=== PATIENT | male | born 1960 | race Two or more races ===

== ENCOUNTER 2016-04-10 09:14 | Day surgery (SDC) | payer MEDICAID ==
[2016-04-01 10:12] LABS: ABSOLUTE BASOPHILS # (AUTO) 0.1 10^3/uL (0.0-0.2); ABSOLUTE EOSINOPHILS # (AUTO) 0.3 10^3/uL (0.0-0.6); ABSOLUTE LYMPHOCYTES (AUTO) 1.5 10^3/uL (0.5-4.7); ABSOLUTE MONOCYTES (AUTO) 0.6 10^3/uL (0.1-1.4); ABSOLUTE NEUT (AUTO) 3.9 10^3/uL (1.7-8.2); BASOPHILS % (AUTO) 2.3 % (0-2); EOSINOPHILS % (AUTO) 4.1 % (0-6); HEMATOCRIT 45.1 % (37.9-51.0); HEMOGLOBIN 15.4 g/dL (13.5-17.0); HGB HCT DIFFERENCE 1.1; LYMPHOCYTES % (AUTO) 23.2 % (13-45); MEAN CORPUSCULAR HEMOGLOBIN 34.7 pg (27.0-33.4); MEAN CORPUSCULAR HGB CONC 34.2 g/dL (32.0-36.0); MEAN CORPUSCULAR VOLUME 101 fl (80-97); MONOCYTES % (AUTO) 9.9 % (3-13); RED BLOOD COUNT 4.45 10^6/uL (4.35-5.55); RED CELL DISTRIBUTION WIDTH 13.2 % (11.5-14.0); SEGMENTED NEUTROPHILS % (AUTO) 60.5 % (42-78); WHITE BLOOD COUNT 6.5 10^3/uL (4.0-10.5)
[2016-04-01 10:48] LABS: ANION GAP 8 (5-19); BLOOD UREA NITROGEN 7 mg/dL (7-20); CALCIUM 9.6 mg/dL (8.4-10.2); CARBON DIOXIDE 29 mmol/L (22-30); CHLORIDE 102 mmol/L (98-107); CREATININE RESULT 0.94 mg/dL (0.52-1.25); GLUCOSE 84 mg/dL (75-110); POTASSIUM 4.9 mmol/L (3.6-5.0); SODIUM 139.3 mmol/L (137-145)
--- NOTE | 2016-04-01 11:47 | EKG REPORT ---
SEVERITY:- ABNORMAL ECG - SINUS RHYTHM FIRST DEGREE AV BLOCK PROBABLE LEFT ATRIAL ABNORMALITY LEFT BUNDLE BRANCH BLOCK : Confirmed by: Adriane Dumont MD 01-Apr-2016 11:46:18
[~2016-04-10 09:14] MED LIST: LACTATED RINGERS 1000 ML IV PRN; LIDOCAINE 0.5% INJ-PF (5 MG/ML) 50 ML SDV SUBCUT PRN
[2016-04-10] MEDS ORDERED: BUPIVACAINE HCL 0.5%/EPI 1:200000 INJ 1.8 ML CARTRIDGE ONE (11:08)
[2016-04-10] MEDS ORDERED: LIDOCAINE 2%/EPINEPHRINE INJ 1.7 ML CARTRIDGE ONE (11:08)
[2016-04-10] MEDS ORDERED: PROPOFOL INJ 200 MG/20 ML VIAL IV ONE (12:09)
[2016-04-10] MEDS ORDERED: FENTANYL CITRATE INJ/PF 100 MCG/2 ML AMPUL ONE (12:09)
[2016-04-10] MEDS ORDERED: MIDAZOLAM 2 MG/2 ML INJ ONE (12:09)
[2016-04-10] MEDS ORDERED: LIDOCAINE 2% INJ (20 MG/ML) 20 ML MDV ONE (12:10)
[2016-04-10] MEDS ORDERED: PROMETHAZINE HCL INJ 25 MG/1 ML VIAL IV PRN ×2 (13:07)
[2016-04-10] MEDS ORDERED: DIPHENHYDRAMINE HCL 50 MG/ML VIAL IV PRN (13:07)
[2016-04-10] MEDS ORDERED: MORPHINE SULFATE 10 MG/ML INJ IV PRN (13:07)
[2016-04-10] MEDS ORDERED: OXYCODONE-ACETAMINOPHEN 5-325 MG TABLET PO PRN ×3 (13:07→13:32)
[2016-04-10] MEDS ORDERED: FENTANYL CITRATE INJ/PF 100 MCG/2 ML AMPUL IV PRN ×3 (13:07)
[2016-04-10] MEDS ORDERED: MEPERIDINE HCL/PF INJ 25 MG/1 ML DISP.SYRIN IV PRN (13:07)
[2016-04-10 14:38] VITALS: BP 119/74
--- NOTE | 2016-04-10 14:39 | Operative Report ---
Operative Report DATE OF SURGERY: 04/10/16 PREOPERATIVE DIAGNOSIS: Periodontitis and dental caries POSTOPERATIVE DIAGNOSIS: Same OPERATION: Surgical removal of teeth numbers 2, 3, 6, 8, 10, 11, 12, 17, 18, 19 , 20, 21, 22, 23, 24, 25, 26, 27, 28, 29, 30, 31 and 32 with alveoloplasties of all 4 quadrants SURGEON: AJ HENRIQUEZ ANESTHESIA: GA TISSUE REMOVED OR ALTERED: Teeth which were discarded COMPLICATIONS: None ESTIMATED BLOOD LOSS: 30 mL INTRAOPERATIVE FINDINGS: Nonrestorable teeth PROCEDURE: The patient was brought into operating room #2 and placed on the operating room table in supine position. IV sedation was achieved by anesthesia department. A total of 2 carpules of 2% lidocaine with 1:100,000 epinephrine, 2 carpules of half percent Marcaine with 1:200,000 epinephrine and 3 mL of 2% lidocaine without epinephrine were delivered to the planned surgical sites via both infiltration and nerve block. A gauze throat screen was used throughout the procedure. A bite block was used throughout the procedure. Full-thickness mucoperiosteal flaps were developed via envelope incisions around the sulcus of the teeth. Ostectomy was completed as needed. The teeth were delivered using elevators and forceps. Alveoloplasties were completed using rongeurs and bone files. The sockets were curetted free of any debris. Gauze packs were placed bilaterally to aid in continued hemostasis. The patient was transferred to recovery room in stable spontaneous breathing fashion.
== END 2016-04-10 14:35 | disposition home or self-care (01) ==
LOC: OROUT 09:14
PROVIDERS: ATTEND Dentist Oral and Maxillofacial Surgery
PROC: 0CDWXZ1 Extraction of Upper Tooth, Multiple, External Approach (ICD-10-PCS; 2016-04-10)
PROC: 0NQVXZZ Repair Left Mandible, External Approach (ICD-10-PCS; 2016-04-10)
PROC: 0NQTXZZ Repair Right Mandible, External Approach (ICD-10-PCS; 2016-04-10)
PROC: 0NQRXZZ Repair Maxilla, External Approach (ICD-10-PCS; 2016-04-10)
PROC: 0NQSXZZ (ICD-10-PCS; 2016-04-10)
PROC: 0CDXXZ1 Extraction of Lower Tooth, Multiple, External Approach (ICD-10-PCS; principal; 2016-04-10 12:00)
DX: K02.9 Dental caries, unspecified (principal); K05.30 Chronic periodontitis, unspecified; F17.210 Nicotine dependence, cigarettes, uncomplicated; I10 Essential (primary) hypertension; Z86.73 Personal history of transient ischemic attack (TIA), and cerebral infarction without residual deficits; Z79.82 Long term (current) use of aspirin; Z79.899 Other long term (current) drug therapy; I42.8 Other cardiomyopathies; I50.22 Chronic systolic (congestive) heart failure; R00.0 Tachycardia, unspecified; R55 Syncope and collapse; I44.7 Left bundle-branch block, unspecified; F17.200 Nicotine dependence, unspecified, uncomplicated; I73.9 Peripheral vascular disease, unspecified; R73.09 Other abnormal glucose; J44.9 Chronic obstructive pulmonary disease, unspecified; E87.5 Hyperkalemia
CPT/HCPCS: 93005; 36415 ×2; 83735; 84132; 85025; 80048; 71020; 93010; 41899; 41874 ×4; J2250; J3490 ×3; J2704; 170; J3010

== ENCOUNTER 2016-12-01 19:04 | Emergency (ER) | payer MEDICAID ==
[2016-12-01] MEDS ORDERED: ASPIRIN 81 MG TABLET, CHEWABLE PO ONE (20:28)
[2016-12-01 20:46] LABS: ABSOLUTE BASOPHILS # (AUTO) 0.1 10^3/uL (0.0-0.2); ABSOLUTE LYMPHOCYTES (AUTO) 0.9 10^3/uL (0.5-4.7); ABSOLUTE MONOCYTES (AUTO) 0.4 10^3/uL (0.1-1.4); ABSOLUTE NEUT (AUTO) 6.6 10^3/uL (1.7-8.2); BASOPHILS % (AUTO) 1.4 % (0-2); EOSINOPHILS % (AUTO) 0.6 % (0-6); HEMATOCRIT 52.5 % (37.9-51.0); HEMOGLOBIN 18.3 g/dL (13.5-17.0); HGB HCT DIFFERENCE 2.4; LYMPHOCYTES % (AUTO) 11.6 % (13-45); MEAN CORPUSCULAR HEMOGLOBIN 36.3 pg (27.0-33.4); MEAN CORPUSCULAR HGB CONC 34.8 g/dL (32.0-36.0); MEAN CORPUSCULAR VOLUME 104 fl (80-97); MONOCYTES % (AUTO) 4.6 % (3-13); RED BLOOD COUNT 5.03 10^6/uL (4.35-5.55); SEGMENTED NEUTROPHILS % (AUTO) 81.8 % (42-78); WHITE BLOOD COUNT 8.1 10^3/uL (4.0-10.5)
--- NOTE | 2016-12-01 20:46 | ER Document Report ---
ED General - General Chief Complaint: Shortness Of Breath Stated Complaint: shortness of breath Time Seen by Provider: 12/01/16 20:28 Mode of Arrival: Ambulatory Information source: Patient Notes: This is a 56-year-old man with a history of a dilated cardiomyopathy that presents to the emergency room with shortness of breath, sweating, increased fatigue and increased weakness. Patient denies any chest pain. Patient denies any syncopal episodes. TRAVEL OUTSIDE OF THE [place] IN LAST 30 DAYS: No - HPI Onset: Last week Onset/Duration: Gradual Quality of pain: No pain Severity: None Pain Level: Denies Associated symptoms: Nausea. denies: Chest pain, Fever, Shortness of breath Exacerbated by: Denies Relieved by: Denies Similar symptoms previously: Yes Recently seen / treated by doctor: Yes - Related Data Allergies/Adverse Reactions: No Known Allergies Allergy (Verified 04/01/16 09:58) Past Medical History - General Information source: Patient - Social History Smoking Status: Current Every Day Smoker Cigarette use (# per day): Yes - Three quarters of a pack a day Chew tobacco use (# tins/day): No Frequency of alcohol use: None Drug Abuse: None Lives with: Family Family History: Reviewed & Not Pertinent Patient has suicidal ideation: No Patient has homicidal ideation: No - Past Medical History Cardiac Medical History: Reports: Hx Heart Attack - 8 MONTHS AGO, ON HEART MONITOR NOW, Hx Hypertension Denies: Hx Coronary Artery Disease Pulmonary Medical History: Denies: Hx Asthma, Hx Bronchitis, Hx COPD, Hx Pneumonia Neurological Medical History: Denies: Hx Cerebrovascular Accident, Hx Seizures Renal/ Medical History: Denies: Hx Peritoneal Dialysis Musculoskeltal Medical History: Denies Hx Arthritis Past Surgical History: Reports: Hx Pacemaker - Immunizations Hx Diphtheria, Pertussis, Tetanus Vaccination: Yes Review of Systems - Review of Systems Constitutional: denies: Chills, Fever EENT: No symptoms reported Cardiovascular: See HPI Respiratory: No symptoms reported Gastrointestinal: See HPI Genitourinary: No symptoms reported Male Genitourinary: No symptoms reported Musculoskeletal: No symptoms reported - Really Skin: No symptoms reported Hematologic/Lymphatic: No symptoms reported Neurological/Psychological: No symptoms reported Physical Exam - Vital signs Vitals: Pulse Resp BP Pulse Ox 79 20 140/92 H 100 12/01/16 19:49 12/01/16 19:49 12/01/16 19:49 12/01/16 19:49 Notes: Physical exam: GENERAL: 56-year-old man, alert and oriented 3, no acute distress HEAD: Atraumatic, normocephalic. EYES: Pupils equal round and reactive to light, extraocular movements intact, sclera anicteric, conjunctiva are normal. ENT: TMs normal, nares patent, oropharynx clear without exudates. Moist mucous membranes. NECK: Normal range of motion, supple without obvious mass or JVD. LUNGS: Breath sounds clear to auscultation bilaterally and equal. No wheezes rales or rhonchi. HEART: Regular rate and rhythm without murmurs, rubs or gallops. ABDOMEN: Soft, normoactive bowel sounds. No tenderness to palpation. No guarding, no rebound. No masses appreciated. EXTREMITIES: Normal range of motion, no pitting or edema. No clubbing or cyanosis. NEUROLOGICAL: Cranial nerves II through XII grossly intact. Normal speech, moving all extremities. PSYCH: Normal mood, normal affect. SKIN: Warm, Dry, normal turgor, no rashes or lesions noted. Course - Re-evaluation Re-evalutation: The patient's issues are as follows: He does have a history of a dilated cardiomyopathy with ejection fraction of approximately 15%. He is followed by Dr. Hicks of cardiology in [facility]. On physical exam, his lungs are clear, he does not have any JVD, and he has no edema. The patient has actually been losing weight. He has not had any chest pain. His BNP is elevated but I think this is probably chronic in nature. His chest x-ray is completely clear. The plan would be to continue his current medicine regimen. The next issue is his elevated liver enzymes. I have had a long discussion with the patient as well as the patient's . While you can sometimes see elevated liver enzymes with cardiomyopathy, the patient does admit to drinking a lot lately. I reiterated to him that the alcohol can also affect his cardiomyopathy. I have recommended he stop and he is ready to do so. I gave him a copy of today's labs to follow-up with Dr. Hicks. 12/01/16 22:40 - Vital Signs Vital signs: Temp Pulse Resp BP Pulse Ox 98.0 F 76 20 105/74 94 12/01/16 22:50 12/01/16 22:50 12/01/16 22:50 12/01/16 22:50 12/01/16 22:50 - Laboratory Result Diagrams: 12/01/16 20:24 12/01/16 20:24 Laboratory results interpreted by me: 12/01/16 12/01/16 12/01/16 20:24 20:24 20:24 Hgb 18.3 H Hct 52.5 H MCV 104 H MCH 36.3 H Seg Neutrophils % 81.8 H Lymphocytes % 11.6 L Sodium 131.3 L Chloride 94 L Carbon Dioxide 20 L Direct Bilirubin 0.8 H AST 260 H ALT 99 H Alkaline Phosphatase 160 H Creatine Kinase 46 L NT-Pro-B Natriuret Pep 6360 H - Diagnostic Test Radiology reviewed: Image reviewed, Reports reviewed - Chest x-ray shows no infiltrates - EKG Interpretation by Me Rate: Normal Rhythm: NSR - EKG shows normal sinus rhythm with a left bundle branch block with diffuse T and ST abnormalities which appear unchanged from an EKG performed April 01, 2016 Discharge - Discharge Clinical Impression: Cardiomyopathy, Elevated liver enzymes Condition: Stable Disposition: HOME, SELF-CARE Additional Instructions: Thank you for choosing [facility] for your care. The examination and treatment you have received in the Emergency Department today has been rendered on an emergency basis only and is not intended to be a substitute for complete medical care. You should contact your follow-up physician as it is important that he or she examine you for any new or remaining problems. If given a copy of any lab tests or radiology reports, please bring them with you when you see your physician. If your problem worsens or new symptoms appear and you are unable to arrange prompt follow-up care, return to the Emergency Department. Specific signs to look out for: Worsening weakness, concerns for passing out, any chest pain or shortness of breath. Any other instructions: Continue current medicines. Follow-up with your gum rolling machine tender (Dr. Hicks). Bring in copy of today's labs with you when you go. It is important that you stop drinking alcohol: It is affecting your liver at this point and can affect her heart. Referrals: JESSY GARRIDO MD [Primary Care Provider] - Follow up as needed
--- NOTE | 2016-12-01 21:03 | EKG REPORT ---
SEVERITY:- ABNORMAL ECG - SINUS RHYTHM FIRST DEGREE AV BLOCK LEFT ATRIAL ABNORMALITY NONSPECIFIC INTRAVENTRICULAR CONDUCTION DELAY CONSIDER LEFT VENTRICULAR HYPERTROPHY : Confirmed by: Adriane Dumont MD 01-Dec-2016 21:03:02
[2016-12-01 21:06] LABS: ALANINE AMINOTRANSFERASE 99 U/L (21-72); ALBUMIN 4.2 g/dL (3.5-5.0); ALKALINE PHOSPHATASE 160 U/L (38-126); ANION GAP 17 (5-19); ASPARTATE AMINO TRANSFERASE 260 U/L (17-59); BILIRUBIN,DIRECT 0.8 mg/dL (0.0-0.4); BILIRUBIN,TOTAL 1.3 mg/dL (0.2-1.3); BLOOD UREA NITROGEN 10 mg/dL (7-20); CALCIUM 9.3 mg/dL (8.4-10.2); CARBON DIOXIDE 20 mmol/L (22-30); CHLORIDE 94 mmol/L (98-107); CREATINE KINASE 46 U/L (55-170); CREATININE RESULT 0.75 mg/dL (0.52-1.25); GLUCOSE 90 mg/dL (75-110); POTASSIUM 4.8 mmol/L (3.6-5.0); SODIUM 131.3 mmol/L (137-145)
--- NOTE | 2016-12-01 21:08 | RADIOLOGY REPORT (SQ) ---
EXAM DESCRIPTION: CHEST SINGLE VIEW COMPLETED DATE/TIME: 12/01/2016 8:53 pm REASON FOR STUDY: sob COMPARISON: March 2016 EXAM PARAMETERS: NUMBER OF VIEWS: One view. TECHNIQUE: Single frontal radiographic view of the chest acquired. RADIATION DOSE: NA LIMITATIONS: None. FINDINGS: LUNGS AND PLEURA: No opacities, masses or pneumothorax. No pleural effusion. MEDIASTINUM AND HILAR STRUCTURES: No masses. Contour normal. HEART AND VASCULAR STRUCTURES: Heart normal in size. Normal vasculature. BONES: No acute findings. HARDWARE: None in the chest. OTHER: No other significant finding. IMPRESSION: NO ACUTE RADIOGRAPHIC FINDING IN THE CHEST. TECHNICAL DOCUMENTATION: JOB ID: [id number]
[2016-12-01 21:17] LABS: CREATINE KINASE MB 0.53 ng/mL (<4.55); TROPONIN I < 0.012 ng/mL
[2016-12-01 22:52] VITALS: BP 105/74
[2016-12-01] MEDS ORDERED: FUROSEMIDE INJ/PF 40 MG/4 ML SDV IV ONE (23:15)
== END 2016-12-01 23:30 | disposition home or self-care (01) ==
LOC: ER 19:04
DX: I42.9 Cardiomyopathy, unspecified (principal); R74.8 Abnormal levels of other serum enzymes; R06.02 Shortness of breath; R11.0 Nausea; F17.210 Nicotine dependence, cigarettes, uncomplicated; I10 Essential (primary) hypertension; I25.2 Old myocardial infarction
CPT/HCPCS: 93005; 99284; 96374; 36415; 82553; 82550; 85025; 80053; 84484; 83880; 71010; 93010; J1940

== ENCOUNTER 2017-02-26 15:06 | Inpatient (IN) | payer MEDICAID ==
--- NOTE | 2017-02-26 15:40 | ER Document Report ---
ED Medical Screen (RME) - General Chief Complaint: Breathing Difficulty Stated Complaint: DIFFICULTY BREATHING Time Seen by Provider: 02/26/17 15:37 Notes: Patient presented to Dr. Beckford's office with shortness of breath this morning. Chest x-ray was consistent with CHF. Laboratories were also done and consistent with CHF. Dr. Beckford referred patient to the emergency department for further evaluation. TRAVEL OUTSIDE OF THE [place] IN LAST 30 DAYS: No - Related Data Allergies/Adverse Reactions: No Known Allergies Allergy (Verified 02/26/17 15:07) Past Medical History - Social History Chew tobacco use (# tins/day): No Frequency of alcohol use: Heavy Drug Abuse: Marijuana - Past Medical History Cardiac Medical History: Reports: Hx Heart Attack - 8 MONTHS AGO, ON HEART MONITOR NOW, Hx Hypertension Denies: Hx Coronary Artery Disease Pulmonary Medical History: Denies: Hx Asthma, Hx Bronchitis, Hx COPD, Hx Pneumonia Neurological Medical History: Denies: Hx Cerebrovascular Accident, Hx Seizures Renal/ Medical History: Denies: Hx Peritoneal Dialysis Musculoskeltal Medical History: Denies Hx Arthritis Past Surgical History: Reports: Hx Pacemaker - Immunizations Hx Diphtheria, Pertussis, Tetanus Vaccination: Yes Physical Exam - Vital signs Vitals: Temp Pulse Resp BP Pulse Ox 97.6 F 79 20 97/63 L 97 02/26/17 15:12 02/26/17 15:12 02/26/17 15:12 02/26/17 15:12 02/26/17 15:12 Course - Vital Signs Vital signs: Temp Pulse Resp BP Pulse Ox 97.6 F 79 20 97/63 L 97 02/26/17 15:12 02/26/17 15:12 02/26/17 15:12 02/26/17 15:12 02/26/17 15:12
--- NOTE | 2017-02-26 16:07 | ER Document Report ---
ED Respiratory Problem - General Chief Complaint: Breathing Difficulty Stated Complaint: DIFFICULTY BREATHING Time Seen by Provider: 02/26/17 15:37 Notes: The patient is a 56-year-old male, past medical history CHF from CAD (used to have Lifevest 7 months ago, but no longer has one), presents from his primary care physician's office, Dr. Beckford, after he had x-rays and blood work done this morning that were consistent with a CHF exacerbation. He says that he is having worsening dyspnea on exertion and can only take 5 steps without stopping now. Patient takes spironolactone 25 mg daily. Patient denies chest pain, nausea, vomiting, cough, fevers, leg swelling, headache or back pain. TRAVEL OUTSIDE OF THE [place] IN LAST 30 DAYS: No - Related Data Allergies/Adverse Reactions: No Known Allergies Allergy (Verified 02/26/17 15:07) Past Medical History - General Information source: Patient - Social History Smoking Status: Current Every Day Smoker Chew tobacco use (# tins/day): No Frequency of alcohol use: Heavy Drug Abuse: Marijuana Family History: Reviewed & Not Pertinent Patient has suicidal ideation: No Patient has homicidal ideation: No - Past Medical History Cardiac Medical History: Reports: Hx Heart Attack - 8 MONTHS AGO, ON HEART MONITOR NOW, Hx Hypertension Denies: Hx Coronary Artery Disease Pulmonary Medical History: Denies: Hx Asthma, Hx Bronchitis, Hx COPD, Hx Pneumonia Neurological Medical History: Denies: Hx Cerebrovascular Accident, Hx Seizures Renal/ Medical History: Denies: Hx Peritoneal Dialysis Musculoskeltal Medical History: Denies Hx Arthritis Past Surgical History: Reports: Hx Pacemaker - Immunizations Hx Diphtheria, Pertussis, Tetanus Vaccination: Yes Review of Systems - Review of Systems Notes: REVIEW OF SYSTEMS: CONSTITUTIONAL: -fevers, -chills EENT: -eye pain, -difficulty swallowing, -nasal congestion CARDIOVASCULAR:-chest pain, -syncope. RESPIRATORY: -cough, +SOB GASTROINTESTINAL: -abdominal pain, - nausea, -vomiting, -diarrhea GENITOURINARY: -dysuria, -hematuria MUSCULOSKELETAL: -back pain, -neck pain SKIN: -rash or skin lesions. HEMATOLOGIC: -easy bruising or bleeding. LYMPHATIC: -swollen, enlarged glands. NEUROLOGICAL: -altered mental status or loss of consciousness, -headache, - neurologic symptoms PSYCHIATRIC: -anxiety, -depression. ALL OTHER SYSTEMS REVIEWED AND NEGATIVE. Physical Exam - Vital signs Vitals: Temp Pulse Resp BP Pulse Ox 97.6 F 79 20 97/63 L 97 02/26/17 15:12 02/26/17 15:12 02/26/17 15:12 02/26/17 15:12 02/26/17 15:12 - Notes Notes: PHYSICAL EXAMINATION: GENERAL: Well-appearing, well-nourished and in no acute distress. HEAD: Atraumatic, normocephalic. EYES: Pupils equal round and reactive to light, extraocular movements intact, sclera anicteric, conjunctiva are normal. ENT: nares patent, oropharynx clear without exudates. Moist mucous membranes. NECK: Normal range of motion, supple without lymphadenopathy LUNGS: Rales in all lung silva. Mild respiratory distress. HEART: Regular rate and rhythm without murmurs ABDOMEN: Soft, nontender, normoactive bowel sounds. No guarding, no rebound. No masses appreciated. EXTREMITIES: Normal range of motion, no pitting or edema. No cyanosis. NEUROLOGICAL: Cranial nerves grossly intact. Normal speech, normal gait. Normal sensory and motor exams. PSYCH: Normal mood, normal affect. SKIN: Warm, Dry, normal turgor, no rashes or lesions noted. Course - Re-evaluation Re-evalutation: Patient with worsening pulmonary edema causing dyspnea on exertion. The blood work and chest x-ray from his visit with Dr. Beckford this morning were reviewed. He is only having mild tachypnea without hypoxia while at rest. Patient given a low dose of Lasix to help with his pulmonary vascular congestion and will admit patient as inpatient for further evaluation and monitoring. 02/26/17 16:[address] Rosales and will admit as Inpatient to [facility] for further evaluation and monitoring of his respiratory status and CHF exacerbation. - Vital Signs Vital signs: Temp Pulse Resp BP Pulse Ox 97.6 F 79 20 97/63 L 97 02/26/17 15:12 02/26/17 15:12 02/26/17 15:12 02/26/17 15:12 02/26/17 15:12 - Diagnostic Test Radiology reviewed: Image reviewed, Reports reviewed Radiology results interpreted by me: CXR (from this morning): pulmonary vascular congestion - EKG Interpretation by Me Rate: Normal [place]/QRS: Left axis deviation Voltage: Consistant with LVH When compared to previous EKG there are: No significant change Discharge - Discharge Clinical Impression: CHF exacerbation Qualifiers: Congestive heart failure type: unspecified congestive heart failure type Qualified Code(s): I50.9 - Heart failure, unspecified Condition: Stable Disposition: ADMITTED INPATIENT Admitting Provider: Hospitalist - [facility] Admitted: Telemetry
[2017-02-26] MEDS ORDERED: FUROSEMIDE INJ/PF 20 MG/2 ML SDV IV ONE (16:16)
[2017-02-26] MEDS ORDERED: ACETAMINOPHEN 325 MG TABLET PO PRN (16:51)
[2017-02-26] MEDS ORDERED: ONDANSETRON HCL INJ/PF 4 MG/2 ML SDV IV PRN (16:51)
--- NOTE | 2017-02-26 17:23 | PDOC H&P ---
History of Present Illness Admission Date/PCP: 02/26/17 16:56 JESSY GARRIDO MD Patient complains of: Shortness of breath for several months History of Present Illness: RAKESH MCCABE is a 56 year old male presents to the emergency room via primary care provider's office with complaint of shortness of breath. Patient was seen at his primary care provider's office where he had a chest x-ray and labs done. Chest x-ray demonstrated evidence consistent with congestive heart failure therefore patient was directed to the emergency room. Patient reports that he has been short of breath for approximately 7 months. Patient states that he also has productive cough which is not normal for him. Patient states the productive cough has been present for about 7 months as well. Patient states he is having leg cramping and needlelike sensations in legs. Patient states that he has not had lower extremity swelling but he has noticed that he has had facial swelling. Patient also reports that he has had hard time only and flat due to feeling short of breath. Patient states that this symptom has been present for several months as well. Patient also reports that he has had a 20 pound weight loss in the last 6 months. Patient reports that he does smoke 1 pack per day of cigarettes for approximately 35 years. Patient reports that he was diagnosed with congestive heart failure and was required to wear a LifeVest ; reports that LifeVest was removed during the last few months. Past Medical History Cardiac Medical History: Reports: Myocardial Infarction - 8 MONTHS AGO, ON HEART MONITOR NOW, Hypertension Denies: Coronary Artery Disease Pulmonary Medical History: Denies: Asthma, Bronchitis, Chronic Obstructive Pulmonary Disease (COPD), Pneumonia Neurological Medical History: Denies: Seizures Musculoskeltal Medical History: Denies: Arthritis Hematology: Denies: Anemia Past Surgical History Past Surgical History: Reports: Pacemaker Social History Smoking Status: Current Every Day Smoker Frequency of Alcohol Use: Heavy - 8 beers a day Hx Recreational Drug Use: No Drugs: None - Advance Directive Resuscitation Status: Full Code Family History Family History: Reviewed & Not Pertinent Parental Family History Reviewed: Yes Children Family History Reviewed: Yes Sibling(s) Family History Reviewed.: Yes Medication/Allergy Home Medications: Albuterol Sulfate [Proair HFA] 2 puff IN Q4 02/26/17 Budesonide/Formoterol Fumarate [Symbicort 160-4.5 Mcg Inhaler] 2 puff IN Q12 Carvedilol [Coreg 25 mg Tablet] 25 mg PO Q12 02/26/17 Lisinopril [Prinivil 10 mg Tablet] 10 mg PO DAILY 02/26/17 Spironolactone [Aldactone 25 mg Tablet] 25 mg PO DAILY 02/26/17 Allergies/Adverse Reactions: No Known Allergies Allergy (Verified 02/26/17 15:07) Review of Systems Constitutional: PRESENT: weight loss. ABSENT: as per HPI, anorexia, chills, fatigue, fever(s), headache(s), night sweats, weakness, weight gain, other Eyes: ABSENT: visual disturbances Ears: ABSENT: hearing changes Cardiovascular: PRESENT: orthropnea. ABSENT: chest pain, dyspnea on exertion, edema, palpitations Respiratory: PRESENT: cough, dyspnea, sputum Gastrointestinal: ABSENT: abdominal pain, constipation, diarrhea, hematemesis, hematochezia, nausea, vomiting Genitourinary: ABSENT: dysuria, hematuria Musculoskeletal: ABSENT: joint swelling Integumentary: ABSENT: rash, wounds Neurological: ABSENT: abnormal gait, abnormal speech, confusion, dizziness, focal weakness, syncope Psychiatric: ABSENT: anxiety, depression, homidical ideation, suicidal ideation Endocrine: ABSENT: cold intolerance, heat intolerance, polydipsia, polyuria Hematologic/Lymphatic: ABSENT: easy bleeding, easy bruising Physical Exam Vital Signs: Temp Pulse Resp BP Pulse Ox 97.6 F 79 20 97/63 L 97 02/26/17 15:12 02/26/17 15:12 02/26/17 15:12 02/26/17 15:12 02/26/17 15:12 General appearance: PRESENT: no acute distress, thin Head exam: PRESENT: atraumatic, normocephalic Eye exam: PRESENT: conjunctiva pink, EOMI. ABSENT: scleral icterus Ear exam: PRESENT: normal external ear exam Mouth exam: PRESENT: moist, tongue midline Neck exam: ABSENT: carotid bruit, JVD, lymphadenopathy, thyromegaly Respiratory exam: PRESENT: decreased breath sounds, prolonged expiratory phas, rhonchi, wheezes, other - Pt watching TV and talking to me during encounter and does not appear to be in any distress. Cardiovascular exam: PRESENT: RRR. ABSENT: diastolic murmur, rubs, systolic murmur Pulses: PRESENT: normal dorsalis pedis pul Vascular exam: PRESENT: normal capillary refill GI/Abdominal exam: PRESENT: normal bowel sounds, soft. ABSENT: distended, guarding, mass, organolmegaly, rebound, tenderness Rectal exam: PRESENT: deferred Extremities exam: PRESENT: full ROM, other - Loss of lower extremity hair pattern. ABSENT: calf tenderness, clubbing, pedal edema Musculoskeletal exam: PRESENT: ambulatory, full ROM Neurological exam: PRESENT: alert, awake, oriented to person, oriented to place , oriented to time, oriented to situation, CN II-XII grossly intact. ABSENT: motor sensory deficit Psychiatric exam: PRESENT: appropriate affect, normal mood. ABSENT: homicidal ideation, suicidal ideation Skin exam: PRESENT: dry, intact, warm. ABSENT: cyanosis, rash Assessment & Plan - Diagnosis (1) Acute bronchitis Is this a current diagnosis for this admission?: Yes Plan: We will place patient on steroids, breathing treatments, and Levaquin. Will monitor patient's respiratory function in the a.m. (2) CHF exacerbation Qualifiers: Congestive heart failure type: systolic Qualified Code(s): I50.23 - Acute on chronic systolic (congestive) heart failure Is this a current diagnosis for this admission?: Yes Plan: Presumed acute on chronic systolic congestive heart failure mild: We will give 1 dose of Lasix and reevaluate in a.m. (3) Moderate protein-calorie malnutrition Is this a current diagnosis for this admission?: Yes Plan: Due to patient's 20 pound weight loss will do CT of chest abdomen and pelvis to evaluate for neoplasm. Patient has never had a colonoscopy. Pt reports that he recently established care with PCP. (4) Hyponatremia Is this a current diagnosis for this admission?: Yes Plan: We will reevaluate once patient's been diuresed. (5) Nonischemic cardiomyopathy Is this a current diagnosis for this admission?: Yes Plan: Patient with history of low EF required a LifeVest. Patient states that LifeVest was removed due to heart function improving. Patient's most recent EF unknown therefore will check a 2D echo. (6) PAD (peripheral artery disease) Is this a current diagnosis for this admission?: Yes Plan: Recommend that patient discontinue smoking. Patient complains of leg cramping most likely due to PAD. Will check lipid profile. (7) EtOH dependence Qualifiers: Substance use status: uncomplicated Qualified Code(s): F10.20 - Alcohol dependence, uncomplicated Is this a current diagnosis for this admission?: Yes Plan: We will give multivitamin, thiamine and folate. Will write for as needed Ativan for EtOH withdrawal (8) Tobacco dependence Is this a current diagnosis for this admission?: Yes Plan: We will write for nicotine patch. Encourage patient to discontinue tobacco use. (9) DVT prophylaxis Is this a current diagnosis for this admission?: Yes Plan: SCDs - Time Time Spent: 30 to 50 Minutes
[2017-02-26] MEDS ORDERED: LORAZEPAM INJ 2 MG/1 ML VIAL IV PRN (17:25)
--- NOTE | 2017-02-26 17:59 | EKG REPORT ---
SEVERITY:- ABNORMAL ECG - SINUS RHYTHM LEFT ATRIAL ABNORMALITY IVCD, CONSIDER ATYPICAL LBBB : Confirmed by: Paddy Ding MD 26-Feb-2017 17:59:07
[2017-02-26] MEDS ORDERED: LEVOFLOXACIN 500 MG/D5W RTU 500 MG/100 ML RTUPB IV ONE (19:00)
[2017-02-26] MEDS: DIAZEPAM 2 MG TABLET PO SCH (19:21)
[2017-02-26] MEDS: ALBUTEROL SULFATE 0.083% NEB 2.5 MG/3 ML AMPUL NEB SCH (19:41)
[2017-02-26] MEDS: METHYLPREDNISOLONE INJ 40 MG/1 ML SDV IV SCH (21:14)
[2017-02-27] MEDS: ALBUTEROL SULFATE 0.083% NEB 2.5 MG/3 ML AMPUL NEB SCH ×4 (01:50→19:58)
[2017-02-27 05:07] LABS: HEMATOCRIT 42.6 % (37.9-51.0); HEMOGLOBIN 14.8 g/dL (13.5-17.0); MEAN CORPUSCULAR HEMOGLOBIN 36.9 pg (27.0-33.4); MEAN CORPUSCULAR HGB CONC 34.8 g/dL (32.0-36.0); MEAN CORPUSCULAR VOLUME 106 fl (80-97); PLATELET COUNT 200 10^3/uL (150-450); RED BLOOD COUNT 4.02 10^6/uL (4.35-5.55); RED CELL DISTRIBUTION WIDTH 14.2 % (11.5-14.0); WHITE BLOOD COUNT 8.9 10^3/uL (4.0-10.5)
[2017-02-27] MEDS: LANSOPRAZOLE 30 MG TAB.RAP.DR PO SCH (05:13)
[2017-02-27 05:26] LABS: ALANINE AMINOTRANSFERASE 32 U/L (21-72); ALBUMIN 2.9 g/dL (3.5-5.0); ALKALINE PHOSPHATASE 162 U/L (38-126); ANION GAP 9 (5-19); ASPARTATE AMINO TRANSFERASE 33 U/L (17-59); BILIRUBIN,DIRECT 0.4 mg/dL (0.0-0.4); BILIRUBIN,TOTAL 0.7 mg/dL (0.2-1.3); BLOOD UREA NITROGEN 9 mg/dL (7-20); CALCIUM 8.8 mg/dL (8.4-10.2); CARBON DIOXIDE 29 mmol/L (22-30); CHLORIDE 93 mmol/L (98-107); GLUCOSE 218 mg/dL (75-110); MAGNESIUM 1.9 mg/dL (1.6-2.3); PHOSPHORUS 4.1 mg/dL (2.5-4.5); POTASSIUM 3.7 mmol/L (3.6-5.0); SODIUM 130.9 mmol/L (137-145); TOTAL PROTEIN 5.5 g/dL (6.3-8.2)
[2017-02-27 05:35] LABS: ABSOLUTE LYMPHOCYTES# (MANUAL) 0.4 10^3/uL (0.5-4.7); ABSOLUTE MONOCYTES # (MANUAL) 0.1 10^3/uL (0.1-1.4); ABSOLUTE NEUTROPHILS# (MANUAL) 8.4 10^3/uL (1.7-8.2); BASOPHILS % (MANUAL) 0 % (0-2); EOSINOPHILS % (MANUAL) 0 % (0-6); LYMPHOCYTES % (MANUAL) 5 % (13-45); MONOCYTES % (MANUAL) 1 % (3-13); SEGMENTED NEUTROPHILS % (MAN) 94 % (42-78); TOTAL CELLS COUNTED 100
[2017-02-27 05:36] LABS: PLATELET COMMENT ADEQUATE
[2017-02-27 05:37] LABS: FREE T4 (FREE THYROXINE) 1.68 ng/dL (0.78-2.19)
[2017-02-27 05:51] LABS: THYROID STIMULATING HORMONE 1.86 uIU/mL (0.47-4.68)
--- NOTE | 2017-02-27 09:28 | RADIOLOGY REPORT (SQ) ---
EXAM DESCRIPTION: CT CHEST WITH; CT ABD/PELVIS WITH IV ORAL COMPLETED DATE/TIME: 02/26/2017 8:47 pm REASON FOR STUDY: SOB, 20 lb weight loss, Tobacco Dependence; 20 lb loss COMPARISON: AP chest 02/26/2017 CONTRAST TYPE AND DOSE: contrast/concentration: Isovue 370.00 mg/ml; Total Contrast Delivered: 80.0 ml; Total Saline Delivered: 51.0 ml RENAL FUNCTION: Creatinine 0.65 TECHNIQUE: CT scan of the chest performed using helical scanning technique with dynamic intravenous contrast injection. Images reviewed with lung, soft tissue and bone windows. Reconstructed coronal a nd sagittal MPR images reviewed. All images stored on PACS. CT scan of the abdomen and pelvis performed with intravenous and with oral contrastusing helical scan sanjay technique with dynamic intravenous contrast injection. Images reviewed with lung, soft tissue a nd bone windows. Reconstructed coronal and sagittal MPR images reviewed. Delayed images for evaluat ion of the urinary system also acquired and evaluated. All images stored on PACS. All CT scanners at this facility use dose modulation, iterative reconstruction, and/or weight based d osing when appropriate to reduce radiation dose to as low as reasonably achievable (ALARA). [facility]: Dose Right [facility]: CareDose [facility]: Dose Right [facility]: Teradose 4D [facility]: Smart Nuvyyo RADIATION DOSE: CT Rad equipment meets quality standard of care and radiation dose reduction techniq ues were employed. CTDIvol: 4.8 - 5.2 mGy. DLP: 587 mGy-cm. . LIMITATIONS: None. FINDINGS: CHEST: LUNGS AND PLEURA: Diffuse changes of obstructive lung disease are present. These are most prominent in the right upper lobe. There is minimal dependent airspace disease in the left lung base atelectasis versus pneumonia, and a trace left pleural effusion. No pneumothorax. No worrisome pulmonary nodules. Airways patent. HILAR AND MEDIASTINAL STRUCTURES: No identified masses or abnormal nodes. HEART AND VASCULAR STRUCTURES: No aneurysm or dissection. No central pulmonary emboli. No pericardi al effusion. Left ventricle is dilated and thin walled, question cardiomyopathy. Overall mild to mo derate cardiomegaly is present. HARDWARE: None. THYROID AND OTHER SOFT TISSUES: No masses. No adenopathy. BONES: No significant finding. OTHER: No other significant finding. ABDOMEN AND PELVIS: LIVER: Diffusely fatty. Normal size. No masses. No dilated ducts. SPLEEN: Normal size. No focal lesions. PANCREAS: No masses. No significant calcifications. No adjacent inflammation or peripancreatic fluid collections. Pancreatic duct not dilated. GALLBLADDER: No identified stones by CT criteria. No inflammatory changes to suggest cholecystitis. ADRENAL GLANDS: No significant masses or asymmetry. RIGHT KIDNEY AND URETER: No solid masses. No significant calcification. No hydronephrosis or hydroure ter. LEFT KIDNEY AND URETER: No solid masses. No significant calcification. No hydronephrosis or hydrouret er. AORTA AND VESSELS: No aneurysm. No dissection. Renal arteries, SMA, celiac without stenosis. RETROPERITONEUM: No retroperitoneal adenopathy, hemorrhage or masses. BOWEL AND PERITONEAL CAVITY: No masses or inflammatory changes. No free fluid or peritoneal masses. APPENDIX: Normal. ABDOMINAL WALL: No masses. No hernias. BONES: No significant or acute findings. OTHER: No other significant finding. IMPRESSION: Trace left pleural effusion with minimal left basilar airspace disease atelectasis versu s pneumonia Obstructive lung disease Cardiomegaly with dilated thin wall left ventricle, worrisome for cardiomyopathy Fatty liver. Otherwise unremarkable CT abdomen pelvis TECHNICAL DOCUMENTATION: JOB ID: [id number] Quality ID # [id number]: Final reports with documentation of one or more dose reduction techniques (e.g., Au tomated exposure control, adjustment of the mA and/or kV according to patient size, use of iterative reconstruction technique) 2010 [employer]- All Rights Reserved
[2017-02-27] MEDS: THIAMINE HCL 100 MG TABLET PO SCH (09:50)
[2017-02-27] MEDS: DIAZEPAM 2 MG TABLET PO SCH ×2 (09:50→18:14)
[2017-02-27] MEDS: FOLIC ACID 1 MG TABLET PO SCH (09:50)
[2017-02-27] MEDS: MULTIVITAMIN TABLET PO SCH (09:50)
[2017-02-27] MEDS: METHYLPREDNISOLONE INJ 40 MG/1 ML SDV IV SCH (09:50)
--- NOTE | 2017-02-27 10:19 | PDOC PROGRESS REPORT ---
Subjective Progress Note for:: 02/27/17 Subjective:: Pt states that his breathing is pretty good. Pt states that his shortness of breath has improved. Reason For Visit: MILD ACUTE ON CHRONIC SYSTOLIC CHF,ACUTE BRONCHITI Physical Exam Vital Signs: Temp Pulse Resp BP Pulse Ox 97.3 F 71 14 119/70 96 02/27/17 08:17 02/27/17 08:24 02/27/17 08:24 02/27/17 08:17 02/27/17 08:24 Intake & Output 02/26/17 02/27/17 02/28/17 06:59 06:59 06:59 Intake Total 942 Output Total 1392 Balance -450 Weight 55.5 kg General appearance: PRESENT: no acute distress, thin Head exam: PRESENT: atraumatic, normocephalic Eye exam: PRESENT: conjunctiva pink, EOMI. ABSENT: scleral icterus Ear exam: PRESENT: normal external ear exam Mouth exam: PRESENT: moist, tongue midline Neck exam: ABSENT: carotid bruit, JVD, lymphadenopathy, thyromegaly Respiratory exam: PRESENT: decreased breath sounds, prolonged expiratory phas, rhonchi, wheezes Cardiovascular exam: PRESENT: RRR. ABSENT: diastolic murmur, rubs, systolic murmur Pulses: PRESENT: normal dorsalis pedis pul Vascular exam: PRESENT: normal capillary refill GI/Abdominal exam: PRESENT: normal bowel sounds, soft. ABSENT: distended, guarding, mass, organolmegaly, rebound, tenderness Rectal exam: PRESENT: deferred Extremities exam: PRESENT: full ROM. ABSENT: calf tenderness, clubbing, pedal edema Neurological exam: PRESENT: alert, awake, oriented to person, oriented to place , oriented to time, oriented to situation, CN II-XII grossly intact. ABSENT: motor sensory deficit Psychiatric exam: PRESENT: appropriate affect, normal mood. ABSENT: homicidal ideation, suicidal ideation Skin exam: PRESENT: dry, intact, warm. ABSENT: cyanosis, rash Results Laboratory Results: 02/27/17 03:56 02/27/17 03:56 02/27/17 02/27/17 02/27/17 03:56 03:56 03:56 WBC 8.9 RBC 4.02 L Hgb 14.8 Hct 42.6 MCV 106 H MCH 36.9 H MCHC 34.8 RDW 14.2 H Plt Count 200 Seg Neutrophils % Not Reportable Lymphocytes % Not Reportable Monocytes % Not Reportable Eosinophils % Not Reportable Basophils % Not Reportable Absolute Neutrophils Not Reportable Absolute Lymphocytes Not Reportable Absolute Monocytes Not Reportable Absolute Eosinophils Not Reportable Absolute Basophils Not Reportable Sodium 130.9 L Potassium 3.7 Chloride 93 L Carbon Dioxide 29 Anion Gap 9 BUN 9 Creatinine 0.75 Est GFR ( Amer) > 60 Est GFR (Non-Af Amer) > 60 Glucose 218 H Calcium 8.8 Phosphorus 4.1 Magnesium 1.9 Total Bilirubin 0.7 AST 33 ALT 32 Alkaline Phosphatase 162 H Total Protein 5.5 L Albumin 2.9 L TSH 1.86 Free T4 1.68 Impressions: Abdomen/Pelvis CT 02/26/17 00:00 IMPRESSION: Trace left pleural effusion with minimal left basilar airspace disease atelectasis versus pneumonia Obstructive lung disease Cardiomegaly with dilated thin wall left ventricle, worrisome for cardiomyopathy Fatty liver. Otherwise unremarkable CT abdomen pelvis Chest CT 02/26/17 00:00 IMPRESSION: Trace left pleural effusion with minimal left basilar airspace disease atelectasis versus pneumonia Obstructive lung disease Cardiomegaly with dilated thin wall left ventricle, worrisome for cardiomyopathy Fatty liver. Otherwise unremarkable CT abdomen pelvis Assessment & Plan - Diagnosis (1) Acute bronchitis Is this a current diagnosis for this admission?: Yes Plan: Continue scheduled breathing treatments. Continue Levaquin. Will change steroids to daily. (2) CHF exacerbation Qualifiers: Congestive heart failure type: systolic Qualified Code(s): I50.23 - Acute on chronic systolic (congestive) heart failure Is this a current diagnosis for this admission?: Yes Plan: Presumed acute on chronic systolic congestive heart failure mild: We will give additional dose of Lasix 20 mg IV 1. (3) Moderate protein-calorie malnutrition Is this a current diagnosis for this admission?: Yes Plan: CT of chest abdomen and pelvis does not demonstrate any evidence of metastatic disease. Will recommend that patient have a colonoscopy as outpatient. Will place patient on Megace and encourage good p.o. intake with supplemental drinks. (4) Hyponatremia Is this a current diagnosis for this admission?: Yes Plan: Resolved (5) Nonischemic cardiomyopathy Is this a current diagnosis for this admission?: Yes Plan: 2D echo is pending. Will give Lasix 20 mg IV 1 (6) PAD (peripheral artery disease) Is this a current diagnosis for this admission?: Yes Plan: Recommend that patient discontinue smoking. Patient complains of leg cramping most likely due to PAD. Will check lipid profile. (7) EtOH dependence Qualifiers: Substance use status: uncomplicated Qualified Code(s): F10.20 - Alcohol dependence, uncomplicated Is this a current diagnosis for this admission?: Yes Plan: We continue multivitamin, thiamine and folate. Will continue Ativan for EtOH withdrawal PRN (8) Tobacco dependence Is this a current diagnosis for this admission?: Yes Plan: We continue nicotine patch. Encourage patient to discontinue tobacco use. (9) Pleural effusion, left Is this a current diagnosis for this admission?: Yes Plan: Small Left Pleural Effusion: Will give additional Lasix X 1. 2 D Echo pending. (10) Fatty liver Is this a current diagnosis for this admission?: Yes Plan: Supportive Care. (11) DVT prophylaxis Is this a current diagnosis for this admission?: Yes Plan: SCDs - Time Time Spent with patient: 15-24 minutes Anticipated discharge: Home
[2017-02-27] MEDS ORDERED: FUROSEMIDE INJ/PF 20 MG/2 ML SDV IV ONE (11:00)
--- NOTE | 2017-02-27 13:42 | XCELERA REPORT ---
[address] [address] Transthoracic Echocardiogram Report Name: RAKESH MCCABE Age: 56 yrs Gender: Male : 1960 Patient Status: Inpatient Patient Location: [address] [place], [place] [id number] Study Date: 02/27/2017 10:32 AM Height: 68 in Weight: 113 lb BSA: 1.6 m2 Procedure: A two-dimensional transthoracic echocardiogram with color flow Doppler was performed. Study Quality: Good. Reason For Study: CHF History: CHF. Ordering Physician: NII RODAS Performed By: Gayatri High Interpretation Summary The left ventricle is severely dilated. There is normal left ventricular wall thickness. LV EF is 10% Left ventricular systolic function is severely reduced. There is severe global hypokinesis of the left ventricle. There is no thrombus. The right atrium is normal. The left atrium is severely dilated. There is no evidence of mitral valve prolapse. There is no vegetation seen on the mitral valve. There is a severe amount of mitral regurgitation There is no mitral valve stenosis. There is no aortic valvular vegetation. There is no aortic valve stenosis There is no LVOT obstruction. No aortic regurgitation is present. There is no tricuspid stenosis. There is a mild amount of tricuspid regurgitation There is mild pulmonary hypertension by echo RVSP is 47 mm of Hg , with RA mean of 10. There is no pulmonic valvular stenosis. There is no pulmonic valvular regurgitation. The aortic root is normal size. There is no pericardial effusion. MMode/2D Measurements & Calculations RVDd: 2.0 cm LVIDd: 7.6 cm FS: 4.6 % Ao root diam: IVSd: 0.80 cm LVIDs: 7.2 cm EDV(Teich): 3.0 cm LVPWd: 0.77 cm 306.4 ml Ao root area: ESV(Teich): 275.6 ml 7.2 cm2 EF(Teich): 10.1 % LA dimension: 5.0 cm LVLd ap4: 10.2 cm SV(MOD-sp4): EDV(MOD-sp4): 39.0 ml 261.0 ml LVLs ap4: 9.7 cm ESV(MOD-sp4): 222.0 ml EF(MOD-sp4): 14.9 % Doppler Measurements & Calculations MV E max jorge: MV P1/2t max jorge: Ao V2 max: LV V1 max P.4 cm/sec 139.3 cm/sec 132.5 cm/sec 2.4 mmHg MV A max jorge: MV P1/2t: 45.6 msec Ao max PG: LV V1 max: 70.2 cm/sec MVA(P1/2t): 4.8 cm2 7.0 mmHg 77.9 cm/sec MV E/A: 2.0 MV dec slope: 895.5 cm/sec2 PA V2 max: TR max jorge: 85.9 cm/sec 302.4 cm/sec PA max P.0 mmHgTR max P.6 mmHg Left Ventricle The left ventricle is severely dilated. There is normal left ventricular wall thickness. LV EF is 10%. Left ventricular systolic function is severely reduced. There is severe global hypokinesis of the left ventricle. There is no thrombus. There is no ventricular septal defect visualized. Right Ventricle The right ventricle is normal in size and function. Atria The right atrium is normal. The left atrium is severely dilated. The interatrial septum is intact with no evidence for an atrial septal defect. Mitral Valve There is no evidence of mitral valve prolapse. There is no vegetation seen on the mitral valve. There is no mitral valve stenosis. There is a severe amount of mitral regurgitation. Aortic Valve There is no aortic valvular vegetation. There is no aortic valve stenosis. There is no LVOT obstruction. No aortic regurgitation is present. Tricuspid Valve There is no tricuspid stenosis. There is a mild amount of tricuspid regurgitation. There is mild pulmonary hypertension by echo. RVSP is 47 mm of Hg , with RA mean of 10. Pulmonic Valve There is no pulmonic valvular stenosis. There is no pulmonic valvular regurgitation. Great Vessels The aortic root is normal size. Effusions There is no pericardial effusion. : NII RODAS > Adriane Dumont
[2017-02-27] MEDS: MEGESTROL ACETATE 20 MG TABLET PO SCH ×2 (14:54→18:14)
[2017-02-27] MEDS: LEVOFLOXACIN 500 MG/D5W RTU 500 MG/100 ML RTUPB IV SCH (18:14)
[2017-02-28] MEDS: ALBUTEROL SULFATE 0.083% NEB 2.5 MG/3 ML AMPUL NEB SCH ×4 (02:30→19:53)
[2017-02-28] MEDS: LANSOPRAZOLE 30 MG TAB.RAP.DR PO SCH (05:07)
[2017-02-28 06:05] LABS: ABSOLUTE LYMPHOCYTES (AUTO) 1.1 10^3/uL (0.5-4.7); ABSOLUTE MONOCYTES (AUTO) 0.9 10^3/uL (0.1-1.4); BASOPHILS % (AUTO) 0.2 % (0-2); EOSINOPHILS % (AUTO) 0.4 % (0-6); HEMATOCRIT 39.6 % (37.9-51.0); HEMOGLOBIN 13.4 g/dL (13.5-17.0); LYMPHOCYTES % (AUTO) 10.2 % (13-45); MEAN CORPUSCULAR HEMOGLOBIN 35.4 pg (27.0-33.4); MEAN CORPUSCULAR VOLUME 104 fl (80-97); PLATELET COUNT 228 10^3/uL (150-450); SEGMENTED NEUTROPHILS % (AUTO) 81.2 % (42-78); TOTAL CELLS COUNTED % (AUTO) 100 %; WHITE BLOOD COUNT 11.1 10^3/uL (4.0-10.5)
[2017-02-28 06:24] LABS: ALANINE AMINOTRANSFERASE 24 U/L (21-72); ALBUMIN 2.7 g/dL (3.5-5.0); ALKALINE PHOSPHATASE 110 U/L (38-126); ANION GAP 9 (5-19); ASPARTATE AMINO TRANSFERASE 23 U/L (17-59); BILIRUBIN,DIRECT 0.3 mg/dL (0.0-0.4); BILIRUBIN,TOTAL 0.5 mg/dL (0.2-1.3); BLOOD UREA NITROGEN 10 mg/dL (7-20); CALCIUM 8.9 mg/dL (8.4-10.2); CARBON DIOXIDE 28 mmol/L (22-30); CHLORIDE 95 mmol/L (98-107); CHOLESTEROL 116.51 mg/dL (0-200); GLUCOSE 98 mg/dL (75-110); POTASSIUM 3.1 mmol/L (3.6-5.0); SODIUM 131.8 mmol/L (137-145); TOTAL PROTEIN 5.3 g/dL (6.3-8.2); TRIGLYCERIDES 54 mg/dL (<150)
[2017-02-28 06:35] LABS: DIRECT LDL 42 mg/dL (<100)
[2017-02-28] MEDS: METHYLPREDNISOLONE INJ 40 MG/1 ML SDV IV SCH (09:09)
[2017-02-28] MEDS: FOLIC ACID 1 MG TABLET PO SCH (09:09)
[2017-02-28] MEDS: MEGESTROL ACETATE 20 MG TABLET PO SCH ×3 (09:10→18:08)
[2017-02-28] MEDS: MULTIVITAMIN TABLET PO SCH (09:10)
[2017-02-28] MEDS: THIAMINE HCL 100 MG TABLET PO SCH (09:10)
[2017-02-28] MEDS: DIAZEPAM 2 MG TABLET PO SCH ×3 (09:10→21:32)
[2017-02-28] MEDS ORDERED: DIAZEPAM 2 MG TABLET PO SCH (12:00)
--- NOTE | 2017-02-28 13:38 | PDOC PROGRESS REPORT ---
Subjective Progress Note for:: 02/28/17 Subjective:: Patient became agitated last night after being given Ativan. Patient states he is not sure what happened. Patient does report having difficulty sleeping and would like some difference. Reason For Visit: MILD ACUTE ON CHRONIC SYSTOLIC CHF,ACUTE BRONCHITI Physical Exam Vital Signs: Temp Pulse Resp BP Pulse Ox 97.5 F 64 20 102/61 97 02/28/17 11:44 02/28/17 11:44 02/28/17 11:44 02/28/17 11:44 02/28/17 11:44 Intake & Output 02/27/17 02/28/17 03/01/17 06:59 06:59 06:59 Intake Total 942 1411 Output Total 1392 1375 Balance -450 36 Weight 55.5 kg 56.3 kg General appearance: PRESENT: no acute distress, thin Head exam: PRESENT: normocephalic Eye exam: PRESENT: EOMI. ABSENT: scleral icterus Ear exam: PRESENT: normal external ear exam Mouth exam: PRESENT: moist Neck exam: ABSENT: carotid bruit, JVD, lymphadenopathy, thyromegaly Respiratory exam: PRESENT: clear to auscultation trey, other - Coarse breath sounds at the bases. ABSENT: rales, rhonchi, wheezes Cardiovascular exam: PRESENT: RRR. ABSENT: diastolic murmur, rubs, systolic murmur GI/Abdominal exam: PRESENT: normal bowel sounds, soft. ABSENT: distended, guarding, mass, organolmegaly, rebound, tenderness Rectal exam: PRESENT: deferred Extremities exam: PRESENT: full ROM. ABSENT: calf tenderness, clubbing, pedal edema Neurological exam: PRESENT: alert, awake, oriented to person, oriented to place , oriented to time, oriented to situation, CN II-XII grossly intact. ABSENT: motor sensory deficit Psychiatric exam: PRESENT: appropriate affect, normal mood. ABSENT: homicidal ideation, suicidal ideation Skin exam: PRESENT: dry, intact, warm. ABSENT: cyanosis, rash Results Laboratory Results: 02/28/17 05:10 02/28/17 05:10 02/28/17 02/28/17 05:10 05:10 WBC 11.1 H RBC 3.80 L Hgb 13.4 L Hct 39.6 MCV 104 H MCH 35.4 H MCHC 34.0 RDW 14.0 Plt Count 228 Seg Neutrophils % 81.2 H Lymphocytes % 10.2 L Monocytes % 8.0 Eosinophils % 0.4 Basophils % 0.2 Absolute Neutrophils 9.0 H Absolute Lymphocytes 1.1 Absolute Monocytes 0.9 Absolute Eosinophils 0.0 Absolute Basophils 0.0 Sodium 131.8 L Potassium 3.1 L Chloride 95 L Carbon Dioxide 28 Anion Gap 9 BUN 10 Creatinine 0.63 Est GFR ( Amer) > 60 Est GFR (Non-Af Amer) > 60 Glucose 98 Calcium 8.9 Total Bilirubin 0.5 AST 23 ALT 24 Alkaline Phosphatase 110 Total Protein 5.3 L Albumin 2.7 L Triglycerides 54 Cholesterol 116.51 LDL Cholesterol Direct 42 VLDL Cholesterol 11.0 HDL Cholesterol 66 Impressions: Abdomen/Pelvis CT 02/26/17 00:00 IMPRESSION: Trace left pleural effusion with minimal left basilar airspace disease atelectasis versus pneumonia Obstructive lung disease Cardiomegaly with dilated thin wall left ventricle, worrisome for cardiomyopathy Fatty liver. Otherwise unremarkable CT abdomen pelvis Chest CT 02/26/17 00:00 IMPRESSION: Trace left pleural effusion with minimal left basilar airspace disease atelectasis versus pneumonia Obstructive lung disease Cardiomegaly with dilated thin wall left ventricle, worrisome for cardiomyopathy Fatty liver. Otherwise unremarkable CT abdomen pelvis Assessment & Plan - Diagnosis (1) Acute bronchitis Is this a current diagnosis for this admission?: Yes Plan: Continue antibiotics and nebulizers and steroids. Will transition to p.o. meds in the morning. (2) CHF exacerbation Qualifiers: Congestive heart failure type: systolic Qualified Code(s): I50.23 - Acute on chronic systolic (congestive) heart failure Is this a current diagnosis for this admission?: Yes Plan: Appears compensated. He does have an echo done which shows a EF of 10%. Will resume patient's Coreg at 3.125 mg p.o. twice daily. Start lisinopril 2.5 mg daily and spironolactone 12.5 mg daily. Patient blood pressures are low normal therefore there may be some difficulty administering on these medications however will monitor closely and treat accordingly.. (3) EtOH dependence Qualifiers: Substance use status: uncomplicated Qualified Code(s): F10.20 - Alcohol dependence, uncomplicated Is this a current diagnosis for this admission?: Yes Plan: She is not showing any signs of withdrawal. Continue Valium 5 mg p.o. twice daily. Hold Ativan as patient became agitated after being given that medication. (4) Fatty liver Is this a current diagnosis for this admission?: Yes Plan: Continue supportive care. (5) Hyponatremia Is this a current diagnosis for this admission?: Yes Plan: Gradually trending up. Will continue to monitor. (6) Moderate protein-calorie malnutrition Is this a current diagnosis for this admission?: Yes Plan: Patient evaluated for malignancy CT abdomen and pelvis. This was negative however is recommended by previous provider that patient have outpatient colonoscopy completed for reports of weight loss. Patient started on Megace and supplements. (7) Nonischemic cardiomyopathy Is this a current diagnosis for this admission?: Yes Plan: Patient with a EF of less than 10%. Patient was given some Lasix however patient appears euvolemic and also has hyponatremia. We will continue patient on his cardiac medications. (8) PAD (peripheral artery disease) Is this a current diagnosis for this admission?: Yes Plan: Patient should refrain from smoking as this will make his peripheral arterial disease worse. Patient already on aspirin 81 mg. Will start atorvastatin 40 mg nightly. Patient may benefit from being on Plavix also. (9) Pleural effusion, left Is this a current diagnosis for this admission?: Yes Plan: Small left pleural effusion most likely due to his CHF as patient has a EF of less than 10%. Patient does not show any signs of respiratory distress. Will continue to monitor. (10) Tobacco dependence Is this a current diagnosis for this admission?: Yes (11) DVT prophylaxis Is this a current diagnosis for this admission?: Yes Plan: SCDs - Time Time Spent with patient: 15-24 minutes Anticipated discharge: Home Within: within 48 hours - Inpatient Certification Medical Necessity: Significant Comorbidiites Make Outpatient Treatment Too Risky , Need Close Monitoring Due to Risk of Patient Decompensation, Need for IV Antibiotics
[2017-02-28] MEDS: LEVOFLOXACIN 500 MG/D5W RTU 500 MG/100 ML RTUPB IV SCH (18:08)
[2017-02-28] MEDS: CARVEDILOL 3.125 MG TABLET PO SCH (21:32)
[2017-02-28] MEDS ORDERED: BUDESONIDE/FORMOTEROL 160-4.5 MCG 60 PUFF/6 GM MDI IH ONE (21:58)
[2017-02-28] MEDS ORDERED: TRAZODONE HCL 50 MG TABLET PO SCH (22:00)
[2017-02-28] MEDS: BUDESONIDE/FORMOTEROL 160-4.5 MCG 60 PUFF/6 GM MDI IH SCH (22:00)
[2017-02-28] MEDS ORDERED: ATORVASTATIN CALCIUM 40 MG TABLET PO SCH (22:00)
[2017-03-01] MEDS: ALBUTEROL SULFATE 0.083% NEB 2.5 MG/3 ML AMPUL NEB SCH ×2 (01:49→07:47)
[2017-03-01] MEDS: LANSOPRAZOLE 30 MG TAB.RAP.DR PO SCH (05:22)
[2017-03-01 06:27] LABS: ANION GAP 8 (5-19); BLOOD UREA NITROGEN 15 mg/dL (7-20); CALCIUM 8.6 mg/dL (8.4-10.2); CARBON DIOXIDE 26 mmol/L (22-30); CHLORIDE 100 mmol/L (98-107); GLUCOSE 86 mg/dL (75-110); POTASSIUM 3.1 mmol/L (3.6-5.0); SODIUM 133.6 mmol/L (137-145)
[2017-03-01 07:38] LABS: HEPATITIS A AB IGM Negative (Negative); HEPATITIS B CORE AB IGM Negative (Negative); HEPATITS B SURFACE ANTIGEN Negative (Negative)
[2017-03-01 08:53] LABS: HEPATITIS C VIRUS ANTIBODY <0.1 s/co ratio (0.0-0.9)
[2017-03-01] MEDS: METHYLPREDNISOLONE INJ 40 MG/1 ML SDV IV SCH (09:29)
[2017-03-01] MEDS: FOLIC ACID 1 MG TABLET PO SCH (09:30)
[2017-03-01] MEDS: MULTIVITAMIN TABLET PO SCH (09:31)
[2017-03-01] MEDS: DIAZEPAM 2 MG TABLET PO SCH (09:31)
[2017-03-01] MEDS: THIAMINE HCL 100 MG TABLET PO SCH (09:31)
[2017-03-01] MEDS: BUDESONIDE/FORMOTEROL 160-4.5 MCG 60 PUFF/6 GM MDI IH SCH (09:31)
[2017-03-01] MEDS: MEGESTROL ACETATE 20 MG TABLET PO SCH (09:32)
[2017-03-01] MEDS: CARVEDILOL 3.125 MG TABLET PO SCH (09:32)
[2017-03-01] MEDS ORDERED: SPIRONOLACTONE 25 MG TABLET PO SCH ×2 (10:00)
[2017-03-01] MEDS ORDERED: LISINOPRIL 5 MG TABLET PO SCH (10:00)
[2017-03-01] MEDS ORDERED: ASPIRIN 81 MG TABLET, ENT COATED PO SCH (10:00)
[2017-03-01] MEDS ORDERED: POTASSIUM CHLORIDE 10 MEQ TABLET.SA PO ONE (12:30)
[2017-03-01 12:40] VITALS: BP 109/61
== END 2017-03-01 13:02 | disposition home or self-care (01) | DRG 292 ==
LOC: ER 15:06 → EH 16:56 → 4N 18:04
PROVIDERS: ADMIT Internal Medicine; ATTEND Internal Medicine
DX: I50.23 Acute on chronic systolic (congestive) heart failure (principal); E44.0 Moderate protein-calorie malnutrition; E87.1 Hypo-osmolality and hyponatremia; I42.8 Other cardiomyopathies; Z68.1 Body mass index [BMI] 19.9 or less, adult; J20.9 Acute bronchitis, unspecified; K76.0 Fatty (change of) liver, not elsewhere classified; I73.9 Peripheral vascular disease, unspecified; F10.20 Alcohol dependence, uncomplicated; Z79.899 Other long term (current) drug therapy; I25.2 Old myocardial infarction; Z95.0 Presence of cardiac pacemaker; F17.210 Nicotine dependence, cigarettes, uncomplicated
CPT/HCPCS: 36415; 71260; 74177; 80048; 80053; 80061; 80074; 83735; 84100; 84439; 84443; 85025; 93005; 93010; 93306; 94640; 99285; J1940; J1956; J2060; J2920; J3490

== ENCOUNTER → 2017-02-26 | Outpatient (CLI) | payer MEDICAID ==
[2017-02-26 09:09] LABS: ABSOLUTE BASOPHILS # (AUTO) 0.1 10^3/uL (0.0-0.2); ABSOLUTE EOSINOPHILS # (AUTO) 0.2 10^3/uL (0.0-0.6); ABSOLUTE MONOCYTES (AUTO) 0.8 10^3/uL (0.1-1.4); ABSOLUTE NEUT (AUTO) 8.7 10^3/uL (1.7-8.2); BASOPHILS % (AUTO) 1.3 % (0-2); EOSINOPHILS % (AUTO) 1.8 % (0-6); HEMATOCRIT 40.4 % (37.9-51.0); HEMOGLOBIN 13.9 g/dL (13.5-17.0); HGB HCT DIFFERENCE 1.3; LYMPHOCYTES % (AUTO) 8.9 % (13-45); MEAN CORPUSCULAR HEMOGLOBIN 36.5 pg (27.0-33.4); MEAN CORPUSCULAR HGB CONC 34.5 g/dL (32.0-36.0); MEAN CORPUSCULAR VOLUME 106 fl (80-97); MONOCYTES % (AUTO) 7.6 % (3-13); RED BLOOD COUNT 3.82 10^6/uL (4.35-5.55); RED CELL DISTRIBUTION WIDTH 13.8 % (11.5-14.0); SEGMENTED NEUTROPHILS % (AUTO) 80.4 % (42-78); WHITE BLOOD COUNT 10.8 10^3/uL (4.0-10.5)
[2017-02-26 09:45] LABS: ALANINE AMINOTRANSFERASE 33 U/L (21-72); ALBUMIN 3.1 g/dL (3.5-5.0); ALKALINE PHOSPHATASE 144 U/L (38-126); ANION GAP 7 (5-19); ASPARTATE AMINO TRANSFERASE 59 U/L (17-59); BILIRUBIN,DIRECT 0.3 mg/dL (0.0-0.4); BILIRUBIN,TOTAL 0.6 mg/dL (0.2-1.3); BLOOD UREA NITROGEN 3 mg/dL (7-20); CALCIUM 8.9 mg/dL (8.4-10.2); CARBON DIOXIDE 29 mmol/L (22-30); CHLORIDE 98 mmol/L (98-107); CHOLESTEROL 126.08 mg/dL (0-200); CREATININE RESULT 0.65 mg/dL (0.52-1.25); Direct HDL 79 mg/dL (>40); GLUCOSE 91 mg/dL (75-110); PHOSPHORUS 4.3 mg/dL (2.5-4.5); POTASSIUM 4.2 mmol/L (3.6-5.0); SODIUM 134.1 mmol/L (137-145); TOTAL PROTEIN 5.8 g/dL (6.3-8.2); TRIGLYCERIDES 81 mg/dL (<150)
--- NOTE | 2017-02-26 09:52 | RADIOLOGY REPORT (SQ) ---
EXAM DESCRIPTION: CHEST PA/LATERAL COMPLETED DATE/TIME: 02/26/2017 8:12 am REASON FOR STUDY: SHORTNESS OF BREATH COMPARISON: 12/01/2016, 04/01/2016 EXAM PARAMETERS: NUMBER OF VIEWS: two views TECHNIQUE: Digital Frontal and Lateral radiographic views of the chest acquired. RADIATION DOSE: NA LIMITATIONS: none FINDINGS: LUNGS AND PLEURA: There is pulmonary vascular prominence. Definite Danyel lines at both b ases from interstitial edema. There is trace fluid in the major and minor fissures. No dense consolidation worrisome for pneumonia. No pneumothorax. MEDIASTINUM AND HILAR STRUCTURES: No masses or contour abnormalities. HEART AND VASCULAR STRUCTURES: Mild cardiomegaly BONES: No acute findings. HARDWARE: None in the chest. OTHER: No other significant finding. IMPRESSION: Pulmonary vascular congestion and interstitial edema with trace fluid in the fissures. Mild cardiomegaly. TECHNICAL DOCUMENTATION: JOB ID: [id number] [employer]- All Rights Reserved
[2017-02-26 09:56] LABS: DIRECT LDL 40 mg/dL (<100)
== END ==
LOC: OD 07:53
PROVIDERS: ATTEND Family Medicine
DX: I25.10 Atherosclerotic heart disease of native coronary artery without angina pectoris (principal); J44.9 Chronic obstructive pulmonary disease, unspecified; R06.02 Shortness of breath
CPT/HCPCS: 36415; 71020; 80053; 80061; 84100; 84443; 85025

== ENCOUNTER 2017-03-15 16:15 | Inpatient (IN) | payer MEDICAID ==
--- NOTE | 2017-03-15 22:15 | EKG REPORT ---
SEVERITY:- ABNORMAL ECG - SINUS RHYTHM PROBABLE LEFT ATRIAL ABNORMALITY NONSPECIFIC INTRAVENTRICULAR CONDUCTION DELAY LEFT VENTRICULAR HYPERTROPHY VPC : Confirmed by: Mandie Zavaleta 15-Mar-2017 22:14:31
[2017-03-15 22:57] LABS: URINE AMPHETAMINES SCREEN NEGATIVE; URINE BARBITURATES SCREEN NEGATIVE; URINE BENZODIAZEPINES SCREEN NEGATIVE; URINE COCAINE SCREEN NEGATIVE; URINE METHADONE SCREEN NEGATIVE; URINE PHENCYCLIDINE SCREEN NEGATIVE
[2017-03-15 22:59] LABS: URINE MARIJUANA (THC) SCREEN UNCONFIRMED POSITIVE
[2017-03-16 00:55] LABS: APPEARANCE,URINE CLEAR; BILIRUBIN,URINE NEGATIVE (NEGATIVE); COLOR,URINE COLORLESS; GLUCOSE, URINE NEGATIVE (NEGATIVE); KETONES,URINE NEGATIVE (NEGATIVE); LEUKOCYTE ESTERASE,URINE NEGATIVE (NEGATIVE); NITRITE,URINE NEGATIVE (NEGATIVE); PROTEIN,URINE NEGATIVE (NEGATIVE); URINE SPECIFIC GRAVITY 1.004; UROBILINOGEN,URINE NEGATIVE mg/dL (<2.0)
[2017-03-16 01:21] LABS: TROPONIN I 0.031 ng/mL
[2017-03-16 01:22] LABS: CREATINE KINASE MB < 0.22 ng/mL (<4.55)
[2017-03-16] MEDS ORDERED: IPRATROPIUM/ALBUTEROL 0.5-2.5 MG/3 ML AMPUL NEB PRN (01:41)
[2017-03-16] MEDS ORDERED: MAG HYDROX/AL HYDROX/SIMETH SUSP 30 ML UDCUP PO PRN (01:41)
[2017-03-16] MEDS ORDERED: MAGNESIUM HYDROXIDE SUSP 30 ML UDCUP PO PRN (01:42)
[2017-03-16] MEDS ORDERED: ACETAMINOPHEN 325 MG TABLET PO PRN (01:42)
[2017-03-16] MEDS ORDERED: NITROGLYCERIN 0.4 MG/TAB 25 TAB/BOTTLE SL PRN (01:43)
[2017-03-16] MEDS ORDERED: HYDRALAZINE HCL INJ/PF 20 MG/1 ML SDV IV PRN (01:48)
[2017-03-16 03:57] LABS: ABSOLUTE BASOPHILS # (AUTO) 0.2 10^3/uL (0.0-0.2); ABSOLUTE EOSINOPHILS # (AUTO) 0.2 10^3/uL (0.0-0.6); ABSOLUTE NEUT (AUTO) 11.1 10^3/uL (1.7-8.2); BASOPHILS % (AUTO) 1.2 % (0-2); EOSINOPHILS % (AUTO) 1.3 % (0-6); HEMOGLOBIN 13.8 g/dL (13.5-17.0); LYMPHOCYTES % (AUTO) 7.7 % (13-45); MEAN CORPUSCULAR HEMOGLOBIN 36.2 pg (27.0-33.4); MEAN CORPUSCULAR HGB CONC 34.4 g/dL (32.0-36.0); MEAN CORPUSCULAR VOLUME 105 fl (80-97); MONOCYTES % (AUTO) 7.3 % (3-13); PLATELET COUNT 247 10^3/uL (150-450); RED CELL DISTRIBUTION WIDTH 13.9 % (11.5-14.0); SEGMENTED NEUTROPHILS % (AUTO) 82.5 % (42-78); TOTAL CELLS COUNTED % (AUTO) 100 %; WHITE BLOOD COUNT 13.4 10^3/uL (4.0-10.5)
[2017-03-16] MEDS ORDERED: PIPERACILLIN/TAZOBACTAM 3.375 GM VIAL IV PRN (04:17)
[2017-03-16] MEDS ORDERED: VANCOMYCIN HCL INJ 1000 MG VIAL IV PRN (04:18)
[2017-03-16] MEDS ORDERED: VANCOMYCIN HCL 1,250 MG in DEXTROSE 5%-WATER 250 ML IV ONE (04:30)
[2017-03-16] MEDS ORDERED: PIPERACILLIN SODIUM/TAZOBACTAM 3.375 GM in NORMAL SALINE 100 ML IV ONE (04:30)
[2017-03-16] MEDS ORDERED: PIPERACILLIN/TAZOBACTAM 3.375 GM VIAL IV ONE (04:39)
--- NOTE | 2017-03-16 04:56 | PDOC H&P ---
History of Present Illness Admission Date/PCP: 03/15/17 18:35 JESSY GARRIDO MD Patient complains of: Shortness of breath History of Present Illness: RAKESH MCCABE is a 56 year old male with a past medical history of congestive heart failure, coronary artery disease, COPD, noncompliance, chronic bronchitis, tobacco, marijuana and alcohol dependence. Patient presents with 3 days of shortness of breath and a nonproductive cough denying fever rhinorrhea, sore throat or GERD. He denies chest pain palpitations nausea vomiting but admits to lifestyle and medication noncompliance with persistent alcohol use between 6 and 12 beers per day, alcohol and marijuana. In the emergency room is found to have oxygen saturations in the mid 80s and rails. He is referred to the hospitalist for admission. Past Medical History Cardiac Medical History: Reports: Myocardial Infarction - 8 MONTHS AGO, ON HEART MONITOR NOW, Hypertension Denies: Coronary Artery Disease Pulmonary Medical History: Reports: Bronchitis, Chronic Obstructive Pulmonary Disease (COPD) Denies: Asthma, Pneumonia Neurological Medical History: Denies: Seizures Musculoskeltal Medical History: Denies: Arthritis Psychiatric Medical History: Reports: Alcohol Dependency, Substance Abuse, Tobacco Dependency Hematology: Denies: Anemia Past Surgical History Past Surgical History: Reports: Pacemaker Social History Information Source: Patient Smoking Status: Current Every Day Smoker Number of Years Smokin Frequency of Alcohol Use: Heavy Amount of Alcoholic Beverages Per Day: 6-12 Hx Recreational Drug Use: Yes Drugs: Marijuana Hx Prescription Drug Abuse: No - patient denies - Advance Directive Resuscitation Status: Full Code Family History Family History: COPD Parental Family History Reviewed: Yes Children Family History Reviewed: Yes Sibling(s) Family History Reviewed.: Yes Medication/Allergy Home Medications: Albuterol Sulfate [Proair HFA] 2 puff IN Q4 02/26/17 Aspirin [Aspirin EC] 81 mg PO DAILY 02/26/17 Budesonide/Formoterol Fumarate [Symbicort 160-4.5 Mcg Inhaler] 2 puff IN Q12 Folic Acid 0.4 mg PO DAILY 02/26/17 Thiamine HCl [Vitamin B-1] 250 mg PO DAILY 02/26/17 Carvedilol [Coreg 3.125 mg Tablet] 3.125 mg PO Q12 30 Days #60 tablet 03/01/17 Levofloxacin [Levaquin 500 mg Tablet] 500 mg PO DAILY 5 Days #5 tablet 03/01/17 Lisinopril [Prinivil 5 mg Tablet] 2.5 mg PO DAILY 30 Days #30 tablet 03/01/17 Methylprednisolone [Medrol Dosepack (4 mg/Tab) 21 Tab/Dosepak] 4 mg PO ASDIR # 21 tab.ds.pk 03/01/17 Potassium Chloride 10 meq PO DAILY 5 Days #5 tab.er.prt 03/01/17 Spironolactone [Aldactone 25 mg Tablet] 12.5 mg PO DAILY #0 03/01/17 Allergies/Adverse Reactions: No Known Allergies Allergy (Verified 02/26/17 15:07) Review of Systems Constitutional: PRESENT: as per HPI, anorexia, fatigue. ABSENT: chills, fever(s ), headache(s), weight gain, weight loss Eyes: ABSENT: visual disturbances Ears: ABSENT: hearing changes Cardiovascular: ABSENT: chest pain, dyspnea on exertion, edema, orthropnea, palpitations Respiratory: PRESENT: cough, dyspnea, sputum. ABSENT: hemoptysis Gastrointestinal: ABSENT: abdominal pain, constipation, diarrhea, hematemesis, hematochezia, nausea, vomiting Genitourinary: ABSENT: dysuria, hematuria Musculoskeletal: ABSENT: joint swelling Integumentary: ABSENT: rash, wounds Neurological: ABSENT: abnormal gait, abnormal speech, confusion, dizziness, focal weakness, syncope Psychiatric: ABSENT: anxiety, depression, homidical ideation, suicidal ideation Endocrine: ABSENT: cold intolerance, heat intolerance, polydipsia, polyuria Hematologic/Lymphatic: ABSENT: easy bleeding, easy bruising Physical Exam Vital Signs: Temp Pulse Resp BP Pulse Ox 99.2 F 73 20 109/62 94 03/16/17 04:00 03/16/17 04:00 03/16/17 04:00 03/16/17 04:00 03/16/17 04:00 Intake & Output 03/14/17 03/15/17 03/16/17 11:59 11:59 11:59 Weight 54.1 kg General appearance: PRESENT: cooperative, thin, other - Chronically ill appearing with cachexia and temporal wasting Head exam: PRESENT: atraumatic, normocephalic Eye exam: PRESENT: conjunctiva pink, EOMI, PERRLA. ABSENT: scleral icterus Ear exam: PRESENT: normal external ear exam Mouth exam: PRESENT: moist, tongue midline Neck exam: ABSENT: carotid bruit, JVD, lymphadenopathy, thyromegaly Respiratory exam: PRESENT: accessory muscle use, crackles, prolonged expiratory phas, rales, symmetrical, tachypnea Cardiovascular exam: PRESENT: RRR. ABSENT: diastolic murmur, rubs, systolic murmur Pulses: PRESENT: normal dorsalis pedis pul Vascular exam: PRESENT: normal capillary refill GI/Abdominal exam: PRESENT: normal bowel sounds, soft. ABSENT: distended, guarding, mass, organolmegaly, rebound, tenderness Rectal exam: PRESENT: deferred Extremities exam: PRESENT: full ROM. ABSENT: calf tenderness, clubbing, pedal edema Neurological exam: PRESENT: alert, awake, oriented to person, oriented to place , oriented to time, oriented to situation, CN II-XII grossly intact. ABSENT: motor sensory deficit Psychiatric exam: PRESENT: appropriate affect, normal mood. ABSENT: homicidal ideation, suicidal ideation Skin exam: PRESENT: dry, intact, warm. ABSENT: cyanosis, rash Results Laboratory Results: 03/15/17 22:00 Urine Color COLORLESS Urine Appearance CLEAR Urine pH 6.0 Ur Specific [place] 1.004 Urine Protein NEGATIVE Urine Glucose (UA) NEGATIVE Urine Ketones NEGATIVE Urine Blood SMALL H Urine Nitrite NEGATIVE Ur Leukocyte Esterase NEGATIVE Urine WBC (Auto) 0 Urine RBC (Auto) 0 03/16/17 03/16/17 00:20 00:20 Creatine Kinase 21 L CK-MB (CK-2) < 0.22 Troponin I 0.031 Assessment & Plan - Diagnosis (1) Acute bronchitis Is this a current diagnosis for this admission?: Yes Plan: Telemetry bed, supplemental oxygen, empiric antibiotics, flutter valve, albuterol and Atrovent with education. (2) CHF exacerbation Qualifiers: Congestive heart failure type: systolic Qualified Code(s): I50.23 - Acute on chronic systolic (congestive) heart failure Is this a current diagnosis for this admission?: Yes Plan: Secondary to #1, gentle diuresis (3) ETOH abuse Is this a current diagnosis for this admission?: Yes Plan: Patient gives history of DTs. Thiamine, folate and as needed Ativan ordered (4) Tobacco dependence Is this a current diagnosis for this admission?: Yes Plan: Tobacco Dependence patient received tobacco cessation counseling and offered nicotine replacement options - Time Time Spent: 50 to 70 Minutes - Inpatient Certification Medical Necessity: Need Close Monitoring Due to Risk of Patient Decompensation
[2017-03-16 06:49] LABS: HEMATOCRIT 39.9 % (37.9-51.0); HEMOGLOBIN 13.5 g/dL (13.5-17.0); MEAN CORPUSCULAR HEMOGLOBIN 35.3 pg (27.0-33.4); MEAN CORPUSCULAR HGB CONC 33.8 g/dL (32.0-36.0); MEAN CORPUSCULAR VOLUME 105 fl (80-97); PLATELET COUNT 261 10^3/uL (150-450); RED BLOOD COUNT 3.81 10^6/uL (4.35-5.55); RED CELL DISTRIBUTION WIDTH 13.7 % (11.5-14.0); WHITE BLOOD COUNT 11.5 10^3/uL (4.0-10.5)
[2017-03-16 07:07] LABS: ANION GAP 9 (5-19); BLOOD UREA NITROGEN 12 mg/dL (7-20); CALCIUM 8.5 mg/dL (8.4-10.2); CARBON DIOXIDE 26 mmol/L (22-30); CHLORIDE 96 mmol/L (98-107); GLUCOSE 166 mg/dL (75-110); MAGNESIUM 1.8 mg/dL (1.6-2.3); POTASSIUM 3.6 mmol/L (3.6-5.0); SODIUM 131.4 mmol/L (137-145)
[2017-03-16 07:11] LABS: CREATINE KINASE < 20 U/L (55-170); TROPONIN I 0.034 ng/mL
[2017-03-16 07:16] LABS: CREATINE KINASE MB < 0.22 ng/mL (<4.55)
[2017-03-16 07:39] LABS: ABSOLUTE LYMPHOCYTES# (MANUAL) 0.1 10^3/uL (0.5-4.7); ABSOLUTE MONOCYTES # (MANUAL) 0.1 10^3/uL (0.1-1.4); ABSOLUTE NEUTROPHILS# (MANUAL) 11.3 10^3/uL (1.7-8.2); BAND NEUTROPHILS % (MANUAL) 1 % (3-5); BASOPHILS % (MANUAL) 0 % (0-2); EOSINOPHILS % (MANUAL) 0 % (0-6); HYPOCHROMASIA SLIGHT; LYMPHOCYTES % (MANUAL) 1 % (13-45); MONOCYTES % (MANUAL) 1 % (3-13); SEGMENTED NEUTROPHILS % (MAN) 97 % (42-78); TOTAL CELLS COUNTED 100; TOXIC GRANULATION SLIGHT
[2017-03-16 07:40] LABS: PLATELET COMMENT ADEQUATE
[2017-03-16] MEDS: IPRATROPIUM/ALBUTEROL 0.5-2.5 MG/3 ML AMPUL NEB SCH ×3 (08:23→23:28)
[2017-03-16 08:45] LABS: TROPONIN I 0.03 ng/mL
[2017-03-16 08:46] LABS: BLOOD UREA NITROGEN 8 mg/dL (7-20); GLUCOSE 97 mg/dL (75-110); POTASSIUM 4.1 mmol/L (3.6-5.0)
[2017-03-16 08:47] LABS: ALANINE AMINOTRANSFERASE 47 U/L (21-72); ALBUMIN 3.3 g/dL (3.5-5.0); ALKALINE PHOSPHATASE 153 U/L (38-126); ANION GAP 11 (5-19); ASPARTATE AMINO TRANSFERASE 34 U/L (17-59); BILIRUBIN,TOTAL 0.6 mg/dL (0.2-1.3); CARBON DIOXIDE 24 mmol/L (22-30); CHLORIDE 94 mmol/L (98-107); SODIUM 129.3 mmol/L (137-145)
[2017-03-16 08:48] LABS: BILIRUBIN,DIRECT 0.4 mg/dL (0.0-0.4); TOTAL PROTEIN 5.8 g/dL (6.3-8.2)
--- NOTE | 2017-03-16 09:23 | RADIOLOGY REPORT (SQ) ---
EXAM DESCRIPTION: CHEST PA/LAT COMPLETED DATE/TIME: 03/16/2017 3:56 am REASON FOR STUDY: SOB COMPARISON: 02/26/2017 NUMBER OF VIEWS: Two view. TECHNIQUE: Frontal and lateral radiographic views of the chest acquired. LIMITATIONS: None. FINDINGS: LUNGS AND PLEURA: Slight increase in the left basilar opacity. Small bilateral pleural ef fusions. Danyel B-lines. MEDIASTINUM AND HILAR STRUCTURES: No masses. No contour abnormalities. HEART AND VASCULAR STRUCTURES: Heart enlarged. Perihilar haziness. BONES: No acute findings. HARDWARE: None in the chest. OTHER: No other significant finding. IMPRESSION: Congestive heart failure with interstitial pulmonary edema. Increasing left basilar opa city suggests pneumonia. TECHNICAL DOCUMENTATION: JOB ID: [id number] [employer]- All Rights Reserved
[2017-03-16] MEDS: FUROSEMIDE INJ/PF 40 MG/4 ML SDV IV SCH (09:49)
[2017-03-16] MEDS: PIPERACILLIN SODIUM/TAZOBACTAM 3.375 GM in NORMAL SALINE 100 ML IV SCH ×3 (09:49→21:15)
[2017-03-16] MEDS: DOCUSATE SODIUM 100 MG CAPSULE PO SCH ×2 (09:49→17:01)
[2017-03-16] MEDS: ASPIRIN 81 MG TABLET, ENT COATED PO SCH (09:49)
[2017-03-16] MEDS: NICOTINE 14 MG/24 HR PATCH.TD24 TD SCH (09:50)
[2017-03-16] MEDS ORDERED: LOSARTAN POTASSIUM 25 MG TABLET PO SCH (10:00)
[2017-03-16] MEDS: THIAMINE HCL 100 MG, FOLIC ACID 1 MG in NORMAL SALINE 250 ML IV SCH (10:30)
[2017-03-16 12:05] LABS: TROPONIN I 0.027 ng/mL
[2017-03-16 12:08] LABS: CREATINE KINASE MB < 0.22 ng/mL (<4.55)
--- NOTE | 2017-03-16 14:07 | PDOC PROGRESS REPORT ---
Subjective Progress Note for:: 03/16/17 Subjective:: The patient is seen on morning rounds for follow-up of bronchitis and CHF exacerbation. He is found resting in bed comfortably lying nearly flat and on room air. He is fully conversational. He states that his breathing has improved overnight, and his bilateral lower leg edema has also decreased. He does continue to have a slightly productive cough of thin, clear, sputum. He denies chest pain, palpitations, dyspnea while at rest and orthopnea. The patient tells me that he was admitted for similar symptoms a few weeks ago. We discussed that the echocardiogram obtained at that time showed ejection fraction of 10%. Considering his EF and the frequency of exacerbations, he would be a candidate for palliative care and/or hospice services. The patient became quite agitated at this, stating that he was not interested in discussing these things at this time. He confirms that he wishes to remain a full code and has no interest in their services. He does admit to continued smoking and states that he wishes to "cut back." He has no other questions or concerns at this time. Reason For Visit: PNEUMONIA, PULMONARY EDEMA Physical Exam Vital Signs: Temp Pulse Resp BP Pulse Ox 99.2 F 69 20 109/62 98 03/16/17 04:00 03/16/17 08:25 03/16/17 08:25 03/16/17 04:00 03/16/17 08:25 Intake & Output 03/15/17 03/16/17 03/17/17 06:59 06:59 06:59 Intake Total 590 Balance 590 Weight 54.1 kg General appearance: PRESENT: no acute distress, thin, well-developed. ABSENT: well-nourished Head exam: PRESENT: atraumatic, normocephalic Eye exam: PRESENT: conjunctiva pink, EOMI, PERRLA. ABSENT: scleral icterus Ear exam: PRESENT: normal external ear exam Mouth exam: PRESENT: moist, tongue midline Neck exam: ABSENT: carotid bruit, JVD, lymphadenopathy, thyromegaly Respiratory exam: PRESENT: crackles, decreased breath sounds - bibasilar, prolonged expiratory phas, symmetrical, unlabored. ABSENT: rales, rhonchi, tachypnea, wheezes Cardiovascular exam: PRESENT: RRR, +S1, +S2. ABSENT: diastolic murmur, rubs, systolic murmur Pulses: PRESENT: normal dorsalis pedis pul Vascular exam: PRESENT: normal capillary refill GI/Abdominal exam: PRESENT: normal bowel sounds, soft. ABSENT: distended, guarding, mass, organolmegaly, rebound, tenderness Rectal exam: PRESENT: deferred Extremities exam: PRESENT: full ROM, pedal edema - trace. ABSENT: calf tenderness, clubbing Neurological exam: PRESENT: alert, awake, oriented to person, oriented to place , oriented to time, oriented to situation, CN II-XII grossly intact. ABSENT: motor sensory deficit Psychiatric exam: PRESENT: appropriate affect, normal mood. ABSENT: homicidal ideation, suicidal ideation Skin exam: PRESENT: dry, intact, warm. ABSENT: cyanosis, rash Results Laboratory Results: 03/16/17 05:46 03/16/17 05:46 03/15/17 03/16/17 03/16/17 22:00 05:46 05:46 WBC 11.5 H RBC 3.81 L Hgb 13.5 Hct 39.9 MCV 105 H MCH 35.3 H MCHC 33.8 RDW 13.7 Plt Count 261 Seg Neutrophils % Not Reportable Lymphocytes % Not Reportable Monocytes % Not Reportable Eosinophils % Not Reportable Basophils % Not Reportable Absolute Neutrophils Not Reportable Absolute Lymphocytes Not Reportable Absolute Monocytes Not Reportable Absolute Eosinophils Not Reportable Absolute Basophils Not Reportable Sodium 131.4 L Potassium 3.6 Chloride 96 L Carbon Dioxide 26 Anion Gap 9 BUN 12 Creatinine 0.77 Est GFR ( Amer) > 60 Est GFR (Non-Af Amer) > 60 Glucose 166 H Calcium 8.5 Magnesium 1.8 Urine Color COLORLESS Urine Appearance CLEAR Urine pH 6.0 Ur Specific [place] 1.004 Urine Protein NEGATIVE Urine Glucose (UA) NEGATIVE Urine Ketones NEGATIVE Urine Blood SMALL H Urine Nitrite NEGATIVE Ur Leukocyte Esterase NEGATIVE Urine WBC (Auto) 0 Urine RBC (Auto) 0 03/16/17 03/16/17 03/16/17 00:20 00:20 05:46 Creatine Kinase 21 L < 20 L CK-MB (CK-2) < 0.22 Troponin I 0.031 03/16/17 03/16/17 03/16/17 05:46 11:28 11:28 Creatine Kinase < 20 L CK-MB (CK-2) < 0.22 < 0.22 Troponin I 0.034 0.027 Impressions: Chest X-Ray 03/15/17 00:00 IMPRESSION: Congestive heart failure with interstitial pulmonary edema. Increasing left basilar opacity suggests pneumonia. Assessment & Plan - Diagnosis (1) Acute respiratory failure with hypoxemia Is this a current diagnosis for this admission?: Yes Plan: Acute respiratory failure secondary to a left basilar pneumonia and complicated by COPD with continuous tobacco use with advanced CHF. He is admitted with hypoxemia on room air noted to be in the 80s, low-grade temperature (99.2), and tachycardia (105), with leukocytosis and a left basilar infiltrate suggestive of pneumonia. He is empirically placed on antibiotics. He is supported with scheduled and as needed nebulizer treatments. Supplemental oxygen as needed to keep O2 saturations greater than 80%. He is encouraged to use incentive spirometry and flutter valve. (2) Pneumonia Qualifiers: Lung location: lower lobe of lung Is this a current diagnosis for this admission?: Yes Plan: The patient is admitted with acute respiratory failure, leukocytosis, low-grade fever, tachycardia, hypoxia with a infiltrate to the left lower lobe noted by x- ray. Blood and urine cultures are obtained. He is empirically placed on PIP/tazo. He is supported with supplemental oxygen , nebulizer treatments, and mucinex. (3) CHF exacerbation Qualifiers: Congestive heart failure type: systolic Qualified Code(s): I50.23 - Acute on chronic systolic (congestive) heart failure Is this a current diagnosis for this admission?: Yes Plan: The patient was admitted with acute respiratory failure secondary to pneumonia and a CHF exacerbation. He is noted to have interstitial pulmonary edema [place] [id number]. He is noted to have crackles with edema to his lower extremities. Echocardiogram as of 02/27/17 demonstrated a EF of 10% with severely reduced systolic function and global hypokinesis of the left ventricle. Review of the discharge summary from that time states that the patient had previously had a LifeVest which was discontinued secondary to noncompliance. His home dose of carvedilol and lisinopril are continued. He is provided gentle diuresis with IV furosemide. He continues on ASA 81 mg daily. I offered to consult palliative care/hospice which the patient declines. (4) EtOH dependence Qualifiers: Substance use status: uncomplicated Qualified Code(s): F10.20 - Alcohol dependence, uncomplicated Is this a current diagnosis for this admission?: Yes Plan: The patient admits to continued alcohol pendant; drinking 6-12 beers per day. During his last admission he was not noted to have any withdrawal. Will monitor closely for signs and symptoms of withdrawal. (5) Moderate protein-calorie malnutrition Is this a current diagnosis for this admission?: Yes Plan: The patient has been placed on a cardiac diet. Will ask the registered dietitian to make recommendations. (6) Tobacco dependence Is this a current diagnosis for this admission?: Yes Plan: Smoking cessation is encouraged. The patient is provided nicotine replacement therapies. (7) Hyponatremia Plan: Chronic mild hyponatremia; slightly improved today. Will monitor with daily chemistries. - Time Time Spent with patient: 25-34 minutes Medications reviewed and adjusted accordingly: Yes - Plan Summary Plan Summary: The patient was admitted with a left lower lobe pneumonia and CHF exacerbation. Echocardiogram completed on 02/27/17 showed an ejection fraction of 10%. The patient is not interested in palliative or hospice care services at this time and remains a full code. He is slightly improved today after antibiotics and gentle IV diuresis.
[2017-03-16] MEDS: VANCOMYCIN HCL 1,000 MG in DEXTROSE 5%-WATER 250 ML IV SCH (17:03)
[2017-03-16] MEDS: GUAIFENESIN 600 MG TABLET.SA PO SCH (21:15)
[2017-03-16] MEDS: CARVEDILOL 3.125 MG TABLET PO SCH (21:15)
[2017-03-17] MEDS: PIPERACILLIN SODIUM/TAZOBACTAM 3.375 GM in NORMAL SALINE 100 ML IV SCH ×4 (02:43→20:27)
[2017-03-17] MEDS: VANCOMYCIN HCL 1,000 MG in DEXTROSE 5%-WATER 250 ML IV SCH (03:19)
[2017-03-17 07:07] LABS: HEMATOCRIT 39.5 % (37.9-51.0); HEMOGLOBIN 13.4 g/dL (13.5-17.0); MEAN CORPUSCULAR HEMOGLOBIN 35.4 pg (27.0-33.4); MEAN CORPUSCULAR HGB CONC 33.8 g/dL (32.0-36.0); MEAN CORPUSCULAR VOLUME 105 fl (80-97); PLATELET COUNT 253 10^3/uL (150-450); RED BLOOD COUNT 3.78 10^6/uL (4.35-5.55); WHITE BLOOD COUNT 13.5 10^3/uL (4.0-10.5)
[2017-03-17 07:36] LABS: ANION GAP 10 (5-19); BLOOD UREA NITROGEN 12 mg/dL (7-20); CALCIUM 8.3 mg/dL (8.4-10.2); CARBON DIOXIDE 25 mmol/L (22-30); CHLORIDE 96 mmol/L (98-107); GLUCOSE 78 mg/dL (75-110); POTASSIUM 3.5 mmol/L (3.6-5.0)
[2017-03-17] MEDS: IPRATROPIUM/ALBUTEROL 0.5-2.5 MG/3 ML AMPUL NEB SCH ×2 (08:45→16:04)
[2017-03-17] MEDS: NICOTINE 14 MG/24 HR PATCH.TD24 TD SCH (09:21)
[2017-03-17] MEDS: FUROSEMIDE INJ/PF 40 MG/4 ML SDV IV SCH (09:21)
[2017-03-17] MEDS: ASPIRIN 81 MG TABLET, ENT COATED PO SCH (09:21)
[2017-03-17] MEDS: GUAIFENESIN 600 MG TABLET.SA PO SCH ×2 (09:21→21:17)
[2017-03-17] MEDS: DOCUSATE SODIUM 100 MG CAPSULE PO SCH ×2 (09:21→17:06)
[2017-03-17] MEDS: CARVEDILOL 3.125 MG TABLET PO SCH ×2 (09:21→21:17)
[2017-03-17] MEDS ORDERED: LISINOPRIL 5 MG TABLET PO SCH (10:00)
[2017-03-17] MEDS ORDERED: POTASSIUM CHLORIDE 10 MEQ TABLET.SA PO ONE (10:30)
--- NOTE | 2017-03-17 10:41 | PDOC PROGRESS REPORT ---
Subjective Progress Note for:: 03/17/17 Subjective:: Pt states that his breathing is better today. Reason For Visit: PNEUMONIA, PULMONARY EDEMA Physical Exam Vital Signs: Temp Pulse Resp BP Pulse Ox 97.9 F 82 20 111/74 97 03/17/17 07:28 03/17/17 08:45 03/17/17 08:45 03/17/17 07:28 03/17/17 08:45 Intake & Output 03/16/17 03/17/17 03/18/17 06:59 06:59 06:59 Intake Total 590 1900 Output Total 1350 Balance 590 550 Weight 54.1 kg 54.1 kg General appearance: PRESENT: no acute distress, thin, other - NC in place Head exam: PRESENT: atraumatic, normocephalic Eye exam: PRESENT: conjunctiva pink, EOMI. ABSENT: scleral icterus Ear exam: PRESENT: normal external ear exam Mouth exam: PRESENT: moist, tongue midline Neck exam: ABSENT: carotid bruit, JVD, lymphadenopathy, thyromegaly Respiratory exam: PRESENT: clear to auscultation tery. ABSENT: rales, rhonchi, wheezes Cardiovascular exam: PRESENT: RRR. ABSENT: diastolic murmur, rubs, systolic murmur Pulses: PRESENT: normal dorsalis pedis pul Vascular exam: PRESENT: normal capillary refill GI/Abdominal exam: PRESENT: normal bowel sounds, soft. ABSENT: distended, guarding, mass, organolmegaly, rebound, tenderness Rectal exam: PRESENT: deferred Extremities exam: PRESENT: full ROM. ABSENT: calf tenderness, clubbing, pedal edema Neurological exam: PRESENT: alert, awake, oriented to person, oriented to place , oriented to time, oriented to situation, CN II-XII grossly intact. ABSENT: motor sensory deficit Psychiatric exam: PRESENT: appropriate affect, normal mood. ABSENT: homicidal ideation, suicidal ideation Skin exam: PRESENT: dry, intact, warm. ABSENT: cyanosis, rash Results Laboratory Results: 03/17/17 06:06 03/17/17 06:06 03/17/17 03/17/17 06:06 06:06 WBC 13.5 H RBC 3.78 L Hgb 13.4 L Hct 39.5 MCV 105 H MCH 35.4 H MCHC 33.8 RDW 14.0 Plt Count 253 Sodium 131.0 L Potassium 3.5 L Chloride 96 L Carbon Dioxide 25 Anion Gap 10 BUN 12 Creatinine 0.68 Est GFR ( Amer) > 60 Est GFR (Non-Af Amer) > 60 Glucose 78 Calcium 8.3 L 03/16/17 03/16/17 03/16/17 00:20 00:20 05:46 Creatine Kinase 21 L < 20 L CK-MB (CK-2) < 0.22 Troponin I 0.031 03/16/17 03/16/17 03/16/17 05:46 11:28 11:28 Creatine Kinase < 20 L CK-MB (CK-2) < 0.22 < 0.22 Troponin I 0.034 0.027 Impressions: Chest X-Ray 03/15/17 00:00 IMPRESSION: Congestive heart failure with interstitial pulmonary edema. Increasing left basilar opacity suggests pneumonia. Assessment & Plan - Diagnosis (1) Acute respiratory failure with hypoxemia Is this a current diagnosis for this admission?: Yes Plan: Secondary to Pneumonia and Acute on Chronic Systolic CHF: Will continue antibiotics and Lasix. (2) Pneumonia Qualifiers: Lung location: lower lobe of lung Is this a current diagnosis for this admission?: Yes Plan: Will continue Zosyn (3) ETOH abuse Is this a current diagnosis for this admission?: Yes Plan: Will continue to monitor. Will place on Multivitamin. (4) Hyponatremia Is this a current diagnosis for this admission?: Yes Plan: Will continue to monitor. Will continue Lasix. (5) Moderate protein-calorie malnutrition Is this a current diagnosis for this admission?: Yes Plan: Will encourage supplemental drinks. (6) Acute on chronic systolic (congestive) heart failure Is this a current diagnosis for this admission?: Yes Plan: EF of 10%: Will continue current medical treatment. (7) Tobacco dependence Is this a current diagnosis for this admission?: Yes Plan: Encourage stop smoking. - Time Time Spent with patient: 15-24 minutes
[2017-03-17] MEDS: THIAMINE HCL 100 MG, FOLIC ACID 1 MG in NORMAL SALINE 250 ML IV SCH (11:29)
[2017-03-18] MEDS: IPRATROPIUM/ALBUTEROL 0.5-2.5 MG/3 ML AMPUL NEB SCH ×2 (00:43→08:00)
[2017-03-18] MEDS: PIPERACILLIN SODIUM/TAZOBACTAM 3.375 GM in NORMAL SALINE 100 ML IV SCH (02:05)
--- NOTE | 2017-03-18 08:59 | DISCHARGE SUMMARY E ---
Discharge Summary NAME: RAKESH MCCABE : 1960 AGE: 56Y ADMITTED: 03/15/2017 DISCHARGED: 03/18/2017 CODE STATUS: FULL CODE. PRIMARY CARE PROVIDER: Dr. Beckford DISCHARGE DIAGNOSES: 1. Alcoholic cardiomyopathy. 2. Mwxtv-fe-hbcvrwe systolic congestive heart failure with an EF of 10%. 3. Noncompliance with LifeVest. 4. Community-acquired lower lobe pneumonia. 5. Acute hypoxemic respiratory failure. 6. Chronic obstructive pulmonary disease. 7. Alcohol dependency continuous. 8. Hyponatremia. 9. Moderate protein calorie malnourishment. 10. Tobacco dependency continuous. DISCHARGE MEDICATIONS: 1. Aspirin 81 mg p.o. daily, 30 tablets with 0 refills. 2. Coreg 3.125 mg p.o. q.12 hours. 3. Lisinopril 2.5 mg p.o. daily. 4. Symbicort 2 puffs inhalation q.12 hours. 5. ProAir HFA 2 puffs inhalation q.6 hours p.r.n. 6. Augmentin 875/125 one tablet p.o. b.i.d., 14 tablets with 0 refills. 7. Folic acid 1 mg p.o. daily. 8. Thiamine 100 mg p.o. daily. DIET: Heart healthy as tolerated. ACTIVITY: As tolerated. DIAGNOSTICS: Lab values are as follow: Hematology obtained on 03/17/2017: WBCs are 13.5, hemoglobin is 13.4, hematocrit is 30.5, platelet count is 253,000. Chemistry obtained on 03/17/2017: Sodium is 131, potassium 3.5, chloride is 96, carbon dioxide 25, BUN 12, creatinine is 0.68, glucose 78, calcium is 9.3. PHYSICAL EXAMINATION: GENERAL: On examination, the patient is a well-developed, reasonably nourished, 56-year-old male who is awake, alert. He is oriented to person, place, time, and situation. He is verbal, conversational, and does not appear to be in any acute distress. VITAL SIGNS: Temperature 97.5, pulse 85, respirations 16, blood pressure is 113/72, oxygen saturation is 100% on room air. SKIN: Warm and dry. No rash. He is not diaphoretic. HEENT: Pupils equal, round, reactive to light and accommodation. Conjunctivae are pink. There is no evidence of JVP. CARDIOVASCULAR: Heart is regular. There is no murmur or rub. CHEST: Clear, symmetrical, unlabored. ABDOMEN: Soft, nontender, nondistended. BACK: No CVA tenderness or sacral edema. EXTREMITIES: No clubbing, cyanosis, or edema. PSYCHIATRIC: Appropriate affect. Pleasant mood. HISTORY OF PRESENT ILLNESS: The patient is a 56-year-old male with a past medical history of known alcoholic myocarditis that presented to the emergency department with a chief complaint of shortness of breath. The patient stated that for 3 days he has had persistent shortness of breath and nonproductive cough. He denied fever, rhinorrhea, sore throat, or GERD. The patient denied any chest pain or palpitations. No nausea or vomiting but admitted to persistent alcohol use over the past several days anywhere between 6 and 12 beers a day. While in the emergency department, the patient's oxygen saturation was found to be in the 80s as well as rales, and the patient was referred to the hospitalist for admission and management. HOSPITAL COURSE: The patient was admitted to continuous telemetry unit. The patient was diuresed with IV Lasix with significant improvement of symptoms. The patient's distal edema completely resolved. The patient was placed on antibiotic coverage and the patient had developed sputum production which could be quite copious, however, this did improve with bronchodilatation as well as antibiotics. The patient was covered with Zosyn and was transitioned to Augmentin for which the patient tolerated. The patient is aware that his EF was quite low. The patient has been arranged a LifeVest for which he is noncompliant with. During the patient's last day, arrangement was made for LifeVest and for the patient to have followup echo in 3 months to see if the patient's EF improves with medications and lifestyle modification; however, the patient continues to drink and states that he will not stop drinking. The patient has declined hospice services or any form of alcohol intervention. During the hospital stay, the patient did have 3 minutes of smoking cessation education for which he has declined any pharmacological intervention. The patient also states that he will continue smoking marijuana and drinking as he wishes. The patient was educated on the ramifications of this, however, it was a mute point. The patient is quite eager for discharge. DISCHARGE PLANNIN. The patient is to followup with primary care provider within 1-2 weeks for hospital followup. 2. The patient is to followup with cardiology within 2 months for followup. Time spent on this discharge including assessment, plan, physical examination, patient education, and review of records is 25 minutes. DICTATING PHYSICIAN: JACY HERRERA NP [id number] PHY#: [id number] ID: [id number] JOB#: [id number] ACCT: [id number] cc:PHILIP DIXON M.D., MICHAEL NP >
[2017-03-18 09:38] VITALS: BP 109/62
== END 2017-03-18 09:49 | disposition home or self-care (01) | DRG 291 ==
LOC: ER 16:15 → EH 18:35 → 5 23:03
PROVIDERS: ADMIT Internal Medicine; ATTEND Internal Medicine
PROC: 3E0F73Z Introduction of Anti-inflammatory into Respiratory Tract, Via Natural or Artificial Opening (ICD-10-PCS; principal; 2017-03-16)
DX: I11.0 Hypertensive heart disease with heart failure (principal); J18.9 Pneumonia, unspecified organism; J96.01 Acute respiratory failure with hypoxia; E87.1 Hypo-osmolality and hyponatremia; E44.0 Moderate protein-calorie malnutrition; Z68.1 Body mass index [BMI] 19.9 or less, adult; J44.0 Chronic obstructive pulmonary disease with (acute) lower respiratory infection; J20.9 Acute bronchitis, unspecified; I50.23 Acute on chronic systolic (congestive) heart failure; I42.6 Alcoholic cardiomyopathy; F10.20 Alcohol dependence, uncomplicated; F17.210 Nicotine dependence, cigarettes, uncomplicated; I25.10 Atherosclerotic heart disease of native coronary artery without angina pectoris; I48.91 Unspecified atrial fibrillation; Z79.82 Long term (current) use of aspirin; Z91.19 Patient's noncompliance with other medical treatment and regimen; Z79.899 Other long term (current) drug therapy; I25.2 Old myocardial infarction; Z95.0 Presence of cardiac pacemaker; Z83.6 Family history of other diseases of the respiratory system
CPT/HCPCS: 36415; 71046; 80048; 80053; 80307; 81001; 82550; 82553; 83735; 83880; 84484; 85025; 85027; 87040; 87070; 87205; 93005; 93010; 94640; 94667; 94799; 96374; 96375; 99285; J1940; J2543; J3370; J3411; J3490; J7050; J7060; J7620

== ENCOUNTER 2017-03-18 20:29 | Inpatient (IN) | payer MEDICAID ==
[2017-03-18] MEDS ORDERED: ASPIRIN 81 MG TABLET, CHEWABLE PO ONE (20:44)
[2017-03-18] MEDS ORDERED: FUROSEMIDE INJ/PF 40 MG/4 ML SDV IV ONE ×2 (20:52→23:00)
[2017-03-18] MEDS ORDERED: NITROGLYCERIN/D5W 50 MG/250 ML RTUINJ IV PRN ×2 (20:53→22:38)
[2017-03-18] MEDS ORDERED: NITROGLYCERIN/D5W 50 MG/250 ML RTUINJ IV ONE (20:54)
--- NOTE | 2017-03-18 21:09 | ER Document Report ---
ED Cardiac - General Mode of Arrival: Medic Information source: Patient, Emergency Med Personnel TRAVEL OUTSIDE OF THE [place] IN LAST 30 DAYS: No - HPI Patient complains to provider of: Chest pain, Shortness of breath Cardiac risk factors: Hypertension, Smoker, Hx SC Associated symptoms: Other - see notes above <VICK ORLANDO - Last Filed: 03/19/17 02:25> <NANDA KOCH - Last Filed: 03/19/17 03:58> - General Chief Complaint: Chest Pain Stated Complaint: CHEST PAIN Time Seen by Provider: 03/18/17 20:43 Notes: 56 year old male with history of hypertension, COPD, and an SC (ejection fraction 10%) presents to the ED complaining of left sided chest pain and shortness of breath that started at 2000 this evening. Patient was seen in the ED for pneumonia 3 days ago and was discharged earlier this morning. (VICK ORLANDO) - Related Data Allergies/Adverse Reactions: No Known Allergies Allergy (Verified 02/26/17 15:07) Past Medical History - General Information source: Patient - Social History Smoking Status: Unknown if Ever Smoked Family History: COPD - Past Medical History Cardiac Medical History: Reports: Hx Heart Attack - 8 MONTHS AGO, ON HEART MONITOR NOW, Hx Hypertension Denies: Hx Coronary Artery Disease Pulmonary Medical History: Reports: Hx Bronchitis, Hx COPD Denies: Hx Asthma, Hx Pneumonia Neurological Medical History: Denies: Hx Cerebrovascular Accident, Hx Seizures Renal/ Medical History: Denies: Hx Peritoneal Dialysis Musculoskeltal Medical History: Denies Hx Arthritis Past Surgical History: Reports: Hx Pacemaker - Immunizations Hx Diphtheria, Pertussis, Tetanus Vaccination: Yes <VICK ORLANDO - Last Filed: 03/19/17 02:25> Review of Systems - Review of Systems Constitutional: No symptoms reported EENT: No symptoms reported Cardiovascular: See HPI, Chest pain Respiratory: See HPI, Short of breath Gastrointestinal: No symptoms reported. denies: Abdominal pain, Nausea Genitourinary: No symptoms reported Male Genitourinary: No symptoms reported Musculoskeletal: No symptoms reported Skin: No symptoms reported Hematologic/Lymphatic: No symptoms reported Neurological/Psychological: No symptoms reported -: Yes All other systems reviewed and negative <VICK ORLANDO - Last Filed: 03/19/17 02:25> Physical Exam - Vital signs Interpretation: Tachycardic, Hypoxic, Tachypneic - General General appearance: Alert In distress: Moderate - HEENT Head: Normocephalic, Atraumatic Eyes: Normal Extraocular movements intact: Yes Pupils: PERRL - Respiratory Respiratory status: Retractions, Tachypnea Breath sounds: Decreased air movement - throughout, Other - crackles throughout - Cardiovascular Rhythm: Regular, Tachycardia Heart sounds: Normal auscultation - Abdominal Inspection: Normal - Back Back: Normal - Extremities General upper extremity: Normal inspection, Normal ROM General lower extremity: Normal inspection, Normal ROM - Neurological Neuro grossly intact: Yes Cognition: Normal Orientation: AAOx4 [place] Coma Scale Eye Opening: Spontaneous [place] Coma Scale Verbal: Oriented [place] Coma Scale Motor: Obeys Commands [place] Coma Scale Total: 15 Speech: Normal - Psychological Associated symptoms: Normal affect, Normal mood - Skin Skin Temperature: Warm Skin Moisture: Dry Skin Color: Normal <VICK ORLANDO - Last Filed: 03/19/17 02:25> - Vital signs Vitals: Pulse Resp BP Pulse Ox 122 H 30 H 128/89 H 100 03/18/17 20:44 03/18/17 20:44 03/18/17 20:44 03/18/17 20:44 Course - Laboratory Result Diagrams: 03/18/17 21:32 03/18/17 20:55 - Consults [place] Transfer Line Time consulted: 22:10 [facility] Time consulted: 22:12 [facility] Transfer Line Time consulted: 22:14 Dr. Hall Time consulted: 22:14 <VICK ORLANDO - Last Filed: 03/19/17 02:25> - Laboratory Result Diagrams: 03/18/17 21:32 03/18/17 20:55 - Diagnostic Test Radiology reviewed: Reports reviewed - EKG Interpretation by Me When compared to previous EKG there are: No significant change <NANDA KOCH - Last Filed: 03/19/17 03:58> - Re-evaluation Re-evalutation: 03/18/17 20:50 Patient was re-evaluated with portable x-ray at bedside. Respiratory was called for BiPAP. (VICK ORLANDO) 03/18 Patient is a 56-year-old male who comes in severe respiratory distress. Patient was just discharged. Patient's echocardiogram showing a EF of 10% and severely diminished diastolic function. Patient presented with florid vascular congestion. He was placed on BiPAP, given Lasix, and started on a nitroglycerin drip. Patient is urinating multiple times and has had improvement of his symptoms. Patient was discussed with the hospitalist service who initially recommended patient be sent for evaluation for LVAD. Unfortunately, [facility] does not have beds and went to the due to elevated. [place], and [facility] do not have any beds currently. Patient is improving with diuresis, nitro, and BiPAP. He is currently resting comfortably with improvement of his vital signs. Cardiology will be consulted and the patient will be admitted to the hospitalist service. Stable at time of admission. (NANDA KOCH) - Vital Signs Vital signs: Temp Pulse Resp BP Pulse Ox 97.9 F 122 H 21 H 109/72 90 L 03/18/17 22:07 03/18/17 20:44 03/19/17 02:30 03/19/17 02:30 03/19/17 02:30 - Laboratory Laboratory results interpreted by me: 03/18/17 03/18/17 03/18/17 20:55 20:55 21:32 WBC 14.1 H RBC 3.84 L MCV 104 H MCH 35.3 H Seg Neutrophils % 84.6 H Lymphocytes % 7.1 L Absolute Neutrophils 11.9 H Sodium 134.4 L Chloride 93 L Direct Bilirubin 0.5 H Alkaline Phosphatase 152 H Creatine Kinase 26 L NT-Pro-B Natriuret Pep 71040 H - Consults [place] [facility] Reason for consultation: 03/19/17 22:10 Called [place] Transfer line for possible transfer, told there are no beds available and there is a long waiting list. (VICK ORLANDO) [facility] Reason for consultation: 03/19/17 22:12 Called [facility] for possible transfer, told there are no beds available and there is a long waiting list. (VICK ORLANDO) [facility] Transfer Line Reason for consultation: 03/19/17 22:14 Called [facility] Transfer Line and told there are no beds available and that they do not install LVADs. (VICK ORLANDO) Dr. Hall Reason for consultation: 03/19/17 22:[address] Hall who agrees to admit the patient under her care. (VICK ORLANDO) Critical Care Note - Critical Care Note Total time excluding time spent on procedures (mins): 45 - 9 evaluation and management of respiratory distress, pulmonary edema, acute on chronic heart failure, coordination with specialist, coordination of admission, counseling of patient and family <NANDA KOCH - Last Filed: 03/19/17 03:58> Discharge <VICK ORLNADO - Last Filed: 03/19/17 02:25> - Discharge Admitting Provider: Hospitalist [facility] Unit Admitted: ICU <NANDA KOCH - Last Filed: 03/19/17 03:58> - Discharge Clinical Impression: Pleural effusion, left, Acute respiratory failure with hypoxemia, Acute on chronic systolic (congestive) heart failure, Nonischemic cardiomyopathy Condition: Stable Disposition: ADMITTED INPATIENT Scribe Attestation: 03/19/17 03:58 I personally performed the services described in the documentation, reviewed and edited the documentation which was dictated to the scribe in my presence, and it accurately records my words and actions. (NANDA KOCH) Scribe Documentation - Scribe Written by Ancae:: Edmund Dickens, 03/18/2017 [id number] acting as scribe for :: Keven <VICK ORLANDO - Last Filed: 03/19/17 02:25>
--- NOTE | 2017-03-18 21:14 | RADIOLOGY REPORT (SQ) ---
EXAM DESCRIPTION: CHEST SINGLE VIEW COMPLETED DATE/TIME: 03/18/2017 8:59 pm REASON FOR STUDY: CP COMPARISON: 03/15/2017. NUMBER OF VIEWS: One view. TECHNIQUE: Single frontal radiographic view of the chest acquired. LIMITATIONS: None. FINDINGS: LUNGS AND PLEURA: Left basilar density unchanged. MEDIASTINUM AND HILAR STRUCTURES: No masses or contour abnormality. HEART AND VASCULATURE: Cardiac enlargement. Vascular congestion. BONES: No acute findings. HARDWARE: None in the chest. OTHER: No other significant finding. IMPRESSION: CARDIAC ENLARGEMENT. VASCULAR CONGESTION. LEFT BASILAR DENSITY UNCHANGED. TECHNICAL DOCUMENTATION: JOB ID: [id number] [employer]- All Rights Reserved
[2017-03-18 21:31] LABS: ALANINE AMINOTRANSFERASE 39 U/L (21-72); ALBUMIN 4.3 g/dL (3.5-5.0); ALKALINE PHOSPHATASE 152 U/L (38-126); ANION GAP 14 (5-19); ASPARTATE AMINO TRANSFERASE 50 U/L (17-59); BILIRUBIN,DIRECT 0.5 mg/dL (0.0-0.4); BILIRUBIN,TOTAL 0.7 mg/dL (0.2-1.3); BLOOD UREA NITROGEN 17 mg/dL (7-20); CARBON DIOXIDE 27 mmol/L (22-30); CHLORIDE 93 mmol/L (98-107); CREATINE KINASE 26 U/L (55-170); GLUCOSE 93 mg/dL (75-110); POTASSIUM 4.4 mmol/L (3.6-5.0); SODIUM 134.4 mmol/L (137-145); TOTAL PROTEIN 7.3 g/dL (6.3-8.2)
[2017-03-18 21:42] LABS: ABSOLUTE BASOPHILS # (AUTO) 0.2 10^3/uL (0.0-0.2); ABSOLUTE EOSINOPHILS # (AUTO) 0.3 10^3/uL (0.0-0.6); ABSOLUTE MONOCYTES (AUTO) 0.7 10^3/uL (0.1-1.4); ABSOLUTE NEUT (AUTO) 11.9 10^3/uL (1.7-8.2); BASOPHILS % (AUTO) 1.2 % (0-2); EOSINOPHILS % (AUTO) 2.3 % (0-6); HEMATOCRIT 40.1 % (37.9-51.0); HEMOGLOBIN 13.6 g/dL (13.5-17.0); LYMPHOCYTES % (AUTO) 7.1 % (13-45); MEAN CORPUSCULAR HEMOGLOBIN 35.3 pg (27.0-33.4); MEAN CORPUSCULAR HGB CONC 33.8 g/dL (32.0-36.0); MEAN CORPUSCULAR VOLUME 104 fl (80-97); MONOCYTES % (AUTO) 4.8 % (3-13); PLATELET COUNT 335 10^3/uL (150-450); RED BLOOD COUNT 3.84 10^6/uL (4.35-5.55); RED CELL DISTRIBUTION WIDTH 13.9 % (11.5-14.0); SEGMENTED NEUTROPHILS % (AUTO) 84.6 % (42-78); TOTAL CELLS COUNTED % (AUTO) 100 %; WHITE BLOOD COUNT 14.1 10^3/uL (4.0-10.5)
[2017-03-18 21:44] LABS: CREATINE KINASE MB 0.36 ng/mL (<4.55)
[2017-03-18 21:51] LABS: TROPONIN I 0.04 ng/mL
[2017-03-18] MEDS ORDERED: ACETAMINOPHEN 325 MG TABLET PO PRN (22:38)
[2017-03-18 23:17] LABS: MAGNESIUM 2.1 mg/dL (1.6-2.3)
[2017-03-18 23:25] LABS: ALCOHOL < 10 mg/dL (NONE DETECTED)
[2017-03-18] MEDS: AMOXICILLIN TR/POT CLAVULANATE 500-125 MG TAB PO SCH (23:36)
--- NOTE | 2017-03-18 23:43 | PDOC CONSULTATION ---
Consultation Consult Date: 03/18/17 Attending physician:: DAFNE MARKS Consult reason:: Abnormal EKG and cardiomyopathy History of Present Illness Admission Date/PCP: 03/18/17 23:10 CALVIN CALLAHAN DO Patient complains of: Shortness of breath History of Present Illness: RAKESH MCCABE is a 56 year old male with history of severe dilated cardiomyopathy with EF reported to be 10% presents with shortness of breath. Patient was treated in the ER with IV Lasix, nitroglycerin drip and bilevel positive pressure noninvasive ventilation. I was asked to evaluate patient. Patient is noncompliant with medications and also with dietary restriction. I am told that there is history of alcohol abuse. Patient does note that he has a very poor functioning heart but has not been taking care of himself. Patient claims that he has lost a lot of weight. Patient claims that he was just discharged either earlier today or yesterday. This history was reviewed and confirmed and supplemented. Patient on repeated questioning denied any chest pain he just complained of shortness of breath. Past Medical History Cardiac Medical History: Reports: Myocardial Infarction - 8 MONTHS AGO, ON HEART MONITOR NOW, Hypertension Denies: Coronary Artery Disease Pulmonary Medical History: Reports: Bronchitis, Chronic Obstructive Pulmonary Disease (COPD) Denies: Asthma, Pneumonia Neurological Medical History: Denies: Seizures Musculoskeltal Medical History: Denies: Arthritis Hematology: Denies: Anemia Past Surgical History Past Surgical History: Reports: Pacemaker Social History Information Source: Patient Smoking Status: Unknown if Ever Smoked Frequency of Alcohol Use: Heavy Hx Recreational Drug Use: Yes Drugs: Marijuana Hx Prescription Drug Abuse: No - patient denies - Advance Directive Resuscitation Status: Full Code Surrogate healthcare decision maker:: Patient's aunt is the surrogate decision-maker Family History Family History: COPD Parental Family History Reviewed: Yes Children Family History Reviewed: Yes Sibling(s) Family History Reviewed.: Yes - Negative for premature coronary artery disease or sudden cardiac in the family amongst first degree relatives. Medication/Allergy Home Medications: Albuterol Sulfate [Proair HFA] 2 puff IH Q4HP PRN 03/19/17 Amox Tr/Potassium Clavulanate [Augmentin 875-125 mg Tablet] 1 tab PO BID Aspirin [Adult Low Dose Aspirin EC] 81 mg PO DAILY 03/19/17 Budesonide/Formoterol Fumarate [Symbicort HFA 160-4.5 mcg Inhaler 6 gm] 2 puff IH BID 03/19/17 Carvedilol [Coreg 3.125 mg Tablet] 3.125 mg PO Q12 03/19/17 Lisinopril [Zestril] 2.5 mg PO DAILY 03/19/17 Potassium Chloride [Klor-Con 10] 10 meq PO DAILY 03/19/17 Spironolactone [Aldactone 25 mg Tablet] 25 mg PO QAM 03/19/17 Thiamine HCl [Thiamine 100 mg Tablet] 1 tab PO DAILY 03/19/17 Allergies/Adverse Reactions: No Known Allergies Allergy (Verified 02/26/17 15:07) Review of Systems Review of Systems: Please see history of present illness and past medical history as wall. Constitutional: No fever or chills reported. Head : No recent chronic headaches, recent head injury. Eyes: No recent eye pain, diplopia, redness, discharge, acute visual changes. Ears: No recent chronic ear pain, acute hearing loss, ear discharge. Oral cavity: No recent ulcerations, bleeding, oral cavity discomfort. Neck: No recent acute neck pain reported. Hematologic: No recent easy bruising or bleeding or hematologic malignancy reported. Lymphatic: No recent lymphatic malignancy, chronic lymphadenopathy reported yet Cardiovascular system review: See history of present illness. Respiratory system review: No recent chronic cough, hemoptysis, blood clots in the lungs reported. Significant shortness of breath on exertion Gastrointestinal system review: Negative for any recent acute or chronic abdominal pain, hematemesis, melena, recent change in bowel habits. Genitourinary system review: No recent acute or chronic hematuria, flank pain, UTI etc. reported. Skin system review: Negative for any recent abnormal bruising, no rash, no pruritus reported. Neurologic: No prior history of strokes, mini strokes, seizure disorder. Psychologic: No history of major psychosis or major depression reported. Musculoskeletal: Minor aches and pains reported. No acute joint swelling reported. Endocrine: No recent polyuria, polydipsia, recent heat or cold intolerance. Physical Exam Vital Signs: Temp Pulse Resp BP Pulse Ox 97.9 F 122 H 29 H 130/88 H 100 03/18/17 22:07 03/18/17 20:44 03/18/17 21:05 03/18/17 21:00 03/18/17 21:18 Results Impressions: Chest X-Ray 03/18/17 20:44 IMPRESSION: CARDIAC ENLARGEMENT. VASCULAR CONGESTION. LEFT BASILAR DENSITY UNCHANGED. Assessment & Plan - Diagnosis (1) Acute on chronic systolic (congestive) heart failure Is this a current diagnosis for this admission?: Yes (2) Acute respiratory failure with hypoxemia Is this a current diagnosis for this admission?: Yes (3) COPD exacerbation Is this a current diagnosis for this admission?: Yes (4) EtOH dependence Qualifiers: Substance use status: uncomplicated Qualified Code(s): F10.20 - Alcohol dependence, uncomplicated Is this a current diagnosis for this admission?: Yes - Notes Notes: Patient has chronic congestive heart failure with acute exacerbation. Severely depressed LVEF and in addition also has severe mitral regurgitation. At this point recommend vasodilator therapy with beta blockers, ACEI/ARB, digoxin, diuretics. Patient will benefit from placement of a biventricular defibrillator. This unfortunately can only be done at tertiary care center and there are no beds available. Patient understand that he is at increased risk of dying suddenly. Patient has been advised to quit drinking. Patient's medical regimen will be gradually optimized while he is here. Of note patient does not want to make any decision by himself but once all decisions about treatment and management to be decided by his aunt. - Time Time Spent: 30 to 50 Minutes - CODE STATUS was discussed, patient remains full code. Surrogate decision-maker patient's aunt. Multiple medical problems were addressed. More than 50% of the time spent coordinating care, discussing management plans with involved caregivers. Management plans discussed with involved personnels. Medical decision making was of moderate to high complexity , patient's has multiple comorbidities. Medications reviewed and adjusted accordingly: Yes
[2017-03-19 03:39] LABS: HEMATOCRIT 39.5 % (37.9-51.0); HEMOGLOBIN 13.8 g/dL (13.5-17.0); MEAN CORPUSCULAR HEMOGLOBIN 35.8 pg (27.0-33.4); MEAN CORPUSCULAR VOLUME 102 fl (80-97); PLATELET COUNT 281 10^3/uL (150-450); RED BLOOD COUNT 3.86 10^6/uL (4.35-5.55); RED CELL DISTRIBUTION WIDTH 13.7 % (11.5-14.0); WHITE BLOOD COUNT 10.9 10^3/uL (4.0-10.5)
[2017-03-19 03:49] LABS: ANION GAP 11 (5-19); BLOOD UREA NITROGEN 17 mg/dL (7-20); CALCIUM 9.1 mg/dL (8.4-10.2); CARBON DIOXIDE 29 mmol/L (22-30); CHLORIDE 96 mmol/L (98-107); CHOLESTEROL 142.01 mg/dL (0-200); CREATINE KINASE 20 U/L (55-170); GLUCOSE 92 mg/dL (75-110); MAGNESIUM 1.9 mg/dL (1.6-2.3); SODIUM 136.2 mmol/L (137-145); TRIGLYCERIDES 76 mg/dL (<150)
[2017-03-19 04:00] LABS: DIRECT LDL 72 mg/dL (<100)
[2017-03-19 04:01] LABS: CREATINE KINASE MB 0.45 ng/mL (<4.55); TROPONIN I 0.118 ng/mL
[2017-03-19 04:04] LABS: ABSOLUTE LYMPHOCYTES# (MANUAL) 0.5 10^3/uL (0.5-4.7); ABSOLUTE MONOCYTES # (MANUAL) 0.5 10^3/uL (0.1-1.4); ABSOLUTE NEUTROPHILS# (MANUAL) 9.3 10^3/uL (1.7-8.2); BASOPHILS % (MANUAL) 2 % (0-2); EOSINOPHILS % (MANUAL) 3 % (0-6); LYMPHOCYTES % (MANUAL) 5 % (13-45); MONOCYTES % (MANUAL) 5 % (3-13); SEGMENTED NEUTROPHILS % (MAN) 85 % (42-78); TOTAL CELLS COUNTED 100
[2017-03-19 04:13] LABS: PLATELET COMMENT ADEQUATE; POLYCHROMASIA SLIGHT; TOXIC GRANULATION SLIGHT; TOXIC VACUOLATION PRESENT
[2017-03-19 04:18] LABS: POTASSIUM 3.4 mmol/L (3.6-5.0)
[2017-03-19] MEDS: LANSOPRAZOLE 15 MG TAB.RAP.DR PO SCH (06:05)
[2017-03-19] MEDS: FUROSEMIDE INJ/PF 40 MG/4 ML SDV IV SCH ×2 (06:06→19:22)
[2017-03-19] MEDS: HEPARIN SOD (PORCINE) 5,000 UNIT/ML 1 ML SYRINGE SUBCUT SCH ×2 (06:15→19:19)
[2017-03-19] MEDS: AMOXICILLIN TR/POT CLAVULANATE 500-125 MG TAB PO SCH (06:19)
[2017-03-19] MEDS ORDERED: POTASSIUM CHLORIDE 10 MEQ TABLET.SA PO ONE (06:22)
--- NOTE | 2017-03-19 06:42 | PDOC H&P ---
History of Present Illness Admission Date/PCP: 03/18/17 23:10 CALVIN CALLAHAN DO History of Present Illness: Patient is a 56-year-old male with a past medical history of alcoholic cardiomyopathy with a known systolic congestive heart failure with an EF of 10% , mean required left lower lobe pneumonia, and recent admission at this facility for community-acquired pneumonia and hypoxic respiratory failure who was admitted from to 03/18/17 returns under 12 hours after discharge for acute respiratory failure. Patient is found to be in florid pulmonary edema and hypertensive. He is initially started on a nitroglycerin drip which is quickly titrated up to 50 mgcs and given BiPAP and Lasix. He has some improvement of his symptomatology. Patient reports that when he went home he drank a lot of pop and had a cigarette. His aunt and mother are present at bedside. Much of the history is obtained from them. I did review patient's prior admission H&P and discharge summary. Past Medical History Cardiac Medical History: Reports: Myocardial Infarction - 8 MONTHS AGO, ON HEART MONITOR NOW, Hypertension Denies: Coronary Artery Disease Pulmonary Medical History: Reports: Bronchitis, Chronic Obstructive Pulmonary Disease (COPD) Denies: Asthma, Pneumonia Neurological Medical History: Denies: Seizures Musculoskeltal Medical History: Denies: Arthritis Psychiatric Medical History: Reports: Alcohol Dependency, Tobacco Dependency Hematology: Denies: Anemia Past Surgical History Past Surgical History: Reports: None Social History Smoking Status: Current Every Day Smoker Frequency of Alcohol Use: Heavy Hx Recreational Drug Use: Yes Drugs: Marijuana Hx Prescription Drug Abuse: No - patient denies - Advance Directive Resuscitation Status: Full Code Surrogate healthcare decision maker:: Mother Regla Andres Family History Family History: COPD Parental Family History Reviewed: Yes Children Family History Reviewed: Yes Sibling(s) Family History Reviewed.: Yes Medication/Allergy Home Medications: Albuterol Sulfate [Proair HFA] 2 puff IH Q6HP PRN 03/16/17 Budesonide/Formoterol Fumarate [Symbicort 160-4.5 Mcg Inhaler] 2 puff IH Q12 10/24 Carvedilol [Coreg 3.125 mg Tablet] 3.125 mg PO Q12 03/16/17 Lisinopril [Prinivil 5 mg Tablet] 2.5 mg PO DAILY 03/16/17 Amox Tr/Potassium Clavulanate [Augmentin 875-125 mg Tablet] 1 tab PO BID #14 tablet 03/18/17 Aspirin [Ecotrin 81 mg EC Tablet] 81 mg PO DAILY #30 tabec 03/18/17 Allergies/Adverse Reactions: No Known Allergies Allergy (Verified 02/26/17 15:07) Review of Systems Constitutional: ABSENT: chills, fever(s), headache(s), weight gain, weight loss Eyes: ABSENT: visual disturbances Ears: ABSENT: hearing changes Cardiovascular: PRESENT: dyspnea on exertion, edema, orthropnea. ABSENT: chest pain, palpitations Respiratory: PRESENT: dyspnea, sputum. ABSENT: cough, hemoptysis Gastrointestinal: PRESENT: nausea. ABSENT: abdominal pain, constipation, diarrhea, hematemesis, hematochezia, melena, vomiting Genitourinary: ABSENT: dysuria, hematuria Musculoskeletal: ABSENT: joint swelling Integumentary: ABSENT: rash, wounds Neurological: ABSENT: abnormal gait, abnormal speech, confusion, dizziness, focal weakness, syncope Psychiatric: ABSENT: anxiety, depression, homidical ideation, suicidal ideation Endocrine: ABSENT: cold intolerance, heat intolerance, polydipsia, polyuria Hematologic/Lymphatic: ABSENT: easy bleeding, easy bruising Physical Exam Vital Signs: Temp Pulse Resp BP Pulse Ox 97.8 F 122 H 19 113/67 97 03/19/17 06:18 03/18/17 20:44 03/19/17 06:01 03/19/17 06:00 03/19/17 06:01 Intake & Output 03/17/17 03/18/17 03/19/17 06:59 06:59 06:59 Intake Total 300 Output Total 2000 Balance -1700 General appearance: PRESENT: severe distress, thin, well-developed, other - On BiPAP Head exam: PRESENT: atraumatic, normocephalic Eye exam: PRESENT: conjunctiva pink, EOMI, PERRLA. ABSENT: scleral icterus Ear exam: PRESENT: normal external ear exam Mouth exam: PRESENT: moist, tongue midline Neck exam: PRESENT: JVD. ABSENT: carotid bruit, lymphadenopathy, thyromegaly, tracheal deviation Respiratory exam: PRESENT: rales, rhonchi - Left lower lobe, symmetrical, tachypnea, unlabored. ABSENT: accessory muscle use, wheezes Cardiovascular exam: PRESENT: gallop, RRR, +S1, +S2. ABSENT: diastolic murmur, rubs, systolic murmur Pulses: PRESENT: normal dorsalis pedis pul Vascular exam: PRESENT: normal capillary refill GI/Abdominal exam: PRESENT: normal bowel sounds, soft. ABSENT: distended, guarding, mass, Elliott's sign, organolmegaly, rebound, rigid, tenderness Rectal exam: PRESENT: deferred Extremities exam: PRESENT: full ROM, pedal edema. ABSENT: calf tenderness, clubbing Neurological exam: PRESENT: alert, awake, oriented to person, oriented to place , oriented to time, oriented to situation, CN II-XII grossly intact. ABSENT: motor sensory deficit Psychiatric exam: PRESENT: appropriate affect, normal mood. ABSENT: homicidal ideation, suicidal ideation Skin exam: PRESENT: dry, intact, warm. ABSENT: cyanosis, rash Results Laboratory Results: 03/19/17 03:29 03/19/17 03:29 03/19/17 03/19/17 03:29 03:29 WBC 10.9 H RBC 3.86 L Hgb 13.8 Hct 39.5 MCV 102 H MCH 35.8 H MCHC 35.0 RDW 13.7 Plt Count 281 Seg Neutrophils % Not Reportable Lymphocytes % Not Reportable Monocytes % Not Reportable Eosinophils % Not Reportable Basophils % Not Reportable Absolute Neutrophils Not Reportable Absolute Lymphocytes Not Reportable Absolute Monocytes Not Reportable Absolute Eosinophils Not Reportable Absolute Basophils Not Reportable Sodium 136.2 L Potassium 3.4 L D Chloride 96 L Carbon Dioxide 29 Anion Gap 11 BUN 17 Creatinine 0.67 Est GFR ( Amer) > 60 Est GFR (Non-Af Amer) > 60 Glucose 92 Calcium 9.1 Magnesium 1.9 Triglycerides 76 Cholesterol 142.01 LDL Cholesterol Direct 72 VLDL Cholesterol 15.0 HDL Cholesterol 62 03/19/17 03/19/17 03:29 03:29 Creatine Kinase 20 L CK-MB (CK-2) 0.45 Troponin I 0.118 NT-Pro-B Natriuret Pep [id number] H Impressions: Chest X-Ray 03/18/17 20:44 IMPRESSION: CARDIAC ENLARGEMENT. VASCULAR CONGESTION. LEFT BASILAR DENSITY UNCHANGED. Assessment & Plan - Diagnosis (1) Acute respiratory failure with hypoxemia Is this a current diagnosis for this admission?: Yes Plan: Oxygen as needed and BiPAP (2) Nonischemic cardiomyopathy Is this a current diagnosis for this admission?: Yes Plan: Have consulted cardiology for possible LifeVest/LVAD evaluation Patient on Coreg, lisinopril, Lasix, aspirin and nitroglycerin drip Secondary to alcoholic cardiomyopathy (3) Pleural effusion, left Is this a current diagnosis for this admission?: Yes (4) Acute bronchitis Qualifiers: Bronchitis organism: unspecified organism Qualified Code(s): J20.9 - Acute bronchitis, unspecified Is this a current diagnosis for this admission?: Yes Plan: Place patient on prednisone twice daily (5) COPD exacerbation Is this a current diagnosis for this admission?: Yes Plan: Prednisone twice daily and Xopenex as needed (6) ETOH abuse Is this a current diagnosis for this admission?: Yes Plan: Monitor patient on telemetry for arrhythmia. Check magnesium. Place on thiamine, folic acid. Monitor for worsening symptomatology (7) Fatty liver Is this a current diagnosis for this admission?: Yes (8) Moderate protein-calorie malnutrition Is this a current diagnosis for this admission?: Yes (9) PAD (peripheral artery disease) Is this a current diagnosis for this admission?: Yes (10) Pneumonia Qualifiers: Laterality: left Lung location: lower lobe of lung Is this a current diagnosis for this admission?: Yes Plan: Continue Augmentin (11) Tobacco dependence Is this a current diagnosis for this admission?: Yes Plan: Nicotine patch - Time Time Spent: 50 to 70 Minutes Medications reviewed and adjusted accordingly: Yes Anticipated discharge: Home Within: Other - Inpatient Certification Based on my medical assessment, after consideration of the patient's comorbidities, presenting symptoms, or acuity I expect that the services needed warrant INPATIENT care.: Yes I certify that my determination is in accordance with my understanding of Medicare's requirements for reasonable and necessary INPATIENT services [42 CFR 412.3e].: Yes Medical Necessity: Need For Continuous Telemetry Monitoring, Risk of Complication if Not Cared For in Hospital Post Hospital Care: D/C Jig Operator Documentation
--- NOTE | 2017-03-19 08:06 | EKG REPORT ---
SEVERITY:- ABNORMAL ECG - SINUS RHYTHM VENTRICULAR PREMATURE COMPLEX IVCD, CONSIDER ATYPICAL LBBB : Confirmed by: Paddy Ding MD 19-Mar-2017 08:05:01
--- NOTE | 2017-03-19 08:06 | EKG REPORT ---
SEVERITY:- ABNORMAL ECG - SINUS TACHYCARDIA NONSPECIFIC INTRAVENTRICULAR CONDUCTION DELAY PROBABLE LEFT VENTRICULAR HYPERTROPHY : Confirmed by: Paddy Ding MD 19-Mar-2017 08:05:18
--- NOTE | 2017-03-19 08:07 | EKG REPORT ---
SEVERITY:- ABNORMAL ECG - SINUS TACHYCARDIA NONSPECIFIC INTRAVENTRICULAR CONDUCTION DELAY PROBABLE LEFT VENTRICULAR HYPERTROPHY ST DEPRESSION, CONSIDER ISCHEMIA, INF LEADS : Confirmed by: Paddy Ding MD 19-Mar-2017 08:06:13
[2017-03-19 09:52] LABS: CREATINE KINASE MB 0.41 ng/mL (<4.55); TROPONIN I 0.101 ng/mL
[2017-03-19] MEDS ORDERED: CARVEDILOL 3.125 MG TABLET PO SCH (10:00)
[2017-03-19] MEDS ORDERED: ASPIRIN 325 MG TABLET, ENT COATED PO SCH (10:00)
[2017-03-19] MEDS ORDERED: BUDESONIDE/FORMOTEROL 160-4.5 MCG 60 PUFF/6 GM MDI IH SCH (10:00)
[2017-03-19] MEDS ORDERED: THIAMINE HCL 100 MG TABLET PO SCH (10:00)
[2017-03-19] MEDS ORDERED: LISINOPRIL 5 MG TABLET PO SCH (10:00)
[2017-03-19] MEDS: PREDNISONE 20 MG TABLET PO SCH ×2 (10:02→19:20)
[2017-03-19] MEDS: FOLIC ACID 1 MG TABLET PO SCH (10:02)
[2017-03-19] MEDS: NICOTINE 7 MG/24 HR PATCH.TD24 TD SCH (10:58)
[2017-03-19] MEDS ORDERED: NITROGLYCERIN/D5W 50 MG/250 ML RTUINJ IV ONE (15:01)
[2017-03-19] MEDS ORDERED: INFLUENZA ADLT QUAD (36MOS+) 2017-18 VAC 0.5 ML SYR IM PRN (15:46)
[2017-03-19 16:38] LABS: TROPONIN I 0.063 ng/mL
[2017-03-19 16:40] LABS: CREATINE KINASE MB < 0.22 ng/mL (<4.55)
[2017-03-19] MEDS ORDERED: ALBUTEROL SULFATE HFA (90 MCG/PUFF) 200 PUFF/8.5 GM MDI IH PRN (16:45)
--- NOTE | 2017-03-19 17:09 | PROGRESS NOTE E ---
Progress Note NAME: RAKESH MCCABE : 1960 AGE: 56Y DATE: 03/19/2017 ROOM: 313 SUBJECTIVE: The patient was seen earlier today on rounds. The patient states that he feels much better in comparison to when he came in. He denies any nausea, vomiting or diarrhea. No shortness of breath, dizziness, chest pain, no fever or chills. The patient has been afebrile. His blood pressures have been in acceptable range and the patient does not voice any other medical concerns at this time. I attempted to engage the patient in more information. The patient states that he does not know who his plant operations engineer is and the patient was also quite confrontational, stating that, "You're the reason that I keep coming to the hospital." The patient denies ever being instructed on daily weights or fluid restriction, although it has been well documented in the past, and the patient is agreeable to receiving more education. REVIEW OF SYSTEMS: Rest of review of systems is negative. MEDICATIONS: Medications have been reviewed. OBJECTIVE: GENERAL: The patient is a 56-year-old male who is awake and alert. He is oriented to person, place, time and situation. He is verbal and conversational, easily agitated and does not appear to be distressed. VITAL SIGNS: Temperature is 97.7, pulse 83, respirations 18, blood pressure 109/65, oxygen saturation is 94% on room air. SKIN: Warm and dry. No rashes, not diaphoretic. HEENT: Pupils are equal, round, reactive to light and accommodation. Conjunctivae pink. NECK: The patient does have JVP to the right clavicle. CARDIOVASCULAR: Heart is regular. There is no rub. CHEST: Diminished, symmetrical and unlabored. ABDOMEN: Soft, nontender and nondistended. BACK: No CVA tenderness or sacral edema. EXTREMITIES: No clubbing, cyanosis or edema. PSYCHIATRIC: The patient is easily agitated. DIAGNOSTIC DATA: Lab values are as follows: Hematology obtained on 03/19/2017: WBC is 10.9, hemoglobin 13.8, hematocrit 39.5, and platelet count is 281,000. Chemistries obtained on 03/19/2017: Sodium is 131, potassium 3.4, chloride 100, carbon dioxide 29, BUN 17, creatinine 0.67, glucose 92, calcium 9.1, magnesium is 1.9. IMPRESSION AND PLAN: 1. [id number] SYSTOLIC CONGESTIVE HEART FAILURE SECONDARY TO ALCOHOLIC CARDIOMYOPATHY. The patient overall appears much improved in comparison to admission. The patient appears to be back to his baseline, however, am going to make further investigation at outpatient standpoint. Will consult heart failure teaching to attempt to determine who is the patient's outpatient plant operations engineer actually is and to discuss the patient in detail. The patient has a long documented history of noncompliance and would not be ideal for inotropes as well as transplantation, therefore, will consult Palliative Care as well and follow. 2. MEDICAL NONCOMPLIANCE. Will once again have the patient meet with heart failure education and follow. 3. COMMUNITY-ACQUIRED LOWER LOBE PNEUMONIA. Is improving and will continue oral medication. 4. ACUTE HYPOXEMIC RESPIRATORY FAILURE SECONDARY TO ACUTE DECOMPENSATION. The patient is now on room air. 5. CHRONIC OBSTRUCTIVE PULMONARY DISEASE. Continue the patient's current medications. 6. ALCOHOL DEPENDENCY, CONTINUOUS. Will continue to supplement the vitamins. 7. HYPONATREMIA SECONDARY TO ALCOHOL DEPENDENCY WELL CHRONIC CHF. 8. MODERATE PROTEIN CALORIE MALNOURISHMENT. 9. TOBACCO DEPENDENCY, CONTINUOUS. Will continue p.r.n. nicotine patch. DISPOSITION: The patient is a FULL CODE. Pending the patient's symptomatology and diagnostic findings, will re-evaluate in the a.m. TIME SPENT: On this followup including assessment, plan, physical examination, patient education, and specialist collaboration is 25 minutes. DICTATING PHYSICIAN: JACY HERRERA [id number] PHY#: [id number] [id number] JOB#: [id number] ACCT: [id number] cc: > [facility]
[2017-03-19] MEDS ORDERED: (PENDING PHARMACY ID) (Amox Tr/Potassium Clavulanate [Augmentin 875-125 Mg Tablet] 1 TAB) PO SCH (18:00)
[2017-03-19] MEDS: BUDESONIDE/FORMOTEROL 160-4.5 MCG 60 PUFF/6 GM MDI IH SCH (19:21)
[2017-03-20] MEDS: FUROSEMIDE INJ/PF 40 MG/4 ML SDV IV SCH ×3 (00:57→14:11)
[2017-03-20] MEDS: HEPARIN SOD (PORCINE) 5,000 UNIT/ML 1 ML SYRINGE SUBCUT SCH ×3 (00:57→14:11)
[2017-03-20] MEDS: AMOXICILLIN TR/POT CLAVULANATE 500-125 MG TAB PO SCH ×3 (00:57→14:11)
[2017-03-20] MEDS: CARVEDILOL 3.125 MG TABLET PO SCH ×2 (00:57→10:33)
[2017-03-20] MEDS: LANSOPRAZOLE 15 MG TAB.RAP.DR PO SCH (07:16)
[2017-03-20 07:20] LABS: ALANINE AMINOTRANSFERASE 36 U/L (21-72); ALBUMIN 3.6 g/dL (3.5-5.0); ALKALINE PHOSPHATASE 125 U/L (38-126); ANION GAP 14 (5-19); ASPARTATE AMINO TRANSFERASE 26 U/L (17-59); BILIRUBIN,DIRECT 0.4 mg/dL (0.0-0.4); BILIRUBIN,TOTAL 0.6 mg/dL (0.2-1.3); BLOOD UREA NITROGEN 21 mg/dL (7-20); CALCIUM 9.9 mg/dL (8.4-10.2); CARBON DIOXIDE 30 mmol/L (22-30); CHLORIDE 91 mmol/L (98-107); GLUCOSE 125 mg/dL (75-110); POTASSIUM 3.9 mmol/L (3.6-5.0); SODIUM 134.7 mmol/L (137-145); TOTAL PROTEIN 6.4 g/dL (6.3-8.2)
[2017-03-20] MEDS ORDERED: LISINOPRIL 5 MG TABLET PO SCH (10:00)
[2017-03-20] MEDS: SPIRONOLACTONE 25 MG TABLET PO SCH (10:32)
[2017-03-20] MEDS: BUDESONIDE/FORMOTEROL 160-4.5 MCG 60 PUFF/6 GM MDI IH SCH ×2 (10:32→18:49)
[2017-03-20] MEDS: PREDNISONE 20 MG TABLET PO SCH ×2 (10:33→18:48)
[2017-03-20] MEDS: POTASSIUM CHLORIDE 10 MEQ TABLET.SA PO SCH (10:34)
[2017-03-20] MEDS: ASPIRIN 81 MG TABLET, ENT COATED PO SCH (10:34)
[2017-03-20] MEDS: THIAMINE HCL 100 MG TABLET PO SCH (10:34)
[2017-03-20] MEDS: FOLIC ACID 1 MG TABLET PO SCH (10:34)
[2017-03-20] MEDS: NICOTINE 7 MG/24 HR PATCH.TD24 TD SCH (10:35)
--- NOTE | 2017-03-20 11:15 | PDOC PROGRESS REPORT ---
Subjective Progress Note for:: 03/19/17 Subjective:: Patient seems to be doing better with gradual improvement. Pt is denying any chest arm or neck discomfort. Patient denying any PND, orthopnea. Patient denied any sustained palpitations, dizziness, syncope, near syncope. Patient denying any fever chills. Patient denying any other significant discomfort. Patient is maintaining sinus rhythm. Review of systems: Rest review of systems negative. Medications: Medications have been reviewed. Reason For Visit: SEVERE SYSTOLIC CONGESTIVE HEART FAILURE Physical Exam Vital Signs: Temp Pulse Resp BP Pulse Ox 97.7 F 83 18 103/78 95 03/19/17 15:40 03/19/17 15:40 03/19/17 15:40 03/19/17 18:00 03/19/17 16:48 Intake & Output 03/18/17 03/19/17 03/20/17 06:59 06:59 06:59 Intake Total 300 240 Output Total 2800 Balance -2500 240 Weight 55 kg 55 kg Exam: GENERAL: well-nourished and in no acute distress. Alert and oriented x3 HEAD: Atraumatic, normocephalic. EYES: Pupils equal round and reactive to light, extraocular movements intact, sclera anicteric, conjunctiva are normal. ENT: TMs normal, nares patent, oropharynx clear without exudates. Moist mucous membranes. No oral ulcerations or bleeding gums noted NECK: supple without lymphadenopathy. Trachea is central. No cervical or axillary lymphadenopathy noted. Carotids are 2+, JVD WNL LUNGS: Respiration seems nonlabored, no significant accessory muscle action noted. Breath sounds clear to auscultation bilaterally and equal noted. No wheezes rales or rhonchi noted. No significant dullness noted on percussion. CHEST: Palpation of the chest wall shows no significant chest wall tenderness. No other significant abnormalities noted. 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 ABDOMEN: Soft, no significant tenderness appreciated, normoactive bowel sounds. No guarding, no rebound. No rigidity noted . No masses appreciated. EXTREMITIES: Pedal pulses are 1-2+, no calf tenderness noted. No clubbing or cyanosis.trace to 1+ pedal edema noted NEUROLOGICAL: Focused neurological exam showed no significant neurologic deficit. Normal speech, no focal weakness appreciated. PSYCH: Normal mood, normal affect. Judgment and insight within normal limits. SKIN: No significant ecchymosis, rash, ulcerations or signs of pruritus noted. MUSCULOSKELETAL EXAM: No significant joint swelling noted. Results Laboratory Results: 03/19/17 03:29 03/19/17 03:29 03/19/17 03/19/17 03:29 03:29 WBC 10.9 H RBC 3.86 L Hgb 13.8 Hct 39.5 MCV 102 H MCH 35.8 H MCHC 35.0 RDW 13.7 Plt Count 281 Seg Neutrophils % Not Reportable Lymphocytes % Not Reportable Monocytes % Not Reportable Eosinophils % Not Reportable Basophils % Not Reportable Absolute Neutrophils Not Reportable Absolute Lymphocytes Not Reportable Absolute Monocytes Not Reportable Absolute Eosinophils Not Reportable Absolute Basophils Not Reportable Sodium 136.2 L Potassium 3.4 L D Chloride 96 L Carbon Dioxide 29 Anion Gap 11 BUN 17 Creatinine 0.67 Est GFR ( Amer) > 60 Est GFR (Non-Af Amer) > 60 Glucose 92 Calcium 9.1 Magnesium 1.9 Triglycerides 76 Cholesterol 142.01 LDL Cholesterol Direct 72 VLDL Cholesterol 15.0 HDL Cholesterol 62 03/19/17 03/19/17 03/19/17 03:29 03:29 09:05 Creatine Kinase 20 L < 20 L CK-MB (CK-2) 0.45 Troponin I 0.118 NT-Pro-B Natriuret Pep [id number] H 03/19/17 03/19/17 03/19/17 09:05 15:40 15:40 Creatine Kinase < 20 L CK-MB (CK-2) 0.41 < 0.22 Troponin I 0.101 0.063 NT-Pro-B Natriuret Pep EKG Comments: Showed sinus rhythm with left bundle branch block pattern. No acute ST-T wave changes noted. Impressions: Chest X-Ray 03/18/17 20:44 IMPRESSION: CARDIAC ENLARGEMENT. VASCULAR CONGESTION. LEFT BASILAR DENSITY UNCHANGED. Assessment & Plan - Diagnosis (1) Acute on chronic systolic (congestive) heart failure Is this a current diagnosis for this admission?: Yes (2) Acute respiratory failure with hypoxemia Is this a current diagnosis for this admission?: Yes (3) COPD exacerbation Is this a current diagnosis for this admission?: Yes (4) EtOH dependence Qualifiers: Substance use status: uncomplicated Qualified Code(s): F10.20 - Alcohol dependence, uncomplicated Is this a current diagnosis for this admission?: Yes - Notes Notes: Patient has made significant improvement with current regimen. Will gradually optimize regimen. Currently telemetry showing no sustained tachycardia or bradycardia arrhythmias. Currently declining to make any decisions regarding tranfer to tertiary care and other management plans.Consider Psych evaluation into insight. Consider entresto. - Time Time with patient: 15-25 minutes - CODE STATUS was discussed, patient remains full code. Surrogate decision-maker unchanged. Multiple medical problems were addressed. More than 50% of the time spent coordinating care, discussing management plans with involved caregivers. Management plans discussed with involved personnels. Medical decision making was of moderate to high complexity , patient's has multiple comorbidities. Medications reviewed and adjusted accordingly: Yes
--- NOTE | 2017-03-20 11:16 | PDOC PROGRESS REPORT ---
Subjective Progress Note for:: 03/20/17 Subjective:: Patient seems to be doing better with gradual improvement. Pt is denying any chest arm or neck discomfort. Patient denying any PND, orthopnea. Patient denied any sustained palpitations, dizziness, syncope, near syncope. Patient denying any fever chills. Patient denying any other significant discomfort. Patient is maintaining sinus rhythm. Review of systems: Rest review of systems negative. Medications: Medications have been reviewed. Reason For Visit: SEVERE SYSTOLIC CONGESTIVE HEART FAILURE Physical Exam Vital Signs: Temp Pulse Resp BP Pulse Ox 97.7 F 78 18 113/77 99 03/20/17 08:20 03/20/17 08:20 03/20/17 08:20 03/20/17 08:20 03/20/17 08:20 Intake & Output 03/19/17 03/20/17 03/21/17 06:59 06:59 06:59 Intake Total 300 477 Output Total 2800 Balance -2500 477 Weight 55 kg 49.2 kg Exam: GENERAL: well-nourished and in no acute distress. Alert and oriented x3 HEAD: Atraumatic, normocephalic. EYES: Pupils equal round and reactive to light, extraocular movements intact, sclera anicteric, conjunctiva are normal. ENT: TMs normal, nares patent, oropharynx clear without exudates. Moist mucous membranes. No oral ulcerations or bleeding gums noted NECK: supple without lymphadenopathy. Trachea is central. No cervical or axillary lymphadenopathy noted. Carotids are 2+, JVD WNL LUNGS: Respiration seems nonlabored, no significant accessory muscle action noted. Breath sounds clear to auscultation bilaterally and equal noted. No wheezes rales or rhonchi noted. No significant dullness noted on percussion. CHEST: Palpation of the chest wall shows no significant chest wall tenderness. No other significant abnormalities noted. 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 ABDOMEN: Soft, no significant tenderness appreciated, normoactive bowel sounds. No guarding, no rebound. No rigidity noted . No masses appreciated. EXTREMITIES: Pedal pulses are 1-2+, no calf tenderness noted. No clubbing or cyanosis. Negative pedal edema noted NEUROLOGICAL: Focused neurological exam showed no significant neurologic deficit. Normal speech, no focal weakness appreciated. PSYCH: Normal mood, normal affect. Judgment and insight within normal limits. SKIN: No significant ecchymosis, rash, ulcerations or signs of pruritus noted. MUSCULOSKELETAL EXAM: No significant joint swelling noted. Results Laboratory Results: 03/19/17 03:29 03/20/17 06:20 03/20/17 06:20 Sodium 134.7 L Potassium 3.9 Chloride 91 L Carbon Dioxide 30 Anion Gap 14 BUN 21 H Creatinine 0.70 Est GFR ( Amer) > 60 Est GFR (Non-Af Amer) > 60 Glucose 125 H Calcium 9.9 Magnesium 2.0 Total Bilirubin 0.6 AST 26 ALT 36 Alkaline Phosphatase 125 Total Protein 6.4 Albumin 3.6 03/19/17 03/19/17 03/19/17 03:29 03:29 09:05 Creatine Kinase 20 L < 20 L CK-MB (CK-2) 0.45 Troponin I 0.118 NT-Pro-B Natriuret Pep [id number] H 03/19/17 03/19/17 03/19/17 09:05 15:40 15:40 Creatine Kinase < 20 L CK-MB (CK-2) 0.41 < 0.22 Troponin I 0.101 0.063 NT-Pro-B Natriuret Pep EKG Comments: Telemetry strips shows sinus rhythm with left bundle branch block pattern. Impressions: Chest X-Ray 03/18/17 20:44 IMPRESSION: CARDIAC ENLARGEMENT. VASCULAR CONGESTION. LEFT BASILAR DENSITY UNCHANGED. Assessment & Plan - Diagnosis (1) Acute on chronic systolic (congestive) heart failure Is this a current diagnosis for this admission?: Yes (2) Acute respiratory failure with hypoxemia Is this a current diagnosis for this admission?: Yes (3) COPD exacerbation Is this a current diagnosis for this admission?: Yes (4) EtOH dependence Qualifiers: Substance use status: uncomplicated Qualified Code(s): F10.20 - Alcohol dependence, uncomplicated Is this a current diagnosis for this admission?: Yes - Notes Notes: Started entreso. Patient seems to be tolerating this well. Will gradually optimize beta-thong dose. Patient still unwilling to make any treatment decision. The hospitalist tells me that she will be meeting with the patient's aunt tomorrow. I did recommend a mental health consult for this patient. - Time Time with patient: 15-25 minutes - CODE STATUS was discussed, patient remains full code. Surrogate decision-maker unchanged. Multiple medical problems were addressed. More than 50% of the time spent coordinating care, discussing management plans with involved caregivers. Management plans discussed with involved personnels. Medical decision making was of moderate to high complexity , patient's has multiple comorbidities. Medications reviewed and adjusted accordingly: Yes
[2017-03-20] MEDS: SACUBITRIL/VALSARTAN 49 MG/51 MG TABLET PO SCH (18:48)
--- NOTE | 2017-03-20 19:28 | PROGRESS NOTE E ---
Progress Note NAME: RAKESH MCCABE : 1960 AGE: 56Y DATE: 03/20/2017 ROOM: 313 SUBJECTIVE: The patient is currently sitting in bed. I have had a lengthy discussion with the patient. The patient waxes and wanes between cessation of alcohol and not being able to stop drinking. The patient states that "I know I am not strong enough for a heart transplant." the patient states that he feels he is not even strong enough for an AICD placement if needed. I did educate the patient on this and agreed to speak with his aunt regarding his care. The patient's thoughts are quite scattered at this time, and the patient appears to have some displaced anger regarding previous diagnoses. The patient does not voice any specific concerns at this time. REVIEW OF SYSTEMS: Rest of review of systems is negative. MEDICATIONS: Medications reviewed. OBJECTIVE: GENERAL: The patient is a 56-year-old male who is awake, alert. He is verbal, does not appear to be in distress. VITAL SIGNS: His temperature is 97.6, pulse 86, respirations 16, blood pressure is 112/72, oxygen saturation 98% on room air. SKIN: Warm and dry. No rashes. Not diaphoretic. HEENT: Pupils equal, round, reactive to light and accommodation. Conjunctivae was pink. There is no evidence of JVD. CARDIOVASCULAR SYSTEM: Heart is regular. No rub. CHEST: Clear, symmetrical, unlabored. ABDOMEN: Soft, nontender, nondistended. BACK: No CVA tenderness or sacral edema. EXTREMITIES: No clubbing, cyanosis, or edema. PSYCHIATRIC: Appropriate affect. The patient is easily excitable. DIAGNOSTICS: Lab values are as follows: Hematology obtained on 03/19/2017, WBC is 10.9, hemoglobin 6.8, hematocrit is 35.5, platelet count 291,000. Chemistries obtained on 03/20/2017, sodium is 134, potassium 2.9, chloride is 91, carbon dioxide of 30, BUN 21, creatinine is 0.70, glucose 125, calcium is 5.9, magnesium is 0.6, AST 26, ALT is 36, alk phos 125. CK is 0.22, troponin is 0.063. Total protein is 0.4, albumin 3.6. IMPRESSION AND PLAN: 1. ACUTE ON CHRONIC SYSTOLIC CONGESTIVE HEART FAILURE SECONDARY TO ALCOHOLIC CARDIOMYOPATHY. The patient overall appears much improved. We will transition the patient over to oral agents and continue SHIRLEY and beta thong as tolerated. The patient is indecisive about his ability to stop drinking at this time. With the patient actively drinking, he would not be an ideal candidate for utilization, home inotropes, or eventual transplantation. Will appreciate palliative care's help with this. 2. MEDICAL NONCOMPLIANCE. Once again, have discussed this with the patient. 3. COMMUNITY-ACQUIRED LOWER-LOBE PNEUMONIA. This is improving with oral Augmentin. 4. ACUTE HYPOXIC RESPIRATORY FAILURE SECONDARY TO ACUTE DECOMPENSATION. The patient has been on room air. 5. CHRONIC OBSTRUCTIVE PULMONARY DISEASE. Continue the patient's home medication. 6. ALCOHOL DEPENDENCY, CONTINUOUS. Will continue to supplement the patient's vitamins. 7. HYPONATREMIA, SECONDARY TO ALCOHOL DEPENDENCY WELL CHRONIC CONGESTIVE HEART FAILURE. 8. MODERATE PROTEIN-CALORIE MALNOURISHMENT. 9. TOBACCO DEPENDENCY, CONTINUOUS. Continue p.r.n. nicotine patch. DISPOSITION: THE PATIENT IS A FULL CODE. At this time, pending patient's symptomatology and diagnostic findings, will reevaluate in the a.m. Time spent on this followup, including assessment, plan, physical examination, patient education, review of records, and lengthy discussion with the patient, is 30 minutes. DICTATING PHYSICIAN: JACY HERRERA NP [id number] PHY#: [id number] ID: [id number] JOB#: [id number] ACCT: [id number] cc: > ZIAD
--- NOTE | 2017-03-20 23:20 | Palliative Consultation Report ---
Consultation From:: [facility] - [facility] HPI: Palliative Care Consult Visit 03/20/17 12:15PM Appreciate palliaitve consult with this 56 year old man who is admitted with severe cardiomyopathy, symptoms of CHF with reported EF of 10% from previous echocardiogram. He had been discharged and went home for a few hours , but came back to ER with c/o shortness of breath and chest pain. He says he feels he was having a panic attack, but felt better after diuretics and oxygen per bipap. Mr. Andres has a long history of alcohol abuse. He says he has done a lot of things to his body when he was young, and he realizes that he caused most of his problem. However, he said during the time he was at home before coming back to ER, he had a vision of himself , lying on the floor. He tells me that this frightened him so much that he has decided to stop drinking alcohol and take better care of himself. He knows television script writer wants him to have implanted dfibrillator, but he said he has to wait until his heart is meating more than 10 times a minute. I explained about his EF being 10 and what that means, but he said he already knew about it. We discussed his wishes for end of life care. He said he wants his aunt to make all decisons for him, although he lives with his mother. He does not have that in writing, but said his mother would not argue with any decision his aunt would make. We discussed the MOST form and I gave him a copy, instructing him to discuss the options with his aunt. He said he would want CPR and mechanical ventilation. He said he probably would want feeding tube. He will discuss with her and I told him I would sign form if I am here, or other providers would be available to sign for him. Patient denies pain or shortness of breath now. He is able to carry on conversation without dyspnea on only room air. No edema noted. Onset: Just prior to arrival Onset/Duration: Sudden Quality of Pain: No pain Associated Symptoms: Weakness Past Medical History(Consults) - General Information Source: Patient, [facility] Records Home Medications: Albuterol Sulfate [Proair HFA] 2 puff IH Q4HP PRN 03/19/17 Amox Tr/Potassium Clavulanate [Augmentin 875-125 mg Tablet] 1 tab PO BID Aspirin [Adult Low Dose Aspirin EC] 81 mg PO DAILY 03/19/17 Budesonide/Formoterol Fumarate [Symbicort HFA 160-4.5 mcg Inhaler 6 gm] 2 puff IH BID 03/19/17 Carvedilol [Coreg 3.125 mg Tablet] 3.125 mg PO Q12 03/19/17 Lisinopril [Zestril] 2.5 mg PO DAILY 03/19/17 Potassium Chloride [Klor-Con 10] 10 meq PO DAILY 03/19/17 Spironolactone [Aldactone 25 mg Tablet] 25 mg PO QAM 03/19/17 Thiamine HCl [Thiamine 100 mg Tablet] 1 tab PO DAILY 03/19/17 Allergies/Adverse Reactions: No Known Allergies Allergy (Verified 02/26/17 15:07) - Social History Lives with: Family Family History: CAD, COPD Parental Family History Reviewed: No Children Family History Reviewed: No Sibling(s) Family History Reviewed.: No Smoking Status: Current Every Day Smoker Frequency of Alcohol Use: Heavy Amount of Alcoholic Beverages Per Day: 6 beers per day Last Alcohol Use: 03/18/17 Hx Recreational Drug Use: Yes Drugs: Marijuana Hx Prescription Drug Abuse: No - patient denies - Past Medical History Cardiac Medical History: Reports: Hx Congestive Heart Failure, Hx Heart Attack - 8 MONTHS AGO, ON HEART MONITOR NOW, Hx Hypertension Denies: Hx Coronary Artery Disease Pulmonary Medical History: Reports: Hx Bronchitis, Hx COPD Denies: Hx Asthma, Hx Pneumonia Neurological Medical History: Denies: Hx Cerebrovascular Accident, Hx Seizures Renal/ Medical History: Denies: Hx Peritoneal Dialysis Musculoskeltal Medical History: Denies Hx Arthritis Psychiatric Medical History: Reports: Hx Anxiety Hematology: Denies: Anemia - Surgical History Past Surgical History: Reports: None, Hx Pacemaker Ojective:Exam Vital Signs: Temp Pulse Resp BP Pulse Ox 98.8 F 86 20 123/78 100 03/20/17 20:06 03/20/17 20:06 03/20/17 20:06 03/20/17 20:06 03/20/17 20:06 Intake & Output 03/19/17 03/20/17 03/21/17 06:59 06:59 06:59 Intake Total 300 477 796 Output Total 2800 Balance -2500 477 796 Weight 55 kg 49.2 kg - General General Appearance: Appears well, Alert, Anxious In distress: None - Neck Neck: Normal, Supple - Back Back: Normal - Respiratory Respiratory Status: No respiratory distress Breath sounds: Clear - Cardiovascular Rhythm: Regular - Abdominal Inspection: Normal Distension: No distension - Neurological Cognition: Normal Orientation: AAOx4 Speech: Normal Cranial nerves: Normal Motor exam: 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 - Psychological Associated symptoms: Normal affect, Anxious Objective-Diagnostic Laboratory: 03/19/17 03:29 03/20/17 06:20 03/20/17 06:20 Sodium 134.7 L Potassium 3.9 Chloride 91 L Carbon Dioxide 30 Anion Gap 14 BUN 21 H Creatinine 0.70 Est GFR ( Amer) > 60 Est GFR (Non-Af Amer) > 60 Glucose 125 H Calcium 9.9 Magnesium 2.0 Total Bilirubin 0.6 AST 26 ALT 36 Alkaline Phosphatase 125 Total Protein 6.4 Albumin 3.6 03/19/17 03/19/17 03/19/17 03:29 03:29 09:05 Creatine Kinase 20 L < 20 L CK-MB (CK-2) 0.45 Troponin I 0.118 NT-Pro-B Natriuret Pep [id number] H 03/19/17 03/19/17 03/19/17 09:05 15:40 15:40 Creatine Kinase < 20 L CK-MB (CK-2) 0.41 < 0.22 Troponin I 0.101 0.063 NT-Pro-B Natriuret Pep Plan and Recommendation Plan and Recommendation: MOST form and end of life choices discussed with patient. He did not want to complete form until he spoke with his aunt and mother. He does want to be full code at this time. He states he is going to start taking better care of himself to prevent further damage to his heart and lungs. He has talked with CHF program staff and said he looks forward to their help at home so he can continue doing what he is supposed to do. I gave him my card in case his family has questions or if he has concerns in the future. - Time Spent with Patient Time spent with patient: 15 to 30 Minutes Greater then 50% spent on Counseling & Coordination of Care: Total time chart review, visit, 50 min
[2017-03-21] MEDS: HEPARIN SOD (PORCINE) 5,000 UNIT/ML 1 ML SYRINGE SUBCUT SCH ×4 (00:36→22:36)
[2017-03-21] MEDS: AMOXICILLIN TR/POT CLAVULANATE 500-125 MG TAB PO SCH ×4 (00:37→22:36)
[2017-03-21] MEDS: CARVEDILOL 3.125 MG TABLET PO SCH ×3 (00:37→22:36)
[2017-03-21] MEDS ORDERED: FUROSEMIDE 40 MG TABLET PO SCH (06:00)
[2017-03-21] MEDS: LANSOPRAZOLE 15 MG TAB.RAP.DR PO SCH (06:50)
[2017-03-21] MEDS: SACUBITRIL/VALSARTAN 49 MG/51 MG TABLET PO SCH ×2 (06:51→18:34)
[2017-03-21] MEDS: POTASSIUM CHLORIDE 10 MEQ TABLET.SA PO SCH (10:02)
[2017-03-21] MEDS: FOLIC ACID 1 MG TABLET PO SCH (10:03)
[2017-03-21] MEDS: ASPIRIN 81 MG TABLET, ENT COATED PO SCH (10:03)
[2017-03-21] MEDS: THIAMINE HCL 100 MG TABLET PO SCH (10:03)
[2017-03-21] MEDS: NICOTINE 7 MG/24 HR PATCH.TD24 TD SCH (10:04)
[2017-03-21] MEDS: PREDNISONE 20 MG TABLET PO SCH ×2 (10:04→18:32)
[2017-03-21] MEDS: SPIRONOLACTONE 25 MG TABLET PO SCH (10:05)
[2017-03-21] MEDS: BUDESONIDE/FORMOTEROL 160-4.5 MCG 60 PUFF/6 GM MDI IH SCH ×2 (10:05→18:35)
--- NOTE | 2017-03-21 13:25 | PDOC PROGRESS REPORT ---
Subjective Progress Note for:: 03/21/17 Subjective:: Patient seems to be doing better with gradual improvement. Pt is denying any chest arm or neck discomfort. Patient denying any PND, orthopnea. Patient denied any sustained palpitations, dizziness, syncope, near syncope. Patient denying any fever chills. Patient denying any other significant discomfort. Patient is maintaining sinus rhythm. No significant tachycardia or bradycardia arrhythmias were noted. Review of systems: Rest review of systems negative. Medications: Medications have been reviewed. Reason For Visit: SEVERE SYSTOLIC CONGESTIVE HEART FAILURE Physical Exam Vital Signs: Temp Pulse Resp BP Pulse Ox 97.7 F 85 18 95/65 L 100 03/21/17 12:08 03/21/17 12:08 03/21/17 12:08 03/21/17 12:08 03/21/17 12:08 Intake & Output 03/20/17 03/21/17 03/22/17 06:59 06:59 06:59 Intake Total 477 1036 1311 Balance 477 1036 1311 Weight 49.2 kg 50.7 kg Exam: GENERAL: well-nourished and in no acute distress. Alert and oriented x3 HEAD: Atraumatic, normocephalic. EYES: Pupils equal round and reactive to light, extraocular movements intact, sclera anicteric, conjunctiva are normal. ENT: TMs normal, nares patent, oropharynx clear without exudates. Moist mucous membranes. No oral ulcerations or bleeding gums noted NECK: supple without lymphadenopathy. Trachea is central. No cervical or axillary lymphadenopathy noted. Carotids are 2+, JVD WNL LUNGS: Respiration seems nonlabored, no significant accessory muscle action noted. Breath sounds clear to auscultation bilaterally and equal noted. No wheezes rales or rhonchi noted. No significant dullness noted on percussion. CHEST: Palpation of the chest wall shows no significant chest wall tenderness. No other significant abnormalities noted. 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 ABDOMEN: Soft, no significant tenderness appreciated, normoactive bowel sounds. No guarding, no rebound. No rigidity noted . No masses appreciated. EXTREMITIES: Pedal pulses are 1-2+, no calf tenderness noted. No clubbing or cyanosis.trace to 1+ pedal edema noted NEUROLOGICAL: Focused neurological exam showed no significant neurologic deficit. Normal speech, no focal weakness appreciated. PSYCH: Normal mood, normal affect. Judgment and insight within normal limits. SKIN: No significant ecchymosis, rash, ulcerations or signs of pruritus noted. MUSCULOSKELETAL EXAM: No significant joint swelling noted. Results Laboratory Results: 03/19/17 03:29 03/20/17 06:20 03/19/17 03/19/17 03/19/17 03:29 03:29 09:05 Creatine Kinase 20 L < 20 L CK-MB (CK-2) 0.45 Troponin I 0.118 NT-Pro-B Natriuret Pep [id number] H 03/19/17 03/19/17 03/19/17 09:05 15:40 15:40 Creatine Kinase < 20 L CK-MB (CK-2) 0.41 < 0.22 Troponin I 0.101 0.063 NT-Pro-B Natriuret Pep EKG Comments: Left bundle branch block, sinus Impressions: Chest X-Ray 03/18/17 20:44 IMPRESSION: CARDIAC ENLARGEMENT. VASCULAR CONGESTION. LEFT BASILAR DENSITY UNCHANGED. Assessment & Plan - Diagnosis (1) Acute on chronic systolic (congestive) heart failure Is this a current diagnosis for this admission?: Yes (2) Acute respiratory failure with hypoxemia Is this a current diagnosis for this admission?: Yes (3) COPD exacerbation Is this a current diagnosis for this admission?: Yes (4) EtOH dependence Qualifiers: Substance use status: uncomplicated Qualified Code(s): F10.20 - Alcohol dependence, uncomplicated Is this a current diagnosis for this admission?: Yes - Notes Notes: Patient blood pressure noted to be on the low side. Therefore have held his Lasix and reduced the dose to 20 mg a day. Hopefully this will help us escalate beta-thong dose and also entresto dose. Patient has shown significant improvement in his general condition. Patient did talk with the palliative consult and now wants to be a full code. He is agreeable to a defibrillator placement. However he does admit to being noncompliant before. Will talk with tissue rewinder as to whether we really need to wait with medical management or can we go ahead with placement of biventricular ICD straightaway. Of note patient has been noted to have chronically depressed LVEF. Patient general condition is improved. His respiratory failure has improved. His CHF has also improved. He remains with class III CHF symptoms. Patient currently however would not be considered a candidate for heart transplant but would be a candidate for prophylactic defibrillator placement - Time Time with patient: 15-25 minutes - CODE STATUS was discussed, patient remains full code. Surrogate decision-maker patient's aunt. Multiple medical problems were addressed. More than 50% of the time spent coordinating care, discussing management plans with involved caregivers. Management plans discussed with involved personnels. Medical decision making was of moderate to high complexity , patient's has multiple comorbidities. Medications reviewed and adjusted accordingly: Yes
--- NOTE | 2017-03-21 19:48 | PROGRESS NOTE E ---
Progress Note NAME: RAKESH MCCABE : 1960 AGE: 56Y DATE: 03/21/2017 ROOM: 313 SUBJECTIVE: The patient is currently out of bed to the bedside chair. He states that he does feel better today. The patient is eating without issue. The patient denies any nausea, vomiting. No diarrhea, shortness of breath, dizziness, chest pain, fevers, or chills. The patient has been afebrile. His blood pressure has been in a good range, and the patient does not voice any other concerns at this time. REVIEW OF SYSTEMS: The rest of the review of systems is negative. MEDICATIONS: Medications have been reviewed. OBJECTIVE: GENERAL: The patient is a 56-year-old male who is awake, alert. He is oriented to person, place, time, situation. He does not appear to be in distress. VITAL SIGNS: Temperature is 97.7, pulse 85, respirations 18, blood pressure is 95/65, oxygen saturation 100% on room air. SKIN: Warm and dry. No rash. Not diaphoretic. HEENT: Pupils equal, round, reactive to light and accommodation. Conjunctivae was pink. No evidence of JVD. CARDIOVASCULAR SYSTEM: Heart is regular. No rub. CHEST: Clear, symmetrical, unlabored. ABDOMEN: Soft, nontender, nondistended. BACK: No CVA tenderness or sacral edema. EXTREMITIES: No clubbing, cyanosis, edema. PSYCHIATRIC: Appropriate affect, pleasant mood. DIAGNOSTICS: Lab values as follows: Hematology obtained on 03/19/2017: WBCs are 10.9, hemoglobin 13.8, hematocrit 39.5, platelet count is 381,000. Chemistries obtained on 03/20/2017: Sodium 131, potassium 2.9, chloride is 91, carbon dioxide 30, BUN 21, creatinine 0.71, glucose 125, calcium is 9.9, magnesium is 2.0, total bilirubin is 0.4, AST 26, ALT is 36. IMPRESSION AND PLAN: 1. ACUTE ON CHRONIC SYSTOLIC CONGESTIVE HEART FAILURE SECONDARY TO ALCOHOLIC CARDIOMYOPATHY. OVERALL THE PATIENT APPEARS EUVOLEMIC. The family has elected to proceed with a meeting tomorrow to discuss overall goals of care. In the meantime, will continue SHIRLEY, beta thong as tolerated. 2. MEDICAL NONCOMPLIANCE. Once again, I have discussed this with the patient. 3. COMMUNITY-ACQUIRED LOWER LOBE PNEUMONIA. THIS IS IMPROVING WITH AUGMENTIN. 4. ACUTE HYPOXEMIC RESPIRATORY FAILURE SECONDARY TO ACUTE DECOMPENSATION. THE PATIENT IS NOW ON ROOM AIR. 5. CHRONIC OBSTRUCTIVE PULMONARY DISEASE. Will continue home medications. 6. ALCOHOL DEPENDENCY, CONTINUOUS. Will continue to supplement B vitamins. The patient appears to be in early withdrawal. 7. HYPONATREMIA, MOST LIKELY DUE TO HIS ALCOHOL USE WELL CONGESTIVE HEART FAILURE. 8. MODERATE PROTEIN-CALORIE MALNOURISHMENT. 9. TOBACCO DEPENDENCY, CONTINUOUS. Continue p.r.n. nicotine patch. DISPOSITION: THE PATIENT IS A FULL CODE. Pending patient's symptomatology and diagnostic findings, will reevaluate in the a.m. Time spent on this followup, including assessment, plan, physical examination, patient education, review of records, is 25 minutes. DICTATING PHYSICIAN: JACY HERRERA NP [id number] PHY#: [id number] ID: [id number] JOB#: [id number] ACCT: [id number] cc: > MTDD
[2017-03-22] MEDS: AMOXICILLIN TR/POT CLAVULANATE 500-125 MG TAB PO SCH ×2 (06:55→14:40)
[2017-03-22] MEDS: LANSOPRAZOLE 15 MG TAB.RAP.DR PO SCH (06:55)
[2017-03-22] MEDS: HEPARIN SOD (PORCINE) 5,000 UNIT/ML 1 ML SYRINGE SUBCUT SCH ×3 (06:55→21:47)
[2017-03-22] MEDS: SACUBITRIL/VALSARTAN 49 MG/51 MG TABLET PO SCH ×2 (06:56→17:47)
[2017-03-22] MEDS: SPIRONOLACTONE 25 MG TABLET PO SCH (08:50)
[2017-03-22] MEDS: PREDNISONE 20 MG TABLET PO SCH ×2 (09:37→17:48)
[2017-03-22] MEDS: POTASSIUM CHLORIDE 10 MEQ TABLET.SA PO SCH (09:37)
[2017-03-22] MEDS: THIAMINE HCL 100 MG TABLET PO SCH (09:37)
[2017-03-22] MEDS: FOLIC ACID 1 MG TABLET PO SCH (09:37)
[2017-03-22] MEDS: CARVEDILOL 3.125 MG TABLET PO SCH (09:38)
[2017-03-22] MEDS: ASPIRIN 81 MG TABLET, ENT COATED PO SCH (09:38)
[2017-03-22] MEDS: FUROSEMIDE 20 MG TABLET PO SCH (09:38)
[2017-03-22] MEDS: NICOTINE 7 MG/24 HR PATCH.TD24 TD SCH (09:39)
[2017-03-22] MEDS: BUDESONIDE/FORMOTEROL 160-4.5 MCG 60 PUFF/6 GM MDI IH SCH ×2 (09:45→17:47)
[2017-03-22] MEDS ORDERED: FUROSEMIDE 40 MG TABLET PO SCH (10:00)
--- NOTE | 2017-03-22 15:38 | PDOC PROGRESS REPORT ---
Subjective Progress Note for:: 03/22/17 Subjective:: Patient seems to be doing better with gradual improvement. Pt is denying any chest arm or neck discomfort. Patient denying any PND, orthopnea. Patient denied any sustained palpitations, dizziness, syncope, near syncope. Patient denying any fever chills. Patient denying any other significant discomfort. Patient is maintaining sinus rhythm. Medical regimen been gradually optimized. Review of systems: Rest review of systems negative. Medications: Medications have been reviewed. Reason For Visit: SEVERE SYSTOLIC CONGESTIVE HEART FAILURE Physical Exam Vital Signs: Temp Pulse Resp BP Pulse Ox 97.8 F 80 16 115/54 L 100 03/22/17 11:23 03/22/17 11:23 03/22/17 11:23 03/22/17 11:23 03/22/17 11:23 Intake & Output 03/21/17 03/22/17 03/23/17 06:59 06:59 06:59 Intake Total 1036 1800 320 Balance 1036 1800 320 Weight 50.7 kg 53.1 kg Exam: GENERAL: well-nourished and in no acute distress. Alert and oriented x3 HEAD: Atraumatic, normocephalic. EYES: Pupils equal round and reactive to light, extraocular movements intact, sclera anicteric, conjunctiva are normal. ENT: TMs normal, nares patent, oropharynx clear without exudates. Moist mucous membranes. No oral ulcerations or bleeding gums noted NECK: supple without lymphadenopathy. Trachea is central. No cervical or axillary lymphadenopathy noted. Carotids are 2+, JVD WNL LUNGS: Respiration seems nonlabored, no significant accessory muscle action noted. Breath sounds clear to auscultation bilaterally and equal noted. No wheezes rales or rhonchi noted. No significant dullness noted on percussion. CHEST: Palpation of the chest wall shows no significant chest wall tenderness. No other significant abnormalities noted. 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 ABDOMEN: Soft, no significant tenderness appreciated, normoactive bowel sounds. No guarding, no rebound. No rigidity noted . No masses appreciated. EXTREMITIES: Pedal pulses are 1-2+, no calf tenderness noted. No clubbing or cyanosis. Negative pedal edema noted NEUROLOGICAL: Focused neurological exam showed no significant neurologic deficit. Normal speech, no focal weakness appreciated. PSYCH: Normal mood, normal affect. Judgment and insight within normal limits. SKIN: No significant ecchymosis, rash, ulcerations or signs of pruritus noted. MUSCULOSKELETAL EXAM: No significant joint swelling noted. Results Laboratory Results: 03/19/17 03:29 03/20/17 06:20 03/19/17 03/19/17 03/19/17 03:29 03:29 09:05 Creatine Kinase 20 L < 20 L CK-MB (CK-2) 0.45 Troponin I 0.118 NT-Pro-B Natriuret Pep [id number] H 03/19/17 03/19/17 03/19/17 09:05 15:40 15:40 Creatine Kinase < 20 L CK-MB (CK-2) 0.41 < 0.22 Troponin I 0.101 0.063 NT-Pro-B Natriuret Pep EKG Comments: Telemetry strips shows sinus rhythm with left bundle branch block pattern. Impressions: Chest X-Ray 03/18/17 20:44 IMPRESSION: CARDIAC ENLARGEMENT. VASCULAR CONGESTION. LEFT BASILAR DENSITY UNCHANGED. Assessment & Plan - Diagnosis (1) Acute on chronic systolic (congestive) heart failure Is this a current diagnosis for this admission?: Yes (2) Acute respiratory failure with hypoxemia Is this a current diagnosis for this admission?: Yes (3) COPD exacerbation Is this a current diagnosis for this admission?: Yes (4) EtOH dependence Qualifiers: Substance use status: uncomplicated Qualified Code(s): F10.20 - Alcohol dependence, uncomplicated Is this a current diagnosis for this admission?: Yes (5) Nonischemic cardiomyopathy Is this a current diagnosis for this admission?: Yes - Notes Notes: Records were obtained from [facility] which did include a previous heart catheterization from 2016 which did confirm patient having nonischemic cardiomyopathy. Echocardiogram from that time showed LVEF of 10%. Patient did have a repeat echocardiogram in February 2017 which showed similar LVEF. Have talked with Dr. Nils Wade about transferring patient for defibrillator placement but there is a long waiting list for inpatient transfer. This is similar for other places as well. It seems best option would be to discharge patient home on a LifeVest which he should wear on a constant basis for at least a month which should give us enough time for patient to be seen by slasher tender helper. Patient has been advised to avoid alcohol. Patient has also been advised to avoid any other addictive substances. As regards COPD, patient has been advised to stop smoking and also avoid secondhand smoking. As regards congestive heart failure, patient would benefit from CHF pathway teaching and his medical regimen has already been optimized. Further optimization can be done very gradually as an outpatient. Patient would also need to be compliant with doctor's visit. Discussed with hospitalist. - Time Time with patient: Greater than 35 minutes - Form for LifeVest application and placement completed. Discussed case with Dr. Nils Wade in [place]. He reported that there is significant delay in accepting inpatient transfer. Patient did receive previous care at [facility]. CODE STATUS was discussed, patient remains full code. Surrogate decision-maker unchanged. Multiple medical problems were addressed. More than 50% of the time spent coordinating care, discussing management plans with involved caregivers. Management plans discussed with involved personnels. Medical decision making was of moderate to high complexity, patient's has multiple comorbidities. Medications reviewed and adjusted accordingly: Yes
--- NOTE | 2017-03-22 19:09 | PROGRESS NOTE E ---
Progress Note NAME: RAKESH MCCABE : 1960 AGE: 56Y DATE: 03/22/2017 ROOM: 313 SUBJECTIVE: The patient is lying in bed and the patient's mother and aunt are present at the bedside and active in the patient's care. The patient denies any nausea, vomiting, diarrhea, shortness of breath, dizziness, chest pain, no fever or chills. The patient denies any fever. All blood pressures have been in a good range. The patient does not voice any other concerns at this time. BRIEF HISTORY: The patient is a 56-year-old male that is well-known to the hospitalist service. The patient presented to the emergency department with the chief complaint of shortness of breath after having only been discharged for 6 hours. The patient, who has an EF of approximately 10% due to alcoholic cardiomyopathy, has had a number of inpatient stays. The patient, who has had a LifeVest in the past, has not recovered an EF. The case has been discussed with Dr. Nils Madgaleno, electrophysiology at [facility] who has agreed for AICD placement; however, at this time, with the hospital bed shortage, this will be 4-5 day. Therefore, a referral has been sent for LifeVest placement, and the patient will followup at an outpatient setting. The patient has had extensive discussion with both him and the family regarding alcohol and tobacco cessation. It has been made clear that, if the patient does not stop drinking alcohol, AICD or LifeVest placement is a moot point. The patient is agreeable. The patient has refused any sort of structured rehab. REVIEW OF SYSTEMS: The rest of review of systems is negative. MEDICATIONS: Medications have been reviewed. OBJECTIVE: GENERAL: The patient is a 56-year-old male who is awake, alert and he is oriented to person, place, time, situation. He is very thin. Does not appear to be in any acute distress. VITAL SIGNS: Temperature is 97.8, pulse 80, respirations 16, blood pressure is 115/54. Oxygen saturation 100% on room air. SKIN: Warm and dry, no rash. Not diaphoretic. HEENT: Pupils equal, round, reactive to light and accommodation. Conjunctivae pink. There is no evidence of JVD. CARDIOVASCULAR: Heart is regular. There is no murmur or rub. CHEST: Clear, symmetrical, unlabored. ABDOMEN: Soft, nontender, nondistended. BACK: No CVA tenderness or sacral edema. EXTREMITIES: No clubbing, cyanosis, edema. PSYCHIATRIC: The patient seems somewhat agitated. DIAGNOSTIC LABORATORY VALUES: Hematology obtained on 03/19/2017: WBCs are 10.9, hemoglobin is 13.8, hematocrit is 39.5, platelet count is 281,000. Chemistry obtained on 03/20/2017: Sodium is 134, potassium 3.9, chloride is 91, carbon dioxide 30, BUN 21, creatinine is 0.7, glucose 126, calcium is 9.9, magnesium is 2.0. IMPRESSION AND PLAN: 1. Cpmpg-fb-tqaygaz systolic congestive heart failure secondary to alcoholic cardiomyopathy with EF of 10%. The patient, overall, appears optivolemic at this point. The patient has elected to proceed with a LifeVest and subsequent AICD placement. The patient has been resumed on his SHIRLEY, beta-thong, and tolerated this well. 2. Medical noncompliance. I have discussed this, yet again, in detail with the patient and the family. The absolute crucial nature of compliance with alcohol cessation and the value of being in a structured outpatient or inpatient program. The patient refuses this at this time. 3. Community acquired lower lobe pneumonia. This is improved with Augmentin. The patient is on day 10 and has completed his course of treatment. We will discontinue Augmentin. 4. Yjzbd-mr-ytmhlpy hypoxemic respiratory failure secondary to acute decompensation. The patient is now on room air. We will decrease the patient's steroids. 5. Chronic obstructive pulmonary disease. Continue home medications. 6. Alcohol dependency continuous, we will continue supplement, B-vitamins, and monitor for evidence of possible withdrawal. 7. Moderate protein-calorie malnourishment. We will continue the supplement. 8. Tobacco dependency, continuous. The patient has received smoking cessation education and has been offered a p.r.n. nicotine patch. 9. Hyponatremia, most likely due to congestive heart failure as well as alcohol use. DISPOSITION: The patient is a FULL CODE. The patient can be discharged as soon as the LifeVest has been made available. Time spent with followup including assessment, plan, physical examination, patient education, review of records and specialty collaboration is 35 minutes. DICTATING PHYSICIAN: JACY HERRERA NP [id number] PHY#: [id number] ID: [id number] JOB#: [id number] ACCT: [id number] cc: >
[2017-03-22] MEDS: CARVEDILOL 6.25 MG TABLET PO SCH (21:46)
[2017-03-23] MEDS: LANSOPRAZOLE 15 MG TAB.RAP.DR PO SCH (05:35)
[2017-03-23] MEDS: HEPARIN SOD (PORCINE) 5,000 UNIT/ML 1 ML SYRINGE SUBCUT SCH ×2 (05:35→14:36)
[2017-03-23] MEDS: SACUBITRIL/VALSARTAN 49 MG/51 MG TABLET PO SCH (05:35)
[2017-03-23] MEDS: SPIRONOLACTONE 25 MG TABLET PO SCH (07:58)
[2017-03-23] MEDS: CARVEDILOL 6.25 MG TABLET PO SCH (10:29)
[2017-03-23] MEDS: THIAMINE HCL 100 MG TABLET PO SCH (10:30)
[2017-03-23] MEDS: ASPIRIN 81 MG TABLET, ENT COATED PO SCH (10:30)
[2017-03-23] MEDS: FOLIC ACID 1 MG TABLET PO SCH (10:30)
[2017-03-23] MEDS: PREDNISONE 20 MG TABLET PO SCH (10:30)
[2017-03-23] MEDS: POTASSIUM CHLORIDE 10 MEQ TABLET.SA PO SCH (10:30)
[2017-03-23] MEDS: FUROSEMIDE 20 MG TABLET PO SCH (10:30)
[2017-03-23] MEDS: NICOTINE 7 MG/24 HR PATCH.TD24 TD SCH (10:31)
[2017-03-23] MEDS: BUDESONIDE/FORMOTEROL 160-4.5 MCG 60 PUFF/6 GM MDI IH SCH (10:31)
--- NOTE | 2017-03-23 13:43 | PDOC PROGRESS REPORT ---
Subjective Progress Note for:: 03/23/17 Subjective:: He states he is doing well. He has no issues today. He is resting comfortably. He is awaiting his Lifevest and then can be discharged home. He will need an outpatient follow-up with Dr Jordi Magdaleno in [place] upon discharge. He denies any chest pain, shortness of breath, nausea, vomiting, dizziness or headaches. Reason For Visit: SEVERE SYSTOLIC CONGESTIVE HEART FAILURE Physical Exam Vital Signs: Temp Pulse Resp BP Pulse Ox 98.6 F 77 16 104/59 L 96 03/23/17 12:28 03/23/17 12:28 03/23/17 12:28 03/23/17 12:28 03/23/17 12:28 Intake & Output 03/22/17 03/23/17 03/24/17 06:59 06:59 06:59 Intake Total 1800 789 Balance 1800 789 Weight 53.1 kg 52.3 kg General appearance: PRESENT: no acute distress, cooperative Head exam: PRESENT: normocephalic Mouth exam: PRESENT: moist, neck supple Neck exam: PRESENT: full ROM. ABSENT: carotid bruit, JVD, lymphadenopathy, tenderness, thyromegaly Respiratory exam: PRESENT: clear to auscultation trey. ABSENT: accessory muscle use, chest wall tenderness Cardiovascular exam: PRESENT: RRR. ABSENT: diastolic murmur, gallop, rubs Pulses: ABSENT: normal carotid pulses GI/Abdominal exam: PRESENT: normal bowel sounds, soft. ABSENT: ascites, distended, guarding, hernia, organolmegaly, tenderness Musculoskeletal exam: PRESENT: ambulatory Neurological exam: PRESENT: alert, oriented to person, oriented to place, oriented to time, oriented to situation Psychiatric exam: ABSENT: agitated, anxious Skin exam: PRESENT: normal color. ABSENT: rash Results Laboratory Results: 03/19/17 03:29 03/20/17 06:20 03/19/17 03/19/17 03/19/17 03:29 03:29 09:05 Creatine Kinase 20 L < 20 L CK-MB (CK-2) 0.45 Troponin I 0.118 NT-Pro-B Natriuret Pep 38134 H 03/19/17 03/19/17 03/19/17 09:05 15:40 15:40 Creatine Kinase < 20 L CK-MB (CK-2) 0.41 < 0.22 Troponin I 0.101 0.063 NT-Pro-B Natriuret Pep Impressions: Chest X-Ray 03/18/17 20:44 IMPRESSION: CARDIAC ENLARGEMENT. VASCULAR CONGESTION. LEFT BASILAR DENSITY UNCHANGED. Assessment & Plan - Diagnosis (1) Acute on chronic systolic (congestive) heart failure Is this a current diagnosis for this admission?: Yes Plan: continue current medications, will need continued cardiology follow-up outpatient (2) Nonischemic cardiomyopathy Is this a current diagnosis for this admission?: Yes Plan: awaiting AICD due to EF 10% (4) ETOH abuse Is this a current diagnosis for this admission?: Yes Plan: discussed with him and family at length the need for him to quit all alcohol use (5) EtOH dependence Qualifiers: Substance use status: uncomplicated Qualified Code(s): F10.20 - Alcohol dependence, uncomplicated Is this a current diagnosis for this admission?: Yes (6) Moderate protein-calorie malnutrition Is this a current diagnosis for this admission?: Yes Plan: continue supplements - Time Time Spent with patient: 15-24 minutes Anticipated discharge: Home Within: within 24 hours
--- NOTE | 2017-03-23 16:24 | PDOC DISCHARGE SUMMARY ---
General - Admit/Disc Date/PCP Admission Date/Primary Care Provider: 03/18/17 23:10 CALVIN CALLAHAN, Discharge Date: 03/23/17 - Discharge Diagnosis (1) Acute on chronic systolic (congestive) heart failure Is this a current diagnosis for this admission?: Yes (2) Nonischemic cardiomyopathy Is this a current diagnosis for this admission?: Yes Summary: lifevest applied, needs follow-up with Dr Magdaleno in [place] outpatient for AICD (4) ETOH abuse Is this a current diagnosis for this admission?: Yes (5) EtOH dependence Is this a current diagnosis for this admission?: Yes (6) Moderate protein-calorie malnutrition Is this a current diagnosis for this admission?: Yes - Additional Information Resuscitation Status: Full Code Discharge Diet: Cardiac Discharge Activity: Activity As Tolerated, Balance Activity w/Rest, Weigh Daily Prescriptions: Budesonide/Formoterol Fumarate [Symbicort HFA 160-4.5 mcg Inhaler 6 gm] 2 puff IH BID #1 inhaler Carvedilol [Coreg 6.25 mg Tablet] 6.25 mg PO Q12 #60 tablet Folic Acid [Folvite 1 mg Tablet] 1 mg PO DAILY #30 tablet Furosemide [Lasix 20 mg Tablet] 20 mg PO DAILY #30 tablet Lisinopril [Zestril] 2.5 mg PO DAILY #30 tablet Nicotine [Nicoderm 7 mg/24 Hr Transdermal Patch] 1 each TD DAILY #30 patch.td24 Potassium Chloride [Klor-Con 10] 10 meq PO DAILY #30 tablet.er Spironolactone [Aldactone 25 mg Tablet] 25 mg PO QAM #30 tablet Thiamine HCl [Thiamine 100 mg Tablet] 1 tab PO DAILY #30 tablet Home Medications: Albuterol Sulfate [Proair HFA] 2 puff IH Q4HP PRN 03/19/17 Aspirin [Adult Low Dose Aspirin EC] 81 mg PO DAILY 03/19/17 Budesonide/Formoterol Fumarate [Symbicort HFA 160-4.5 mcg Inhaler 6 gm] 2 puff IH BID #1 inhaler 03/23/17 Carvedilol [Coreg 6.25 mg Tablet] 6.25 mg PO Q12 #60 tablet 03/23/17 Folic Acid [Folvite 1 mg Tablet] 1 mg PO DAILY #30 tablet 03/23/17 Furosemide [Lasix 20 mg Tablet] 20 mg PO DAILY #30 tablet 03/23/17 Lisinopril [Zestril] 2.5 mg PO DAILY #30 tablet 03/23/17 Nicotine [Nicoderm 7 mg/24 Hr Transdermal Patch] 1 each TD DAILY #30 patch.td24 03/23/17 Potassium Chloride [Klor-Con 10] 10 meq PO DAILY #30 tablet.er 03/23/17 Spironolactone [Aldactone 25 mg Tablet] 25 mg PO QAM #30 tablet 03/23/17 Thiamine HCl [Thiamine 100 mg Tablet] 1 tab PO DAILY #30 tablet 03/23/17 History of Present Illness Patient complains of: shortness of breath History of Present Illness: RAKESH MCCABE is a 56 year old male admitted for shortness of breath secondary to acute on chronic systolic congestive heart failure secondary to nonischemic cardiomyopathy Hospital Course Hospital Course: During his admission he has progressed well. His shortness of breath has resolved. We had attempted to transfer him to [facility] to the care of Dr. Jordi Magdaleno but no beds were available. In discussion with the patient and the receiving facility, it was decided he would be discharged with a lifevest and follow-up outpatient. He has worn a lifevest in the past and is agreeable to the treatment option. His cardiomyopathy and poor ejection fraction (10%) is secondary to alcohol consumption. He understands this and has agreed he will not drink alcohol any more. He has had an echocardiogram about a year ago which showed EF of 10%, cardiac cath following with normal cardiac vessels and a repeat echocardiogram this past February with a maintained EF of 10%. Physical Exam Vital Signs: Temp Pulse Resp BP Pulse Ox 98.6 F 77 16 104/59 L 96 03/23/17 12:28 03/23/17 12:28 03/23/17 12:28 03/23/17 12:28 03/23/17 12:28 Intake & Output 03/22/17 03/23/17 03/24/17 06:59 06:59 06:59 Intake Total 1800 789 Balance 1800 789 Weight 53.1 kg 52.3 kg General appearance: PRESENT: no acute distress, cooperative, thin Mouth exam: PRESENT: moist, neck supple Neck exam: PRESENT: full ROM. ABSENT: carotid bruit, JVD, lymphadenopathy, tenderness, thyromegaly, tracheal deviation Respiratory exam: PRESENT: clear to auscultation trey. ABSENT: accessory muscle use Cardiovascular exam: PRESENT: RRR. ABSENT: gallop, rubs Pulses: PRESENT: normal carotid pulses Vascular exam: PRESENT: normal capillary refill. ABSENT: pallor GI/Abdominal exam: PRESENT: normal bowel sounds, soft. ABSENT: ascites, guarding, hernia, organolmegaly, tenderness Extremities exam: ABSENT: calf tenderness, +1 edema Musculoskeletal exam: PRESENT: ambulatory Neurological exam: PRESENT: alert, oriented to person, oriented to place, oriented to time, oriented to situation Psychiatric exam: ABSENT: agitated, anxious Skin exam: PRESENT: normal color. ABSENT: rash Results Laboratory Results: 03/19/17 03:29 03/20/17 06:20 03/19/17 03/19/17 03/19/17 03:29 03:29 09:05 Creatine Kinase 20 L < 20 L CK-MB (CK-2) 0.45 Troponin I 0.118 NT-Pro-B Natriuret Pep 79954 H 03/19/17 03/19/17 03/19/17 09:05 15:40 15:40 Creatine Kinase < 20 L CK-MB (CK-2) 0.41 < 0.22 Troponin I 0.101 0.063 NT-Pro-B Natriuret Pep Impressions: Chest X-Ray 03/18/17 20:44 IMPRESSION: CARDIAC ENLARGEMENT. VASCULAR CONGESTION. LEFT BASILAR DENSITY UNCHANGED. Plan Discharge Plan: discharge home with follow-up with PCP and Cardiology in the next few days Time Spent: Greater than 30 Minutes
[2017-03-23 16:28] VITALS: BP 109/65
--- NOTE | 2017-03-23 17:25 | EKG REPORT ---
SEVERITY:- ABNORMAL ECG - SINUS RHYTHM PROBABLE LEFT ATRIAL ABNORMALITY NONSPECIFIC IVCD WITH LAD LEFT VENTRICULAR HYPERTROPHY : Confirmed by: Mandie Zavaleta 23-Mar-2017 17:24:47
== END 2017-03-23 16:55 | disposition home or self-care (01) | DRG 292 ==
LOC: ER 20:29 → EH 23:10 → 3W 03-19 14:57
PROVIDERS: ADMIT Family Medicine; ATTEND Family Medicine
PROC: 5A09357 Assistance with Respiratory Ventilation, Less than 24 Consecutive Hours, Continuous Positive Airway Pressure (ICD-10-PCS; principal; 2017-03-18)
DX: I50.23 Acute on chronic systolic (congestive) heart failure (principal); I42.8 Other cardiomyopathies; E44.0 Moderate protein-calorie malnutrition; Z68.1 Body mass index [BMI] 19.9 or less, adult; E87.1 Hypo-osmolality and hyponatremia; F10.20 Alcohol dependence, uncomplicated; Z79.82 Long term (current) use of aspirin; Z79.899 Other long term (current) drug therapy; I25.2 Old myocardial infarction; Z95.0 Presence of cardiac pacemaker
CPT/HCPCS: 36415; 51702; 71045; 80048; 80053; 80061; 80307; 82550; 82553; 83735; 83880; 84443; 84484; 85025; 90686; 93005; 93010; 94660; 96365; 96366; 96375; 99291; J1644; J1940; J3490; J7512

== ENCOUNTER → 2017-07-31 | Outpatient (CLI) | payer MEDICAID ==
--- NOTE | 2017-07-31 10:48 | RADIOLOGY REPORT (SQ) ---
EXAM DESCRIPTION: CHEST PA/LATERAL COMPLETED DATE/TIME: 07/31/2017 9:59 am REASON FOR STUDY: CHF COMPARISON: 03/18/2017 EXAM PARAMETERS: NUMBER OF VIEWS: two views TECHNIQUE: Digital Frontal and Lateral radiographic views of the chest acquired. RADIATION DOSE: NA LIMITATIONS: none FINDINGS: LUNGS AND PLEURA: The lungs are hyperexpanded. There is no infiltrate or effusion. There is no mass. MEDIASTINUM AND HILAR STRUCTURES: No masses or contour abnormalities. HEART AND VASCULAR STRUCTURES: Heart normal size. No evidence for failure. BONES: No acute findings. HARDWARE: Pacemaker/defibrillator. OTHER: No other significant finding. IMPRESSION: Mild chronic lung changes with no acute cardiopulmonary disease. TECHNICAL DOCUMENTATION: JOB ID: [id number] [employer]- All Rights Reserved Reading location - IP/workstation name: [email or web address]
== END ==
LOC: OD 09:45
PROVIDERS: ATTEND Internal Medicine Cardiovascular Disease
DX: I50.9 Heart failure, unspecified (principal)
CPT/HCPCS: 71046

== ENCOUNTER → 2017-12-04 | Outpatient (CLI) | payer MEDICAID ==
--- NOTE | 2017-12-04 08:38 | RADIOLOGY REPORT (SQ) ---
EXAM DESCRIPTION: U/S ABDOMEN LIMITED W/O DOP COMPLETED DATE/TIME: 12/04/2017 8:30 am REASON FOR STUDY: ALCOHOLIC FATTY LIVER (K70.0), ABN LFT (R94.5) K70.0 ALCOHOLIC FATTY LIVER R94.5 ABNORMAL RESULTS OF LIVER FUNCTION STUDIES COMPARISON: None. TECHNIQUE: Dynamic and static grayscale images acquired of the abdomen and recorded on PACS. Additio nal selected color Doppler and spectral images recorded. LIMITATIONS: None. FINDINGS: PANCREAS: No masses. No peripancreatic edema or fluid collections. LIVER: Echotexture is coarse with increased echogenicity consistent with fatty infiltration. LIVER VASCULATURE: Normal directional flow of the main portal vein and hepatic veins. GALLBLADDER: No stones. Normal wall thickness. No pericholecystic fluid. ULTRASOUND-DETECTED MCKEON'S SIGN: Negative. INTRAHEPATIC DUCTS AND COMMON DUCT: CBD and intrahepatic ducts normal caliber. No filling defects. INFERIOR VENA CAVA: Normal flow. AORTA: No aneurysm. RIGHT KIDNEY: Normal size. Normal echogenicity. No solid or suspicious masses. No hydronephros is. No calcifications. PERITONEAL AND RIGHT PLEURAL SPACE: No ascites or effusions. OTHER: No other significant finding. IMPRESSION: FATTY INFILTRATION OF THE LIVER. OTHERWISE NORMAL RIGHT UPPER QUADRANT ULTRASOUND. TECHNICAL DOCUMENTATION: JOB ID: [id number] [employer]- All Rights Reserved Reading location - IP/workstation name: [email or web address]
== END ==
LOC: RAD 07:54
PROVIDERS: ATTEND Internal Medicine Gastroenterology
DX: K70.0 Alcoholic fatty liver (principal); R94.5 Abnormal results of liver function studies
CPT/HCPCS: 76705

== ENCOUNTER 2018-04-27 09:27 | Inpatient (IN) | payer MEDICARE, MEDICAID ==
[2018-04-27] MEDS ORDERED: IPRATROPIUM/ALBUTEROL 0.5-2.5 MG/3 ML AMPUL NEB ONE (10:06)
--- NOTE | 2018-04-27 10:08 | ER Document Report ---
ED Medical Screen (RME) - General Chief Complaint: Shortness Of Breath Stated Complaint: SHORT OF BREATH Time Seen by Provider: 04/27/18 10:05 Primary Care Provider: ENID TEJADA MD [Primary Care Provider] - Follow up as needed Mode of Arrival: Wheelchair Information source: Patient, Relative Notes: 57-year-old male with COPD, CHF presents with complaint of shortness of breath that started 4 days prior to arrival. Patient called his personnel adviser Dr. Zavaleta who told him to come to the emergency room. I have greeted and performed a rapid initial assessment of this patient. A comprehensive ED assessment and evaluation of the patient, analysis of test results and completion of medical decision making process we will be contacted by additional ED providers. PHYSICAL EXAMINATION: Vital signs reviewed GENERAL: Visibly dyspneic LUNGS: Visibly dyspneic Musculoskeletal: Normal range of motion NEUROLOGICAL: Normal speech, PSYCH: Normal mood, normal affect. SKIN: Warm, Dry, normal turgor, no rashes or lesions noted. TRAVEL OUTSIDE OF THE [place] IN LAST 30 DAYS: No - HPI Onset: Other Onset/Duration: Persistent Severity: Moderate Associated Symptoms: Nausea, Shortness of breath. denies: Chest pain Exacerbated by: Supine Relieved by: Denies Similar symptoms previously: Yes Recently seen / treated by doctor: No - Related Data Smoking: Cigarettes Frequency of alcohol use: None Drug Abuse: None Allergies/Adverse Reactions: No Known Allergies Allergy (Verified 02/26/17 15:07) Past Medical History - Past Medical History Cardiac Medical History: Reports: Hx Congestive Heart Failure, Hx Heart Attack - 8 MONTHS AGO, ON HEART MONITOR NOW, Hx Hypertension Denies: Hx Coronary Artery Disease Pulmonary Medical History: Reports: Hx Bronchitis, Hx COPD Denies: Hx Asthma, Hx Pneumonia Neurological Medical History: Denies: Hx Cerebrovascular Accident, Hx Seizures Renal/ Medical History: Denies: Hx Peritoneal Dialysis Musculoskeltal Medical History: Denies Hx Arthritis Psychiatric Medical History: Reports: Hx Anxiety Past Surgical History: Reports: Hx Pacemaker - Immunizations Hx Diphtheria, Pertussis, Tetanus Vaccination: Yes History of Influenza Vaccine for 12/2016 - 05/2017 Season: No Influenza Administration Date for 12/2016 - 05/2017 Season: 12/07/16 Physical Exam - Vital signs Vitals: Temp Pulse Resp BP Pulse Ox 97.5 F 102 H 20 104/73 99 04/27/18 09:41 04/27/18 09:41 04/27/18 09:41 04/27/18 09:41 04/27/18 09:41 Course - Vital Signs Vital signs: Temp Pulse Resp BP Pulse Ox 97.5 F 102 H 20 104/73 99 04/27/18 09:41 04/27/18 09:41 04/27/18 09:41 04/27/18 09:41 04/27/18 09:41 Doctor's Discharge - Discharge Referrals: ENID TEJADA MD [Primary Care Provider] - Follow up as needed
[2018-04-27] MEDS ORDERED: ASPIRIN 81 MG TABLET, CHEWABLE PO ONE (10:48)
[2018-04-27 11:09] LABS: HEMATOCRIT 34.7 % (37.9-51.0); MEAN CORPUSCULAR HEMOGLOBIN 34.1 pg (27.0-33.4); MEAN CORPUSCULAR HGB CONC 34.7 g/dL (32.0-36.0); MEAN CORPUSCULAR VOLUME 98 fl (80-97); PLATELET COUNT 308 10^3/uL (150-450); RED BLOOD COUNT 3.54 10^6/uL (4.35-5.55); RED CELL DISTRIBUTION WIDTH 14.8 % (11.5-14.0); WHITE BLOOD COUNT 13.8 10^3/uL (4.0-10.5)
[2018-04-27 11:10] LABS: ALANINE AMINOTRANSFERASE 23 U/L (21-72); ALKALINE PHOSPHATASE 114 U/L (38-126); ANION GAP 9 (5-19); ASPARTATE AMINO TRANSFERASE 28 U/L (17-59); BILIRUBIN,DIRECT 0.6 mg/dL (0.0-0.4); BILIRUBIN,TOTAL 1.7 mg/dL (0.2-1.3); BLOOD UREA NITROGEN 10 mg/dL (7-20); CALCIUM 8.5 mg/dL (8.4-10.2); CARBON DIOXIDE 26 mmol/L (22-30); CHLORIDE 95 mmol/L (98-107); GLUCOSE 104 mg/dL (75-110); SODIUM 129.7 mmol/L (137-145); TOTAL PROTEIN 5.9 g/dL (6.3-8.2)
--- NOTE | 2018-04-27 11:13 | ER Document Report ---
ED Respiratory Problem - General Chief Complaint: Shortness Of Breath Stated Complaint: SHORT OF BREATH Time Seen by Provider: 04/27/18 10:05 Primary Care Provider: ENID TEJAAD MD [ACTIVE STAFF] - Follow up as needed Mode of Arrival: Wheelchair Notes: 57-year-old male with COPD, CHF presents with complaint of shortness of breath that started 4 days prior to arrival. Patient called his nurses medical assistants phlebotomists Dr. Zavaleta who told him to come to the emergency room. The patient stated he feels as if he is swelling of his legs his abdomen or been swelling. Is not having a lot of trouble breathing. Patient denies any fever chills has been having a cough complains of some chest tightness little bit of chest discomfort which he describes just mild and pressure. Does not radiate anywhere. Nothing makes it better or worse rates it as mild. States that shortness of breath is by far the most concerning thing. Denies fever chills or sore throat. Denies falls or trauma. Denies illicit drug use. Still smokes. TRAVEL OUTSIDE OF THE [place] IN LAST 30 DAYS: No - Related Data Allergies/Adverse Reactions: No Known Allergies Allergy (Verified 02/26/17 15:07) Past Medical History - General Information source: Patient, Relative - Social History Smoking Status: Current Every Day Smoker Chew tobacco use (# tins/day): No Frequency of alcohol use: None Drug Abuse: None Family History: COPD Patient has suicidal ideation: No Patient has homicidal ideation: No - Past Medical History Cardiac Medical History: Reports: Hx Congestive Heart Failure, Hx Heart Attack - 8 MONTHS AGO, ON HEART MONITOR NOW, Hx Hypertension Denies: Hx Coronary Artery Disease Pulmonary Medical History: Reports: Hx Bronchitis, Hx COPD Denies: Hx Asthma, Hx Pneumonia Neurological Medical History: Denies: Hx Cerebrovascular Accident, Hx Seizures Renal/ Medical History: Denies: Hx Peritoneal Dialysis Musculoskeletal Medical History: Denies Hx Arthritis Psychiatric Medical History: Reports: Hx Anxiety Past Surgical History: Reports: Hx Cardiac Surgery - Pacemaker placement x 2 years ago, Hx Pacemaker - Immunizations Hx Diphtheria, Pertussis, Tetanus Vaccination: Yes Review of Systems - Review of Systems Constitutional: denies: Chills, Fever Cardiovascular: Chest pain, Dyspnea, Edema Respiratory: Cough, Short of breath Gastrointestinal: denies: Nausea, Vomiting Neurological/Psychological: denies: Headaches -: Yes All other systems reviewed and negative Physical Exam - Vital signs Vitals: Temp Pulse Resp BP Pulse Ox 97.5 F 102 H 20 104/73 99 04/27/18 09:41 04/27/18 09:41 04/27/18 09:41 04/27/18 09:41 04/27/18 09:41 - Notes Notes: GENERAL_APPEARANCE: well_nourished, alert, cooperative, obvious trouble breathing VITALS: reviewed, see vital signs table. HEAD: no_swelling\tenderness on the head. EYES: PERRL, EOMI, conjunctiva_clear. NOSE: no_nasal_discharge. MOUTH: (-)decreased moisture. THROAT: no_tonsilar_inflammation, no_airway_obstruction. no_lymphadenopathy NECK: supple, no_neck_tenderness, (-)thyromegaly. BACK: no_back_tenderness. CHEST_WALL: no_chest_tenderness. LUNGS: Scattered_wheezing, bibasilar_rales, no_rhonchi, moderate accessory muscle use, fair air exchange bilateral. HEART: normal_rate, normal_rhythm, normal_S1, normal_S2, (-)S3, (-)S4, no_murmur, no_rub. ABDOMEN: normal_BS, soft, no_abd_tenderness, (-)guarding, (-)rebound, no_organomegaly, no_abd_masses. EXTREMITIES: good pulses in all_extremities, no_swelling\tenderness in the extremities, 1+ symmetric pedal_edema. SKIN: warm, dry, good_color, no_rash. MENTAL_STATUS: speech_clear, oriented_X_3, normal_affect, responds_appropriate ly to questions. Course - Re-evaluation Re-evalutation: 04/27/18 11:13 57-year-old male presents to the emergency department with chest discomfort and shortness of breath. Patient has a mixed disorder CHF COPD we will give him an aerosol treatment. We will get a chest x-ray. I hear both crackles and wheezing. He does have peripheral edema. He called his nurses medical assistants phlebotomists Dr. Reed who advised him to come to the emergency department. 04/27/18 14:47 Patient is feeling better after aerosol treatments. Patient after the aerosol treatments has edema. We gave him 80 of Lasix. I spoke with Dr. Zavaleta about EKG he is not impressed with the changes this is mainly due to the AV pacing. I will speak with the hospitalist service for admission - Vital Signs Vital signs: Temp Pulse Resp BP Pulse Ox 97.5 F 102 H 20 104/73 99 04/27/18 09:41 04/27/18 09:41 04/27/18 09:41 04/27/18 09:41 04/27/18 09:41 - Laboratory Result Diagrams: 04/27/18 10:20 04/27/18 10:20 Laboratory results interpreted by me: 04/27/18 04/27/18 04/27/18 10:20 10:20 10:20 WBC 13.8 H RBC 3.54 L Hgb 12.0 L Hct 34.7 L MCV 98 H MCH 34.1 H RDW 14.8 H Seg Neuts % (Manual) 89 H Lymphocytes % (Manual) 8 L Abs Neuts (Manual) 12.3 H Sodium 129.7 L Chloride 95 L Total Bilirubin 1.7 H Direct Bilirubin 0.6 H NT-Pro-B Natriuret Pep 13186 H Total Protein 5.9 L Albumin 3.0 L - Diagnostic Test Radiology reviewed: Reports reviewed Radiology results interpreted by me: 04/27/18 14:44 Chest X-Ray 04/27/18 10:08 IMPRESSION: MILD CARDIOMEGALY WITH VASCULAR CONGESTION. ASYMMETRIC LEFT HILAR DENSITY MAY BE DUE TO ASYMMETRIC PULMONARY EDEMA VERSUS INFILTRATE. CANNOT EXCLUDE UNDERLYING MASS. LEFT BASILAR ATELECTASIS VERSUS INFILTRATE WITH SMALL LEFT PLEURAL EFFUSION. - EKG Interpretation by Me Rate: Normal Additional EKG results interpreted by me: 04/27/18 14:43 AV paced unchanged compared to old Discharge - Discharge Clinical Impression: Acute on chronic systolic (congestive) heart failure Condition: Good Disposition: ADMITTED INPATIENT Admitting Provider: Hospitalist Unit Admitted: Telemetry Referrals: ENID TEJADA MD [ACTIVE STAFF] - Follow up as needed
[2018-04-27 11:22] LABS: TROPONIN I 0.027 ng/mL
--- NOTE | 2018-04-27 11:25 | RADIOLOGY REPORT (SQ) ---
EXAM DESCRIPTION: CHEST 2 VIEWS COMPLETED DATE/TIME: 04/27/2018 11:10 am REASON FOR STUDY: sob COMPARISON: 07/31/2017. NUMBER OF VIEWS: Two views. TECHNIQUE: Frontal and lateral radiographic views of the chest acquired. LIMITATIONS: None. FINDINGS: LUNGS AND PLEURA: Patchy left basilar density. Asymmetric left hilar density, partially o bscured by the overlying defibrillator unit. Left basilar density with small left pleural effusion. MEDIASTINUM AND HILAR STRUCTURES: Asymmetric left hilar density. HEART AND VASCULAR STRUCTURES: Cardiac enlargement. Vascular congestion. BONES: No acute findings. HARDWARE: Defibrillator. OTHER: No other significant finding. IMPRESSION: MILD CARDIOMEGALY WITH VASCULAR CONGESTION. ASYMMETRIC LEFT HILAR DENSITY MAY BE DUE TO ASYMMETRIC PULMONARY EDEMA VERSUS INFILTRATE. CANNOT EXCLUDE UNDERLYING MASS. LEFT BASILAR ATELECT ASIS VERSUS INFILTRATE WITH SMALL LEFT PLEURAL EFFUSION. TECHNICAL DOCUMENTATION: JOB ID: [id number] [employer]- All Rights Reserved Reading location - IP/workstation name: [email or web address]
[2018-04-27 11:38] LABS: ABSOLUTE LYMPHOCYTES# (MANUAL) 1.1 10^3/uL (0.5-4.7); ABSOLUTE MONOCYTES # (MANUAL) 0.4 10^3/uL (0.1-1.4); ABSOLUTE NEUTROPHILS# (MANUAL) 12.3 10^3/uL (1.7-8.2); BASOPHILS % (MANUAL) 0 % (0-2); EOSINOPHILS % (MANUAL) 0 % (0-6); LYMPHOCYTES % (MANUAL) 8 % (13-45); MONOCYTES % (MANUAL) 3 % (3-13); SEGMENTED NEUTROPHILS % (MAN) 89 % (42-78); TOTAL CELLS COUNTED 100
[2018-04-27 11:40] LABS: ANISOCYTOSIS SLIGHT; PLATELET COMMENT ADEQUATE
--- NOTE | 2018-04-27 13:12 | EKG REPORT ---
SEVERITY:- ABNORMAL ECG - ATRIAL-SENSED VENTRICULAR-PACED COMPLEXES NONDIAGNOSTIC QRS : Confirmed by: Paddy Ding MD 27-Apr-2018 13:11:20
--- NOTE | 2018-04-27 13:12 | EKG REPORT ---
SEVERITY:- ABNORMAL ECG - ATRIAL-SENSED VENTRICULAR-PACED COMPLEXES : Confirmed by: Paddy Ding MD 27-Apr-2018 13:10:49
[2018-04-27] MEDS ORDERED: FUROSEMIDE INJ/PF 100 MG/10 ML SDV IV ONE (14:41)
[2018-04-27] MEDS ORDERED: IPRATROPIUM BROMIDE 0.02% NEB 0.5 MG/2.5 ML AMPUL NEB PRN (15:32)
[2018-04-27] MEDS ORDERED: LEVALBUTEROL HCL NEB 0.63 MG/3 ML AMPUL NEB PRN (15:32)
[2018-04-27] MEDS ORDERED: ACETAMINOPHEN 325 MG TABLET PO PRN (15:32)
--- NOTE | 2018-04-27 16:00 | PDOC H&P ---
History of Present Illness Admission Date/PCP: 04/27/18 15:10 CALVIN CALLAHAN DO Patient complains of: Increasing shortness of breath for the last 4 days History of Present Illness: RAKESH MCCABE is a 57 year old male with history of congestive heart failure, COPD, chronic smoker, chronic alcohol abuser, history of anxiety disorder, depression, history of pacemaker came to the emergency room with complaints of shortness of breath for the last 4 days. Shortness of breath is more noticeable since yesterday. He said he is compliant with medications at home and decided to came to the emergency room today for further evaluation. He sleeps in sitting position at home. Complaining of swelling of the body including the arms legs and belly. He Is also complaining of facial swelling. Denies any chest pains. Denies any nausea vomiting diarrhea or constipation. Complaining of increased sweating. Denies any fever. Has any headaches dizzy spells. Workup was done in the emergency room BNP found to be 32,000 with normal kidney function and chest x-ray shows increased congestion for possible underlying pneumonia. Discussed the plan of care with the patient and family they agreed to stay in the hospital. Past Medical History Cardiac Medical History: Reports: Congestive Heart Failure, Myocardial Infarction - 8 MONTHS AGO, ON HEART MONITOR NOW, Hypertension Denies: Coronary Artery Disease Pulmonary Medical History: Reports: Bronchitis, Chronic Obstructive Pulmonary Disease (COPD) Denies: Asthma, Pneumonia Neurological Medical History: Denies: Seizures Musculoskeltal Medical History: Denies: Arthritis Psychiatric Medical History: Reports: Depression, General Anxiety Disorder Hematology: Denies: Anemia Past Surgical History Past Surgical History: Reports: Pacemaker Social History Smoking Status: Current Every Day Smoker Frequency of Alcohol Use: Heavy Hx Recreational Drug Use: Yes Drugs: Marijuana Hx Prescription Drug Abuse: No - patient denies - Advance Directive Resuscitation Status: Full Code Family History Family History: COPD Parental Family History Reviewed: Yes - Family history of hypertension. Children Family History Reviewed: Yes Sibling(s) Family History Reviewed.: Yes Medication/Allergy Home Medications: Albuterol Sulfate [Proair HFA] 2 puff IH Q4HP PRN 03/19/17 Aspirin [Adult Low Dose Aspirin EC] 81 mg PO DAILY 03/19/17 Budesonide/Formoterol Fumarate [Symbicort HFA 160-4.5 mcg Inhaler 6 gm] 2 puff IH BID #1 inhaler 03/23/17 Carvedilol [Coreg 6.25 mg Tablet] 6.25 mg PO Q12 #60 tablet 03/23/17 Folic Acid [Folvite 1 mg Tablet] 1 mg PO DAILY #30 tablet 03/23/17 Furosemide [Lasix 20 mg Tablet] 20 mg PO DAILY #30 tablet 03/23/17 Lisinopril [Zestril] 2.5 mg PO DAILY #30 tablet 03/23/17 Nicotine [Nicoderm 7 mg/24 Hr Transdermal Patch] 1 each TD DAILY #30 patch.td24 03/23/17 Potassium Chloride [Klor-Con 10] 10 meq PO DAILY #30 tablet.er 03/23/17 Spironolactone [Aldactone 25 mg Tablet] 25 mg PO QAM #30 tablet 03/23/17 Thiamine HCl [Thiamine 100 mg Tablet] 1 tab PO DAILY #30 tablet 03/23/17 Allergies/Adverse Reactions: No Known Allergies Allergy (Verified 02/26/17 15:07) Review of Systems Constitutional: ABSENT: fever(s), headache(s), night sweats, weight gain, weight loss Eyes: ABSENT: visual disturbances Ears: ABSENT: hearing changes Nose, Mouth, and Throat: ABSENT: mouth pain, sore throat Cardiovascular: PRESENT: dyspnea on exertion, edema, orthropnea, palpitations Respiratory: PRESENT: dyspnea Gastrointestinal: ABSENT: constipation, diarrhea, heartburn, hematemesis, nausea, vomiting Genitourinary: ABSENT: dysuria, hematuria Integumentary: ABSENT: lesions, pruritus Neurological: ABSENT: abnormal gait, abnormal speech, confusion, dizziness, foc al weakness, syncope Psychiatric: PRESENT: anxiety Physical Exam Vital Signs: Temp Pulse Resp BP Pulse Ox 97.5 F 102 H 20 104/73 99 04/27/18 09:41 04/27/18 09:41 04/27/18 09:41 04/27/18 09:41 04/27/18 09:41 Intake & Output 04/26/18 04/27/18 04/28/18 06:59 06:59 06:59 Weight 56 kg General appearance: PRESENT: other - Moderate distress Head exam: PRESENT: atraumatic Eye exam: PRESENT: PERRLA Mouth exam: PRESENT: moist, tongue midline Neck exam: ABSENT: carotid bruit, JVD, lymphadenopathy, thyromegaly Respiratory exam: PRESENT: crackles, decreased breath sounds, other Cardiovascular exam: PRESENT: systolic murmur, tachycardia, other - Pacemaker left side of the chest GI/Abdominal exam: PRESENT: normal bowel sounds, soft. ABSENT: distended, guarding, mass, organolmegaly, rebound, tenderness Extremities exam: PRESENT: +1 edema Neurological exam: PRESENT: alert, awake, oriented to person, oriented to place, oriented to time, oriented to situation, CN II-XII grossly intact. ABSENT: motor sensory deficit Results Laboratory Results: 04/27/18 10:20 04/27/18 10:20 04/27/18 04/27/18 10:20 10:20 WBC 13.8 H RBC 3.54 L Hgb 12.0 L Hct 34.7 L MCV 98 H MCH 34.1 H MCHC 34.7 RDW 14.8 H Plt Count 308 Seg Neutrophils % Not Reportable Lymphocytes % Not Reportable Monocytes % Not Reportable Eosinophils % Not Reportable Basophils % Not Reportable Absolute Neutrophils Not Reportable Absolute Lymphocytes Not Reportable Absolute Monocytes Not Reportable Absolute Eosinophils Not Reportable Absolute Basophils Not Reportable Sodium 129.7 L Potassium 4.0 Chloride 95 L Carbon Dioxide 26 Anion Gap 9 BUN 10 Creatinine 0.61 Est GFR ( Amer) > 60 Est GFR (Non-Af Amer) > 60 Glucose 104 Calcium 8.5 Total Bilirubin 1.7 H AST 28 ALT 23 Alkaline Phosphatase 114 Total Protein 5.9 L Albumin 3.0 L 04/27/18 10:20 Troponin I 0.027 NT-Pro-B Natriuret Pep 30265 H Impressions: Chest X-Ray 04/27/18 10:08 IMPRESSION: MILD CARDIOMEGALY WITH VASCULAR CONGESTION. ASYMMETRIC LEFT HILAR DENSITY MAY BE DUE TO ASYMMETRIC PULMONARY EDEMA VERSUS INFILTRATE. CANNOT EXCLUDE UNDERLYING MASS. LEFT BASILAR ATELECTASIS VERSUS INFILTRATE WITH SMALL LEFT PLEURAL EFFUSION. Assessment & Plan - Diagnosis (1) CHF exacerbation Qualifiers: Qualified Code(s): I50.23 - Acute on chronic systolic (congestive) heart failure Is this a current diagnosis for this admission?: Yes Plan: 04/27/2018-came to the ER with increasing shortness of breath admitting diagnosis CHF exacerbation. Echocardiogram that was done in 2017 shows EF of 10%. And there is also there is severe global hypokinesis of the left ventricle. Plan is to put him in IMCU. Fluid restriction 1200 cc/day. Cardiology consult was requested echocardiogram requested. Started on Lasix 40 mg IV daily, Taylor's catheter was ordered. Started on Entresto 24/26 mg is started as per recommendations of Dr. Zavaleta. Cardiac enzymes x3 were requested. Daily weight is going to be requested. Low-salt diet was advised to the patient. Because of the low ejection fraction of 10 he may need anticoagulation. Admission BNP is 32,000 with normal kidney function plan is to repeat the BNP tomorrow. Will be placed on oxygen 2 L nasal cannula. (2) COPD exacerbation Plan: 04/27/2018-patient has history of COPD not on home oxygen is a chronic smoker smoking for more than 35 years. He said he used to smoke 2 packs/day now cut it down to 1 pack/day. On examination chest bilateral end of severely decreased with crackles at the bases. No wheezing is noticed. He was started on ipratropium nebulizations and Xopenex nebulizations. (3) ETOH abuse Is this a current diagnosis for this admission?: Yes Plan: 04/27/2018-patient is given the history of drinking 12 cans of beer every day. He is also admitted that he will go to withdrawal if he stops drinking. Started him on a banana bag daily, to watch for the DTs. Started on Ativan 1 mg IV every 2 hours as needed for agitation/anxiety. (4) Pneumonia Qualifiers: Laterality: left Lung location: lower lobe of lung Is this a current diagnosis for this admission?: Yes Plan: 04/27/2018-chest x-ray suggests possible infiltrate/mass in the left upper lobe. Planning to do the CT chest without contrast for further evaluation. Started on IV Rocephin 1 g daily and IV Zithromax 5 mg IV daily. Blood cultures sputum cultures urine cultures are requested. If it is pneumonia most likely is a co mmunity-acquired pneumonia. (5) Tobacco dependence Is this a current diagnosis for this admission?: Yes Plan: 04/27/2018-patient is a chronic smoker smokes 1 pack/day. Smoking counseling was provided for more than 10 minutes. He is going to be placed on nicotine patch 21 mg daily. - Time Time Spent: 50 to 70 Minutes Smoking Cessation Education: over 10 minutes Medications reviewed and adjusted accordingly: Yes Anticipated discharge: Home
[2018-04-27 19:56] LABS: CREATINE KINASE MB 0.52 ng/mL (<4.55); TROPONIN I 0.028 ng/mL
[2018-04-27] MEDS: BUDESONIDE/FORMOTEROL 160-4.5 MCG 60 PUFF/6 GM MDI IH SCH (20:38)
[2018-04-27] MEDS: NORMAL SALINE 1000 ML 1,000 ML with POTASSIUM CHLORIDE 20 MEQ, MAGNESIUM SULFATE 8 MEQ,... IV SCH ×5 (20:40)
[2018-04-27 22:03] LABS: ARTERIAL BLOOD BASE EXCESS 2.2 mmol/L; ARTERIAL BLOOD H2CO3 0.93 mmol/L (1.05-1.35); ARTERIAL BLOOD HCO3 24.5 mmol/L (20-24); ARTERIAL BLOOD O2 SATURATION 95.5 % (94-98); ARTERIAL BLOOD PH 7.52 (7.35-7.45); ARTERIAL BLOOD PO2 68.9 mmHg (80-100); ARTERIAL BLOOD TOTAL CO2 25.4 mmol/L (23-27)
[2018-04-27] MEDS: CARVEDILOL 6.25 MG TABLET PO SCH (22:04)
[2018-04-27] MEDS: FAMOTIDINE 20 MG TABLET PO SCH (22:04)
[2018-04-27] MEDS: GUAIFENESIN 600 MG TABLET.SA PO SCH (22:04)
[2018-04-27] MEDS: LORAZEPAM INJ 2 MG/1 ML VIAL IV PRN (22:04)
[2018-04-27 22:05] LABS: ARTERIAL BLOOD FIO2 ROOMAIR
[2018-04-27 22:35] LABS: APPEARANCE,URINE CLEAR; BILIRUBIN,URINE NEGATIVE (NEGATIVE); COLOR,URINE YELLOW; GLUCOSE, URINE NEGATIVE (NEGATIVE); KETONES,URINE NEGATIVE (NEGATIVE); LEUKOCYTE ESTERASE,URINE NEGATIVE (NEGATIVE); NITRITE,URINE NEGATIVE (NEGATIVE); PROTEIN,URINE NEGATIVE (NEGATIVE)
--- NOTE | 2018-04-27 22:41 | XCELERA REPORT ---
[address] [address] Transthoracic Echocardiogram Report Name: RAKESH MCCABE Age: 57 yrs Gender: Male : 1960 Patient Status: Inpatient Patient Location: [address] [place], [place] [address] Study Date: 04/27/2018 07:54 PM Height: 68 in Weight: 123 lb BSA: 1.7 m2 Procedure: A complete two-dimensional transthoracic echocardiogram was performed (2D, M-mode, spectral and color flow Doppler). The study was technically difficult with many images being suboptimal in quality. Reason For Study: chf Ordering Physician: DOMENICO TSAI Performed By: Courtney Rodriguez Interpretation Summary Left ventricular systolic function is severely reduced. The Ejection Fraction estimate is 20-25% Doppler measurements suggest reversible restrictive left ventricular relaxation, which is associated with grade III/IV or moderate diastolic dysfunction Regional wall motion abnormalities cannot be excluded due to limited visualization. Borderline right ventricular enlargement. The right ventricle appears to be hypertrophied The right ventricular systolic function is mildly reduced. Borderline right atrial enlargement. The left atrium is mildly dilated. There is no mitral valve stenosis. There is a moderate amount of mitral regurgitation There is no aortic valve stenosis No aortic regurgitation is present. There is a mild to moderate amount of tricuspid regurgitation There is mild to moderate pulmonary hypertension by echo Right ventricular systolic pressure is estimated to be elevated at 40-50mmHg. The aortic root is not well visualized. The inferior vena cava appeared normal and decreased > 50% with respiration (RAP 5-10 mmHg) Minimal pericardial effusion. Small left pleural effusion. MMode/2D Measurements & Calculations RVDd: 2.6 cm LVIDd: 7.0 cm FS: 13.8 % Ao root diam: 2.9 cm IVSd: 1.0 cm LVIDs: 6.0 cm EDV(Teich): 253.9 ml Ao root area: 6.7 cm2 LVPWd: 1.1 cm ESV(Teich): 181.4 ml LA dimension: 4.0 cm EF(Teich): 28.6 % Doppler Measurements & Calculations MV E max jorge: MV P1/2t max jorge: Ao V2 max: LV V1 max P.7 cm/sec 104.2 cm/sec 118.4 cm/sec 4.3 mmHg MV P1/2t: 59.0 msec Ao max P.6 mmHgLV V1 max: MVA(P1/2t): 3.7 cm2 103.2 cm/sec MV dec slope: 517.7 cm/sec2 MV dec time: 0.12 sec PA V2 max: TR max jorge: MV P1/2t-pr_phl: 84.3 cm/sec 294.3 cm/sec 59.0 msec PA max P.8 mmHgTR max P.6 mmHg Left Ventricle The left ventricle is mildly to moderately dilated. There is borderline concentric left ventricular hypertrophy. Left ventricular systolic function is severely reduced. The Ejection Fraction estimate is 20-25%. Doppler measurements suggest reversible restrictive left ventricular relaxation, which is associated with grade III/IV or moderate diastolic dysfunction. Regional wall motion abnormalities cannot be excluded due to limited visualization. Right Ventricle Borderline right ventricular enlargement. The right ventricle appears to be hypertrophied. The right ventricular systolic function is mildly reduced. Atria Borderline right atrial enlargement. The left atrium is mildly dilated. Interarterial septum not well visualized and not well dopplered. Cannot comment on ASD/PFO presence. Mitral Valve The mitral valve is grossly normal. There is no mitral valve stenosis. There is a moderate amount of mitral regurgitation. Aortic Valve The aortic valve is not well visualized secondary to technical limitations. There is no aortic valve stenosis. No aortic regurgitation is present. Tricuspid Valve The tricuspid valve is not well visualized, but is grossly normal. There is no tricuspid stenosis. There is a mild to moderate amount of tricuspid regurgitation. There is mild to moderate pulmonary hypertension by echo. Right ventricular systolic pressure is estimated to be elevated at 40-50mmHg. Pulmonic Valve The pulmonic valve is not well visualized. Great Vessels The aortic root is not well visualized. The inferior vena cava appeared normal and decreased > 50% with respiration (RAP 5-10 mmHg). Effusions Minimal pericardial effusion. Small left pleural effusion. : DOMENICO TSAI > Mandie Zavaleta
[2018-04-28] MEDS: LORAZEPAM INJ 2 MG/1 ML VIAL IV PRN ×2 (04:41→10:20)
[2018-04-28 04:54] LABS: ABSOLUTE BASOPHILS # (AUTO) 0.1 10^3/uL (0.0-0.2); ABSOLUTE EOSINOPHILS # (AUTO) 0.1 10^3/uL (0.0-0.6); ABSOLUTE LYMPHOCYTES (AUTO) 0.9 10^3/uL (0.5-4.7); ABSOLUTE MONOCYTES (AUTO) 0.7 10^3/uL (0.1-1.4); ABSOLUTE NEUT (AUTO) 12.5 10^3/uL (1.7-8.2); BASOPHILS % (AUTO) 0.7 % (0-2); EOSINOPHILS % (AUTO) 0.7 % (0-6); HEMATOCRIT 35.2 % (37.9-51.0); HEMOGLOBIN 12.4 g/dL (13.5-17.0); LYMPHOCYTES % (AUTO) 6.5 % (13-45); MEAN CORPUSCULAR HEMOGLOBIN 34.5 pg (27.0-33.4); MEAN CORPUSCULAR HGB CONC 35.4 g/dL (32.0-36.0); MEAN CORPUSCULAR VOLUME 98 fl (80-97); MONOCYTES % (AUTO) 5.1 % (3-13); PLATELET COUNT 320 10^3/uL (150-450); RED CELL DISTRIBUTION WIDTH 14.6 % (11.5-14.0); TOTAL CELLS COUNTED % (AUTO) 100 %; WHITE BLOOD COUNT 14.3 10^3/uL (4.0-10.5)
[2018-04-28 05:14] LABS: ALANINE AMINOTRANSFERASE 29 U/L (21-72); ALKALINE PHOSPHATASE 119 U/L (38-126); ANION GAP 10 (5-19); ASPARTATE AMINO TRANSFERASE 26 U/L (17-59); BILIRUBIN,DIRECT 0.5 mg/dL (0.0-0.4); BILIRUBIN,TOTAL 1.3 mg/dL (0.2-1.3); BLOOD UREA NITROGEN 15 mg/dL (7-20); CALCIUM 8.3 mg/dL (8.4-10.2); CARBON DIOXIDE 24 mmol/L (22-30); CHLORIDE 97 mmol/L (98-107); GLUCOSE 111 mg/dL (75-110); POTASSIUM 4.3 mmol/L (3.6-5.0); SODIUM 130.9 mmol/L (137-145); TOTAL PROTEIN 5.7 g/dL (6.3-8.2)
--- NOTE | 2018-04-28 07:53 | EKG REPORT ---
SEVERITY:- ABNORMAL ECG - ATRIAL-SENSED VENTRICULAR-PACED RHYTHM : Confirmed by: Paddy Ding MD 28-Apr-2018 07:52:53
[2018-04-28] MEDS: SPIRONOLACTONE 25 MG TABLET PO SCH (08:05)
[2018-04-28] MEDS ORDERED: ALBUTEROL SULFATE HFA (90 MCG/PUFF) 200 PUFF/8.5 GM MDI IH PRN (09:14)
--- NOTE | 2018-04-28 09:50 | PDOC PROGRESS REPORT ---
Subjective Progress Note for:: 04/28/18 Subjective:: 04/28/20183086-30-dcyu-old male with history of congestive heart failure with EF of less than 10% came to the emergency room with complaints of increasing shortness of breath. No acute events in the last 24 hours. Patient is afebrile. On examination today patient was not more short of breath compared to yesterday. On examination chest has bilateral extensive wheezing is present. Patient denies any problems. Taylor's catheter was placed this morning for strict input and output measurements. pulse ox is 96% on 2 L. Reason For Visit: CHF EXACEBATION Physical Exam Vital Signs: Temp Pulse Resp BP Pulse Ox 98.2 F 107 H 30 H 113/75 96 04/28/18 08:20 04/28/18 07:30 04/28/18 08:20 04/28/18 07:30 04/28/18 07:30 Intake & Output 04/27/18 04/28/18 04/29/18 06:59 06:59 06:59 Intake Total 320 Output Total 400 Balance -80 Weight 55.3 kg General appearance: PRESENT: mild distress Head exam: PRESENT: atraumatic Eye exam: PRESENT: PERRLA Mouth exam: PRESENT: moist, tongue midline Neck exam: PRESENT: JVD Respiratory exam: PRESENT: decreased breath sounds, wheezes Cardiovascular exam: PRESENT: tachycardia GI/Abdominal exam: PRESENT: normal bowel sounds, soft. ABSENT: distended, guarding, mass, organolmegaly, rebound, tenderness Extremities exam: PRESENT: full ROM, other - Edema around ankles present.. ABSENT: calf tenderness, clubbing, pedal edema Neurological exam: PRESENT: alert, awake, oriented to person, oriented to place, oriented to time, oriented to situation, CN II-XII grossly intact. ABSENT: motor sensory deficit Psychiatric exam: PRESENT: anxious Results Laboratory Results: 04/28/18 04:23 04/28/18 04:23 04/27/18 04/27/18 04/27/18 10:20 10:20 21:45 WBC 13.8 H RBC 3.54 L Hgb 12.0 L Hct 34.7 L MCV 98 H MCH 34.1 H MCHC 34.7 RDW 14.8 H Plt Count 308 Seg Neutrophils % Not Reportable Lymphocytes % Not Reportable Monocytes % Not Reportable Eosinophils % Not Reportable Basophils % Not Reportable Absolute Neutrophils Not Reportable Absolute Lymphocytes Not Reportable Absolute Monocytes Not Reportable Absolute Eosinophils Not Reportable Absolute Basophils Not Reportable Carbonic Acid 0.93 L HCO3/H2CO3 Ratio 26:1 ABG pH 7.52 H ABG pCO2 31.0 L ABG pO2 68.9 L ABG HCO3 24.5 H ABG O2 Saturation 95.5 ABG Base Excess 2.2 FiO2 ROOMAIR Sodium 129.7 L Potassium 4.0 Chloride 95 L Carbon Dioxide 26 Anion Gap 9 BUN 10 Creatinine 0.61 Est GFR ( Amer) > 60 Est GFR (Non-Af Amer) > 60 Glucose 104 Calcium 8.5 Total Bilirubin 1.7 H AST 28 ALT 23 Alkaline Phosphatase 114 Total Protein 5.9 L Albumin 3.0 L Urine Color Urine Appearance Urine pH Ur Specific [place] Urine Protein Urine Glucose (UA) Urine Ketones Urine Blood Urine Nitrite Ur Leukocyte Esterase Urine WBC (Auto) Urine RBC (Auto) 04/27/18 04/28/18 04/28/18 22:15 04:23 04:23 WBC 14.3 H RBC 3.60 L Hgb 12.4 L Hct 35.2 L MCV 98 H MCH 34.5 H MCHC 35.4 RDW 14.6 H Plt Count 320 Seg Neutrophils % 87.0 H Lymphocytes % 6.5 L Monocytes % 5.1 Eosinophils % 0.7 Basophils % 0.7 Absolute Neutrophils 12.5 H Absolute Lymphocytes 0.9 Absolute Monocytes 0.7 Absolute Eosinophils 0.1 Absolute Basophils 0.1 Carbonic Acid HCO3/H2CO3 Ratio ABG pH ABG pCO2 ABG pO2 ABG HCO3 ABG O2 Saturation ABG Base Excess FiO2 Sodium 130.9 L Potassium 4.3 Chloride 97 L Carbon Dioxide 24 Anion Gap 10 BUN 15 Creatinine 0.74 Est GFR ( Amer) > 60 Est GFR (Non-Af Amer) > 60 Glucose 111 H Calcium 8.3 L Total Bilirubin 1.3 AST 26 ALT 29 Alkaline Phosphatase 119 Total Protein 5.7 L Albumin 3.0 L Urine Color YELLOW Urine Appearance CLEAR Urine pH 7.0 Ur Specific [place] 1.010 Urine Protein NEGATIVE Urine Glucose (UA) NEGATIVE Urine Ketones NEGATIVE Urine Blood LARGE H Urine Nitrite NEGATIVE Ur Leukocyte Esterase NEGATIVE Urine WBC (Auto) 7 Urine RBC (Auto) 113 02/19/19 02/19/19 02/20/19 10:20 18:30 04:23 CK-MB (CK-2) 0.52 Troponin I 0.027 0.028 NT-Pro-B Natriuret Pep 25591 H 53771 H Impressions: Chest X-Ray 04/27/18 10:08 IMPRESSION: MILD CARDIOMEGALY WITH VASCULAR CONGESTION. ASYMMETRIC LEFT HILAR DENSITY MAY BE DUE TO ASYMMETRIC PULMONARY EDEMA VERSUS INFILTRATE. CANNOT EXCLUDE UNDERLYING MASS. LEFT BASILAR ATELECTASIS VERSUS INFILTRATE WITH SMALL LEFT PLEURAL EFFUSION. Assessment & Plan - Diagnosis (1) CHF exacerbation Qualifiers: Qualified Code(s): I50.23 - Acute on chronic systolic (congestive) heart failure Is this a current diagnosis for this admission?: Yes Plan: 04/27/2018-came to the ER with increasing shortness of breath admitting diagnosis CHF exacerbation. Echocardiogram that was done in 2017 shows EF of 10%. And there is also there is severe global hypokinesis of the left ventricle. Plan is to put him in IMCU. Fluid restriction 1200 cc/day. Cardiology consult was requested echocardiogram requested. Started on Lasix 40 mg IV daily, Taylor's catheter was ordered. Started on Entresto 24/26 mg is started as per recommendations of Dr. Zavaleta. Cardiac enzymes x3 were requested. Daily weight is going to be requested. Low-salt diet was advised to the patient. Because of the low ejection fraction of 10 he may need anticoagulation. Admission BNP is 32,000 with normal kidney function plan is to repeat the BNP tomorrow. Will be placed on oxygen 2 L nasal cannula. 04/28/2018-patient has chronic systolic heart failure with EF of less than 10%. Admitted for CHF exacerbation. BNP at the time of admission 32,000 it is improved to 29,500 today. But the patient is more in distress today. Present on Lasix 40 mg IV daily and it was increased to 40 mg twice a day and a fluid restriction was started at 1200 mL/day. Low-salt diet was discussed with the patient. Daily weight strict input output chart was requested. cardiology consult was requested. Repeat echocardiogram was requested. Echo done yesterday suggest she has both systolic and diastolic heart failure. (2) COPD exacerbation Is this a current diagnosis for this admission?: Yes Plan: 04/27/2018-patient has history of COPD not on home oxygen is a chronic smoker smoking for more than 35 years. He said he used to smoke 2 packs/day now cut it down to 1 pack/day. On examination chest bilateral end of severely decreased with crackles at the bases. No wheezing is noticed. He was started on ipratropium nebulizations and Xopenex nebulizations. 04/28/2018-patient is admitted with COPD exacerbation, COPD is most likely secondary to chronic smoking. He is on ipratropium nebulizations, Xopenex nebulizations. I am going to start him on IV Solu-Medrol 40 mg every 12 hours. Pulse ox is 96% on 2 L. (3) ETOH abuse Is this a current diagnosis for this admission?: Yes Plan: 04/27/2018-patient is given the history of drinking 12 cans of beer every day. He is also admitted that he will go to withdrawal if he stops drinking. Started him on a banana bag daily, to watch for the DTs. Started on Ativan 1 mg IV every 2 hours as needed for agitation/anxiety. 04/28/2018 patient is giving history of heavy alcohol use he was started on IV Ativan 1 mg every 2 hours as needed for agitation. We going to watch for the DTs. (4) Pneumonia Qualifiers: Laterality: left Lung location: lower lobe of lung Is this a current diagnosis for this admission?: Yes Plan: 04/27/2018-chest x-ray suggests possible infiltrate/mass in the left upper lobe. Planning to do the CT chest without contrast for further evaluation. Started on IV Rocephin 1 g daily and IV Zithromax 5 mg IV daily. Blood cultures sputum cultures urine cultures are requested. If it is pneumonia most likely is a community-acquired pneumonia. 04/28/2018-chest x-ray suggestive of possible infiltrate/mass in the left upper lobe we going to do the CT with contrast today to rule out malignancy. Presently is on IV Rocephin 1 g daily and IV Zithromax 500 mg daily blood cultures and sputum cultures negative so far. (5) Tobacco dependence Is this a current diagnosis for this admission?: Yes - Time Time Spent with patient: 15-24 minutes Smoking Cessation Education: over 10 minutes Anticipated discharge: Home
[2018-04-28] MEDS ORDERED: FUROSEMIDE INJ/PF 40 MG/4 ML SDV IV SCH (10:00)
[2018-04-28] MEDS ORDERED: LISINOPRIL 5 MG TABLET PO SCH (10:00)
[2018-04-28] MEDS ORDERED: MEGESTROL ACETATE 200 MG PO SCH (10:00)
[2018-04-28] MEDS ORDERED: BUDESONIDE/FORMOTEROL 160-4.5 MCG 60 PUFF/6 GM MDI IH SCH (10:00)
[2018-04-28] MEDS ORDERED: (PENDING PHARMACY ID) (Potassium Chloride [Klor-Con M10] 10 MEQ) PO SCH (10:00)
[2018-04-28] MEDS ORDERED: FOLIC ACID 1 MG TABLET PO SCH (10:00)
[2018-04-28] MEDS: ASPIRIN 81 MG TABLET, ENT COATED PO SCH (10:17)
[2018-04-28] MEDS: THIAMINE HCL 100 MG TABLET PO SCH (10:17)
[2018-04-28] MEDS: CARVEDILOL 6.25 MG TABLET PO SCH ×2 (10:18→21:06)
[2018-04-28] MEDS: FAMOTIDINE 20 MG TABLET PO SCH ×2 (10:18→21:06)
[2018-04-28] MEDS: POTASSIUM CHLORIDE 10 MEQ CAPSULE.ER PO SCH (10:18)
[2018-04-28] MEDS: LISINOPRIL 5 MG TABLET PO SCH (10:18)
[2018-04-28] MEDS: FOLIC ACID 1 MG TABLET PO SCH (10:18)
[2018-04-28] MEDS: GUAIFENESIN 600 MG TABLET.SA PO SCH ×2 (10:19→21:06)
[2018-04-28] MEDS: DULOXETINE HCL 20 MG CAPSULE.DR PO SCH (10:19)
[2018-04-28] MEDS: ENOXAPARIN SODIUM INJ 40 MG/0.4 ML DISP.SYRIN SUBCUT SCH (10:20)
[2018-04-28] MEDS: FUROSEMIDE INJ/PF 40 MG/4 ML SDV IV SCH ×2 (10:20→18:29)
[2018-04-28] MEDS: METHYLPREDNISOLONE INJ 40 MG/1 ML SDV IV SCH ×2 (10:20→21:09)
[2018-04-28] MEDS: MEGESTROL ACETATE SUSP 400 MG/10 ML UDCUP PO SCH ×2 (10:21→18:30)
[2018-04-28] MEDS: NICOTINE 7 MG/24 HR PATCH.TD24 TD SCH (10:21)
[2018-04-28] MEDS: CEFTRIAXONE 1 GM/D5W RTU 1 GM/50 ML RTUPB IV SCH (10:21)
[2018-04-28 11:31] LABS: ARTERIAL BLOOD BASE EXCESS 0.3 mmol/L; ARTERIAL BLOOD FIO2 2 L; ARTERIAL BLOOD H2CO3 1.14 mmol/L (1.05-1.35); ARTERIAL BLOOD HCO3 24.4 mmol/L (20-24); ARTERIAL BLOOD O2 SATURATION 96.7 % (94-98); ARTERIAL BLOOD PH 7.43 (7.35-7.45); ARTERIAL BLOOD PO2 85.9 mmHg (80-100); ARTERIAL BLOOD TOTAL CO2 25.6 mmol/L (23-27)
[2018-04-28] MEDS: AZITHROMYCIN 500 MG in DEXTROSE 5%-WATER 250 ML IV SCH (12:03)
--- NOTE | 2018-04-28 13:05 | EKG REPORT ---
SEVERITY:- ABNORMAL ECG - ATRIAL-SENSED VENTRICULAR-PACED RHYTHM : Confirmed by: Paddy Ding MD 28-Apr-2018 13:05:23
--- NOTE | 2018-04-28 13:16 | RADIOLOGY REPORT (SQ) ---
EXAM DESCRIPTION: CHEST SINGLE VIEW COMPLETED DATE/TIME: 04/28/2018 12:44 pm REASON FOR STUDY: resp distress COMPARISON: 04/27/2018 EXAM PARAMETERS: NUMBER OF VIEWS: One view. TECHNIQUE: Single frontal radiographic view of the chest acquired. RADIATION DOSE: NA LIMITATIONS: None. FINDINGS: LUNGS AND PLEURA: There is redemonstrated masslike opacity of the suprahilar left lung wit h left-sided pleural effusion and associated atelectasis or consolidation. MEDIASTINUM AND HILAR STRUCTURES: No masses. Contour normal. HEART AND VASCULAR STRUCTURES: Cardiomegaly with left chest multi lead pacer defibrillator. BONES: No acute findings. HARDWARE: None in the chest. OTHER: No other significant finding. IMPRESSION: Redemonstrated masslike opacity of the suprahilar left lung with left-sided pleural effu rhonda and associated atelectasis or consolidation. Consider CT to exclude malignancy. At minimum, ra diographic follow-up in 6 to 8 weeks following resolution of clinical symptoms is recommended if infe ction is suspected and treated. TECHNICAL DOCUMENTATION: JOB ID: [id number] [employer]- All Rights Reserved Reading location - IP/workstation name: [email or web address]
[2018-04-28 13:20] LABS: CREATINE KINASE MB 0.57 ng/mL (<4.55); TROPONIN I 0.021 ng/mL
[2018-04-28] MEDS: BUDESONIDE/FORMOTEROL 160-4.5 MCG 60 PUFF/6 GM MDI IH SCH ×2 (14:59→18:30)
[2018-04-28] MEDS: SACUBITRIL/VALSARTAN 24 MG/26 MG TABLET PO SCH (14:59)
[2018-04-28 15:03] LABS: ARTERIAL BLOOD BASE EXCESS 0.8 mmol/L; ARTERIAL BLOOD H2CO3 1.06 mmol/L (1.05-1.35); ARTERIAL BLOOD HCO3 24.3 mmol/L (20-24); ARTERIAL BLOOD O2 SATURATION 98.2 % (94-98); ARTERIAL BLOOD PCO2 35.2 mmHg (35-45); ARTERIAL BLOOD PH 7.46 (7.35-7.45); ARTERIAL BLOOD PO2 107.6 mmHg (80-100); ARTERIAL BLOOD TOTAL CO2 25.4 mmol/L (23-27)
[2018-04-28 15:04] LABS: ARTERIAL BLOOD FIO2 28%
[2018-04-28 18:07] LABS: CREATINE KINASE MB 0.39 ng/mL (<4.55); TROPONIN I 0.016 ng/mL
--- NOTE | 2018-04-28 18:10 | PDOC PROGRESS REPORT ---
Subjective Progress Note for:: 04/28/18 Subjective:: Patient was seen this morning on rounds. He was noted to be wheezing at that time. He also seemed to be flushed and probably withdrawing to some extent. 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 At this point he does have grave prognosis due to multiple ongoing medical problems and severe depression of LVEF. Reason For Visit: CHF EXACEBATION Physical Exam Vital Signs: Temp Pulse Resp BP Pulse Ox 97.7 F 74 23 H 100/64 97 04/28/18 16:00 04/28/18 16:00 04/28/18 17:00 04/28/18 16:54 04/28/18 17:00 Intake & Output 04/27/18 04/28/18 04/29/18 06:59 06:59 06:59 Intake Total 320 1323 Output Total 400 150 Balance -80 1173 Weight 55.3 kg Exam: GENERAL: well-nourished and in no acute distress. Alert and oriented x3. Patient seems tremulous and anxious, possible early withdrawal. HEAD: Atraumatic, normocephalic. EYES: ANNIKA, sclera anicteric, conjunctiva are normal. ENT: Moist mucous membranes. No oral ulcerations or bleeding gums noted. No obvious ear, nose or throat abnormalities noted. NECK: supple without lymphadenopathy. Trachea is central. No cervical or axillary lymphadenopathy noted. Carotids are 2+, JVD WNL LUNGS: Bilateral wheezes rales or rhonchi noted. No significant dullness noted on percussion. CHEST: Palpation of the chest wall shows no significant chest wall tenderness. HEART: [place] [employer], No PSH, 1/6 MICHAEL aortic area, 1/6 chacko systolic murmur mitral area, no rubs, no gallops. ABDOMEN: Soft, no significant tenderness appreciated, normoactive bowel sounds. No guarding, no rebound. No rigidity noted . No masses appreciated. EXTREMITIES: Pedal pulses are 1-2+, no calf tenderness noted. No clubbing or cyanosis. negative pedal edema noted NEUROLOGICAL: Focused neurological exam showed no significant neurologic deficit. Normal speech, no focal weakness appreciated. PSYCH: Normal mood, normal affect. Judgment and insight within normal limits. SKIN: No significant ecchymosis, skin is noted to be warm. MUSCULOSKELETAL EXAM: No significant acute joint swelling noted. Results Laboratory Results: 04/28/18 04:23 04/28/18 04:23 04/27/18 04/27/18 04/28/18 21:45 22:15 04:23 WBC 14.3 H RBC 3.60 L Hgb 12.4 L Hct 35.2 L MCV 98 H MCH 34.5 H MCHC 35.4 RDW 14.6 H Plt Count 320 Seg Neutrophils % 87.0 H Lymphocytes % 6.5 L Monocytes % 5.1 Eosinophils % 0.7 Basophils % 0.7 Absolute Neutrophils 12.5 H Absolute Lymphocytes 0.9 Absolute Monocytes 0.7 Absolute Eosinophils 0.1 Absolute Basophils 0.1 Carbonic Acid 0.93 L HCO3/H2CO3 Ratio 26:1 ABG pH 7.52 H ABG pCO2 31.0 L ABG pO2 68.9 L ABG HCO3 24.5 H ABG O2 Saturation 95.5 ABG Base Excess 2.2 FiO2 ROOMAIR Sodium Potassium Chloride Carbon Dioxide Anion Gap BUN Creatinine Est GFR ( Amer) Est GFR (Non-Af Amer) Glucose Calcium Total Bilirubin AST ALT Alkaline Phosphatase Total Protein Albumin Urine Color YELLOW Urine Appearance CLEAR Urine pH 7.0 Ur Specific [place] 1.010 Urine Protein NEGATIVE Urine Glucose (UA) NEGATIVE Urine Ketones NEGATIVE Urine Blood LARGE H Urine Nitrite NEGATIVE Ur Leukocyte Esterase NEGATIVE Urine WBC (Auto) 7 Urine RBC (Auto) 113 04/28/18 04/28/18 04/28/18 04:23 11:05 14:40 WBC RBC Hgb Hct MCV MCH MCHC RDW Plt Count Seg Neutrophils % Lymphocytes % Monocytes % Eosinophils % Basophils % Absolute Neutrophils Absolute Lymphocytes Absolute Monocytes Absolute Eosinophils Absolute Basophils Carbonic Acid 1.14 1.06 HCO3/H2CO3 Ratio 21:1 22:1 ABG pH 7.43 7.46 H ABG pCO2 38.0 35.2 ABG pO2 85.9 107.6 H ABG HCO3 24.4 H 24.3 H ABG O2 Saturation 96.7 98.2 H ABG Base Excess 0.3 0.8 FiO2 2 L 28% Sodium 130.9 L Potassium 4.3 Chloride 97 L Carbon Dioxide 24 Anion Gap 10 BUN 15 Creatinine 0.74 Est GFR ( Amer) > 60 Est GFR (Non-Af Amer) > 60 Glucose 111 H Calcium 8.3 L Total Bilirubin 1.3 AST 26 ALT 29 Alkaline Phosphatase 119 Total Protein 5.7 L Albumin 3.0 L Urine Color Urine Appearance Urine pH Ur Specific [place] Urine Protein Urine Glucose (UA) Urine Ketones Urine Blood Urine Nitrite Ur Leukocyte Esterase Urine WBC (Auto) Urine RBC (Auto) 04/27/18 04/27/18 04/28/18 10:20 18:30 04:23 Creatine Kinase CK-MB (CK-2) 0.52 Troponin I 0.027 0.028 NT-Pro-B Natriuret Pep 90652 H 64008 H 04/28/18 04/28/18 04/28/18 11:16 11:16 17:23 Creatine Kinase 28 L 20 L CK-MB (CK-2) 0.57 Troponin I 0.021 NT-Pro-B Natriuret Pep Impressions: Chest X-Ray 04/28/18 11:39 IMPRESSION: Redemonstrated masslike opacity of the suprahilar left lung with left-sided pleural effusion and associated atelectasis or consolidation. Consider CT to exclude malignancy. At minimum, radiographic follow-up in 6 to 8 weeks following resolution of clinical symptoms is recommended if infection is suspected and treated. Assessment & Plan - Diagnosis (1) Nonischemic cardiomyopathy Is this a current diagnosis for this admission?: Yes (2) CHF exacerbation Qualifiers: Qualified Code(s): I50.23 - Acute on chronic systolic (congestive) heart failure Is this a current diagnosis for this admission?: Yes (3) COPD exacerbation Is this a current diagnosis for this admission?: Yes (4) ETOH abuse Is this a current diagnosis for this admission?: Yes (5) PAD (peripheral artery disease) Is this a current diagnosis for this admission?: Yes (6) Tobacco dependence Is this a current diagnosis for this admission?: Yes - Notes Notes: CHF exacerbation: Patient seems relatively well compensated. However at risk of sudden decompensation due to low underlying reserve. Agree with current management plans. Severe dilated cardiomyopathy: Patient has not been on a good regimen as an outpatient possibly due to noncompliance. We will try improve his regimen for cardiomyopathy. This should include Entresto, digoxin, diuretics and beta- thong. COPD exacerbation: Patient felt to have severe COPD. EtOH abuse: Patient seems to be in early withdrawal. Agree with monitoring him very closely. Peripheral arterial disease: Currently stable without any acute tissue ischemia ongoing. Tobacco abuse: Continue with cessation advice and counseling. - Time Time with patient: Greater than 35 minutes - More than 50% of the time spent coordinating care, discussing management plans with involved caregivers. Management plans discussed with involved personnels. Medical decision making was of moderate to high complexity, patient's has multiple comorbidities. Medications reviewed and adjusted accordingly: Yes
[2018-04-28] MEDS: NORMAL SALINE 1000 ML 1,000 ML with POTASSIUM CHLORIDE 20 MEQ, MAGNESIUM SULFATE 8 MEQ,... IV SCH ×5 (18:47)
--- NOTE | 2018-04-28 19:59 | RADIOLOGY REPORT (SQ) ---
EXAM DESCRIPTION: CT CHEST WITH COMPLETED DATE/TIME: 04/28/2018 7:47 pm REASON FOR STUDY: r/o mass COMPARISON: Chest radiograph 04/28/2018 TECHNIQUE: CT scan of the chest performed using helical scanning technique with dynamic intravenous contrast injection. Images reviewed with lung, soft tissue and bone windows. Reconstructed coronal and sagittal MPR and MIP images reviewed. All images stored on PACS. All CT scanners at this facility use dose modulation, iterative reconstruction, and/or weight based d osing when appropriate to reduce radiation dose to as low as reasonably achievable (ALARA). [facility]: Dose Right [facility]: CareDose [facility]: Dose Right [facility]: Teradose 4D [facility]: dscout CONTRAST TYPE AND DOSE: contrast/concentration: Isovue 350.00 mg/ml; Total Contrast Delivered: 80.0 ml; Total Saline Delivered: 55.0 ml RENAL FUNCTION: GFR > 60. RADIATION DOSE: CT Rad equipment meets quality standard of care and radiation dose reduction techniq ues were employed. CTDIvol: 6.9 mGy. DLP: 289 mGy-cm. . LIMITATIONS: None. FINDINGS: LUNGS AND PLEURA: Extensive left pleural effusion and left opacities. Dense opacity exten ds from the left hilum. . Emphysematous changes. All effusion. HILAR AND MEDIASTINAL STRUCTURES: No definitive hilar mediastinal masses. Dense opacity extending fr om the left hilum. No definitive mass lesion. HEART AND VASCULAR STRUCTURES: Heart is large. No central pulmonary emboli. HARDWARE: Cardiac hardware. UPPER ABDOMEN: No significant findings. Limited exam. THYROID AND OTHER SOFT TISSUES: No masses. No adenopathy. BONES: No significant finding. OTHER: No other significant finding. IMPRESSION: Very dense opacity extends from the left hilum. Cannot determine if this is simply infi ltrate, or there is an underlying mass. No hilar or mediastinal nodes. No obvious endobronchial les ions. Left pleural effusion. Small right pleural effusion with right basilar opacities. TECHNICAL DOCUMENTATION: JOB ID: [id number] Quality ID # [id number]: Final reports with documentation of one or more dose reduction techniques (e.g., Au tomated exposure control, adjustment of the mA and/or kV according to patient size, use of iterative reconstruction technique) 2010 [employer]- All Rights Reserved Reading location - IP/workstation name: [email or web address]
[2018-04-28 23:34] LABS: CREATINE KINASE MB 0.36 ng/mL (<4.55); TROPONIN I 0.016 ng/mL
[2018-04-29] MEDS: LORAZEPAM INJ 2 MG/1 ML VIAL IV PRN ×4 (02:06→23:48)
[2018-04-29 04:13] LABS: HEMATOCRIT 39.1 % (37.9-51.0); HEMOGLOBIN 13.4 g/dL (13.5-17.0); MEAN CORPUSCULAR HEMOGLOBIN 33.7 pg (27.0-33.4); MEAN CORPUSCULAR HGB CONC 34.3 g/dL (32.0-36.0); MEAN CORPUSCULAR VOLUME 98 fl (80-97); PLATELET COUNT 328 10^3/uL (150-450); RED BLOOD COUNT 3.99 10^6/uL (4.35-5.55); RED CELL DISTRIBUTION WIDTH 14.7 % (11.5-14.0)
[2018-04-29 04:29] LABS: ALANINE AMINOTRANSFERASE 13 U/L (21-72); ALBUMIN 2.7 g/dL (3.5-5.0); ALKALINE PHOSPHATASE 97 U/L (38-126); ANION GAP 11 (5-19); ASPARTATE AMINO TRANSFERASE 20 U/L (17-59); BILIRUBIN,DIRECT 0.5 mg/dL (0.0-0.4); BILIRUBIN,TOTAL 0.7 mg/dL (0.2-1.3); BLOOD UREA NITROGEN 17 mg/dL (7-20); CALCIUM 8.4 mg/dL (8.4-10.2); CARBON DIOXIDE 24 mmol/L (22-30); CHLORIDE 98 mmol/L (98-107); GLUCOSE 192 mg/dL (75-110); POTASSIUM 4.3 mmol/L (3.6-5.0); SODIUM 132.8 mmol/L (137-145); TOTAL PROTEIN 5.4 g/dL (6.3-8.2)
[2018-04-29 04:52] LABS: ABSOLUTE LYMPHOCYTES# (MANUAL) 0.7 10^3/uL (0.5-4.7); ABSOLUTE MONOCYTES # (MANUAL) 0.6 10^3/uL (0.1-1.4); ABSOLUTE NEUTROPHILS# (MANUAL) 9.8 10^3/uL (1.7-8.2); BAND NEUTROPHILS % (MANUAL) 5 % (3-5); BASOPHILS % (MANUAL) 0 % (0-2); EOSINOPHILS % (MANUAL) 0 % (0-6); LYMPHOCYTES % (MANUAL) 6 % (13-45); MONOCYTES % (MANUAL) 5 % (3-13); SEGMENTED NEUTROPHILS % (MAN) 84 % (42-78); TOTAL CELLS COUNTED 100
[2018-04-29 04:53] LABS: HYPOCHROMASIA SLIGHT; PLATELET COMMENT ADEQUATE; ROULEAUX SLIGHT
[2018-04-29 04:54] LABS: POLYCHROMASIA SLIGHT
[2018-04-29] MEDS: CEFTRIAXONE 1 GM/D5W RTU 1 GM/50 ML RTUPB IV SCH (09:01)
[2018-04-29] MEDS: SPIRONOLACTONE 25 MG TABLET PO SCH (09:01)
[2018-04-29] MEDS: AZITHROMYCIN 500 MG in DEXTROSE 5%-WATER 250 ML IV SCH (09:01)
[2018-04-29] MEDS: MEGESTROL ACETATE SUSP 400 MG/10 ML UDCUP PO SCH ×2 (09:02→17:37)
[2018-04-29] MEDS: METHYLPREDNISOLONE INJ 40 MG/1 ML SDV IV SCH ×2 (09:02→22:00)
[2018-04-29] MEDS: FUROSEMIDE INJ/PF 40 MG/4 ML SDV IV SCH ×2 (09:03→17:37)
[2018-04-29] MEDS: ENOXAPARIN SODIUM INJ 40 MG/0.4 ML DISP.SYRIN SUBCUT SCH (09:03)
[2018-04-29] MEDS: GUAIFENESIN 600 MG TABLET.SA PO SCH ×2 (09:04→22:00)
[2018-04-29] MEDS: FAMOTIDINE 20 MG TABLET PO SCH ×2 (09:04→22:00)
[2018-04-29] MEDS: SACUBITRIL/VALSARTAN 24 MG/26 MG TABLET PO SCH (09:04)
[2018-04-29] MEDS: POTASSIUM CHLORIDE 10 MEQ CAPSULE.ER PO SCH (09:04)
[2018-04-29] MEDS: ASPIRIN 81 MG TABLET, ENT COATED PO SCH (09:04)
[2018-04-29] MEDS: LISINOPRIL 5 MG TABLET PO SCH (09:04)
[2018-04-29] MEDS: THIAMINE HCL 100 MG TABLET PO SCH (09:04)
[2018-04-29] MEDS: DULOXETINE HCL 20 MG CAPSULE.DR PO SCH (09:05)
[2018-04-29] MEDS: CARVEDILOL 6.25 MG TABLET PO SCH ×2 (09:05→21:55)
[2018-04-29] MEDS: NICOTINE 7 MG/24 HR PATCH.TD24 TD SCH (09:05)
[2018-04-29] MEDS: FOLIC ACID 1 MG TABLET PO SCH (09:07)
[2018-04-29] MEDS: BUDESONIDE/FORMOTEROL 160-4.5 MCG 60 PUFF/6 GM MDI IH SCH ×2 (09:40→17:37)
--- NOTE | 2018-04-29 15:47 | PDOC CONSULTATION ---
Consultation Consult Date: 04/28/18 Attending physician:: DOMENICO TSAI Consult reason:: Tachypnea tachycardia History of Present Illness Admission Date/PCP: 04/27/18 15:10 CALVIN CALLAHAN DO History of Present Illness: RAKESH MCCABE is a 57 year old male, here to ICU after reported Joe acutely de veloping tachycardia and tachypnea as well as some hypoxemia he arrived to the ICU his respiratory rate was 38 his heart rate was 148 was started on BiPAP after period of time his respiratory rate decreased to the high 20s heart rate decreased to around 104 he had diffuse crackles and rhonchi over all lung silva and was confused at this time. Past Medical History Cardiac Medical History: Reports: Congestive Heart Failure, Myocardial Infarction - 8 MONTHS AGO, ON HEART MONITOR NOW, Hypertension Denies: Coronary Artery Disease Pulmonary Medical History: Reports: Bronchitis, Chronic Obstructive Pulmonary Disease (COPD) Denies: Asthma, Pneumonia Neurological Medical History: Denies: Seizures Musculoskeltal Medical History: Denies: Arthritis Psychiatric Medical History: Reports: Depression, General Anxiety Disorder Hematology: Denies: Anemia Past Surgical History Past Surgical History: Reports: Pacemaker Social History Information Source: [facility] Records Smoking Status: Current Every Day Smoker Cigarettes Packs Per Day: 1 Number of Years Smokin Passive smoke exposure as: Both Frequency of Alcohol Use: Heavy Hx Recreational Drug Use: No Drugs: Marijuana Hx Prescription Drug Abuse: No - patient denies Do you have pets?: No Have you had any respiratory illnesses as a child?: No Have you been exposed to any sick contacts recently?: No Have you had any recent respiratory illnesses?: No Have you travelled outside of [place] in the past 12 months?: No - Advance Directive Resuscitation Status: Full Code Family History Family History: COPD, DM, Hypertension Parental Family History Reviewed: Yes Children Family History Reviewed: Yes Sibling(s) Family History Reviewed.: Yes Medication/Allergy Home Medications: Albuterol Sulfate [Proair HFA Inhalation Aerosol 8.5 gm MDI] 2 puff IH Q4HP PRN 04/27/18 Budesonide/Formoterol Fumarate [Symbicort HFA 160-4.5 mcg Inhaler 6 gm] 2 puff IH Q12 04/27/18 Duloxetine HCl [Cymbalta 20 mg Capsule.dr] 20 mg PO DAILY 04/27/18 Folic Acid [Folvite 1 mg Tablet] 1 mg PO DAILY 04/27/18 Furosemide [Lasix 20 mg Tablet] 20 mg PO DAILY 04/27/18 Lisinopril [Zestril] 5 mg PO DAILY 04/27/18 Megestrol Acetate 200 mg PO BID 04/27/18 Omeprazole 20 mg PO DAILY 04/27/18 Potassium Chloride [Klor-Con M10] 10 meq PO DAILY 04/27/18 Allergies/Adverse Reactions: No Known Allergies Allergy (Verified 02/26/17 15:07) Review of Systems ROS unobtainable: Due to mental status Physical Exam Vital Signs: Temp Pulse Resp BP Pulse Ox 98.4 F 80 23 H 90/62 L 86 L 04/29/18 12:00 04/29/18 15:00 04/29/18 12:00 04/29/18 12:00 04/29/18 12:00 Intake & Output 04/28/18 04/29/18 04/30/18 06:59 06:59 06:59 Intake Total 320 1323 2382 Output Total 400 1135 815 Balance -80 188 1567 Weight 55.3 kg 53.8 kg General appearance: PRESENT: no acute distress, disheveled, thin, well- developed, well-nourished Head exam: PRESENT: atraumatic, normocephalic Eye exam: PRESENT: conjunctiva pale, EOMI. ABSENT: nystagmus, scleral icterus Mouth exam: PRESENT: dry mucosa, neck supple, tongue midline Teeth exam: PRESENT: poor dentation Neck exam: ABSENT: carotid bruit, JVD, lymphadenopathy, thyromegaly, tracheal deviation, tracheostomy Respiratory exam: PRESENT: decreased breath sounds, prolonged expiratory phas, rales, rhonchi, symmetrical, tachypnea, unlabored, wheezes. ABSENT: retraction, stridor Cardiovascular exam: PRESENT: RRR, +S1, +S2, tachycardia Pulses: PRESENT: normal radial pulses GI/Abdominal exam: PRESENT: soft. ABSENT: tenderness Extremities exam: ABSENT: calf tenderness, clubbing, joint swelling, pedal edema Musculoskeletal exam: ABSENT: deformity, dislocation Neurological exam: PRESENT: altered, awake Skin exam: PRESENT: dry, warm Results Laboratory Results: 04/29/18 03:52 04/29/18 03:52 04/29/18 04/29/18 03:52 03:52 WBC 11.0 H RBC 3.99 L Hgb 13.4 L Hct 39.1 MCV 98 H MCH 33.7 H MCHC 34.3 RDW 14.7 H Plt Count 328 Seg Neutrophils % Not Reportable Lymphocytes % Not Reportable Monocytes % Not Reportable Eosinophils % Not Reportable Basophils % Not Reportable Absolute Neutrophils Not Reportable Absolute Lymphocytes Not Reportable Absolute Monocytes Not Reportable Absolute Eosinophils Not Reportable Absolute Basophils Not Reportable Sodium 132.8 L Potassium 4.3 Chloride 98 Carbon Dioxide 24 Anion Gap 11 BUN 17 Creatinine 0.82 Est GFR ( Amer) > 60 Est GFR (Non-Af Amer) > 60 Glucose 192 H Calcium 8.4 Magnesium 2.4 H Total Bilirubin 0.7 AST 20 ALT 13 L Alkaline Phosphatase 97 Total Protein 5.4 L Albumin 2.7 L 04/27/18 04/27/18 04/28/18 10:20 18:30 04:23 Creatine Kinase CK-MB (CK-2) 0.52 Troponin I 0.027 0.028 NT-Pro-B Natriuret Pep 41269 H 05525 H 04/28/18 04/28/18 04/28/18 11:16 11:16 17:23 Creatine Kinase 28 L 20 L CK-MB (CK-2) 0.57 Troponin I 0.021 NT-Pro-B Natriuret Pep 04/28/18 04/28/18 04/28/18 17:23 22:49 22:49 Creatine Kinase 21 L CK-MB (CK-2) 0.39 0.36 Troponin I 0.016 0.016 NT-Pro-B Natriuret Pep 04/29/18 03:52 Creatine Kinase CK-MB (CK-2) Troponin I NT-Pro-B Natriuret Pep 80100 H Impressions: Chest X-Ray 04/28/18 11:39 IMPRESSION: Redemonstrated masslike opacity of the suprahilar left lung with left-sided pleural effusion and associated atelectasis or consolidation. Consider CT to exclude malignancy. At minimum, radiographic follow-up in 6 to 8 weeks following resolution of clinical symptoms is recommended if infection is suspected and treated. Chest CT 04/28/18 18:56 IMPRESSION: Very dense opacity extends from the left hilum. Cannot determine if this is simply infiltrate, or there is an underlying mass. No hilar or mediastinal nodes. No obvious endobronchial lesions. Left pleural effusion. Small right pleural effusion with right basilar opacities. Assessment & Plan - Diagnosis (1) Acute on chronic systolic (congestive) heart failure Is this a current diagnosis for this admission?: Yes Plan: Ejection fraction approximately 20% gentle but persistent diuresis is suggested (2) Acute respiratory failure with hypoxemia Is this a current diagnosis for this admission?: Yes Plan: Supplemental oxygen and positive pressure ventilation but by BiPAP (3) COPD exacerbation Is this a current diagnosis for this admission?: Yes Plan: Laba plus lama with hold inhaled corticosteroids at this time (4) EtOH dependence Qualifiers: Substance use status: uncomplicated Qualified Code(s): F10.20 - Alcohol dependence, uncomplicated Is this a current diagnosis for this admission?: Yes Plan: DT prophylaxis alcoholic seizure prophylaxis - Time Total Critical Time (Minutes): 55
[2018-04-29] MEDS: NORMAL SALINE 1000 ML 1,000 ML with POTASSIUM CHLORIDE 20 MEQ, MAGNESIUM SULFATE 8 MEQ,... IV SCH ×5 (17:36)
--- NOTE | 2018-04-29 17:41 | PDOC PROGRESS REPORT ---
Subjective Progress Note for:: 04/29/18 Subjective:: Patient was seen this morning on rounds. Patient was still in the unit at that time. He was noted to be wheezing at that time. He also seemed to be flushed and probably withdrawing to some extent. Patient generally much improved. CT scan results were reviewed. Patient is denying any chest pain. Reason For Visit: CHF EXACEBATION Physical Exam Vital Signs: Temp Pulse Resp BP Pulse Ox 98.6 F 80 22 H 97/67 L 99 04/29/18 15:18 04/29/18 15:00 04/29/18 15:18 04/29/18 15:18 04/29/18 15:18 Intake & Output 04/28/18 04/29/18 04/30/18 06:59 06:59 06:59 Intake Total 320 1323 2974 Output Total 400 1135 1640 Balance -80 188 1334 Weight 55.3 kg 53.8 kg Exam: GENERAL: well-nourished and in no acute distress. Alert and oriented x3 HEAD: Atraumatic, normocephalic. EYES: ANNIKA, sclera anicteric, conjunctiva are normal. ENT: Moist mucous membranes. No oral ulcerations or bleeding gums noted. No obvious ear, nose or throat abnormalities noted. NECK: supple without lymphadenopathy. Trachea is central. No cervical or axillary lymphadenopathy noted. Carotids are 2+, JVD WNL LUNGS: Bilateral wheezes rales or rhonchi noted. Mild left basal dullness noted.. CHEST: Palpation of the chest wall shows no significant chest wall tenderness. HEART: [place] [employer]ATOR, No PSH, 1/6 MICHAEL aortic area, 1/6 chacko systolic murmur mitral area, no rubs, no gallops. ABDOMEN: Soft, no significant tenderness appreciated, normoactive bowel sounds. No guarding, no rebound. No rigidity noted . No masses appreciated. EXTREMITIES: Pedal pulses are 1-2+, no calf tenderness noted. No clubbing or cyanosis. Trace to 1+ pedal edema noted NEUROLOGICAL: Focused neurological exam showed no significant neurologic deficit. Normal speech, no focal weakness appreciated. PSYCH: Normal mood, normal affect. Judgment and insight within normal limits. SKIN: No significant ecchymosis, skin is noted to be warm. MUSCULOSKELETAL EXAM: No significant acute joint swelling noted. Results Laboratory Results: 04/29/18 03:52 04/29/18 03:52 04/29/18 04/29/18 03:52 03:52 WBC 11.0 H RBC 3.99 L Hgb 13.4 L Hct 39.1 MCV 98 H MCH 33.7 H MCHC 34.3 RDW 14.7 H Plt Count 328 Seg Neutrophils % Not Reportable Lymphocytes % Not Reportable Monocytes % Not Reportable Eosinophils % Not Reportable Basophils % Not Reportable Absolute Neutrophils Not Reportable Absolute Lymphocytes Not Reportable Absolute Monocytes Not Reportable Absolute Eosinophils Not Reportable Absolute Basophils Not Reportable Sodium 132.8 L Potassium 4.3 Chloride 98 Carbon Dioxide 24 Anion Gap 11 BUN 17 Creatinine 0.82 Est GFR ( Amer) > 60 Est GFR (Non-Af Amer) > 60 Glucose 192 H Calcium 8.4 Magnesium 2.4 H Total Bilirubin 0.7 AST 20 ALT 13 L Alkaline Phosphatase 97 Total Protein 5.4 L Albumin 2.7 L 04/27/18 04/27/18 04/28/18 10:20 18:30 04:23 Creatine Kinase CK-MB (CK-2) 0.52 Troponin I 0.027 0.028 NT-Pro-B Natriuret Pep 21279 H 86462 H 04/28/18 04/28/18 04/28/18 11:16 11:16 17:23 Creatine Kinase 28 L 20 L CK-MB (CK-2) 0.57 Troponin I 0.021 NT-Pro-B Natriuret Pep 04/28/18 04/28/18 04/28/18 17:23 22:49 22:49 Creatine Kinase 21 L CK-MB (CK-2) 0.39 0.36 Troponin I 0.016 0.016 NT-Pro-B Natriuret Pep 04/29/18 03:52 Creatine Kinase CK-MB (CK-2) Troponin I NT-Pro-B Natriuret Pep 41736 H EKG Comments: Telemetry shows a sensed V paced rhythm. Impressions: Chest X-Ray 04/28/18 11:39 IMPRESSION: Redemonstrated masslike opacity of the suprahilar left lung with left-sided pleural effusion and associated atelectasis or consolidation. Consider CT to exclude malignancy. At minimum, radiographic follow-up in 6 to 8 weeks following resolution of clinical symptoms is recommended if infection is suspected and treated. Chest CT 04/28/18 18:56 IMPRESSION: Very dense opacity extends from the left hilum. Cannot determine if this is simply infiltrate, or there is an underlying mass. No hilar or mediastinal nodes. No obvious endobronchial lesions. Left pleural effusion. Small right pleural effusion with right basilar opacities. Assessment & Plan - Diagnosis (1) Nonischemic cardiomyopathy Is this a current diagnosis for this admission?: Yes (2) CHF exacerbation Qualifiers: Qualified Code(s): I50.23 - Acute on chronic systolic (congestive) heart failure Is this a current diagnosis for this admission?: Yes (3) COPD exacerbation Is this a current diagnosis for this admission?: Yes (4) ETOH abuse Is this a current diagnosis for this admission?: Yes (5) PAD (peripheral artery disease) Is this a current diagnosis for this admission?: Yes (6) Tobacco dependence Is this a current diagnosis for this admission?: Yes - Notes Notes: Patient generally improving but very slowly. Patient has severe dilated cardiomyopathy and also seems to have severe COPD. In addition he seems to have some chronic liver disease from chronic alcohol abuse. CT scan results are somewhat concerning about underlying malignancy. Pulmonary consultation been obtained and pending. At this point will continue with supportive care as you were doing. May gradually optimize Entresto dose as tolerated by the blood pressure. Continue with carvedilol therapy. Please call me if any further help is needed. Will see patient on as needed basis. - Time Time with patient: Greater than 35 minutes - More than 50% of the time spent coordinating care, discussing management plans with involved caregivers. Management plans discussed with involved personnels. Medical decision making was of moderate to high complexity, patient's has multiple comorbidities. Medications reviewed and adjusted accordingly: Yes
--- NOTE | 2018-04-29 17:58 | PDOC PROGRESS REPORT ---
Subjective Progress Note for:: 04/27/18 Subjective:: Patient seen late at night. Noted to be wheezing. In mild respiratory distress but has normal vitals. Reason For Visit: CHF EXACEBATION Physical Exam Vital Signs: Temp Pulse Resp BP Pulse Ox 97.8 F 103 H 20 109/72 98 04/27/18 19:32 04/27/18 19:32 04/27/18 19:32 04/27/18 19:32 04/27/18 19:32 Intake & Output 04/26/18 04/27/18 04/28/18 06:59 06:59 06:59 Weight 56 kg Exam: GENERAL: well-nourished and in no acute distress. Alert and oriented x3, noted to be anxious and slightly tremulous. Probable underlying mild confusion. HEAD: Atraumatic, normocephalic. EYES: ANNIKA, sclera anicteric, conjunctiva are normal. ENT: Moist mucous membranes. No oral ulcerations or bleeding gums noted. No obvious ear, nose or throat abnormalities noted. NECK: supple without lymphadenopathy. Trachea is central. No cervical or axillary lymphadenopathy noted. Carotids are 2+, JVD mildly distended LUNGS: Bilateral wheezes rales or rhonchi noted. No significant dullness noted on percussion. CHEST: Palpation of the chest wall shows no significant chest wall tenderness. HEART: [place] [employer], No PSH, 1/6 MICHAEL aortic area, 1/6 chacko systolic murmur mitral area, no rubs, no gallops. ABDOMEN: Soft, no significant tenderness appreciated, normoactive bowel sounds. No guarding, no rebound. No rigidity noted . No masses appreciated. EXTREMITIES: Pedal pulses are 1-2+, no calf tenderness noted. No clubbing or cyanosis. 1+ pedal edema noted NEUROLOGICAL: Focused neurological exam showed no significant neurologic deficit . Normal speech, no focal weakness appreciated. PSYCH: Normal mood, normal affect. Judgment and insight within normal limits. SKIN: No significant ecchymosis, skin is noted to be warm. MUSCULOSKELETAL EXAM: No significant acute joint swelling noted. Results Laboratory Results: 04/27/18 10:20 04/27/18 10:20 04/27/18 04/27/18 04/27/18 10:20 10:20 21:45 WBC 13.8 H RBC 3.54 L Hgb 12.0 L Hct 34.7 L MCV 98 H MCH 34.1 H MCHC 34.7 RDW 14.8 H Plt Count 308 Seg Neutrophils % Not Reportable Lymphocytes % Not Reportable Monocytes % Not Reportable Eosinophils % Not Reportable Basophils % Not Reportable Absolute Neutrophils Not Reportable Absolute Lymphocytes Not Reportable Absolute Monocytes Not Reportable Absolute Eosinophils Not Reportable Absolute Basophils Not Reportable Carbonic Acid 0.93 L HCO3/H2CO3 Ratio 26:1 ABG pH 7.52 H ABG pCO2 31.0 L ABG pO2 68.9 L ABG HCO3 24.5 H ABG O2 Saturation 95.5 ABG Base Excess 2.2 FiO2 ROOMAIR Sodium 129.7 L Potassium 4.0 Chloride 95 L Carbon Dioxide 26 Anion Gap 9 BUN 10 Creatinine 0.61 Est GFR ( Amer) > 60 Est GFR (Non-Af Amer) > 60 Glucose 104 Calcium 8.5 Total Bilirubin 1.7 H AST 28 ALT 23 Alkaline Phosphatase 114 Total Protein 5.9 L Albumin 3.0 L 04/27/18 04/27/18 10:20 18:30 CK-MB (CK-2) 0.52 Troponin I 0.027 0.028 NT-Pro-B Natriuret Pep 41477 H EKG Comments: Multiple EKGs were reviewed. Rhythm strips reviewed. Showed sinus rhythm with ventricular paced beats. Impressions: Chest X-Ray 04/27/18 10:08 IMPRESSION: MILD CARDIOMEGALY WITH VASCULAR CONGESTION. ASYMMETRIC LEFT HILAR DENSITY MAY BE DUE TO ASYMMETRIC PULMONARY EDEMA VERSUS INFILTRATE. CANNOT EXC LUDE UNDERLYING MASS. LEFT BASILAR ATELECTASIS VERSUS INFILTRATE WITH SMALL LEFT PLEURAL EFFUSION. Assessment & Plan - Diagnosis (1) CHF exacerbation Qualifiers: Qualified Code(s): I50.23 - Acute on chronic systolic (congestive) heart failure Is this a current diagnosis for this admission?: Yes (2) COPD exacerbation Is this a current diagnosis for this admission?: Yes (3) ETOH abuse Is this a current diagnosis for this admission?: Yes (4) Nonischemic cardiomyopathy Is this a current diagnosis for this admission?: Yes (5) PAD (peripheral artery disease) Is this a current diagnosis for this admission?: Yes (6) Cardiac defibrillator in situ Is this a current diagnosis for this admission?: Yes - Notes Notes: CHF exacerbation: Improved following IV Lasix. Continue diuretic therapy. Recommend Entresto. This was discussed with hospitalist. COPD exacerbation: Patient has been advised to quit smoking. May consider pulmonary evaluation. Alcohol abuse: Watch for withdrawal. Cardiomyopathy: 2D echo reviewed shows severely depressed LVEF but generally stable. PAD: Currently stable without any ongoing active tissue ischemia. Cardiac defibrillator in situ: Patient noted to have biventricular defibrillator with MANAGER ASSESSMENT-D device. Currently functioning normally. - Time Time with patient: Greater than 35 minutes - Patient is very complicated. Would need very close observation. There is high risk of decompensation. Should patient decompensate, may consider tertiary care.
[2018-04-29] MEDS: FLUTICASONE NASAL SPRAY 50 MCG/SPRY 120 SPRAY/16 GM NASL SCH (22:00)
[2018-04-30 06:44] LABS: ANION GAP 7 (5-19); BLOOD UREA NITROGEN 18 mg/dL (7-20); CALCIUM 8.4 mg/dL (8.4-10.2); CARBON DIOXIDE 24 mmol/L (22-30); CHLORIDE 100 mmol/L (98-107); GLUCOSE 137 mg/dL (75-110); POTASSIUM 4.5 mmol/L (3.6-5.0); SODIUM 130.8 mmol/L (137-145)
[2018-04-30] MEDS: LORAZEPAM INJ 2 MG/1 ML VIAL IV PRN (08:01)
[2018-04-30] MEDS: SPIRONOLACTONE 25 MG TABLET PO SCH (08:01)
[2018-04-30] MEDS ORDERED: LORAZEPAM INJ 2 MG/1 ML VIAL IV PRN (10:01)
[2018-04-30] MEDS: ENOXAPARIN SODIUM INJ 40 MG/0.4 ML DISP.SYRIN SUBCUT SCH (10:09)
[2018-04-30] MEDS: CEFTRIAXONE 1 GM/D5W RTU 1 GM/50 ML RTUPB IV SCH (10:09)
[2018-04-30] MEDS: BUDESONIDE/FORMOTEROL 160-4.5 MCG 60 PUFF/6 GM MDI IH SCH ×2 (10:09→17:32)
[2018-04-30] MEDS: FUROSEMIDE INJ/PF 40 MG/4 ML SDV IV SCH ×2 (10:10→17:32)
[2018-04-30] MEDS: FAMOTIDINE 20 MG TABLET PO SCH ×2 (10:11→21:23)
[2018-04-30] MEDS: GUAIFENESIN 600 MG TABLET.SA PO SCH ×2 (10:11→21:24)
[2018-04-30] MEDS: FOLIC ACID 1 MG TABLET PO SCH (10:11)
[2018-04-30] MEDS: ASPIRIN 81 MG TABLET, ENT COATED PO SCH (10:11)
[2018-04-30] MEDS: LISINOPRIL 5 MG TABLET PO SCH (10:11)
[2018-04-30] MEDS: NICOTINE 7 MG/24 HR PATCH.TD24 TD SCH (10:11)
[2018-04-30] MEDS: POTASSIUM CHLORIDE 10 MEQ CAPSULE.ER PO SCH (10:11)
[2018-04-30] MEDS: DULOXETINE HCL 20 MG CAPSULE.DR PO SCH (10:12)
[2018-04-30] MEDS: SACUBITRIL/VALSARTAN 24 MG/26 MG TABLET PO SCH (10:12)
[2018-04-30] MEDS: MEGESTROL ACETATE SUSP 400 MG/10 ML UDCUP PO SCH ×2 (10:12→17:32)
[2018-04-30] MEDS: CARVEDILOL 6.25 MG TABLET PO SCH ×2 (10:33→21:23)
[2018-04-30] MEDS: THIAMINE HCL 100 MG TABLET PO SCH (10:33)
[2018-04-30] MEDS: AZITHROMYCIN 500 MG in DEXTROSE 5%-WATER 250 ML IV SCH (11:32)
[2018-04-30] MEDS: FLUTICASONE NASAL SPRAY 50 MCG/SPRY 120 SPRAY/16 GM NASL SCH ×2 (11:37→21:24)
--- NOTE | 2018-04-30 12:04 | PDOC PROGRESS REPORT ---
Subjective Progress Note for:: 04/30/18 Subjective:: awake & alert Reason For Visit: CHF EXACEBATION Physical Exam Vital Signs: Temp Pulse Resp BP Pulse Ox 98.4 F 100 18 121/79 98 04/30/18 07:45 04/30/18 07:45 04/30/18 07:45 04/30/18 07:45 04/30/18 07:45 Intake & Output 04/29/18 04/30/18 05/01/18 06:59 06:59 06:59 Intake Total 1323 3329 1073 Output Total 1135 1640 Balance 188 1689 1073 Weight 53.8 kg 59.5 kg General appearance: PRESENT: no acute distress, disheveled, thin Head exam: PRESENT: atraumatic, normocephalic Eye exam: PRESENT: conjunctiva pale, EOMI. ABSENT: nystagmus Mouth exam: PRESENT: dry mucosa, neck supple, tongue midline Neck exam: ABSENT: carotid bruit, JVD, lymphadenopathy, thyromegaly, tracheal deviation, tracheostomy Respiratory exam: PRESENT: decreased breath sounds, prolonged expiratory phas, rales, rhonchi, symmetrical, unlabored. ABSENT: retraction, stridor, tachypnea Cardiovascular exam: PRESENT: RRR, +S1, +S2 Pulses: PRESENT: normal radial pulses GI/Abdominal exam: PRESENT: soft. ABSENT: tenderness Extremities exam: ABSENT: calf tenderness, clubbing, joint swelling, pedal edema Musculoskeletal exam: ABSENT: deformity, dislocation Neurological exam: PRESENT: altered, awake Psychiatric exam: PRESENT: flat affect Skin exam: PRESENT: dry, warm Results Laboratory Results: 04/29/18 03:52 04/30/18 05:57 04/30/18 05:57 Sodium 130.8 L Potassium 4.5 Chloride 100 Carbon Dioxide 24 Anion Gap 7 BUN 18 Creatinine 0.61 Est GFR ( Amer) > 60 Est GFR (Non-Af Amer) > 60 Glucose 137 H Calcium 8.4 Magnesium 2.3 04/27/18 04/27/18 04/28/18 10:20 18:30 04:23 Creatine Kinase CK-MB (CK-2) 0.52 Troponin I 0.027 0.028 NT-Pro-B Natriuret Pep 85150 H 48840 H 04/28/18 04/28/18 04/28/18 11:16 11:16 17:23 Creatine Kinase 28 L 20 L CK-MB (CK-2) 0.57 Troponin I 0.021 NT-Pro-B Natriuret Pep 04/28/18 04/28/18 04/28/18 17:23 22:49 22:49 Creatine Kinase 21 L CK-MB (CK-2) 0.39 0.36 Troponin I 0.016 0.016 NT-Pro-B Natriuret Pep 04/29/18 03:52 Creatine Kinase CK-MB (CK-2) Troponin I NT-Pro-B Natriuret Pep [id number] H Impressions: Chest X-Ray 04/28/18 11:39 IMPRESSION: Redemonstrated masslike opacity of the suprahilar left lung with left-sided pleural effusion and associated atelectasis or consolidation. Consider CT to exclude malignancy. At minimum, radiographic follow-up in 6 to 8 weeks following resolution of clinical symptoms is recommended if infection is suspected and treated. Chest CT 04/28/18 18:56 IMPRESSION: Very dense opacity extends from the left hilum. Cannot determine if this is simply infiltrate, or there is an underlying mass. No hilar or mediastinal nodes. No obvious endobronchial lesions. Left pleural effusion. Small right pleural effusion with right basilar opacities. Assessment & Plan - Diagnosis (1) Acute on chronic systolic (congestive) heart failure Is this a current diagnosis for this admission?: Yes Plan: Improving (2) Acute respiratory failure with hypoxemia Is this a current diagnosis for this admission?: Yes Plan: Stable (3) COPD exacerbation Is this a current diagnosis for this admission?: Yes Plan: Continued wheezing but significantly improved last 24 hours (4) EtOH dependence Qualifiers: Substance use status: uncomplicated Qualified Code(s): F10.20 - Alcohol dependence, uncomplicated Is this a current diagnosis for this admission?: Yes Plan: DT prophylaxis alcoholic seizure prophylaxis - Time Total Critical Time (Minutes): 40
[2018-04-30] MEDS: METHYLPREDNISOLONE INJ 40 MG/1 ML SDV IV SCH ×2 (14:32→21:24)
[2018-04-30] MEDS: DIAZEPAM 5 MG TABLET PO SCH ×2 (14:32→21:24)
--- NOTE | 2018-04-30 21:57 | PDOC PROGRESS REPORT ---
Subjective Progress Note for:: 04/30/18 Subjective:: 57 y.o. M with CHF (LVEF 10%) presented to [facility] for SOB. He was admitted to the Hospitalist service for a CHF exacerbation. He was briefly in the ICU for respiratory distress and placed on BIPAP. The patient received diuresis and is now back on IMCU. The patient was seen this morning on rounds, he is resting in bed on nasal cannula. He pulls his NC off multiple times during interview. The patient is able to answer most questions appropriately. L lung sounds coarse. R lungs clear to auscultation. Patient admits to a history of DT's when withdrawing from ETOH. Requested that the patient move closer to nurses station. Reason For Visit: CHF EXACEBATION Physical Exam Vital Signs: Temp Pulse Resp BP Pulse Ox 98.4 F 83 16 120/70 98 04/30/18 15:50 04/30/18 15:50 04/30/18 15:50 04/30/18 15:50 04/30/18 15:50 Intake & Output 04/29/18 04/30/18 05/01/18 06:59 06:59 06:59 Intake Total 1323 3329 1748 Output Total 1135 1640 Balance 188 1689 1748 Weight 53.8 kg 59.5 kg General appearance: PRESENT: well-developed Eye exam: PRESENT: conjunctiva pink, PERRLA Mouth exam: PRESENT: moist, tongue midline Neck exam: PRESENT: full ROM Respiratory exam: PRESENT: rhonchi - MARIA T LLL, unlabored Cardiovascular exam: PRESENT: RRR Pulses: PRESENT: normal radial pulses GI/Abdominal exam: PRESENT: soft. ABSENT: distended, tenderness Rectal exam: PRESENT: deferred Extremities exam: PRESENT: full ROM Musculoskeletal exam: PRESENT: full ROM Neurological exam: PRESENT: alert, awake, oriented to person, oriented to place, oriented to time, oriented to situation Psychiatric exam: PRESENT: appropriate affect Skin exam: PRESENT: dry, intact, normal color Results Laboratory Results: 04/29/18 03:52 04/30/18 05:57 04/30/18 05:57 Sodium 130.8 L Potassium 4.5 Chloride 100 Carbon Dioxide 24 Anion Gap 7 BUN 18 Creatinine 0.61 Est GFR ( Amer) > 60 Est GFR (Non-Af Amer) > 60 Glucose 137 H Calcium 8.4 Magnesium 2.3 04/27/18 04/27/18 04/28/18 10:20 18:30 04:23 Creatine Kinase CK-MB (CK-2) 0.52 Troponin I 0.027 0.028 NT-Pro-B Natriuret Pep 54226 H 48631 H 04/28/18 04/28/18 04/28/18 11:16 11:16 17:23 Creatine Kinase 28 L 20 L CK-MB (CK-2) 0.57 Troponin I 0.021 NT-Pro-B Natriuret Pep 04/28/18 04/28/18 04/28/18 17:23 22:49 22:49 Creatine Kinase 21 L CK-MB (CK-2) 0.39 0.36 Troponin I 0.016 0.016 NT-Pro-B Natriuret Pep 04/29/18 03:52 Creatine Kinase CK-MB (CK-2) Troponin I NT-Pro-B Natriuret Pep 30171 H Impressions: Chest X-Ray 04/28/18 11:39 IMPRESSION: Redemonstrated masslike opacity of the suprahilar left lung with left-sided pleural effusion and associated atelectasis or consolidation. Consider CT to exclude malignancy. At minimum, radiographic follow-up in 6 to 8 weeks following resolution of clinical symptoms is recommended if infection is suspected and treated. Chest CT 04/28/18 18:56 IMPRESSION: Very dense opacity extends from the left hilum. Cannot determine if this is simply infiltrate, or there is an underlying mass. No hilar or mediastinal nodes. No obvious endobronchial lesions. Left pleural effusion. Small right pleural effusion with right basilar opacities. Assessment & Plan - Diagnosis (1) CHF exacerbation Is this a current diagnosis for this admission?: Yes Plan: LVEF 10% on ECHOcardiogram Daily lasix Continue entresto daily BNP Continue carvedilol (2) COPD exacerbation Is this a current diagnosis for this admission?: Yes Plan: Previous hx of 2 PPD habit, now down to 1 PPD Supplemental O2 via nasal cannula for SPO2>88% scheduled and PRN nebulizer tx Abx for community acquired PNA (3) ETOH abuse Is this a current diagnosis for this admission?: Yes Plan: Patient adimts to drinking 12 beers per day States he doesn't drink 'the whole can' Admits to previous DT's when going through ETOH witdrawal Denies hx of seizures Daily folate and thiamine Move patient closer to nursing station PRN Ativan IV Scheduled PO Valium (4) Pneumonia Qualifiers: Laterality: left Lung location: lower lobe of lung Is this a current diagnosis for this admission?: Yes Plan: As seen on radiology imaging Antibiotic coverage with azithromycin and rocephin afebrile non-toxic appearing (5) Tobacco dependence Is this a current diagnosis for this admission?: Yes Plan: 2PPD habit now down to 1 PPD offer nicotine patch - Time Time Spent with patient: 15-24 minutes Medications reviewed and adjusted accordingly: Yes Anticipated discharge: Home - Inpatient Certification Based on my medical assessment, after consideration of the patient's comorbidities, presenting symptoms, or acuity I expect that the services needed warrant INPATIENT care.: Yes I certify that my determination is in accordance with my understanding of Medicare's requirements for reasonable and necessary INPATIENT services [42 CFR 412.3e].: Yes Medical Necessity: Need For Continuous Telemetry Monitoring
[2018-05-01] MEDS: METHYLPREDNISOLONE INJ 40 MG/1 ML SDV IV SCH ×3 (05:23→22:13)
[2018-05-01] MEDS: DIAZEPAM 5 MG TABLET PO SCH ×3 (05:23→22:14)
[2018-05-01 06:31] LABS: HEMATOCRIT 40.5 % (37.9-51.0); HEMOGLOBIN 13.9 g/dL (13.5-17.0); MEAN CORPUSCULAR HEMOGLOBIN 33.5 pg (27.0-33.4); MEAN CORPUSCULAR HGB CONC 34.2 g/dL (32.0-36.0); MEAN CORPUSCULAR VOLUME 98 fl (80-97); PLATELET COUNT 354 10^3/uL (150-450); RED BLOOD COUNT 4.13 10^6/uL (4.35-5.55); RED CELL DISTRIBUTION WIDTH 14.6 % (11.5-14.0); WHITE BLOOD COUNT 17.5 10^3/uL (4.0-10.5)
[2018-05-01 06:52] LABS: ANION GAP 12 (5-19); BLOOD UREA NITROGEN 18 mg/dL (7-20); CALCIUM 8.3 mg/dL (8.4-10.2); CARBON DIOXIDE 22 mmol/L (22-30); CHLORIDE 97 mmol/L (98-107); GLUCOSE 149 mg/dL (75-110); PHOSPHORUS 3.8 mg/dL (2.5-4.5); POTASSIUM 3.8 mmol/L (3.6-5.0); SODIUM 131.4 mmol/L (137-145)
[2018-05-01] MEDS: SACUBITRIL/VALSARTAN 24 MG/26 MG TABLET PO SCH (09:18)
[2018-05-01] MEDS: LISINOPRIL 5 MG TABLET PO SCH (09:18)
[2018-05-01] MEDS: CARVEDILOL 6.25 MG TABLET PO SCH ×2 (09:18→22:14)
[2018-05-01] MEDS: FOLIC ACID 1 MG TABLET PO SCH (09:18)
[2018-05-01] MEDS: THIAMINE HCL 100 MG TABLET PO SCH (09:18)
[2018-05-01] MEDS: DULOXETINE HCL 20 MG CAPSULE.DR PO SCH (09:18)
[2018-05-01] MEDS: NICOTINE 7 MG/24 HR PATCH.TD24 TD SCH (09:18)
[2018-05-01] MEDS: SPIRONOLACTONE 25 MG TABLET PO SCH (09:19)
[2018-05-01] MEDS: ASPIRIN 81 MG TABLET, ENT COATED PO SCH (09:19)
[2018-05-01] MEDS: FUROSEMIDE INJ/PF 40 MG/4 ML SDV IV SCH ×2 (09:19→17:35)
[2018-05-01] MEDS: MEGESTROL ACETATE SUSP 400 MG/10 ML UDCUP PO SCH ×2 (09:19→17:36)
[2018-05-01] MEDS: FLUTICASONE NASAL SPRAY 50 MCG/SPRY 120 SPRAY/16 GM NASL SCH ×2 (09:19→22:15)
[2018-05-01] MEDS: GUAIFENESIN 600 MG TABLET.SA PO SCH ×2 (09:20→22:13)
[2018-05-01] MEDS: POTASSIUM CHLORIDE 10 MEQ CAPSULE.ER PO SCH (09:20)
[2018-05-01] MEDS: FAMOTIDINE 20 MG TABLET PO SCH ×2 (09:20→22:14)
[2018-05-01] MEDS: CEFTRIAXONE 1 GM/D5W RTU 1 GM/50 ML RTUPB IV SCH (09:20)
[2018-05-01] MEDS: ENOXAPARIN SODIUM INJ 40 MG/0.4 ML DISP.SYRIN SUBCUT SCH (09:20)
[2018-05-01] MEDS: BUDESONIDE/FORMOTEROL 160-4.5 MCG 60 PUFF/6 GM MDI IH SCH ×2 (09:21→17:36)
[2018-05-01] MEDS: AZITHROMYCIN 500 MG in DEXTROSE 5%-WATER 250 ML IV SCH (10:27)
[2018-05-01] MEDS ORDERED: CYCLOBENZAPRINE HCL 10 MG TABLET PO PRN (12:14)
--- NOTE | 2018-05-01 15:44 | PDOC PROGRESS REPORT ---
Subjective Progress Note for:: 05/01/18 Subjective:: 57 y.o. M with CHF (LVEF 10%) presented to [facility] for SOB. He was admitted to the Hospitalist service for a CHF exacerbation. He was briefly in the ICU for respiratory distress and placed on BIPAP. The patient received diuresis and is now back on IMCU. The patient was seen this morning on rounds with his mother at the bedside, he is resting in bed on room air. The patient is able to answer all questions appropriately. L lung sounds coarse/rhonci. L lung wheezing has resolved. R lungs clear to auscultation. No evidence of central or peripheral cyanosis. The patient remains afebrile and nontoxic appearing. His clinical picture is markedly improved compared to yesterday. No evidence of EtOH withdrawal. If the patient continues to improve, plan for discharge home in 24-48 hours. Reason For Visit: CHF EXACEBATION Physical Exam Vital Signs: Temp Pulse Resp BP Pulse Ox 97.7 F 85 16 120/77 100 05/01/18 12:00 05/01/18 12:05 05/01/18 12:05 05/01/18 12:00 05/01/18 12:05 Intake & Output 04/30/18 05/01/18 05/02/18 06:59 06:59 06:59 Intake Total 3329 1748 1129 Output Total 1640 875 Balance 5968 871 4278 Weight 59.5 kg General appearance: PRESENT: thin Eye exam: PRESENT: conjunctiva pink, PERRLA Mouth exam: PRESENT: moist, tongue midline Neck exam: PRESENT: full ROM Respiratory exam: PRESENT: clear to auscultation trye - Right lung, rhonchi - Left lung, symmetrical, unlabored Cardiovascular exam: PRESENT: RRR Pulses: PRESENT: normal radial pulses, normal dorsalis pedis pul Vascular exam: PRESENT: normal capillary refill GI/Abdominal exam: PRESENT: soft. ABSENT: distended, tenderness Rectal exam: PRESENT: deferred Extremities exam: PRESENT: full ROM. ABSENT: pedal edema Musculoskeletal exam: PRESENT: ambulatory - Patient able to ambulate in room without assistance., full ROM, normal inspection Neurological exam: PRESENT: alert, awake, oriented to person, oriented to place, oriented to time, oriented to situation Psychiatric exam: PRESENT: appropriate affect Skin exam: PRESENT: dry, intact, normal color Results Laboratory Results: 05/01/18 05:39 05/01/18 05:39 05/01/18 05/01/18 05:39 05:39 WBC 17.5 H RBC 4.13 L Hgb 13.9 Hct 40.5 MCV 98 H MCH 33.5 H MCHC 34.2 RDW 14.6 H Plt Count 354 Sodium 131.4 L Potassium 3.8 Chloride 97 L Carbon Dioxide 22 Anion Gap 12 BUN 18 Creatinine 0.55 Est GFR ( Amer) > 60 Est GFR (Non-Af Amer) > 60 Glucose 149 H Calcium 8.3 L Phosphorus 3.8 Magnesium 2.1 04/27/18 04/27/18 04/28/18 10:20 18:30 04:23 Creatine Kinase CK-MB (CK-2) 0.52 Troponin I 0.027 0.028 NT-Pro-B Natriuret Pep 67846 H 92606 H 04/28/18 04/28/18 04/28/18 11:16 11:16 17:23 Creatine Kinase 28 L 20 L CK-MB (CK-2) 0.57 Troponin I 0.021 NT-Pro-B Natriuret Pep 04/28/18 04/28/18 04/28/18 17:23 22:49 22:49 Creatine Kinase 21 L CK-MB (CK-2) 0.39 0.36 Troponin I 0.016 0.016 NT-Pro-B Natriuret Pep 04/29/18 05/01/18 03:52 05:39 Creatine Kinase CK-MB (CK-2) Troponin I NT-Pro-B Natriuret Pep 03519 H 28466 H Impressions: Chest X-Ray 04/28/18 11:39 IMPRESSION: Redemonstrated masslike opacity of the suprahilar left lung with left-sided pleural effusion and associated atelectasis or consolidation. Consider CT to exclude malignancy. At minimum, radiographic follow-up in 6 to 8 weeks following resolution of clinical symptoms is recommended if infection is suspected and treated. Chest CT 04/28/18 18:56 IMPRESSION: Very dense opacity extends from the left hilum. Cannot determine if this is simply infiltrate, or there is an underlying mass. No hilar or mediastinal nodes. No obvious endobronchial lesions. Left pleural effusion. Small right pleural effusion with right basilar opacities. Status: Imported from PACS Assessment & Plan - Diagnosis (1) CHF exacerbation Is this a current diagnosis for this admission?: Yes Plan: LVEF 10% on ECHOcardiogram Daily lasix Continue entresto daily BNP Continue carvedilol (2) COPD exacerbation Is this a current diagnosis for this admission?: Yes Plan: Previous hx of 2 PPD habit, now down to 1 PPD Supplemental O2 via nasal cannula for SPO2>88% scheduled and PRN nebulizer tx Scheduled Solu-Medrol, attempt to wean from 40 mg q8h to q12h Abx for community acquired PNA (3) ETOH abuse Is this a current diagnosis for this admission?: Yes Plan: Improving. The patient seems much more alert today. Able to answer all questions appropriately Patient adimts to drinking 12 beers per day States he doesn't drink 'the whole can' Admits to previous DT's when going through ETOH witdrawal Denies hx of seizures Daily folate and thiamine PRN Ativan IV Scheduled PO Valium (4) Pneumonia Qualifiers: Laterality: left Lung location: lower lobe of lung Is this a current diagnosis for this admission?: Yes Plan: As seen on chest CT Antibiotic coverage with azithromycin and rocephin afebrile non-toxic appearing (5) Tobacco dependence Is this a current diagnosis for this admission?: Yes Plan: 2PPD habit now down to 1 PPD offer nicotine patch - Time Time Spent with patient: 15-24 minutes Medications reviewed and adjusted accordingly: Yes Anticipated discharge: Home Within: within 36 hours - Inpatient Certification Based on my medical assessment, after consideration of the patient's comorbidities, presenting symptoms, or acuity I expect that the services needed warrant INPATIENT care.: Yes I certify that my determination is in accordance with my understanding of Medicare's requirements for reasonable and necessary INPATIENT services [42 CFR 412.3e].: Yes Medical Necessity: Need For Continuous Telemetry Monitoring, Need for Nebulizer Therapy and Monitoring of Response, Need for IV Antibiotics, Risk of Complication if Not Cared For in Hospital
[2018-05-02] MEDS: DIAZEPAM 5 MG TABLET PO SCH ×3 (05:44→21:16)
[2018-05-02] MEDS: FUROSEMIDE INJ/PF 40 MG/4 ML SDV IV SCH ×2 (09:13→17:34)
[2018-05-02] MEDS: METHYLPREDNISOLONE INJ 40 MG/1 ML SDV IV SCH (09:13)
[2018-05-02] MEDS: ASPIRIN 81 MG TABLET, ENT COATED PO SCH (09:13)
[2018-05-02] MEDS: FOLIC ACID 1 MG TABLET PO SCH (09:13)
[2018-05-02] MEDS: FAMOTIDINE 20 MG TABLET PO SCH ×2 (09:13→21:16)
[2018-05-02] MEDS: MEGESTROL ACETATE SUSP 400 MG/10 ML UDCUP PO SCH ×2 (09:13→17:34)
[2018-05-02] MEDS: THIAMINE HCL 100 MG TABLET PO SCH (09:14)
[2018-05-02] MEDS: FLUTICASONE NASAL SPRAY 50 MCG/SPRY 120 SPRAY/16 GM NASL SCH ×2 (09:14→21:17)
[2018-05-02] MEDS: BUDESONIDE/FORMOTEROL 160-4.5 MCG 60 PUFF/6 GM MDI IH SCH ×2 (09:14→17:34)
[2018-05-02] MEDS: GUAIFENESIN 600 MG TABLET.SA PO SCH ×2 (09:14→21:16)
[2018-05-02] MEDS: SACUBITRIL/VALSARTAN 24 MG/26 MG TABLET PO SCH (09:14)
[2018-05-02] MEDS: CARVEDILOL 6.25 MG TABLET PO SCH ×2 (09:14→21:17)
[2018-05-02] MEDS: DULOXETINE HCL 20 MG CAPSULE.DR PO SCH (09:14)
[2018-05-02] MEDS: SPIRONOLACTONE 25 MG TABLET PO SCH (09:15)
[2018-05-02] MEDS: ENOXAPARIN SODIUM INJ 40 MG/0.4 ML DISP.SYRIN SUBCUT SCH (09:15)
[2018-05-02] MEDS: LISINOPRIL 5 MG TABLET PO SCH (09:15)
[2018-05-02] MEDS: CEFTRIAXONE 1 GM/D5W RTU 1 GM/50 ML RTUPB IV SCH (09:15)
[2018-05-02] MEDS: POTASSIUM CHLORIDE 10 MEQ CAPSULE.ER PO SCH (09:15)
[2018-05-02] MEDS: NICOTINE 7 MG/24 HR PATCH.TD24 TD SCH (09:16)
[2018-05-02 09:50] LABS: HEMATOCRIT 42.3 % (37.9-51.0); HEMOGLOBIN 14.5 g/dL (13.5-17.0); MEAN CORPUSCULAR HEMOGLOBIN 33.4 pg (27.0-33.4); MEAN CORPUSCULAR HGB CONC 34.3 g/dL (32.0-36.0); MEAN CORPUSCULAR VOLUME 98 fl (80-97); PLATELET COUNT 397 10^3/uL (150-450); RED BLOOD COUNT 4.34 10^6/uL (4.35-5.55); RED CELL DISTRIBUTION WIDTH 14.4 % (11.5-14.0); WHITE BLOOD COUNT 22.8 10^3/uL (4.0-10.5)
[2018-05-02 10:04] LABS: ANION GAP 10 (5-19); BLOOD UREA NITROGEN 17 mg/dL (7-20); CALCIUM 8.7 mg/dL (8.4-10.2); CARBON DIOXIDE 25 mmol/L (22-30); CHLORIDE 96 mmol/L (98-107); GLUCOSE 162 mg/dL (75-110); POTASSIUM 3.9 mmol/L (3.6-5.0); SODIUM 130.8 mmol/L (137-145)
[2018-05-02] MEDS: AZITHROMYCIN 500 MG in DEXTROSE 5%-WATER 250 ML IV SCH (10:09)
[2018-05-02] MEDS ORDERED: NICOTINE 21 MG/24 HR PATCH.TD24 TD PRN (10:15)
[2018-05-02] MEDS: PREDNISONE 20 MG TABLET PO SCH (21:16)
--- NOTE | 2018-05-02 21:58 | PDOC PROGRESS REPORT ---
Subjective Progress Note for:: 05/02/18 Subjective:: 57 y.o. M with CHF (LVEF 10%) presented to [facility] for SOB. He was admitted to the Hospitalist service for a CHF exacerbation. He was briefly in the ICU for respiratory distress and placed on BIPAP. The patient received diuresis and is now back on IMCU. The patient was seen this morning on rounds with his mother at the bedside, he is resting in bed on room air. The patient is able to answer all questions appropriately. L lung sounds coarse, but improved since yesterday. R lungs clear to auscultation. No evidence of central or peripheral cyanosis. (+) S3 heart so unds upon exam, not an unexpected finding given the degree of his heart failure. The patient remains afebrile and nontoxic appearing, however, his leukocytosis is dramatically worse. In fact, his clinical picture has greatly improved over the last few days. No plan to expand antibiotic coverage at this time. Plan to ambulate patient and test for (possible) home O2 requirements. Patient's mother and patient express displeasure with the care they are receiving from their current slot operations manager. They wish to switch cardiologists to Dr. Perea. He has been made aware, agrees to come see the patient tonight. If no major changes to treatment plan, will discharge in 24-48 hours. Reason For Visit: CHF EXACEBATION Physical Exam Vital Signs: Temp Pulse Resp BP Pulse Ox 97.3 F 74 16 99/61 L 99 05/02/18 19:51 05/02/18 19:51 05/02/18 19:51 05/02/18 19:51 05/02/18 19:51 Intake & Output 05/01/18 05/02/18 05/03/18 06:59 06:59 06:59 Intake Total 1748 1129 1008 Output Total 875 650 Balance 390 615 5445 Weight 59 kg General appearance: PRESENT: thin Eye exam: PRESENT: conjunctiva pink, PERRLA Mouth exam: PRESENT: moist, tongue midline Neck exam: PRESENT: full ROM Respiratory exam: PRESENT: rhonchi - LLL, symmetrical, unlabored. ABSENT: wheezes Cardiovascular exam: PRESENT: other - PACED RHYTHM Pulses: PRESENT: normal radial pulses, normal dorsalis pedis pul Vascular exam: PRESENT: normal capillary refill GI/Abdominal exam: PRESENT: soft. ABSENT: distended, tenderness Rectal exam: PRESENT: deferred Extremities exam: PRESENT: full ROM. ABSENT: pedal edema Musculoskeletal exam: PRESENT: ambulatory - WITH ASSISTANCE, full ROM Neurological exam: PRESENT: alert, awake, oriented to person, oriented to place, oriented to time, oriented to situation Psychiatric exam: PRESENT: appropriate affect Skin exam: PRESENT: dry, intact, normal color Results Laboratory Results: 05/02/18 09:35 05/02/18 09:35 05/02/18 05/02/18 09:35 09:35 WBC 22.8 H RBC 4.34 L Hgb 14.5 Hct 42.3 MCV 98 H MCH 33.4 MCHC 34.3 RDW 14.4 H Plt Count 397 Sodium 130.8 L Potassium 3.9 Chloride 96 L Carbon Dioxide 25 Anion Gap 10 BUN 17 Creatinine 0.53 Est GFR ( Amer) > 60 Est GFR (Non-Af Amer) > 60 Glucose 162 H Calcium 8.7 Magnesium 1.9 04/27/18 19:00 Blood Blood Culture - Final NO GROWTH IN 5 DAYS 04/27/18 18:30 Blood Blood Culture - Final NO GROWTH IN 5 DAYS 04/27/18 04/27/18 04/28/18 10:20 18:30 04:23 Creatine Kinase CK-MB (CK-2) 0.52 Troponin I 0.027 0.028 NT-Pro-B Natriuret Pep 45621 H 06324 H 04/28/18 04/28/18 04/28/18 11:16 11:16 17:23 Creatine Kinase 28 L 20 L CK-MB (CK-2) 0.57 Troponin I 0.021 NT-Pro-B Natriuret Pep 04/28/18 04/28/18 04/28/18 17:23 22:49 22:49 Creatine Kinase 21 L CK-MB (CK-2) 0.39 0.36 Troponin I 0.016 0.016 NT-Pro-B Natriuret Pep 04/29/18 05/01/18 03:52 05:39 Creatine Kinase CK-MB (CK-2) Troponin I NT-Pro-B Natriuret Pep 95410 H 09134 H Impressions: Chest X-Ray 04/28/18 11:39 IMPRESSION: Redemonstrated masslike opacity of the suprahilar left lung with left-sided pleural effusion and associated atelectasis or consolidation. Consider CT to exclude malignancy. At minimum, radiographic follow-up in 6 to 8 weeks following resolution of clinical symptoms is recommended if infection is suspected and treated. Chest CT 04/28/18 18:56 IMPRESSION: Very dense opacity extends from the left hilum. Cannot determine if this is simply infiltrate, or there is an underlying mass. No hilar or mediastinal nodes. No obvious endobronchial lesions. Left pleural effusion. Small right pleural effusion with right basilar opacities. Status: Imported from PACS Assessment & Plan - Diagnosis (1) CHF exacerbation Is this a current diagnosis for this admission?: Yes Plan: LVEF 10% on ECHOcardiogram Daily lasix Continue entresto daily BNP Continue carvedilol (2) COPD exacerbation Is this a current diagnosis for this admission?: Yes Plan: Previous hx of 2 PPD habit, now down to 1 PPD Supplemental O2 via nasal cannula for SPO2>88% scheduled and PRN nebulizer tx Scheduled Solu-Medrol, attempt to wean from 40 mg q8h to q12h Abx for community acquired PNA (3) ETOH abuse Is this a current diagnosis for this admission?: Yes Plan: Improving. The patient seems much more alert today. Able to answer all questions appropriately Patient adimts to drinking 12 beers per day States he doesn't drink 'the whole can' Admits to previous DT's when going through ETOH witdrawal Denies hx of seizures Daily folate and thiamine PRN Ativan IV Scheduled PO Valium (4) Pneumonia Qualifiers: Laterality: left Lung location: lower lobe of lung Is this a current diagnosis for this admission?: Yes Plan: As seen on chest CT Antibiotic coverage with azithromycin and rocephin afebrile non-toxic appearing (5) Tobacco dependence Is this a current diagnosis for this admission?: Yes Plan: 2PPD habit now down to 1 PPD offer nicotine patch (6) Lung mass Is this a current diagnosis for this admission?: Yes Plan: Will likely require oupatient biopsy Oncology aware No further interventions - Time Time Spent with patient: 15-24 minutes Medications reviewed and adjusted accordingly: Yes Anticipated discharge: Home Within: within 48 hours - Inpatient Certification Based on my medical assessment, after consideration of the patient's comorbidities, presenting symptoms, or acuity I expect that the services needed warrant INPATIENT care.: Yes I certify that my determination is in accordance with my understanding of Medicare's requirements for reasonable and necessary INPATIENT services [42 CFR 412.3e].: Yes Medical Necessity: Need For Continuous Telemetry Monitoring - Plan Summary Plan Summary: continue iv abx. ambulate in hallways (as far as patient can tolerate). daily labs.
[2018-05-02 21:59] LABS: HEMATOCRIT 44.6 % (37.9-51.0); HEMOGLOBIN 15.5 g/dL (13.5-17.0); MEAN CORPUSCULAR HGB CONC 34.8 g/dL (32.0-36.0); MEAN CORPUSCULAR VOLUME 98 fl (80-97); PLATELET COUNT 416 10^3/uL (150-450); RED BLOOD COUNT 4.56 10^6/uL (4.35-5.55); RED CELL DISTRIBUTION WIDTH 14.3 % (11.5-14.0); WHITE BLOOD COUNT 26.5 10^3/uL (4.0-10.5)
[2018-05-03] MEDS: DIAZEPAM 5 MG TABLET PO SCH ×2 (06:24→15:23)
[2018-05-03 07:40] LABS: ALANINE AMINOTRANSFERASE 45 U/L (21-72); ALKALINE PHOSPHATASE 126 U/L (38-126); ANION GAP 7 (5-19); ASPARTATE AMINO TRANSFERASE 57 U/L (17-59); BILIRUBIN,DIRECT 0.4 mg/dL (0.0-0.4); BILIRUBIN,TOTAL 0.5 mg/dL (0.2-1.3); BLOOD UREA NITROGEN 20 mg/dL (7-20); CALCIUM 9.1 mg/dL (8.4-10.2); CARBON DIOXIDE 29 mmol/L (22-30); CHLORIDE 95 mmol/L (98-107); GLUCOSE 154 mg/dL (75-110); SODIUM 131.4 mmol/L (137-145); TOTAL PROTEIN 5.8 g/dL (6.3-8.2)
[2018-05-03] MEDS: CEFTRIAXONE 1 GM/D5W RTU 1 GM/50 ML RTUPB IV SCH (09:22)
[2018-05-03] MEDS: ENOXAPARIN SODIUM INJ 40 MG/0.4 ML DISP.SYRIN SUBCUT SCH (09:22)
[2018-05-03] MEDS: FUROSEMIDE INJ/PF 40 MG/4 ML SDV IV SCH ×2 (09:22→17:47)
[2018-05-03] MEDS: GUAIFENESIN 600 MG TABLET.SA PO SCH (09:22)
[2018-05-03] MEDS: POTASSIUM CHLORIDE 10 MEQ CAPSULE.ER PO SCH (09:23)
[2018-05-03] MEDS: CARVEDILOL 6.25 MG TABLET PO SCH (09:23)
[2018-05-03] MEDS: FAMOTIDINE 20 MG TABLET PO SCH (09:23)
[2018-05-03] MEDS: FLUTICASONE NASAL SPRAY 50 MCG/SPRY 120 SPRAY/16 GM NASL SCH (09:23)
[2018-05-03] MEDS: SPIRONOLACTONE 25 MG TABLET PO SCH (09:23)
[2018-05-03] MEDS: ASPIRIN 81 MG TABLET, ENT COATED PO SCH (09:23)
[2018-05-03] MEDS: LISINOPRIL 5 MG TABLET PO SCH (09:23)
[2018-05-03] MEDS: FOLIC ACID 1 MG TABLET PO SCH (09:23)
[2018-05-03] MEDS: PREDNISONE 20 MG TABLET PO SCH (09:23)
[2018-05-03] MEDS: MEGESTROL ACETATE SUSP 400 MG/10 ML UDCUP PO SCH ×2 (09:23→17:49)
[2018-05-03] MEDS: DULOXETINE HCL 20 MG CAPSULE.DR PO SCH (09:24)
[2018-05-03] MEDS: BUDESONIDE/FORMOTEROL 160-4.5 MCG 60 PUFF/6 GM MDI IH SCH ×2 (09:24→17:50)
[2018-05-03] MEDS: THIAMINE HCL 100 MG TABLET PO SCH (09:24)
[2018-05-03] MEDS: SACUBITRIL/VALSARTAN 24 MG/26 MG TABLET PO SCH (09:24)
[2018-05-03] MEDS: AZITHROMYCIN 500 MG in DEXTROSE 5%-WATER 250 ML IV SCH (11:08)
[2018-05-03 17:58] VITALS: BP 90/62
--- NOTE | 2018-05-06 11:43 | PDOC DISCHARGE SUMMARY ---
General - Admit/Disc Date/PCP Admission Date/Primary Care Provider: 04/27/18 15:10 CALVIN CALLAHAN, Discharge Date: 05/03/18 - Discharge Diagnosis (1) CHF exacerbation Is this a current diagnosis for this admission?: Yes (2) COPD exacerbation Is this a current diagnosis for this admission?: Yes (3) ETOH abuse Is this a current diagnosis for this admission?: Yes (4) Pneumonia Is this a current diagnosis for this admission?: Yes (5) Tobacco dependence Is this a current diagnosis for this admission?: Yes (6) Lung mass Is this a current diagnosis for this admission?: Yes - Additional Information Resuscitation Status: Full Code Discharge Diet: Cardiac Discharge Activity: Activity As Tolerated, Balance Activity w/Rest, Weigh Daily Prescriptions: Guaifenesin [Mucinex Sr 600 mg Tablet.sa] 1,200 mg PO Q12 #14 tablet.sa Levofloxacin [Levaquin 750 mg Tablet] 750 mg PO DAILY #4 tab Nicotine [Nicoderm 21 mg/24 Hr Transderm Patch] 1 each TD DAILYP PRN #10 patch.td24 PRN Reason: Sacubitril/Valsartan [Entresto 24 mg/26 mg Tablet] 1 tab PO DAILY #30 tablet Home Medications: Albuterol Sulfate [Proair HFA Inhalation Aerosol 8.5 gm MDI] 2 puff IH Q4HP PRN 04/27/18 Budesonide/Formoterol Fumarate [Symbicort HFA 160-4.5 mcg Inhaler 6 gm] 2 puff IH Q12 04/27/18 Duloxetine HCl [Cymbalta 20 mg Capsule.dr] 20 mg PO DAILY 04/27/18 Folic Acid [Folvite 1 mg Tablet] 1 mg PO DAILY 04/27/18 Furosemide [Lasix 20 mg Tablet] 20 mg PO DAILY 04/27/18 Lisinopril [Zestril] 5 mg PO DAILY 04/27/18 Megestrol Acetate 200 mg PO BID 04/27/18 Omeprazole 20 mg PO DAILY 04/27/18 Potassium Chloride [Klor-Con M10] 10 meq PO DAILY 04/27/18 Aspirin [Ecotrin 81 mg EC Tablet] 81 mg PO DAILY tabec 05/03/18 Budesonide/Formoterol Fumarate [Symbicort HFA 160-4.5 mcg Inhaler 6 gm] 2 puff IH BID inhaler 05/03/18 Carvedilol [Coreg 6.25 mg Tablet] 6.25 mg PO Q12 tablet 05/03/18 Folic Acid [Folvite 1 mg Tablet] 1 mg PO DAILY tablet 05/03/18 Guaifenesin [Mucinex Sr 600 mg Tablet.sa] 1,200 mg PO Q12 #14 tablet.sa 05/03/18 Levofloxacin [Levaquin 750 mg Tablet] 750 mg PO DAILY #4 tab 05/03/18 Nicotine [Nicoderm 21 mg/24 Hr Transderm Patch] 1 each TD DAILYP PRN #10 patch.td24 05/03/18 Potassium Chloride [Klor-Con 10 Meq Capsule ER] 10 meq PO DAILY capsule.er Sacubitril/Valsartan [Entresto 24 mg/26 mg Tablet] 1 tab PO DAILY #30 tablet 05/03/18 Spironolactone [Aldactone 25 mg Tablet] 25 mg PO QAM tablet 05/03/18 Thiamine HCl [Thiamine 100 mg Tablet] 100 mg PO DAILY tablet 05/03/18 History of Present Illness History of Present Illness: RAKESH MCCABE is a 57 year old male with history of congestive heart failure, COPD, chronic smoker, chronic alcohol abuser, history of anxiety disorder, depression, history of pacemaker came to the emergency room with complaints of shortness of breath for the last 4 days. Shortness of breath is more noticeable since yesterday. He said he is compliant with medications at home and decided to came to the emergency room today for further evaluation. He sleeps in sitting position at home. Complaining of swelling of the body including the arms legs and belly. He Is also complaining of facial swelling. Denies any chest pains. Denies any nausea vomiting diarrhea or constipation. Complaining of increased sweating. Denies any fever. Has any headaches dizzy spells. Workup was done in the emergency room BNP found to be 32,000 with normal kidney function and chest x-ray shows increased congestion for possible underlying pneumonia. Discussed the plan of care with the patient and family they agreed to stay in the hospital. Hospital Course Hospital Course: 57 y.o. M with PMH of CHF, COPD, chronic smoker, chronic alcohol abuser (12 beers p/day), anxiety disorder, depression, biventricular pacemaker. [facility]. BNP upon admission > 30,000. CXR showed cardiomyopathy, pulmonary vascular congestion and LML/LLL infiltrate. The patient was admitted to the [facility] under the hospitalist service for a CHF exacerbation and community acquired PNA. The patient is followed by Dr. Zavaleta and has a known history of CHF with an LVEF 10% (based on ECHOcardiogram from 2017). The patient was started on scheduled IV lasix and PO entresto and carveilol for his CHF, and azithromycin & ceftriaxone for CAP. On hospital day #2 the patient was transferred from [facility] to ICU for respiratory distress. The patient's respiratory rate was in the 40s. B/l crackles and rhonci were present. The patient was placed on BIPAP and diuresed with additional doses of IV lasix. By hospital day #3 he was stabilized and transferred back to [facility]. The patient continued to receive Entresto and carvedilol, his Lasix was increased to BID. A chest CT was obtained to evaluate for further pulmonary pathology that could be causing his respiratory symptoms. Results revealed a very dense mass in the L hilum. The radiologist could not determine if it was a mass or an infiltrate. These findings were discussed with Oncology. Dr. Guo recommended the patent complete treatment for his CAP and follow up with her in 6 weeks for a repeat CT scan. The patient was a long time smoker (20+ yrs). At his peak he was smoking 2 PPD, but states he has cut back to 1 PPD. The patient was treated for a COPD exacerbation with steroids, mucinex, PRN and scheduled nebulizer treatments, and inhalers. Fortunately, the patient was able to wean from supplemental oxygen. Downgrading from BIPAP --> nasal cannula --> room air over the course of his hospitalization. The patient and family reported that he was a daily drinker, consuming approximately 12 beers per day. He reported a history of DT-like symptoms (sweats, hand tremors) when withdrawing from ETOH. The patient was placed on daily thaimine, folate, scheduled PO valium and PRN IV ativan. Additionally, he was on seizure precautions. Luckily, the patient did not suffer complications from DTs while inpatient. On hospital day #7 the patient was discharged home. He was instructed to follow up with a pilates coordinator with 1 week of discharge. Additionally, he was sent home with a number of new prescriptions, 11 in total. For his CHF - entresto, Aldactone, Coreg, and aspirin. For his COPD -symbicort and mucinex. For his PNA - levaquin. The patient was counseled about smoking cessation and offered a prescription for a nicotine patch. For further information regarding this patient's hospitalization, please refer to the EMR. Physical Exam Vital Signs: Temp Pulse Resp BP Pulse Ox 97.4 F 80 16 90/62 L 97 05/03/18 17:56 05/03/18 17:56 05/03/18 17:56 05/03/18 17:56 05/03/18 17:56 Results Laboratory Results: 05/02/18 21:45 05/03/18 06:30 04/27/18 04/27/18 04/28/18 10:20 18:30 04:23 Creatine Kinase CK-MB (CK-2) 0.52 Troponin I 0.027 0.028 NT-Pro-B Natriuret Pep 61126 H 55406 H 04/28/18 04/28/18 04/28/18 11:16 11:16 17:23 Creatine Kinase 28 L 20 L CK-MB (CK-2) 0.57 Troponin I 0.021 NT-Pro-B Natriuret Pep 04/28/18 04/28/18 04/28/18 17:23 22:49 22:49 Creatine Kinase 21 L CK-MB (CK-2) 0.39 0.36 Troponin I 0.016 0.016 NT-Pro-B Natriuret Pep 04/29/18 05/01/18 05/03/18 03:52 05:39 06:30 Creatine Kinase CK-MB (CK-2) Troponin I NT-Pro-B Natriuret Pep 27153 H 60806 H 72287 H Impressions: Chest X-Ray 04/28/18 11:39 IMPRESSION: Redemonstrated masslike opacity of the suprahilar left lung with left-sided pleural effusion and associated atelectasis or consolidation. Consider CT to exclude malignancy. At minimum, radiographic follow-up in 6 to 8 weeks following resolution of clinical symptoms is recommended if infection is suspected and treated. Chest CT 04/28/18 18:56 IMPRESSION: Very dense opacity extends from the left hilum. Cannot determine if this is simply infiltrate, or there is an underlying mass. No hilar or mediastinal nodes. No obvious endobronchial lesions. Left pleural effusion. Small right pleural effusion with right basilar opacities. Status: Imported from PACS Qualifiers - * PATIENT BEING DISCHARGED WITH ANY OF THE FOLLOWING DIAGNOSIS: Heart Failure HF Pt being discharged on ACEI for LVEF less than 40%?: Yes HF Pt being discharged on ARBS for LVEF less than 40%?: Yes HF Pt with Afib discharged with Warfarin?: No Reason(s) for not prescribing Warfarin:: Not indicated - PATIENT DOES NOT HAVE AFIB HF Pt discharged on evidence-based Beta Jayesh:: Yes
== END 2018-05-03 18:38 | disposition home or self-care (01) | DRG 291 ==
LOC: ER 09:27 → UNDOADMIN 15:10 → EH 15:10 → 3W 17:55 → ICU 04-28 11:25 → 3S 04-29 16:21
PROVIDERS: ADMIT Internal Medicine; ATTEND Internal Medicine
PROC: 5A09457 Assistance with Respiratory Ventilation, 24-96 Consecutive Hours, Continuous Positive Airway Pressure (ICD-10-PCS; principal; 2018-04-27)
DX: I11.0 Hypertensive heart disease with heart failure (principal); J18.9 Pneumonia, unspecified organism; J96.01 Acute respiratory failure with hypoxia; J44.1 Chronic obstructive pulmonary disease with (acute) exacerbation; J44.0 Chronic obstructive pulmonary disease with (acute) lower respiratory infection; I50.23 Acute on chronic systolic (congestive) heart failure; I42.0 Dilated cardiomyopathy; I73.9 Peripheral vascular disease, unspecified; K70.9 Alcoholic liver disease, unspecified; F41.1 Generalized anxiety disorder; F32.9 Major depressive disorder, single episode, unspecified; F17.210 Nicotine dependence, cigarettes, uncomplicated; I25.2 Old myocardial infarction; Z83.3 Family history of diabetes mellitus; Z82.49 Family history of ischemic heart disease and other diseases of the circulatory system; Z79.51 Long term (current) use of inhaled steroids; Z95.810 Presence of automatic (implantable) cardiac defibrillator
CPT/HCPCS: 36415; 36600; 71045; 71046; 71260; 80048; 80053; 81001; 82550; 82553; 82803; 82962; 83036; 83735; 83880; 84100; 84484; 85025; 85027; 87040; 90686; 93005; 93010; 93306; 94640; 94660; 99285; J0456; J0696; J1650; J1940; J2060; J2920; J3411; J3475; J3480; J3490; J7030; J7060; J7512; J7614; J7620

== ENCOUNTER → 2018-05-19 | Outpatient (CLI) | payer MEDICARE, MEDICAID ==
--- NOTE | 2018-05-19 09:15 | RADIOLOGY REPORT (SQ) ---
EXAM DESCRIPTION: CHEST 2 VIEWS COMPLETED DATE/TIME: 05/19/2018 8:56 am REASON FOR STUDY: PNEUMONIA (J18.9) COMPARISON: 04/28/2018 EXAM PARAMETERS: NUMBER OF VIEWS: two views TECHNIQUE: Digital Frontal and Lateral radiographic views of the chest acquired. RADIATION DOSE: NA LIMITATIONS: none FINDINGS: LUNGS AND PLEURA: Persistent infiltrate left upper lung zone with decrease in consolidatio n noted on the previous study. Developing infiltrate right upper lobe and possibly right lower lung zone. MEDIASTINUM AND HILAR STRUCTURES: No masses or contour abnormalities. HEART AND VASCULAR STRUCTURES: Heart normal size. No evidence for failure. BONES: No acute findings. HARDWARE: None in the chest. OTHER: No other significant finding. IMPRESSION: Resolving left upper lobe infiltrate with considerable residual density. Possible devel oping infiltrate right upper lobe and right lower lung zone. TECHNICAL DOCUMENTATION: JOB ID: [id number] [employer]- All Rights Reserved Reading location - IP/workstation name: [email or web address]
== END ==
LOC: RAD 08:34
PROVIDERS: ATTEND Nurse Practitioner Acute Care
DX: J18.9 Pneumonia, unspecified organism (principal)
CPT/HCPCS: 71046

== ENCOUNTER → 2018-06-18 | Outpatient (CLI) | payer MEDICARE, MEDICAID ==
--- NOTE | 2018-06-18 11:55 | RADIOLOGY REPORT (SQ) ---
EXAM DESCRIPTION: CT CHEST WITH COMPLETED DATE/TIME: 06/18/2018 10:09 am REASON FOR STUDY: PULMONARY NODULE (R91.1) R91.1 SOLITARY PULMONARY NODULE COMPARISON: 02/26/2017. 04/28/2018. TECHNIQUE: CT scan of the chest performed using helical scanning technique with dynamic intravenous contrast injection. Images reviewed with lung, soft tissue and bone windows. Reconstructed coronal and sagittal MPR and MIP images reviewed. All images stored on PACS. All CT scanners at this facility use dose modulation, iterative reconstruction, and/or weight based d osing when appropriate to reduce radiation dose to as low as reasonably achievable (ALARA). [facility]: Dose Right [facility]: CareDose [facility]: Dose Right [facility]: Teradose 4D [facility]: [employer] CONTRAST TYPE AND DOSE: contrast/concentration: Isovue 350.00 mg/ml; Total Contrast Delivered: 80.0 ml; Total Saline Delivered: 55.0 ml RENAL FUNCTION: Creatinine 0.7 RADIATION DOSE: CT Rad equipment meets quality standard of care and radiation dose reduction techniq ues were employed. CTDIvol: 3.6 mGy. DLP: 150 mGy-cm. . LIMITATIONS: None. FINDINGS: LUNGS AND PLEURA: Left upper lobe mass. Spiculated soft tissue mass measures 3.6 x 3.7 cm in the transverse plane. A 2nd ovoid soft tissue lesion measuring up to 2.2 cm immediately adjacent . Sagittal sequences suggest this is all part of 1 lobulated soft tissue mass which measures up to 5 .4 cm. Previously, this area with looked like generalized consolidation, difficult to define any und erlying mass on the study from April. There are now a regional reticulonodular opacities in the l eft upper lobe. Bullous emphysema, lungs otherwise relatively clear. No significant pleural fluid o n today's study. HILAR AND MEDIASTINAL STRUCTURES: Relatively small nodes in the AP window, chronic. HEART AND VASCULAR STRUCTURES: Cardiac enlargement. Pacer artifact. No pericardial fluid. No aorti c aneurysm. No pulmonary embolus. HARDWARE: Left pacer. UPPER ABDOMEN: No significant findings. Limited exam. THYROID AND OTHER SOFT TISSUES: No masses. No adenopathy. BONES: No significant finding. OTHER: No other significant finding. IMPRESSION: 1. Mass in the left upper lobe. Suspicious for malignancy. Previous CT shows regional consolidation through this area. There are additional reticulonodular opacities which may reflect small airways s pread of tumor or infection. The left upper lobe lesion is amenable to CT-guided biopsy if desired. TECHNICAL DOCUMENTATION: JOB ID: [id number] Quality ID # [id number]: Final reports with documentation of one or more dose reduction techniques (e.g., Au tomated exposure control, adjustment of the mA and/or kV according to patient size, use of iterative reconstruction technique) 2010 [employer]- All Rights Reserved Reading location - IP/workstation name: [email or web address]
== END ==
LOC: RAD 09:22
PROVIDERS: ATTEND Internal Medicine Hematology & Oncology
DX: R91.1 Solitary pulmonary nodule (principal)
CPT/HCPCS: 71260; 82565

== ENCOUNTER → 2018-07-18 | Outpatient (CLI) | payer MEDICARE, MEDICAID ==
--- NOTE | 2018-07-19 09:00 | RADIOLOGY REPORT (SQ) ---
EXAM DESCRIPTION: PET CT SKULL/THIGH COMPLETED DATE/TIME: 07/18/2018 5:29 pm REASON FOR STUDY: SOLITARY PULMONARY NODULE R91.1 SOLITARY PULMONARY NODULE COMPARISON: None. RADIONUCLIDE AND DOSE: 11.9 mCi F18 FDG The route of agent administration: Intravenous FASTING BLOOD SUGAR: 111 mg/dl CONTRAST TYPE AND DOSE: No CT contrast given. TECHNIQUE: Blood glucose level was verified. Above dose of FDG was injected intravenously. 2-D seg mented attenuation correction images were obtained from the base of the skull to the midthighs. Nonc ontrast CT images were obtained for attenuation correction and fusion with emission images. CT image s were performed without oral or intravenous contrast and are not sensitive for parenchymal lesions. A series of overlapping emission PET images were obtained. Images reviewed and manipulated at [facility] [employer] work station by the radiologist. Images stored on PACS. LIMITATIONS: None. FINDINGS: HEAD AND NECK: No areas of abnormal metabolic activity in the soft tissues of the head and neck. CHEST: Hypermetabolic left upper lobe mass 12.4 SUV. Approximately 4.8 x 4.3 cm. Hypermetabolic 10 mm nodule more inferiorly in the left upper lobe 2.7 SUV. Reticulonodular pattern between the 2 lesi ons suspicious for endobronchial spread of tumor. ABDOMEN AND PELVIS: No areas of abnormal metabolic activity in the abdomen or pelvis. Expected physi ologic activity is present in the genitourinary system and bowel. PROXIMAL LOWER EXTREMITIES: No areas of abnormal metabolic activity in the soft tissues of the lower extremities. BONES: No abnormal metabolic activity in the visualized skeleton. ADDITIONAL CT FINDINGS: Centrilobular and paraseptal emphysema. Defibrillator. OTHER: Blood pool 1.5 SUV. Liver background 2.5 SUV. IMPRESSION: Hypermetabolic left upper lobe mass and left upper lobe satellite nodule. Intervening r eticulonodular pattern suspicious for endobronchial spread of tumor. TECHNICAL DOCUMENTATION: JOB ID: [id number] [employer]- All Rights Reserved Reading location - IP/workstation name: [email or web address]
== END ==
LOC: RAD 14:33
PROVIDERS: ATTEND Internal Medicine Hematology & Oncology
DX: J98.4 Other disorders of lung (principal); R91.1 Solitary pulmonary nodule
CPT/HCPCS: 78815; A9552

== ENCOUNTER 2018-07-29 08:47 | Day surgery (SDC) | payer MEDICARE, MEDICAID ==
[2018-07-29 09:36] LABS: INTERNATIONAL RATION (INR) 0.91; PROTHROMBIN TIME 12.7 SEC (11.4-15.4)
[2018-07-29 09:37] LABS: PARTIAL THROMBOPLASTIN TIME 31.1 SEC (23.5-35.8)
[2018-07-29 09:50] LABS: BLOOD UREA NITROGEN 11 mg/dL (7-20)
[2018-07-29] MEDS ORDERED: LIDOCAINE 1% INJ-PF (10 MG/ML) 30 ML SDV ONE (10:18)
[2018-07-29] MEDS ORDERED: FENTANYL CITRATE INJ/PF 100 MCG/2 ML AMPUL ONE (10:18)
[2018-07-29] MEDS ORDERED: MIDAZOLAM 2 MG/2 ML INJ ONE (10:18)
[2018-07-29 11:11] LABS: HEMATOCRIT 41.8 % (37.9-51.0); HEMOGLOBIN 15.1 g/dL (13.5-17.0); PLATELET COUNT 211 10^3/uL (150-450); RED CELL DISTRIBUTION WIDTH 14.4 % (11.5-14.0); WHITE BLOOD COUNT 8.3 10^3/uL (4.0-10.5)
[2018-07-29 11:15] LABS: MEAN CORPUSCULAR HEMOGLOBIN 32.7 pg (27.0-33.4); MEAN CORPUSCULAR HGB CONC 36.1 g/dL (32.0-36.0); MEAN CORPUSCULAR VOLUME 91 fl (80-97); RED BLOOD COUNT 4.62 10^6/uL (4.35-5.55)
--- NOTE | 2018-07-29 12:06 | RADIOLOGY REPORT (SQ) ---
EXAM DESCRIPTION: CHEST SINGLE VIEW COMPLETED DATE/TIME: 07/29/2018 11:57 am REASON FOR STUDY: ABNORMAL FINDING OF LUNG FIELD-POST BIOPSY COMPARISON: 05/19/2018 NUMBER OF VIEWS: One view. TECHNIQUE: Single frontal radiographic image of the chest acquired. LIMITATIONS: None. FINDINGS: LUNGS AND PLEURA: No pneumothorax status post CT-guided biopsy of left upper lobe mass. MEDIASTINUM AND HEART: Stable heart size and mediastinal structures. SUPPORT DEVICES: Appropriate location without change. BONY STRUCTURES: No acute findings. HARDWARE: None. OTHER: No other significant finding. IMPRESSION: No pneumothorax. Reading location - IP/workstation name: [email or web address]
--- NOTE | 2018-07-29 12:12 | RADIOLOGY REPORT (SQ) ---
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 FLUORO TIME: 1.7 Seconds of fluoroscopy was used. 12 CT fluoroscopic images were obtained and saved to PACS. LIMITATIONS: None. PROCEDURE: After obtaining informed consent and explaining the risks and benefits of conscious sedat ion,the patient agreed to the procedure. The patient was brought to the CT suite and was placed supin e on the CT gurney. The patient was prepped and draped in the usual sterile fashion . Axial images w ere obtained for targeting of theleft upper lobe. An appropriate access site was selected. IV conscio us sedation was administered and physician direction by the registered nurse using 0.5 milligrams of Versed and 25 micrograms of fentanyl. Physiologic monitoring was provided before, during, and after s edation. The total sedation time was 30 minutes. Documentation face to face time, the performing proceduralist, spent monitoring the patient: [address] scanners at this facility use dose modulation, iterative reconstruction, and/or weight based d osing when appropriate to reduce radiation dose to as low as reasonably achievable (ALARA). [facility]: Dose Right [facility]: CareDose [facility]: Dose Right [facility]: Teradose 4D [facility]: [employer] After sterile skin prep and local lidocaine for skin and deep tissue anesthesia, a coaxial biopsy nee dle was used to obtain multiple cores of tissue. The biopsy tissue was submitted to the lab. There we re no immediate complications. Pathology is pending at the time of dictation. IMPRESSION: SUCCESSFUL CT GUIDED PERCUTANEOUS LUNG BIOPSY OF THE LEFT UPPER LOBE. COMMENT: Patient medication list reviewed: Yes- Quality ID# [id number]:Eligible professional attests to doc umenting in the medical record they obtained, updated, or reviewed the patient's current medications. . Quality ID 145: Final reports for procedures using fluoroscopy that document radiation exposure ron michael, or exposure time and number of fluorographic images (if radiation exposure indices are not avail able) Quality ID # 436: Final reports with documentation of one or more dose reduction techniques (e.g., Au tomated exposure control, adjustment of the mA and/or kV according to patient size, use of iterative reconstruction technique) TECHNICAL DOCUMENTATION: JOB ID: [id number] [employer]- All Rights Reserved Reading location - IP/workstation name: [email or web address]
--- NOTE | 2018-07-29 12:12 | RADIOLOGY REPORT (SQ) ---
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 FLUORO TIME: 1.7 Seconds of fluoroscopy was used. 12 CT fluoroscopic images were obtained and saved to PACS. LIMITATIONS: None. PROCEDURE: After obtaining informed consent and explaining the risks and benefits of conscious sedat ion,the patient agreed to the procedure. The patient was brought to the CT suite and was placed supin e on the CT gurney. The patient was prepped and draped in the usual sterile fashion . Axial images w ere obtained for targeting of theleft upper lobe. An appropriate access site was selected. IV conscio us sedation was administered and physician direction by the registered nurse using 0.5 milligrams of Versed and 25 micrograms of fentanyl. Physiologic monitoring was provided before, during, and after s edation. The total sedation time was 30 minutes. Documentation face to face time, the performing proceduralist, spent monitoring the patient: [address] scanners at this facility use dose modulation, iterative reconstruction, and/or weight based d osing when appropriate to reduce radiation dose to as low as reasonably achievable (ALARA). [facility]: Dose Right [facility]: CareDose [facility]: Dose Right [facility]: Teradose 4D [facility]: [employer] After sterile skin prep and local lidocaine for skin and deep tissue anesthesia, a coaxial biopsy nee dle was used to obtain multiple cores of tissue. The biopsy tissue was submitted to the lab. There we re no immediate complications. Pathology is pending at the time of dictation. IMPRESSION: SUCCESSFUL CT GUIDED PERCUTANEOUS LUNG BIOPSY OF THE LEFT UPPER LOBE. COMMENT: Patient medication list reviewed: Yes- Quality ID# [id number]:Eligible professional attests to doc umenting in the medical record they obtained, updated, or reviewed the patient's current medications. . Quality ID 145: Final reports for procedures using fluoroscopy that document radiation exposure ron michael, or exposure time and number of fluorographic images (if radiation exposure indices are not avail able) Quality ID # 436: Final reports with documentation of one or more dose reduction techniques (e.g., Au tomated exposure control, adjustment of the mA and/or kV according to patient size, use of iterative reconstruction technique) TECHNICAL DOCUMENTATION: JOB ID: [id number] [employer]- All Rights Reserved Reading location - IP/workstation name: [email or web address]
--- NOTE | 2018-07-29 14:44 | RADIOLOGY REPORT (SQ) ---
EXAM DESCRIPTION: CHEST SINGLE VIEW COMPLETED DATE/TIME: 07/29/2018 2:36 pm REASON FOR STUDY: ABNORMAL FINDING OF LUNG FIELD-POST BIOPSY(2 HR FILM) COMPARISON: Earlier the same day. NUMBER OF VIEWS: One view. TECHNIQUE: Single frontal radiographic image of the chest acquired. LIMITATIONS: None. FINDINGS: LUNGS AND PLEURA: Stable appearance. No pneumothorax. MEDIASTINUM AND HEART: Stable heart size and mediastinal structures. BONY STRUCTURES: No acute findings. HARDWARE: Defibrillator. OTHER: No other significant finding. IMPRESSION: No pneumothorax. TECHNICAL DOCUMENTATION: JOB ID: [id number] Reading location - IP/workstation name: [email or web address]-
[2018-07-29 15:40] VITALS: BP 102/70
== END 2018-07-29 14:10 | disposition home or self-care (01) ==
LOC: RAD 08:47
PROVIDERS: ATTEND Internal Medicine Hematology & Oncology
DX: C34.12 Malignant neoplasm of upper lobe, left bronchus or lung (principal); R91.1 Solitary pulmonary nodule; Z79.01 Long term (current) use of anticoagulants
CPT/HCPCS: 36415; 84520; 82565; 85027; 85610; 85730; 88305 ×2; 71045; 77012; 32405; J2250; J3010; J3490

== ENCOUNTER 2018-08-02 08:44 | Inpatient (IN) | payer MEDICARE, MEDICAID ==
[2018-08-02 09:05] LABS: ABSOLUTE BASOPHILS # (AUTO) 0.1 10^3/uL (0.0-0.2); ABSOLUTE EOSINOPHILS # (AUTO) 0.7 10^3/uL (0.0-0.6); ABSOLUTE LYMPHOCYTES (AUTO) 0.8 10^3/uL (0.5-4.7); ABSOLUTE MONOCYTES (AUTO) 0.5 10^3/uL (0.1-1.4); ABSOLUTE NEUT (AUTO) 7.1 10^3/uL (1.7-8.2); BASOPHILS % (AUTO) 0.8 % (0-2); EOSINOPHILS % (AUTO) 7.7 % (0-6); HEMATOCRIT 45.9 % (37.9-51.0); HEMOGLOBIN 16.1 g/dL (13.5-17.0); LYMPHOCYTES % (AUTO) 8.3 % (13-45); MEAN CORPUSCULAR HEMOGLOBIN 32.8 pg (27.0-33.4); MEAN CORPUSCULAR HGB CONC 35.1 g/dL (32.0-36.0); MEAN CORPUSCULAR VOLUME 93 fl (80-97); MONOCYTES % (AUTO) 5.9 % (3-13); PLATELET COUNT 239 10^3/uL (150-450); RED BLOOD COUNT 4.92 10^6/uL (4.35-5.55); RED CELL DISTRIBUTION WIDTH 14.8 % (11.5-14.0); SEGMENTED NEUTROPHILS % (AUTO) 77.3 % (42-78); TOTAL CELLS COUNTED % (AUTO) 100 %; WHITE BLOOD COUNT 9.2 10^3/uL (4.0-10.5)
[2018-08-02 09:38] LABS: ALANINE AMINOTRANSFERASE 22 U/L (21-72); ALBUMIN 3.8 g/dL (3.5-5.0); ALKALINE PHOSPHATASE 92 U/L (38-126); ANION GAP 17 (5-19); ASPARTATE AMINO TRANSFERASE 25 U/L (17-59); BILIRUBIN,DIRECT 0.5 mg/dL (0.0-0.4); BILIRUBIN,TOTAL 0.9 mg/dL (0.2-1.3); BLOOD UREA NITROGEN 17 mg/dL (7-20); CALCIUM 9.4 mg/dL (8.4-10.2); CARBON DIOXIDE 27 mmol/L (22-30); CHLORIDE 78 mmol/L (98-107); GLUCOSE 188 mg/dL (75-110); SODIUM 122.2 mmol/L (137-145); TOTAL PROTEIN 6.8 g/dL (6.3-8.2)
[2018-08-02 09:48] LABS: VENOUS BLOOD BASE EXCESS 4.6 mmol/L; VENOUS BLOOD HCO3 29.8 mmol/L (20-32); VENOUS BLOOD PH 7.43 (7.30-7.42)
--- NOTE | 2018-08-02 09:49 | RADIOLOGY REPORT (SQ) ---
EXAM DESCRIPTION: CHEST SINGLE VIEW COMPLETED DATE/TIME: 08/02/2018 9:29 am REASON FOR STUDY: weakness COMPARISON: 07/29/2018, 05/19/2018 CT-guided lung biopsy 07/29/2018 EXAM PARAMETERS: NUMBER OF VIEWS: One view. TECHNIQUE: Single frontal radiographic view of the chest acquired. RADIATION DOSE: NA LIMITATIONS: None. FINDINGS: LUNGS AND PLEURA: Left upper lobe mass partially obscured by the patient's pacemaker is un changed. No acute infiltrates. No pleural effusion or pneumothorax. MEDIASTINUM AND HILAR STRUCTURES: No masses. Contour normal. HEART AND VASCULAR STRUCTURES: Heart normal in size. Normal vasculature. BONES: No acute findings. HARDWARE: Left-sided pacemaker/defibrillator OTHER: No other significant finding. IMPRESSION: Left upper lobe mass partly obscured by the patient's pacemaker No acute infiltrates TECHNICAL DOCUMENTATION: JOB ID: [id number] 1905 [employer]- All Rights Reserved Reading location - IP/workstation name: [email or web address]
[2018-08-02 09:50] LABS: POTASSIUM 2.8 mmol/L (3.6-5.0)
[2018-08-02] MEDS ORDERED: NORMAL SALINE 1000 ML 1,000 ML IV ONE (09:52)
[2018-08-02] MEDS ORDERED: POTASSIUM CHLORIDE 10 MEQ CAPSULE.ER PO ONE (09:52)
--- NOTE | 2018-08-02 10:03 | RADIOLOGY REPORT (SQ) ---
EXAM DESCRIPTION: CT HEAD WITHOUT COMPLETED DATE/TIME: 08/02/2018 9:53 am REASON FOR STUDY: dizziness, confusion COMPARISON: PET-CT 07/18/2018 TECHNIQUE: Axial images acquired through the brain without intravenous contrast. Images reviewed wi th bone, brain and subdural windows. Additional sagittal and coronal reconstructions were generated. Images stored on PACS. All CT scanners at this facility use dose modulation, iterative reconstruction, and/or weight based d osing when appropriate to reduce radiation dose to as low as reasonably achievable (ALARA). [facility]: Dose Right [facility]: CareDose [facility]: Dose Right [facility]: Teradose 4D [facility]: [employer] RADIATION DOSE: CT Rad equipment meets quality standard of care and radiation dose reduction techniq ues were employed. CTDIvol: 53.2 mGy. DLP: 1097 mGy-cm. mGy. LIMITATIONS: None. FINDINGS: VENTRICLES: Normal size and contour. CEREBRUM: Well-circumscribed area of low attenuation in the left posterior frontal cortex and subcort ical white matter best shown on coronal image 43 and axial image 25-29, likely a small old cortical infarct. Well-circumscribed area of low attenuation in the left posterior temporal lobe axial images 17 and 18 , also likely an old cortical infarct. No CT evidence of acute ischemic change, acute intracranial hemorrhage mass effect or midline shift. CEREBELLUM: No masses. No hemorrhage. No alteration of density. No evidence for acute infarction. EXTRAAXIAL SPACES: No fluid collections. No masses. ORBITS AND GLOBE: No intra- or extraconal masses. Normal contour of globe without masses. CALVARIUM: No fracture. PARANASAL SINUSES: No fluid or mucosal thickening. SOFT TISSUES: No mass or hematoma. OTHER: No other significant finding. 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 No acute findings. EVIDENCE OF ACUTE STROKE: NO. COMMENT: Quality ID # [id number]: Final reports with documentation of one or more dose reduction techniques (e.g., Automated exposure control, adjustment of the mA and/or kV according to patient size, use of iterative reconstruction technique) TECHNICAL DOCUMENTATION: JOB ID: [id number] [employer]- All Rights Reserved Reading location - IP/workstation name: [email or web address] [id number]
[2018-08-02 10:05] LABS: TROPONIN I 0.041 ng/mL
--- NOTE | 2018-08-02 10:19 | ER Document Report ---
ED General - General Chief Complaint: Dizziness Stated Complaint: DIZZINESS Time Seen by Provider: 08/02/18 08:52 Primary Care Provider: CALVIN CALLAHAN DO [Primary Care Provider] - Follow up as needed Notes: Patient is a 57-year-old male presents to the emergency department for generalized weakness and dizziness. Patient states he is felt this on and off for the last couple of months. Patient states now he gets very dizzy and short of breath when he tries to exert himself. Patient has an extensive history of c ongestive heart failure, pacemaker placement, hypertension, lung nodules with recent lung biopsy to rule out cancer. Patient states he has been forgetting things a lot recently. States he has not told his primary care provider about these symptoms. States his blood pressure is typically 90s systolic. In reviewing past charts it appears this is correct going back to 2016. On 07/29/2018 patient was seen at this facility for a lung biopsy of his left upper lung. Patient states he did not tell any of the nursing staff or doctors that he had been feeling weak or dizzy. States the last 24 hours it has "gotten worse," which is why he presents to the emergency room. Patient's denying any chest pain. He is also denying any respiratory distress while being still. States he only gets short of breath upon exertion. Patient's denying any swelling to bilateral lower extremities. Medications: Albuterol, Spiriva lactone, duloxetine, omeprazole, gabapentin, potassium, Lasix, aspirin, folic acid, metoprolol Allergies: None TRAVEL OUTSIDE OF THE [place] IN LAST 30 DAYS: No - Related Data Allergies/Adverse Reactions: No Known Allergies Allergy (Verified 02/26/17 15:07) Past Medical History - General Information source: Patient, Relative - Social History Smoking Status: Current Every Day Smoker Frequency of alcohol use: Occasional Drug Abuse: Marijuana Family History: COPD, DM, Hypertension Patient has suicidal ideation: No Patient has homicidal ideation: No - Past Medical History Cardiac Medical History: Reports: Hx Congestive Heart Failure, Hx Hypertension Denies: Hx Coronary Artery Disease, Hx Heart Attack Pulmonary Medical History: Reports: Hx COPD Denies: Hx Asthma, Hx Bronchitis, Hx Pneumonia Neurological Medical History: Denies: Hx Cerebrovascular Accident, Hx Seizures Renal/ Medical History: Denies: Hx Peritoneal Dialysis Musculoskeletal Medical History: Denies Hx Arthritis Psychiatric Medical History: Reports: Hx Anxiety, Hx Depression Past Surgical History: Reports: Hx Cardiac Surgery - Pacemaker placement x 2 years ago, Hx Pacemaker - Immunizations Hx Diphtheria, Pertussis, Tetanus Vaccination: No Review of Systems - Review of Systems Constitutional: Weakness. denies: Fever EENT: No symptoms reported Cardiovascular: See HPI Respiratory: See HPI Gastrointestinal: No symptoms reported Genitourinary: No symptoms reported Male Genitourinary: No symptoms reported Musculoskeletal: No symptoms reported Skin: No symptoms reported Hematologic/Lymphatic: No symptoms reported Neurological/Psychological: See HPI Physical Exam - Vital signs Vitals: Temp Pulse Resp BP Pulse Ox 98.2 F 75 16 94/59 L 96 08/02/18 09:01 08/02/18 09:01 08/02/18 09:01 08/02/18 09:01 08/02/18 09:01 - Notes Notes: GENERAL: Alert, interacts well. No acute distress. HEAD: Normocephalic, atraumatic. EYES: Pupils equal, round, and reactive to light. Extraocular movements intact. ENT: Oral mucosa moist, tongue midline. NECK: Full range of motion. Supple. Trachea midline. LUNGS: Diminished bilateral bases, no discernible wheezes, rales, or rhonchi. No respiratory distress. HEART: Regular rate and rhythm. No murmur ABDOMEN: Soft, non-tender. Non-distended. Bowel sounds present in all 4 quadrants. EXTREMITIES: Moves all 4 extremities spontaneously. No edema, normal radial and dorsalis pedis pulses bilaterally. No cyanosis. 5 out of 5 strength all 4 extremities. BACK: no cervical, thoracic, lumbar midline tenderness. No saddle anesthesia, normal distal neurovascular exam. NEUROLOGICAL: Alert and oriented x3. Normal speech. cranial nerves II through XII grossly intact PSYCH: Normal affect, normal mood. SKIN: Warm, dry, normal turgor. No rashes or lesions noted. Course - Re-evaluation Re-evalutation: 08/02/18 10:25 Laboratory 08/02/18 08/02/18 08/02/18 08:40 08:40 08:40 WBC 9.2 RBC 4.92 Hgb 16.1 Hct 45.9 MCV 93 MCH 32.8 MCHC 35.1 RDW 14.8 H Plt Count 239 Seg Neutrophils % 77.3 Lymphocytes % 8.3 L Monocytes % 5.9 Eosinophils % 7.7 H Basophils % 0.8 Absolute Neutrophils 7.1 Absolute Lymphocytes 0.8 Absolute Monocytes 0.5 Absolute Eosinophils 0.7 H Absolute Basophils 0.1 VBG pH VBG pCO2 VBG HCO3 VBG Base Excess Sodium 122.2 L Potassium 2.8 L* Chloride 78 L Carbon Dioxide 27 Anion Gap 17 BUN 17 Creatinine 0.96 Est GFR ( Amer) > 60 Est GFR (Non-Af Amer) > 60 Glucose 188 H Calcium 9.4 Total Bilirubin 0.9 Direct Bilirubin 0.5 H Neonat Total Bilirubin Not Reportable Neonat Direct Bilirubin Not Reportable Neonat Indirect Bili Not Reportable AST 25 ALT 22 Alkaline Phosphatase 92 Ammonia Troponin I 0.041 NT-Pro-B Natriuret Pep 8690 H Total Protein 6.8 Albumin 3.8 08/02/18 08/02/18 09:33 09:33 WBC RBC Hgb Hct MCV MCH MCHC RDW Plt Count Seg Neutrophils % Lymphocytes % Monocytes % Eosinophils % Basophils % Absolute Neutrophils Absolute Lymphocytes Absolute Monocytes Absolute Eosinophils Absolute Basophils VBG pH 7.43 H VBG pCO2 46.0 VBG HCO3 29.8 VBG Base Excess 4.6 Sodium Potassium Chloride Carbon Dioxide Anion Gap BUN Creatinine Est GFR ( Amer) Est GFR (Non-Af Amer) Glucose Calcium Total Bilirubin Direct Bilirubin Neonat Total Bilirubin Neonat Direct Bilirubin Neonat Indirect Bili AST ALT Alkaline Phosphatase Ammonia < 8.7 L Troponin I NT-Pro-B Natriuret Pep Total Protein Albumin Patient's labs do reveal acute hyponatremia (corrected to 124 due to hyperglycemia) and hypokalemia. Potassium being replaced in the emergency de partment currently I have paged hospitalist and attempts to admit the patient to the hospital for continued care. Patient's BNP is 8690, this is actually down from recent visits. Patient continues to be 100% on room air, no respiratory distress. We have not attempted to ambulate the patient. 08/02/18 10:50 Discussed this case with hospitalist Dr. Day who will accept to the medical floor for hypokalemia, and acute hyponatremia. Discussed this with family, they are agreeable with the plan. - Vital Signs Vital signs: Temp Pulse Resp BP Pulse Ox 98.2 F 75 16 94/59 L 96 08/02/18 09:01 08/02/18 09:01 08/02/18 09:01 08/02/18 09:01 08/02/18 09:01 - Laboratory Result Diagrams: 08/02/18 08:40 08/02/18 08:40 Laboratory results interpreted by me: 08/02/18 08/02/18 08/02/18 08:40 08:40 08:40 RDW 14.8 H Lymphocytes % 8.3 L Eosinophils % 7.7 H Absolute Eosinophils 0.7 H VBG pH Sodium 122.2 L Potassium 2.8 L* Chloride 78 L Glucose 188 H Direct Bilirubin 0.5 H Ammonia NT-Pro-B Natriuret Pep 8690 H 08/02/18 08/02/18 09:33 09:33 RDW Lymphocytes % Eosinophils % Absolute Eosinophils VBG pH 7.43 H Sodium Potassium Chloride Glucose Direct Bilirubin Ammonia < 8.7 L NT-Pro-B Natriuret Pep Discharge - Discharge Clinical Impression: Hyponatremia, Hypokalemia Condition: Stable Disposition: ADMITTED INPATIENT Admitting Provider: Barb (Hospitalist) Unit Admitted: Medical Floor Referrals: CALVIN CALLAHAN DO [Primary Care Provider] - Follow up as needed
[2018-08-02] MEDS: MAGNESIUM SULFATE/D5W 1 GM/100 ML RTUPB IV SCH ×2 (10:39→11:41)
[2018-08-02] MEDS: POTASSI CL 20 MEQ/50 ML RIDER 20 MEQ/50 ML RTUPB IV SCH ×2 (10:39→12:06)
[2018-08-02] MEDS ORDERED: ACETAMINOPHEN 325 MG TABLET PO PRN (11:50)
[2018-08-02] MEDS ORDERED: IPRATROPIUM/ALBUTEROL 0.5-2.5 MG/3 ML AMPUL NEB PRN (11:50)
[2018-08-02] MEDS ORDERED: ONDANSETRON HCL INJ/PF 4 MG/2 ML SDV IV PRN (11:50)
--- NOTE | 2018-08-02 12:13 | PDOC H&P ---
History of Present Illness Admission Date/PCP: 08/02/18 11:42 CALVIN CALLAHAN DO Patient complains of: Generalized weakness with falls and shortness of breath for the last 1 week History of Present Illness: RAKESH MCCABE is a 57 year old male with history of left upper lobe lung mass status post biopsy 3 days ago, congestive heart failure, chronic smoker, chronic alcohol user, history of congestive heart failure, pacemaker Came to the emergency room with complaints of feeling weak tired associated with history of falls since last 7 days. He is also saying appetite is very poor. He told the ER physician he is in shortness of breath. He is not on home oxygen . Work-up indicates serum potassium is 2.8 and serum sodium of 124 medical consult was called for admission for further management. Patient complaining of chronic cough with whitish sputum nausea dizziness associated generalized weakness and falls at least 3 in the last few days. Patient states appetite is very poor. Recently has lung biopsy last week . Dr Guo is the oncologist. Past Medical History Cardiac Medical History: Reports: Congestive Heart Failure, Hypertension Denies: Coronary Artery Disease, Myocardial Infarction Pulmonary Medical History: Reports: Chronic Obstructive Pulmonary Disease (COPD) Denies: Asthma, Bronchitis, Pneumonia Neurological Medical History: Denies: Seizures Musculoskeltal Medical History: Denies: Arthritis Psychiatric Medical History: Reports: Depression Hematology: Reports: Anemia Past Surgical History Past Surgical History: Reports: Pacemaker Social History Smoking Status: Current Every Day Smoker Frequency of Alcohol Use: Heavy Hx Recreational Drug Use: No Drugs: Marijuana Hx Prescription Drug Abuse: No - patient denies - Advance Directive Resuscitation Status: Full Code Family History Family History: COPD, DM, Hypertension Parental Family History Reviewed: Yes - Family history of hypertension and heart disease present. Children Family History Reviewed: Yes Sibling(s) Family History Reviewed.: Yes Medication/Allergy Home Medications: Albuterol Sulfate [Proair HFA Inhalation Aerosol 8.5 gm MDI] 2 puff IH Q4HP PRN 04/27/18 Aspirin [Aspirin 81 mg Chewable Tablet] 81 mg PO DAILY 07/29/18 Duloxetine HCl [Cymbalta 20 Mg Capsule.] 20 mg PO DAILY 07/29/18 Folic Acid [Folvite 1 mg Tablet] 1 mg PO DAILY 07/29/18 Furosemide [Lasix 20 mg Tablet] 20 mg PO DAILY 07/29/18 Gabapentin [Neurontin 300 mg Capsule] 300 mg PO QHS 07/29/18 Metoprolol Villegas/Hydrochlorothiaz [Metoprolol ER-Hctz 25-12.5 mg] 1 each PO DAILY 07/29/18 Omeprazole 20 mg PO DAILY 07/29/18 Potassium Chloride 10 meq PO 07/29/18 Rivaroxaban [Xarelto] 20 mg PO DAILY 07/29/18 Sacubitril/Valsartan [Entresto 24 mg/26 mg Tablet] 1 tab PO BID 07/29/18 Spironolactone 50 mg PO DAILY 07/29/18 Vitamin B Complex 1 tab PO DAILY 07/29/18 Allergies/Adverse Reactions: No Known Allergies Allergy (Verified 02/26/17 15:07) Review of Systems Constitutional: PRESENT: fatigue, weakness, weight loss. ABSENT: fever(s), headache(s) Eyes: ABSENT: visual disturbances Ears: ABSENT: hearing changes Nose, Mouth, and Throat: ABSENT: sore throat Cardiovascular: ABSENT: dyspnea on exertion, edema, orthropnea, palpitations Respiratory: PRESENT: cough, other Gastrointestinal: PRESENT: nausea, other - Poor appetite Genitourinary: ABSENT: dysuria, hematuria Musculoskeletal: PRESENT: muscle weakness Neurological: PRESENT: dizziness, other - Falls Psychiatric: ABSENT: anxiety, depression, homidical ideation, suicidal ideation Physical Exam Vital Signs: Temp Pulse Resp BP Pulse Ox 98.2 F 75 18 112/71 100 08/02/18 09:01 08/02/18 09:01 08/02/18 10:13 08/02/18 10:13 08/02/18 10:13 Intake & Output 08/01/18 08/02/18 08/03/18 06:59 06:59 06:59 Intake Total 500 Balance 500 Weight 51.8 kg General appearance: PRESENT: no acute distress, thin Head exam: PRESENT: atraumatic Eye exam: PRESENT: PERRLA Mouth exam: PRESENT: moist, tongue midline Neck exam: ABSENT: carotid bruit, JVD, lymphadenopathy, thyromegaly Respiratory exam: PRESENT: decreased breath sounds Cardiovascular exam: PRESENT: RRR. ABSENT: diastolic murmur, rubs, systolic murmur GI/Abdominal exam: PRESENT: normal bowel sounds, soft. ABSENT: distended, guarding, mass, organolmegaly, rebound, tenderness Rectal exam: PRESENT: deferred Extremities exam: PRESENT: full ROM. ABSENT: calf tenderness, clubbing, pedal edema Neurological exam: PRESENT: alert, awake, oriented to person, oriented to place, oriented to time, oriented to situation, CN II-XII grossly intact. ABSENT: motor sensory deficit Psychiatric exam: PRESENT: appropriate affect, normal mood. ABSENT: homicidal ideation, suicidal ideation Results Laboratory Results: 08/02/18 08:40 08/02/18 08:40 08/02/18 08/02/18 08/02/18 08:40 08:40 09:33 WBC 9.2 RBC 4.92 Hgb 16.1 Hct 45.9 MCV 93 MCH 32.8 MCHC 35.1 RDW 14.8 H Plt Count 239 Seg Neutrophils % 77.3 Lymphocytes % 8.3 L Monocytes % 5.9 Eosinophils % 7.7 H Basophils % 0.8 Absolute Neutrophils 7.1 Absolute Lymphocytes 0.8 Absolute Monocytes 0.5 Absolute Eosinophils 0.7 H Absolute Basophils 0.1 VBG pH VBG pCO2 VBG HCO3 VBG Base Excess Sodium 122.2 L Potassium 2.8 L* Chloride 78 L Carbon Dioxide 27 Anion Gap 17 BUN 17 Creatinine 0.96 Est GFR ( Amer) > 60 Est GFR (Non-Af Amer) > 60 Glucose 188 H Calcium 9.4 Total Bilirubin 0.9 AST 25 ALT 22 Alkaline Phosphatase 92 Ammonia < 8.7 L Total Protein 6.8 Albumin 3.8 08/02/18 09:33 WBC RBC Hgb Hct MCV MCH MCHC RDW Plt Count Seg Neutrophils % Lymphocytes % Monocytes % Eosinophils % Basophils % Absolute Neutrophils Absolute Lymphocytes Absolute Monocytes Absolute Eosinophils Absolute Basophils VBG pH 7.43 H VBG pCO2 46.0 VBG HCO3 29.8 VBG Base Excess 4.6 Sodium Potassium Chloride Carbon Dioxide Anion Gap BUN Creatinine Est GFR ( Amer) Est GFR (Non-Af Amer) Glucose Calcium Total Bilirubin AST ALT Alkaline Phosphatase Ammonia Total Protein Albumin 08/02/18 08:40 Troponin I 0.041 NT-Pro-B Natriuret Pep 8690 H Impressions: Head CT 08/02/18 09:06 IMPRESSION: 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 No acute findings. EVIDENCE OF ACUTE STROKE: NO. Chest X-Ray 08/02/18 09:10 IMPRESSION: Left upper lobe mass partly obscured by the patient's pacemaker No acute infiltrates Assessment and Plan - Diagnosis (1) Hypokalemia Is this a current diagnosis for this admission?: Yes Plan: 08/02/2018-patient came in with serum potassium of 2.8. In the emergency room received 40 mg of IV potassium plan is to give p.o. potassium 40 mg twice a day. Hypokalemia most likely secondary to poor oral intake and diuretic use at home. And is going to be admitted to telemetry as inpatient GI prophylaxis was initiated patient is already on Xarelto. (2) Hyponatremia Is this a current diagnosis for this admission?: Yes Plan: 08/02/2018-patient serum sodium is 124. It may be secondary to the left lung mass or may be secondary to diuretic therapy or due to poor oral intake or combination of all of them. Plan is to closely watch his serum sodium levels patient is not enough fluid overload euvolemic to hold Lasix for today. On recheck the labs tomorrow. Patient is asymptomatic alert and awake communicating very well. (3) ETOH abuse Is this a current diagnosis for this admission?: Yes Plan: 08/02/2018-patient has history of chronic alcohol abuse he is a heavy drinker co ntinues to drink despite multiple counseling sessions during the previous hospital stays. To put him on Ativan 1 mg IV every 2 as needed for agitation and watch for the DTs. (4) Cardiac defibrillator in situ Is this a current diagnosis for this admission?: No Plan: 08/02/2018-patient is pacemaker EKG shows paced rhythm. No complaints of chest pain during the hospital stay. (5) Lung mass Is this a current diagnosis for this admission?: Yes Plan: 08/02/2018-patient has left upper lobe mass status post biopsy last pathology report is pending. Consultation with Dr. Bailey was placed. (6) Moderate protein-calorie malnutrition Is this a current diagnosis for this admission?: Yes Plan: 08/02/2018-patient BMI is around 17 patient's appetite is very poor he is losing weight for the last several weeks dietary consult was requested. (7) Tobacco dependence Is this a current diagnosis for this admission?: No Plan: 08/02/2018-patient is a chronic smoker continues to smoke at least 1 pack/day. Smoking counseling was provided for more than [address] a nicotine patch 21 mg daily. (8) CHF (congestive heart failure) Is this a current diagnosis for this admission?: No Plan: 08/02/2018-patient has combined systolic and diastolic heart failure. EF is euvolemic today. EF is 20 to 25%. Continue to closely , watch for fluid overload. (9) Fall Is this a current diagnosis for this admission?: Yes Plan: 08/02/2018-patient came in with history of generalized weakness multiple falls at home physical therapy consult was requested CT head was negative for acute changes. Probably may need to go to rehab or hospice consult may be needed. - Time Time Spent with patient: 25-34 minutes Medications reviewed and adjusted accordingly: Yes Anticipated discharge: SNF
--- NOTE | 2018-08-02 14:07 | EKG REPORT ---
SEVERITY:- ABNORMAL ECG - ATRIAL-SENSED VENTRICULAR-PACED RHYTHM : Confirmed by: Adriane Dumont MD 02-Aug-2018 14:06:51
[2018-08-02] MEDS: NICOTINE 14 MG/24 HR PATCH.TD24 TD SCH (15:40)
[2018-08-02 15:55] LABS: APPEARANCE,URINE CLEAR; BILIRUBIN,URINE NEGATIVE (NEGATIVE); COLOR,URINE YELLOW; GLUCOSE, URINE NEGATIVE (NEGATIVE); KETONES,URINE NEGATIVE (NEGATIVE); LEUKOCYTE ESTERASE,URINE NEGATIVE (NEGATIVE); NITRITE,URINE NEGATIVE (NEGATIVE); PROTEIN,URINE NEGATIVE (NEGATIVE); URINE SPECIFIC GRAVITY 1.008; UROBILINOGEN,URINE NEGATIVE mg/dL (<2.0)
[2018-08-02 16:59] LABS: CREATINE KINASE MB 0.31 ng/mL (<4.55)
[2018-08-02 17:04] LABS: TROPONIN I 0.046 ng/mL
[2018-08-02] MEDS ORDERED: SACUBITRIL/VALSARTAN 24 MG/26 MG TABLET PO SCH (18:00)
--- NOTE | 2018-08-02 18:06 | PDOC CONSULTATION ---
Consultation Consult Date: 08/02/18 Attending physician:: CARLO GILLILAND Provider Consulted: PAPO MCCARTY Consult reason:: Newly diagnosed squamous cell carcinoma of the lung History of Present Illness Admission Date/PCP: 08/02/18 11:42 CALVIN CALLAHAN DO Patient complains of: Diarrhea, weakness, shortness of breath, falls History of Present Illness: RAKESH MCCABE is a 57 year old male who has had a recent tough time, he has had recent weight loss, weakness, falls, ultimately was very pale and appeared very weak to his family who brought him into the hospital. Here he has been given aggressive hydration. Admission he was found to have a left upper lobe opacity, ultimately he had a CT of the chest repeated in June which indicated 3.6 cm left upper lobe mass along with a 1 to 2 cm adjacent satellite nodule. Patient then saw my partner Dr. Guo who ordered PET/CT which indicated uptake in the left upper lobe lesion as well as a satellite nodule but no uptake anywhere else. 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 I had a long discussion wit h that with the family, they were supposed to see us this coming Thursday. Past Medical History Cardiac Medical History: Reports: Congestive Heart Failure, Hypertension Denies: Coronary Artery Disease, Myocardial Infarction Pulmonary Medical History: Reports: Chronic Obstructive Pulmonary Disease (COPD) Denies: Asthma, Bronchitis, Pneumonia Neurological Medical History: Denies: Seizures Malignancy Medical History: Reports: Lung Cancer Musculoskeltal Medical History: Denies: Arthritis Psychiatric Medical History: Reports: Depression Hematology: Reports: Anemia Past Surgical History Past Surgical History: Reports: Pacemaker Social History Information Source: Patient Smoking Status: Current Every Day Smoker Cigarettes Packs Per Day: 1 Number of Years Smokin Frequency of Alcohol Use: Heavy Hx Recreational Drug Use: No Drugs: None Hx Prescription Drug Abuse: No - Advance Directive Resuscitation Status: Full Code Family History Family History: COPD, DM, Hypertension Parental Family History Reviewed: Yes Children Family History Reviewed: Yes Sibling(s) Family History Reviewed.: Yes Medication/Allergy Home Medications: Albuterol Sulfate [Proair HFA Inhalation Aerosol 8.5 gm MDI] 2 puff IH Q4HP PRN 04/27/18 Aspirin [Aspirin 81 mg Chewable Tablet] 81 mg PO DAILY 07/29/18 Duloxetine HCl [Cymbalta 20 Mg Capsule.Dr] 20 mg PO DAILY 07/29/18 Folic Acid [Folvite 1 mg Tablet] 1 mg PO DAILY 07/29/18 Furosemide [Lasix 20 mg Tablet] 40 mg PO DAILY 07/29/18 Gabapentin [Neurontin 300 mg Capsule] 300 mg PO QHS 07/29/18 Omeprazole 20 mg PO DAILY 07/29/18 Potassium Chloride 10 meq PO DAILY 07/29/18 Rivaroxaban [Xarelto] 20 mg PO DAILY 07/29/18 Spironolactone [Aldactone 25 mg Tablet] 25 mg PO DAILY 08/02/18 Allergies/Adverse Reactions: No Known Allergies Allergy (Verified 02/26/17 15:07) Review of Systems Constitutional: ABSENT: chills, fever(s), headache(s), weight gain, weight loss Eyes: ABSENT: visual disturbances Ears: ABSENT: hearing changes Cardiovascular: ABSENT: chest pain, dyspnea on exertion, edema, orthropnea, palpitations Respiratory: ABSENT: cough, hemoptysis Gastrointestinal: ABSENT: abdominal pain, constipation, diarrhea, hematemesis, hematochezia, nausea, vomiting Genitourinary: ABSENT: dysuria, hematuria Musculoskeletal: ABSENT: joint swelling Integumentary: ABSENT: rash, wounds Neurological: ABSENT: abnormal gait, abnormal speech, confusion, dizziness, focal weakness, syncope Psychiatric: ABSENT: anxiety, depression, homidical ideation, suicidal ideation Endocrine: ABSENT: cold intolerance, heat intolerance, polydipsia, polyuria Hematologic/Lymphatic: ABSENT: easy bleeding, easy bruising Physical Exam Vital Signs: Temp Pulse Resp BP Pulse Ox 98.0 F 77 18 94/57 L 100 08/02/18 15:13 08/02/18 15:13 08/02/18 15:13 08/02/18 15:13 08/02/18 15:13 Intake & Output 08/01/18 08/02/18 08/03/18 06:59 06:59 06:59 Intake Total 600 Balance 600 Weight 51.8 kg General appearance: PRESENT: no acute distress, well-developed, well-nourished Head exam: PRESENT: atraumatic, normocephalic Eye exam: PRESENT: conjunctiva pink, EOMI, PERRLA. ABSENT: scleral icterus Ear exam: PRESENT: normal external ear exam Mouth exam: PRESENT: moist, tongue midline Neck exam: ABSENT: carotid bruit, JVD, lymphadenopathy, thyromegaly Respiratory exam: PRESENT: clear to auscultation trey. ABSENT: rales, rhonchi, wheezes Cardiovascular exam: PRESENT: RRR. ABSENT: diastolic murmur, rubs, systolic murmur Pulses: PRESENT: normal dorsalis pedis pul Vascular exam: PRESENT: normal capillary refill GI/Abdominal exam: PRESENT: normal bowel sounds, soft. ABSENT: distended, guarding, mass, organolmegaly, rebound, tenderness Rectal exam: PRESENT: deferred Extremities exam: PRESENT: full ROM. ABSENT: calf tenderness, clubbing, pedal edema Neurological exam: PRESENT: alert, awake, oriented to person, oriented to place, oriented to time, oriented to situation, CN II-XII grossly intact. ABSENT: motor sensory deficit Psychiatric exam: PRESENT: appropriate affect, normal mood. ABSENT: homicidal ideation, suicidal ideation Skin exam: PRESENT: dry, intact, warm. ABSENT: cyanosis, rash Results Laboratory Results: 08/02/18 08:40 08/02/18 08:40 08/02/18 08/02/18 08/02/18 08:40 08:40 08:40 WBC 9.2 RBC 4.92 Hgb 16.1 Hct 45.9 MCV 93 MCH 32.8 MCHC 35.1 RDW 14.8 H Plt Count 239 Seg Neutrophils % 77.3 Lymphocytes % 8.3 L Monocytes % 5.9 Eosinophils % 7.7 H Basophils % 0.8 Absolute Neutrophils 7.1 Absolute Lymphocytes 0.8 Absolute Monocytes 0.5 Absolute Eosinophils 0.7 H Absolute Basophils 0.1 VBG pH VBG pCO2 VBG HCO3 VBG Base Excess Sodium 122.2 L Potassium 2.8 L* Chloride 78 L Carbon Dioxide 27 Anion Gap 17 BUN 17 Creatinine 0.96 Est GFR ( Amer) > 60 Est GFR (Non-Af Amer) > 60 Glucose 188 H Calcium 9.4 Magnesium 2.3 Total Bilirubin 0.9 AST 25 ALT 22 Alkaline Phosphatase 92 Ammonia Total Protein 6.8 Albumin 3.8 Urine Color Urine Appearance Urine pH Ur Specific [place] Urine Protein Urine Glucose (UA) Urine Ketones Urine Blood Urine Nitrite Ur Leukocyte Esterase Urine WBC (Auto) Urine RBC (Auto) 08/02/18 08/02/18 08/02/18 09:33 09:33 14:41 WBC RBC Hgb Hct MCV MCH MCHC RDW Plt Count Seg Neutrophils % Lymphocytes % Monocytes % Eosinophils % Basophils % Absolute Neutrophils Absolute Lymphocytes Absolute Monocytes Absolute Eosinophils Absolute Basophils VBG pH 7.43 H VBG pCO2 46.0 VBG HCO3 29.8 VBG Base Excess 4.6 Sodium Potassium Chloride Carbon Dioxide Anion Gap BUN Creatinine Est GFR ( Amer) Est GFR (Non-Af Amer) Glucose Calcium Magnesium Total Bilirubin AST ALT Alkaline Phosphatase Ammonia < 8.7 L Total Protein Albumin Urine Color YELLOW Urine Appearance CLEAR Urine pH 6.0 Ur Specific [place] 1.008 Urine Protein NEGATIVE Urine Glucose (UA) NEGATIVE Urine Ketones NEGATIVE Urine Blood MODERATE H Urine Nitrite NEGATIVE Ur Leukocyte Esterase NEGATIVE Urine WBC (Auto) 1 Urine RBC (Auto) 4 08/02/18 08/02/18 08/02/18 08:40 16:03 16:03 Creatine Kinase 27 L CK-MB (CK-2) 0.31 Troponin I 0.041 0.046 NT-Pro-B Natriuret Pep 8690 H Impressions: Head CT 08/02/18 09:06 IMPRESSION: 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 No acute findings. EVIDENCE OF ACUTE STROKE: NO. Chest X-Ray 08/02/18 09:10 IMPRESSION: Left upper lobe mass partly obscured by the patient's pacemaker No acute infiltrates Status: Image reviewed by me Assessment & Plan - Diagnosis (1) Lung cancer, upper lobe Qualifiers: Laterality: left Qualified Code(s): C34.12 - Malignant neoplasm of upper lobe, left bronchus or lung Is this a current diagnosis for this admission?: Yes Plan: Left upper lobe squamous cell carcinoma, would be probably stage III versus stage IV disease based upon size, satellite nodule. I went over this with the family briefly today. I discussed next steps of care which would involve consideration of chemotherapy plus minus radiation. Unfortunately, however, right now he is too weak to consider either of those things. He needs to be hydrated and become stronger and we will discuss further with him about next options. - Time Time Spent: Greater than 70 Minutes
[2018-08-02] MEDS: POTASSIUM CHLORIDE 20 MEQ PACKET PO SCH (18:42)
[2018-08-02] MEDS: FAMOTIDINE 20 MG TABLET PO SCH (21:48)
[2018-08-02] MEDS: GABAPENTIN 300 MG CAPSULE PO SCH (21:48)
[2018-08-02 21:55] LABS: CREATINE KINASE MB 0.24 ng/mL (<4.55); TROPONIN I 0.036 ng/mL
[2018-08-03 03:48] LABS: ABSOLUTE BASOPHILS # (AUTO) 0.1 10^3/uL (0.0-0.2); ABSOLUTE EOSINOPHILS # (AUTO) 0.9 10^3/uL (0.0-0.6); ABSOLUTE MONOCYTES (AUTO) 0.7 10^3/uL (0.1-1.4); ABSOLUTE NEUT (AUTO) 5.2 10^3/uL (1.7-8.2); EOSINOPHILS % (AUTO) 11.9 % (0-6); HEMATOCRIT 39.7 % (37.9-51.0); LYMPHOCYTES % (AUTO) 12.5 % (13-45); MEAN CORPUSCULAR HEMOGLOBIN 32.7 pg (27.0-33.4); MEAN CORPUSCULAR HGB CONC 35.2 g/dL (32.0-36.0); MEAN CORPUSCULAR VOLUME 93 fl (80-97); MONOCYTES % (AUTO) 8.4 % (3-13); PLATELET COUNT 190 10^3/uL (150-450); RED BLOOD COUNT 4.28 10^6/uL (4.35-5.55); RED CELL DISTRIBUTION WIDTH 14.4 % (11.5-14.0); SEGMENTED NEUTROPHILS % (AUTO) 66.2 % (42-78); TOTAL CELLS COUNTED % (AUTO) 100 %; WHITE BLOOD COUNT 7.9 10^3/uL (4.0-10.5)
[2018-08-03 04:01] LABS: ALANINE AMINOTRANSFERASE 21 U/L (21-72); ALKALINE PHOSPHATASE 83 U/L (38-126); ANION GAP 10 (5-19); ASPARTATE AMINO TRANSFERASE 22 U/L (17-59); BILIRUBIN,DIRECT 0.3 mg/dL (0.0-0.4); BILIRUBIN,TOTAL 0.5 mg/dL (0.2-1.3); BLOOD UREA NITROGEN 13 mg/dL (7-20); CALCIUM 9.1 mg/dL (8.4-10.2); CARBON DIOXIDE 24 mmol/L (22-30); CHLORIDE 94 mmol/L (98-107); GLUCOSE 102 mg/dL (75-110); POTASSIUM 3.6 mmol/L (3.6-5.0); SODIUM 128.4 mmol/L (137-145); TOTAL PROTEIN 5.7 g/dL (6.3-8.2); TRIGLYCERIDES 72 mg/dL (<150)
[2018-08-03 04:12] LABS: DIRECT LDL 82 mg/dL (<100)
[2018-08-03 04:16] LABS: TROPONIN I 0.028 ng/mL
[2018-08-03 04:21] LABS: CREATINE KINASE MB < 0.22 ng/mL (<4.55)
--- NOTE | 2018-08-03 07:53 | PDOC PROGRESS REPORT ---
Subjective Progress Note for:: 08/03/18 Subjective:: He looks better but still quite weak. He still having severe diarrhea. Today ordered C. difficile studies as well as started him on IV fluids. He is not drinking that much fluid. Reason For Visit: HYPOKALEMIA AND HYPONATREMIA Physical Exam Vital Signs: Temp Pulse Resp BP Pulse Ox 98.4 F 74 17 126/73 H 95 08/03/18 06:00 08/03/18 06:00 08/03/18 06:00 08/03/18 06:00 08/03/18 06:00 Intake & Output 08/02/18 08/03/18 08/04/18 06:59 06:59 06:59 Intake Total 1800 Balance 1800 Weight 53.3 kg General appearance: PRESENT: no acute distress, well-developed, well-nourished Head exam: PRESENT: atraumatic, normocephalic Eye exam: PRESENT: conjunctiva pink, EOMI, PERRLA. ABSENT: scleral icterus Ear exam: PRESENT: normal external ear exam Mouth exam: PRESENT: moist, tongue midline Neck exam: ABSENT: carotid bruit, JVD, lymphadenopathy, thyromegaly Respiratory exam: PRESENT: clear to auscultation trey. ABSENT: rales, rhonchi, wheezes Cardiovascular exam: PRESENT: RRR. ABSENT: diastolic murmur, rubs, systolic murmur Pulses: PRESENT: normal dorsalis pedis pul Vascular exam: PRESENT: normal capillary refill GI/Abdominal exam: PRESENT: normal bowel sounds, soft. ABSENT: distended, guarding, mass, organolmegaly, rebound, tenderness Rectal exam: PRESENT: deferred Extremities exam: PRESENT: full ROM. ABSENT: calf tenderness, clubbing, pedal edema Neurological exam: PRESENT: alert, awake, oriented to person, oriented to place, oriented to time, oriented to situation, CN II-XII grossly intact. ABSENT: motor sensory deficit Psychiatric exam: PRESENT: appropriate affect, normal mood. ABSENT: homicidal ideation, suicidal ideation Skin exam: PRESENT: dry, intact, warm. ABSENT: cyanosis, rash Results Laboratory Results: 08/03/18 03:18 08/03/18 03:18 08/02/18 08/02/18 08/02/18 08:40 08:40 08:40 WBC 9.2 RBC 4.92 Hgb 16.1 Hct 45.9 MCV 93 MCH 32.8 MCHC 35.1 RDW 14.8 H Plt Count 239 Seg Neutrophils % 77.3 Lymphocytes % 8.3 L Monocytes % 5.9 Eosinophils % 7.7 H Basophils % 0.8 Absolute Neutrophils 7.1 Absolute Lymphocytes 0.8 Absolute Monocytes 0.5 Absolute Eosinophils 0.7 H Absolute Basophils 0.1 VBG pH VBG pCO2 VBG HCO3 VBG Base Excess Sodium 122.2 L Potassium 2.8 L* Chloride 78 L Carbon Dioxide 27 Anion Gap 17 BUN 17 Creatinine 0.96 Est GFR ( Amer) > 60 Est GFR (Non-Af Amer) > 60 Glucose 188 H Calcium 9.4 Magnesium 2.3 Total Bilirubin 0.9 AST 25 ALT 22 Alkaline Phosphatase 92 Ammonia Total Protein 6.8 Albumin 3.8 Triglycerides Cholesterol LDL Cholesterol Direct VLDL Cholesterol HDL Cholesterol TSH Urine Color Urine Appearance Urine pH Ur Specific [place] Urine Protein Urine Glucose (UA) Urine Ketones Urine Blood Urine Nitrite Ur Leukocyte Esterase Urine WBC (Auto) Urine RBC (Auto) 08/02/18 08/02/18 08/02/18 09:33 09:33 14:41 WBC RBC Hgb Hct MCV MCH MCHC RDW Plt Count Seg Neutrophils % Lymphocytes % Monocytes % Eosinophils % Basophils % Absolute Neutrophils Absolute Lymphocytes Absolute Monocytes Absolute Eosinophils Absolute Basophils VBG pH 7.43 H VBG pCO2 46.0 VBG HCO3 29.8 VBG Base Excess 4.6 Sodium Potassium Chloride Carbon Dioxide Anion Gap BUN Creatinine Est GFR ( Amer) Est GFR (Non-Af Amer) Glucose Calcium Magnesium Total Bilirubin AST ALT Alkaline Phosphatase Ammonia < 8.7 L Total Protein Albumin Triglycerides Cholesterol LDL Cholesterol Direct VLDL Cholesterol HDL Cholesterol TSH Urine Color YELLOW Urine Appearance CLEAR Urine pH 6.0 Ur Specific [place] 1.008 Urine Protein NEGATIVE Urine Glucose (UA) NEGATIVE Urine Ketones NEGATIVE Urine Blood MODERATE H Urine Nitrite NEGATIVE Ur Leukocyte Esterase NEGATIVE Urine WBC (Auto) 1 Urine RBC (Auto) 08/03/18 08/03/18 08/03/18 03:18 03:18 03:18 WBC 7.9 RBC 4.28 L Hgb 14.0 D Hct 39.7 MCV 93 MCH 32.7 MCHC 35.2 RDW 14.4 H Plt Count 190 Seg Neutrophils % 66.2 Lymphocytes % 12.5 L Monocytes % 8.4 Eosinophils % 11.9 H Basophils % 1.0 Absolute Neutrophils 5.2 Absolute Lymphocytes 1.0 Absolute Monocytes 0.7 Absolute Eosinophils 0.9 H Absolute Basophils 0.1 VBG pH VBG pCO2 VBG HCO3 VBG Base Excess Sodium 128.4 L Potassium 3.6 Chloride 94 L Carbon Dioxide 24 Anion Gap 10 BUN 13 Creatinine 0.77 Est GFR ( Amer) > 60 Est GFR (Non-Af Amer) > 60 Glucose 102 Calcium 9.1 Magnesium Total Bilirubin 0.5 AST 22 ALT 21 Alkaline Phosphatase 83 Ammonia Total Protein 5.7 L Albumin 3.0 L Triglycerides 72 Cholesterol 132.50 LDL Cholesterol Direct 82 VLDL Cholesterol 14.0 HDL Cholesterol 47 TSH 1.54 Urine Color Urine Appearance Urine pH Ur Specific [place] Urine Protein Urine Glucose (UA) Urine Ketones Urine Blood Urine Nitrite Ur Leukocyte Esterase Urine WBC (Auto) Urine RBC (Auto) 08/02/18 08/02/18 08/02/18 08:40 16:03 16:03 Creatine Kinase 27 L CK-MB (CK-2) 0.31 Troponin I 0.041 0.046 NT-Pro-B Natriuret Pep 8690 H 08/02/18 08/02/18 08/03/18 20:26 20:26 03:18 Creatine Kinase 25 L 23 L CK-MB (CK-2) 0.24 Troponin I 0.036 NT-Pro-B Natriuret Pep 08/03/18 08/03/18 03:18 03:18 Creatine Kinase CK-MB (CK-2) < 0.22 Troponin I 0.028 NT-Pro-B Natriuret Pep 25287 H Impressions: Head CT 08/02/18 09:06 IMPRESSION: 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 No acute findings. EVIDENCE OF ACUTE STROKE: NO. Chest X-Ray 08/02/18 09:10 IMPRESSION: Left upper lobe mass partly obscured by the patient's pacemaker No acute infiltrates Assessment & Plan - Diagnosis (1) Lung cancer, upper lobe Qualifiers: Laterality: left Qualified Code(s): C34.12 - Malignant neoplasm of upper lobe, left bronchus or lung Is this a current diagnosis for this admission?: Yes Plan: Stage III versus 4 lung cancer, treatment for the diarrhea and work-up for the diarrhea as above. We need to get him stronger so we could initiate therapy.
[2018-08-03] MEDS: FOLIC ACID 1 MG TABLET PO SCH (09:15)
[2018-08-03] MEDS: FAMOTIDINE 20 MG TABLET PO SCH ×2 (09:15→21:44)
[2018-08-03] MEDS: MULTIVIT-STRESS FORMULA/ZINC TABLET PO SCH (09:15)
[2018-08-03] MEDS: ASPIRIN 81 MG TABLET, CHEWABLE PO SCH (09:15)
[2018-08-03] MEDS: POTASSIUM CHLORIDE 20 MEQ PACKET PO SCH ×2 (09:16→17:34)
[2018-08-03] MEDS: NICOTINE 14 MG/24 HR PATCH.TD24 TD SCH (09:16)
[2018-08-03] MEDS: RIVAROXABAN 10 MG TABLET PO SCH (09:16)
[2018-08-03] MEDS: NORMAL SALINE 1000 ML 1,000 ML IV PRN ×2 (09:18→21:44)
[2018-08-03] MEDS: DULOXETINE HCL 20 MG CAPSULE.DR PO SCH (09:29)
--- NOTE | 2018-08-03 09:34 | PDOC PROGRESS REPORT ---
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 Symptomatic. Blood pressure is 107/60 asymptomatic. Plan to hold off on IV fluids for now because of the history of congestive heart failure with EF of 20%. Patient is comfortably in the bed communicating well not in distress. Reason For Visit: HYPOKALEMIA AND HYPONATREMIA Physical Exam Vital Signs: Temp Pulse Resp BP Pulse Ox 98.4 F 87 17 126/73 H 95 08/03/18 06:00 08/03/18 07:00 08/03/18 06:00 08/03/18 06:00 08/03/18 06:00 Intake & Output 08/02/18 08/03/18 08/04/18 06:59 06:59 06:59 Intake Total 1800 Balance 1800 Weight 53.3 kg General appearance: PRESENT: no acute distress, thin Head exam: PRESENT: atraumatic Eye exam: PRESENT: PERRLA Mouth exam: PRESENT: moist, tongue midline Neck exam: ABSENT: carotid bruit, JVD, lymphadenopathy, thyromegaly Respiratory exam: PRESENT: decreased breath sounds Cardiovascular exam: PRESENT: tachycardia GI/Abdominal exam: PRESENT: normal bowel sounds, soft. ABSENT: distended, guarding, mass, organolmegaly, rebound, tenderness Rectal exam: PRESENT: deferred Neurological exam: PRESENT: alert, awake, oriented to person, oriented to place, oriented to time, oriented to situation, CN II-XII grossly intact. ABSENT: motor sensory deficit Psychiatric exam: PRESENT: appropriate affect, normal mood. ABSENT: homicidal ideation, suicidal ideation Results Laboratory Results: 08/03/18 03:18 08/03/18 03:18 08/02/18 08/02/18 08/02/18 08:40 08:40 09:33 WBC RBC Hgb Hct MCV MCH MCHC RDW Plt Count Seg Neutrophils % Lymphocytes % Monocytes % Eosinophils % Basophils % Absolute Neutrophils Absolute Lymphocytes Absolute Monocytes Absolute Eosinophils Absolute Basophils VBG pH VBG pCO2 VBG HCO3 VBG Base Excess Sodium 122.2 L Potassium 2.8 L* Chloride 78 L Carbon Dioxide 27 Anion Gap 17 BUN 17 Creatinine 0.96 Est GFR ( Amer) > 60 Est GFR (Non-Af Amer) > 60 Glucose 188 H Calcium 9.4 Magnesium 2.3 Total Bilirubin 0.9 AST 25 ALT 22 Alkaline Phosphatase 92 Ammonia < 8.7 L Total Protein 6.8 Albumin 3.8 Triglycerides Cholesterol LDL Cholesterol Direct VLDL Cholesterol HDL Cholesterol TSH Urine Color Urine Appearance Urine pH Ur Specific Onset Urine Protein Urine Glucose (UA) Urine Ketones Urine Blood Urine Nitrite Ur Leukocyte Esterase Urine WBC (Auto) Urine RBC (Auto) 08/02/18 08/02/18 08/03/18 09:33 14:41 03:18 WBC 7.9 RBC 4.28 L Hgb 14.0 D Hct 39.7 MCV 93 MCH 32.7 MCHC 35.2 RDW 14.4 H Plt Count 190 Seg Neutrophils % 66.2 Lymphocytes % 12.5 L Monocytes % 8.4 Eosinophils % 11.9 H Basophils % 1.0 Absolute Neutrophils 5.2 Absolute Lymphocytes 1.0 Absolute Monocytes 0.7 Absolute Eosinophils 0.9 H Absolute Basophils 0.1 VBG pH 7.43 H VBG pCO2 46.0 VBG HCO3 29.8 VBG Base Excess 4.6 Sodium Potassium Chloride Carbon Dioxide Anion Gap BUN Creatinine Est GFR ( Amer) Est GFR (Non-Af Amer) Glucose Calcium Magnesium Total Bilirubin AST ALT Alkaline Phosphatase Ammonia Total Protein Albumin Triglycerides Cholesterol LDL Cholesterol Direct VLDL Cholesterol HDL Cholesterol TSH Urine Color YELLOW Urine Appearance CLEAR Urine pH 6.0 Ur Specific Onset 1.008 Urine Protein NEGATIVE Urine Glucose (UA) NEGATIVE Urine Ketones NEGATIVE Urine Blood MODERATE H Urine Nitrite NEGATIVE Ur Leukocyte Esterase NEGATIVE Urine WBC (Auto) 1 Urine RBC (Auto) 4 08/03/18 08/03/18 03:18 03:18 WBC RBC Hgb Hct MCV MCH MCHC RDW Plt Count Seg Neutrophils % Lymphocytes % Monocytes % Eosinophils % Basophils % Absolute Neutrophils Absolute Lymphocytes Absolute Monocytes Absolute Eosinophils Absolute Basophils VBG pH VBG pCO2 VBG HCO3 VBG Base Excess Sodium 128.4 L Potassium 3.6 Chloride 94 L Carbon Dioxide 24 Anion Gap 10 BUN 13 Creatinine 0.77 Est GFR ( Amer) > 60 Est GFR (Non-Af Amer) > 60 Glucose 102 Calcium 9.1 Magnesium Total Bilirubin 0.5 AST 22 ALT 21 Alkaline Phosphatase 83 Ammonia Total Protein 5.7 L Albumin 3.0 L Triglycerides 72 Cholesterol 132.50 LDL Cholesterol Direct 82 VLDL Cholesterol 14.0 HDL Cholesterol 47 TSH 1.54 Urine Color Urine Appearance Urine pH Ur Specific Onset Urine Protein Urine Glucose (UA) Urine Ketones Urine Blood Urine Nitrite Ur Leukocyte Esterase Urine WBC (Auto) Urine RBC (Auto) 08/02/18 08/02/18 08/02/18 08:40 16:03 16:03 Creatine Kinase 27 L CK-MB (CK-2) 0.31 Troponin I 0.041 0.046 NT-Pro-B Natriuret Pep [id number] H 08/02/18 08/02/18 08/03/18 20:26 20:26 03:18 Creatine Kinase 25 L 23 L CK-MB (CK-2) 0.24 Troponin I 0.036 NT-Pro-B Natriuret Pep 08/03/18 08/03/18 03:18 03:18 Creatine Kinase CK-MB (CK-2) < 0.22 Troponin I 0.028 NT-Pro-B Natriuret Pep 61710 H Impressions: Head CT 08/02/18 09:06 IMPRESSION: 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 No acute findings. EVIDENCE OF ACUTE STROKE: NO. Chest X-Ray 08/02/18 09:10 IMPRESSION: Left upper lobe mass partly obscured by the patient's pacemaker No acute infiltrates Assessment and Plan - Diagnosis (1) Hypokalemia Is this a current diagnosis for this admission?: Yes Plan: 08/02/2018-patient came in with serum potassium of 2.8. In the emergency room received 40 mg of IV potassium plan is to give p.o. potassium 40 mg twice a day. Hypokalemia most likely secondary to poor oral intake and diuretic use at home. And is going to be admitted to telemetry as inpatient GI prophylaxis was initiated patient is already on Xarelto. 08/03/2018-serum potassium is 3.6 hypokalemia resolved. Most likely secondary to poor oral intake, and also may be due to diuretic therapy (2) Hyponatremia Is this a current diagnosis for this admission?: Yes Plan: 08/02/2018-patient serum sodium is 124. It may be secondary to the left lung mass or may be secondary to diuretic therapy or due to poor oral intake or combination of all of them. Plan is to closely watch his serum sodium levels patient is not enough fluid overload euvolemic to hold Lasix for today. On recheck the labs tomorrow. Patient is asymptomatic alert and awake communicating very well. 08/03/2018-patient latest sodium is 128.4. Hyponatremia is resolving. It is most likely secondary to poor oral intake may be secondary to lung cancer may be due to diuretic use at home. Patient is asymptomatic alert oriented communicating well. (3) ETOH abuse Is this a current diagnosis for this admission?: Yes (4) Cardiac defibrillator in situ Is this a current diagnosis for this admission?: No (5) Lung mass Is this a current diagnosis for this admission?: Yes Plan: 08/02/2018-patient has left upper lobe mass status post biopsy last pathology report is pending. Consultation with Dr. Bailey was placed. 08/03/2018-patient has a left upper lobe mass status post biopsy it indicates, cell carcinoma. Dr. Wade is on board. (6) Moderate protein-calorie malnutrition Is this a current diagnosis for this admission?: Yes (7) Tobacco dependence Is this a current diagnosis for this admission?: No (8) CHF (congestive heart failure) Is this a current diagnosis for this admission?: No Plan: 08/02/2018-patient has combined systolic and diastolic heart failure. EF is euvolemic today. EF is 20 to 25%. Continue to closely , watch for fluid overload. 08/03/2018-patient has combined systolic and diastolic heart failure not in fluid overload. Diuretics on hold at this point. (9) Fall Is this a current diagnosis for this admission?: Yes - Time Time Spent with patient: 15-24 minutes Smoking Cessation Education: over 10 minutes Medications reviewed and adjusted accordingly: Yes Anticipated discharge: Hospice
[2018-08-03] MEDS ORDERED: [UNRECOGNIZED DRUG - OTHER] PO SCH (10:00)
[2018-08-03] MEDS ORDERED: HYDROCHLOROTHIAZIDE 12.5 MG TABLET PO SCH (10:00)
[2018-08-03] MEDS ORDERED: METOPROLOL SU PO SCH (10:00)
[2018-08-03] MEDS ORDERED: HYDROCHLOROTHIAZ PO SCH (10:00)
[2018-08-03] MEDS ORDERED: ENOXAPARIN SODIUM INJ 40 MG/0.4 ML DISP.SYRIN SUBCUT SCH (10:00)
[2018-08-03] MEDS ORDERED: METOPROLOL SUCCINATE 25 MG TAB.SR.24H PO SCH (10:00)
[2018-08-03] MEDS ORDERED: (PENDING PHARMACY ID) (Vitamin B Complex [Vitamin B Complex] 1 TAB) PO SCH (10:00)
[2018-08-03] MEDS: GABAPENTIN 300 MG CAPSULE PO SCH (21:44)
[2018-08-04] MEDS ORDERED: ALBUTEROL SULFATE HFA (90 MCG/PUFF) 200 PUFF/8.5 GM MDI IH PRN (08:01)
[2018-08-04 09:48] LABS: HEMATOCRIT 36.3 % (37.9-51.0); HEMOGLOBIN 12.5 g/dL (13.5-17.0); MEAN CORPUSCULAR HEMOGLOBIN 32.9 pg (27.0-33.4); MEAN CORPUSCULAR HGB CONC 34.4 g/dL (32.0-36.0); MEAN CORPUSCULAR VOLUME 96 fl (80-97); PLATELET COUNT 223 10^3/uL (150-450); RED CELL DISTRIBUTION WIDTH 14.6 % (11.5-14.0); WHITE BLOOD COUNT 6.9 10^3/uL (4.0-10.5)
[2018-08-04] MEDS: RIVAROXABAN 10 MG TABLET PO SCH (09:55)
[2018-08-04] MEDS: POTASSIUM CHLORIDE 20 MEQ PACKET PO SCH ×2 (09:55→16:47)
[2018-08-04] MEDS: FAMOTIDINE 20 MG TABLET PO SCH ×2 (09:55→22:01)
[2018-08-04] MEDS: ASPIRIN 81 MG TABLET, CHEWABLE PO SCH (09:55)
[2018-08-04] MEDS: FOLIC ACID 1 MG TABLET PO SCH (09:55)
[2018-08-04] MEDS: MULTIVIT-STRESS FORMULA/ZINC TABLET PO SCH (09:55)
[2018-08-04] MEDS: DULOXETINE HCL 20 MG CAPSULE.DR PO SCH (09:56)
[2018-08-04] MEDS: NICOTINE 14 MG/24 HR PATCH.TD24 TD SCH (09:56)
--- NOTE | 2018-08-04 10:02 | PDOC PROGRESS REPORT ---
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 Symptomatic. Blood pressure is 107/60 asymptomatic. Plan to hold off on IV fluids for now because of the history of congestive heart failure with EF of 20%. Patient is comfortably in the bed communicating well not in distress. 08/[id number]-old male with history of chronic smoking, left upper lobe squamous cell carcinoma, COPD, alcohol abuse, chronic systolic heart failure EF of 20 to 25% admitted with history of generalized weakness and falls at home. He is also found to be hypokalemic hyponatremic. Today's labs are pending. He is standing and shaving this morning. Denies any complaints. Dr. Bailey came and saw him today. I think the plan from the oncology service is ease to arrange for chemotherapy and radiation therapy as an outpatient once the patient is stable. Reason For Visit: HYPOKALEMIA AND HYPONATREMIA Physical Exam Vital Signs: Temp Pulse Resp BP Pulse Ox 98.1 F 86 14 99/67 L 96 08/04/18 04:00 08/04/18 09:09 08/04/18 09:09 08/04/18 04:00 08/04/18 09:09 Intake & Output 08/03/18 08/04/18 08/05/18 06:59 06:59 06:59 Intake Total 1800 1784 Balance 1800 1784 Weight 53.3 kg 56 kg General appearance: PRESENT: no acute distress, thin Head exam: PRESENT: atraumatic Eye exam: PRESENT: PERRLA Neck exam: ABSENT: carotid bruit, JVD, lymphadenopathy, thyromegaly Respiratory exam: PRESENT: clear to auscultation trey. ABSENT: rales, rhonchi, wheezes Cardiovascular exam: PRESENT: tachycardia GI/Abdominal exam: PRESENT: normal bowel sounds, soft. ABSENT: distended, guarding, mass, organolmegaly, rebound, tenderness Rectal exam: PRESENT: deferred Extremities exam: PRESENT: full ROM. ABSENT: calf tenderness, clubbing, pedal edema Neurological exam: PRESENT: alert, awake, oriented to person, oriented to place, oriented to time, oriented to situation, CN II-XII grossly intact. ABSENT: motor sensory deficit Psychiatric exam: PRESENT: appropriate affect, normal mood. 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 No acute findings. EVIDENCE OF ACUTE STROKE: NO. Chest X-Ray 08/02/18 09:10 IMPRESSION: Left upper lobe mass partly obscured by the patient's pacemaker No acute infiltrates Assessment and Plan - Diagnosis (1) Hypokalemia Is this a current diagnosis for this admission?: Yes Plan: 08/02/2018-patient came in with serum potassium of 2.8. In the emergency room received 40 mg of IV potassium plan is to give p.o. potassium 40 mg twice a day. Hypokalemia most likely secondary to poor oral intake and diuretic use at home. And is going to be admitted to telemetry as inpatient GI prophylaxis was initiated ,patient is already on Xarelto. 08/03/2018-serum potassium is 3.6 hypokalemia resolved. Most likely secondary to poor oral intake, and also may be due to diuretic therapy 08/04/2018-today's labs are pending. Treated for hypokalemia is receiving potassium supplementations. (2) Hyponatremia Is this a current diagnosis for this admission?: Yes Plan: 08/02/2018-patient serum sodium is 124. It may be secondary to the left lung mass or may be secondary to diuretic therapy or due to poor oral intake or combination of all of them. Plan is to closely watch his serum sodium levels patient is not enough fluid overload euvolemic to hold Lasix for today. On recheck the labs tomorrow. Patient is asymptomatic alert and awake communicating very well. 08/03/2018-patient latest sodium is 128.4. Hyponatremia is resolving. It is most likely secondary to poor oral intake may be secondary to lung cancer may be due to diuretic use at home. Patient is asymptomatic alert oriented communicating well. 08/04/2018 patient came in with serum sodium of around 124 improved to 128.4 yesterday. Patient is asymptomatic. Today's chemistry is pending. (3) ETOH abuse Is this a current diagnosis for this admission?: Yes (4) Cardiac defibrillator in situ Is this a current diagnosis for this admission?: No (5) Lung mass Is this a current diagnosis for this admission?: Yes Plan: 08/02/2018-patient has left upper lobe mass status post biopsy last pathology report is pending. Consultation with Dr. Bailey was placed. 08/03/2018-patient has a left upper lobe mass status post biopsy it indicates,auamous cell carcinoma. Dr. Wade is on board. 08/04/2018-patient has a left upper lobe mass status post biopsy indicates squamous cell carcinoma. Dr. Dutta saw the patient this morning I think the plan is to arrange for outpatient chemo and radiation therapy was the patient is stable. (6) Moderate protein-calorie malnutrition Is this a current diagnosis for this admission?: Yes (7) Tobacco dependence Is this a current diagnosis for this admission?: No (8) CHF (congestive heart failure) Is this a current diagnosis for this admission?: No Plan: 08/02/2018-patient has combined systolic and diastolic heart failure. EF is euvolemic today. EF is 20 to 25%. Continue to closely , watch for fluid overload. 08/03/2018-patient has combined systolic and diastolic heart failure not in fluid overload. Diuretics on hold at this point. 08/04/2018-patient has a combination of systolic and diastolic heart failure with LVEF of 20 to 25% patient is euvolemic. And Lasix on hold for now. Blood pressure is 99/67. Continue to hold Lasix for now. (9) Fall Is this a current diagnosis for this admission?: Yes - Time Time Spent with patient: 15-24 minutes Medications reviewed and adjusted accordingly: Yes Anticipated discharge: Hospice
--- NOTE | 2018-08-04 10:04 | PDOC PROGRESS REPORT ---
Subjective Progress Note for:: 08/04/18 Subjective:: Patient feeling much better. He is anxious to go home. He is feeling much stronger. Reason For Visit: HYPOKALEMIA AND HYPONATREMIA Physical Exam Vital Signs: Temp Pulse Resp BP Pulse Ox 98.1 F 86 14 99/67 L 96 08/04/18 04:00 08/04/18 09:09 08/04/18 09:09 08/04/18 04:00 08/04/18 09:09 Intake & Output 08/03/18 08/04/18 08/05/18 06:59 06:59 06:59 Intake Total 1800 1784 Balance 1800 1784 Weight 53.3 kg 56 kg General appearance: PRESENT: no acute distress, well-developed, well-nourished Head exam: PRESENT: normocephalic Respiratory exam: PRESENT: clear to auscultation trey, unlabored Cardiovascular exam: PRESENT: RRR GI/Abdominal exam: PRESENT: soft. 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 No acute findings. EVIDENCE OF ACUTE STROKE: NO. Chest X-Ray 08/02/18 09:10 IMPRESSION: Left upper lobe mass partly obscured by the patient's pacemaker No acute infiltrates Assessment & Plan - Plan Summary Plan Summary: 1. Lung Cancer - newly diagnosed. PET/CT indicates an early stage, possibly resectable. I will refer him to Thoracic surgery for their opinion as an outpatient. However, with his LVEF, I am unsure if he will be a candidate for surgery. If not, will plan definitive radiation/chemotherapy. 2. CHF - LVEF about 20%. 3. hyponatremia - improving. 4. Hypokalemia - improving.
[2018-08-04 10:06] LABS: ALANINE AMINOTRANSFERASE 22 U/L (21-72); ALBUMIN 2.7 g/dL (3.5-5.0); ALKALINE PHOSPHATASE 68 U/L (38-126); ANION GAP 9 (5-19); ASPARTATE AMINO TRANSFERASE 22 U/L (17-59); BILIRUBIN,DIRECT 0.3 mg/dL (0.0-0.4); BILIRUBIN,TOTAL 0.5 mg/dL (0.2-1.3); BLOOD UREA NITROGEN 10 mg/dL (7-20); CALCIUM 9.3 mg/dL (8.4-10.2); CARBON DIOXIDE 25 mmol/L (22-30); CHLORIDE 96 mmol/L (98-107); GLUCOSE 98 mg/dL (75-110); POTASSIUM 4.3 mmol/L (3.6-5.0); SODIUM 130.4 mmol/L (137-145); TOTAL PROTEIN 5.2 g/dL (6.3-8.2)
[2018-08-04 10:20] LABS: ABSOLUTE LYMPHOCYTES# (MANUAL) 0.9 10^3/uL (0.5-4.7); ABSOLUTE MONOCYTES # (MANUAL) 0.6 10^3/uL (0.1-1.4); ABSOLUTE NEUTROPHILS# (MANUAL) 3.9 10^3/uL (1.7-8.2); EOSINOPHILS % (MANUAL) 18 % (0-6); LYMPHOCYTES % (MANUAL) 13 % (13-45); MONOCYTES % (MANUAL) 8 % (3-13); SEGMENTED NEUTROPHILS % (MAN) 57 % (42-78); TOTAL CELLS COUNTED 100
[2018-08-04 10:23] LABS: ANISOCYTOSIS SLIGHT
[2018-08-04 10:24] LABS: BASOPHILS % (MANUAL) 4 % (0-2); PLATELET COMMENT ADEQUATE
[2018-08-04] MEDS: GABAPENTIN 300 MG CAPSULE PO SCH (22:01)
[2018-08-05 06:15] LABS: HEMATOCRIT 36.3 % (37.9-51.0); HEMOGLOBIN 12.4 g/dL (13.5-17.0); MEAN CORPUSCULAR HEMOGLOBIN 32.5 pg (27.0-33.4); MEAN CORPUSCULAR HGB CONC 34.3 g/dL (32.0-36.0); MEAN CORPUSCULAR VOLUME 95 fl (80-97); RED BLOOD COUNT 3.82 10^6/uL (4.35-5.55); RED CELL DISTRIBUTION WIDTH 14.7 % (11.5-14.0); WHITE BLOOD COUNT 7.8 10^3/uL (4.0-10.5)
[2018-08-05 06:29] LABS: ALANINE AMINOTRANSFERASE 24 U/L (21-72); ALKALINE PHOSPHATASE 83 U/L (38-126); ANION GAP 8 (5-19); ASPARTATE AMINO TRANSFERASE 28 U/L (17-59); BILIRUBIN,DIRECT 0.3 mg/dL (0.0-0.4); BILIRUBIN,TOTAL 0.5 mg/dL (0.2-1.3); BLOOD UREA NITROGEN 9 mg/dL (7-20); CALCIUM 10.2 mg/dL (8.4-10.2); CARBON DIOXIDE 21 mmol/L (22-30); CHLORIDE 103 mmol/L (98-107); GLUCOSE 85 mg/dL (75-110); SODIUM 132.1 mmol/L (137-145); TOTAL PROTEIN 5.6 g/dL (6.3-8.2)
[2018-08-05 06:31] LABS: POTASSIUM 5.5 mmol/L (3.6-5.0)
[2018-08-05 07:14] LABS: ABSOLUTE LYMPHOCYTES# (MANUAL) 0.9 10^3/uL (0.5-4.7); ABSOLUTE MONOCYTES # (MANUAL) 0.6 10^3/uL (0.1-1.4); ABSOLUTE NEUTROPHILS# (MANUAL) 5.1 10^3/uL (1.7-8.2); BASOPHILS % (MANUAL) 2 % (0-2); EOSINOPHILS % (MANUAL) 13 % (0-6); LYMPHOCYTES % (MANUAL) 11 % (13-45); MONOCYTES % (MANUAL) 8 % (3-13); SEGMENTED NEUTROPHILS % (MAN) 66 % (42-78); TOTAL CELLS COUNTED 100
[2018-08-05 07:15] LABS: PLATELET CLUMPS PRESENT; PLATELET COMMENT ADEQUATE; PLATELET COUNT 208 10^3/uL (150-450); RBC MORPHOLOGY COMMENT NORMO-CYTIC/CHROMIC
[2018-08-05 08:03] VITALS: BP 102/76
[2018-08-05] MEDS: ASPIRIN 81 MG TABLET, CHEWABLE PO SCH (09:19)
[2018-08-05] MEDS: RIVAROXABAN 10 MG TABLET PO SCH (09:19)
[2018-08-05] MEDS: FAMOTIDINE 20 MG TABLET PO SCH (09:19)
[2018-08-05] MEDS: FOLIC ACID 1 MG TABLET PO SCH (09:19)
[2018-08-05] MEDS: MULTIVIT-STRESS FORMULA/ZINC TABLET PO SCH (09:19)
[2018-08-05] MEDS: DULOXETINE HCL 20 MG CAPSULE.DR PO SCH (09:19)
[2018-08-05] MEDS: NICOTINE 14 MG/24 HR PATCH.TD24 TD SCH (09:19)
--- NOTE | 2018-08-05 14:02 | PDOC DISCHARGE SUMMARY ---
General - Admit/Disc Date/PCP Admission Date/Primary Care Provider: 08/02/18 11:42 CALVIN CALLAHAN, Discharge Date: 08/05/18 - Discharge Diagnosis (1) Hypokalemia Is this a current diagnosis for this admission?: Yes Summary: 08/02/2018-patient came in with serum potassium of 2.8. In the emergency room received 40 mg of IV potassium plan is to give p.o. potassium 40 mg twice a day. Hypokalemia most likely secondary to poor oral intake and diuretic use at home. And is going to be admitted to telemetry as inpatient GI prophylaxis was initiated ,patient is already on Xarelto. 08/03/2018-serum potassium is 3.6 hypokalemia resolved. Most likely secondary to poor oral intake, and also may be due to diuretic therapy 08/04/2018-today's labs are pending. Treated for hypokalemia is receiving potassium supplementations. 08/05/2018-patient came with hypokalemia he was given a p.o. potassium 40 mg twice daily today's potassium is 5.5. Hypokalemia is resolved p.o. supplement ation of potassium is discontinued. Patient is expressing desire to go home. Advised him to stay another day to check for the potassium levels tomorrow but declined and decided to go home. (2) Hyponatremia Is this a current diagnosis for this admission?: Yes Summary: 08/02/2018-patient serum sodium is 124. It may be secondary to the left lung mass or may be secondary to diuretic therapy or due to poor oral intake or combination of all of them. Plan is to closely watch his serum sodium levels patient is not enough fluid overload euvolemic to hold Lasix for today. On recheck the labs tomorrow. Patient is asymptomatic alert and awake communicating very well. 08/03/2018-patient latest sodium is 128.4. Hyponatremia is resolving. It is most likely secondary to poor oral intake may be secondary to lung cancer may be due to diuretic use at home. Patient is asymptomatic alert oriented communicating well. 08/04/2018 patient came in with serum sodium of around 124 improved to 128.4 yesterday. Patient is asymptomatic. Today's chemistry is pending. 08/05/2018-patient came in serum sodium of 84 and it was improved to 132 today. Patient is asymptomatic. Hyponatremia most likely secondary to poor oral intake. Appetite is improved. His baseline sodium probably between 130-133. (3) ETOH abuse Is this a current diagnosis for this admission?: Yes Summary: 08/05/2018-patient has history of heavy alcohol abuse he said he quit drinking few weeks ago strongly advised him to not to drink alcohol. (4) Cardiac defibrillator in situ Is this a current diagnosis for this admission?: No (5) Lung mass Is this a current diagnosis for this admission?: Yes Summary: 08/02/2018-patient has left upper lobe mass status post biopsy last pa report is pending. Consultation with Dr. Bailey was placed. 08/03/2018-patient has a left upper lobe mass status post biopsy it indicates,auamous cell carcinoma. Dr. Wade is on board. 08/04/2018-patient has a left upper lobe mass status post biopsy indicates squamous cell carcinoma. Dr. Dutta saw the patient this morning I think the plan is to arrange for outpatient chemo and radiation therapy was the patient is stable. 08/05/2018-patient was diagnosed with a squamous cell carcinoma involving the left upper lobe. Status post biopsy. Dr. Bailey told me she is has plans [place] the [place] [facility] [place]. Hyponatremia may be secondary to lung mass. (6) Moderate protein-calorie malnutrition Is this a current diagnosis for this admission?: Yes (7) Tobacco dependence Is this a current diagnosis for this admission?: No (8) CHF (congestive heart failure) Is this a current diagnosis for this admission?: No Summary: 08/02/2018-patient has combined systolic and diastolic heart failure. EF is euvolemic today. EF is 20 to 25%. Continue to closely , watch for fluid overload. 08/03/2018-patient has combined systolic and diastolic heart failure not in fluid overload. Diuretics on hold at this point. 08/04/2018-patient has a combination of systolic and diastolic heart failure with LVEF of 20 to 25% patient is euvolemic. And Lasix on hold for now. Blood pressure is 99/67. Continue to hold Lasix for now. 08/05/2018-patient has a combined systolic and diastolic heart failure with EF of 20 to 25%. Patient is euvolemic. Patient is advised to continue Lasix 40 mg p.o. daily and Spironolactone was discontinued because of the hyperkalemia. 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 (9) Fall Is this a current diagnosis for this admission?: Yes - Additional Information Resuscitation Status: Full Code Discharge Diet: Cardiac Discharge Activity: Activity As Tolerated, Balance Activity w/Rest, Weigh Daily Prescriptions: Nicotine [Nicotine Patch] 1 each TD DAILY #30 [email or web address] Home Medications: Albuterol Sulfate [Proair HFA Inhalation Aerosol 8.5 gm MDI] 2 puff IH Q4HP PRN 04/27/18 Aspirin [Aspirin 81 mg Chewable Tablet] 81 mg PO DAILY 07/29/18 Duloxetine HCl [Cymbalta 20 mg Capsule.dr] 20 mg PO DAILY 07/29/18 Folic Acid [Folvite 1 mg Tablet] 1 mg PO DAILY 07/29/18 Furosemide [Lasix 20 mg Tablet] 40 mg PO DAILY 07/29/18 Gabapentin [Neurontin 300 mg Capsule] 300 mg PO QHS 07/29/18 Omeprazole 20 mg PO DAILY 07/29/18 Potassium Chloride 10 meq PO DAILY 07/29/18 Rivaroxaban [Xarelto] 20 mg PO DAILY 07/29/18 Nicotine [Nicotine Patch] 1 each TD DAILY #30 patch.[email or web address] 08/05/18 History of Present Illness History of Present Illness: RAKESH MCCABE is a 57 year old male with history of left upper lobe lung mass status post biopsy 3 days ago, congestive heart failure, chronic smoker, chronic alcohol user, history of congestive heart failure, pacemaker Came to the emergency room with complaints of feeling weak tired associated with history of falls since last 7 days. He is also saying appetite is very poor. He told the ER physician he is in shortness of breath. He is not on home oxygen. Work-up indicates serum potassium is 2.8 and serum sodium of 124 medical consult was called for admission for further management. Patient co mplaining of chronic cough with whitish sputum nausea dizziness associated generalized weakness and falls at least 3 in the last few days. Patient states appetite is very poor. Recently has lung biopsy last week . Dr Guo is the oncologist. Physical Exam Vital Signs: Temp Pulse Resp BP Pulse Ox 97.3 F 112 H 21 H 102/76 99 08/05/18 09:50 08/05/18 09:50 08/05/18 09:50 08/05/18 09:50 08/05/18 09:50 Intake & Output 08/04/18 08/05/18 08/06/18 06:59 06:59 06:59 Intake Total 1784 1755 480 Output Total 1 Balance 1783 1755 479 Weight 56 kg 56.4 kg General appearance: PRESENT: thin Head exam: PRESENT: atraumatic Eye exam: PRESENT: PERRLA Teeth exam: PRESENT: poor dentation Neck exam: ABSENT: carotid bruit, JVD, lymphadenopathy, thyromegaly Respiratory exam: PRESENT: decreased breath sounds Cardiovascular exam: PRESENT: tachycardia GI/Abdominal exam: PRESENT: normal bowel sounds, soft. ABSENT: distended, guarding, mass, organolmegaly, rebound, tenderness Rectal exam: PRESENT: deferred Extremities exam: PRESENT: full ROM. ABSENT: calf tenderness, clubbing, pedal edema Neurological exam: PRESENT: alert, awake, oriented to person, oriented to place, oriented to time, oriented to situation, CN II-XII grossly intact. ABSENT: motor sensory deficit Psychiatric exam: PRESENT: appropriate affect, normal mood. ABSENT: homicidal ideation, suicidal ideation Results Laboratory Results: 08/05/18 04:47 08/05/18 04:47 08/05/18 08/05/18 04:47 04:47 WBC 7.8 RBC 3.82 L Hgb 12.4 L Hct 36.3 L MCV 95 MCH 32.5 MCHC 34.3 RDW 14.7 H Plt Count 208 Seg Neutrophils % Not Reportable Lymphocytes % Not Reportable Monocytes % Not Reportable Eosinophils % Not Reportable Basophils % Not Reportable Absolute Neutrophils Not Reportable Absolute Lymphocytes Not Reportable Absolute Monocytes Not Reportable Absolute Eosinophils Not Reportable Absolute Basophils Not Reportable Sodium 132.1 L Potassium 5.5 H D Chloride 103 Carbon Dioxide 21 L Anion Gap 8 BUN 9 Creatinine 0.61 Est GFR ( Amer) > 60 Est GFR (Non-Af Amer) > 60 Glucose 85 Calcium 10.2 Magnesium 2.1 Total Bilirubin 0.5 AST 28 ALT 24 Alkaline Phosphatase 83 Total Protein 5.6 L Albumin 3.0 L 08/02/18 08/02/18 08/02/18 08:40 16:03 16:03 Creatine Kinase 27 L CK-MB (CK-2) 0.31 Troponin I 0.041 0.046 NT-Pro-B Natriuret Pep 8690 H 08/02/18 08/02/18 08/03/18 20:26 20:26 03:18 Creatine Kinase 25 L 23 L CK-MB (CK-2) 0.24 Troponin I 0.036 NT-Pro-B Natriuret Pep 08/03/18 08/03/18 08/05/18 03:18 03:18 04:47 Creatine Kinase CK-MB (CK-2) < 0.22 Troponin I 0.028 NT-Pro-B Natriuret Pep 70581 H 35326 H Impressions: Head CT 08/02/18 09:06 IMPRESSION: 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 No acute findings. EVIDENCE OF ACUTE STROKE: NO. Chest X-Ray 08/02/18 09:10 IMPRESSION: Left upper lobe mass partly obscured by the patient's pacemaker No acute infiltrates Qualifiers - * PATIENT BEING DISCHARGED WITH ANY OF THE FOLLOWING DIAGNOSIS: No VTE patient discharged on overlapping Therapy?: No Acute Heart Failure Is this a Heart Failure Patient?: No Plan Time Spent: Greater than 30 Minutes
--- NOTE | 2018-08-05 14:17 | PDOC PROGRESS REPORT ---
Subjective Progress Note for:: 08/05/18 Subjective:: Patient was seen on morning rounds. He is sitting up in chair looking out window and tells me he is ready for discharge. Reason For Visit: HYPOKALEMIA AND HYPONATREMIA Physical Exam Vital Signs: Temp Pulse Resp BP Pulse Ox 97.3 F 112 H 21 H 102/76 99 08/05/18 09:50 08/05/18 09:50 08/05/18 09:50 08/05/18 09:50 08/05/18 09:50 Intake & Output 08/04/18 08/05/18 08/06/18 06:59 06:59 06:59 Intake Total 1784 1755 480 Output Total 1 Balance 1784 1755 479 Weight 56 kg 56.4 kg General appearance: PRESENT: no acute distress, thin Head exam: PRESENT: normocephalic Respiratory exam: PRESENT: unlabored Neurological exam: PRESENT: alert, awake Psychiatric exam: PRESENT: appropriate affect Skin exam: PRESENT: normal color Results Laboratory Results: 08/05/18 04:47 08/05/18 04:47 08/05/18 08/05/18 04:47 04:47 WBC 7.8 RBC 3.82 L Hgb 12.4 L Hct 36.3 L MCV 95 MCH 32.5 MCHC 34.3 RDW 14.7 H Plt Count 208 Seg Neutrophils % Not Reportable Lymphocytes % Not Reportable Monocytes % Not Reportable Eosinophils % Not Reportable Basophils % Not Reportable Absolute Neutrophils Not Reportable Absolute Lymphocytes Not Reportable Absolute Monocytes Not Reportable Absolute Eosinophils Not Reportable Absolute Basophils Not Reportable Sodium 132.1 L Potassium 5.5 H D Chloride 103 Carbon Dioxide 21 L Anion Gap 8 BUN 9 Creatinine 0.61 Est GFR ( Amer) > 60 Est GFR (Non-Af Amer) > 60 Glucose 85 Calcium 10.2 Magnesium 2.1 Total Bilirubin 0.5 AST 28 ALT 24 Alkaline Phosphatase 83 Total Protein 5.6 L Albumin 3.0 L 08/02/18 08/02/18 08/02/18 08:40 16:03 16:03 Creatine Kinase 27 L CK-MB (CK-2) 0.31 Troponin I 0.041 0.046 NT-Pro-B Natriuret Pep 8690 H 08/02/18 08/02/18 08/03/18 20:26 20:26 03:18 Creatine Kinase 25 L 23 L CK-MB (CK-2) 0.24 Troponin I 0.036 NT-Pro-B Natriuret Pep 08/03/18 08/03/18 08/05/18 03:18 03:18 04:47 Creatine Kinase CK-MB (CK-2) < 0.22 Troponin I 0.028 NT-Pro-B Natriuret Pep 84037 H 10014 H Impressions: Head CT 08/02/18 09:06 IMPRESSION: 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 No acute findings. EVIDENCE OF ACUTE STROKE: NO. Chest X-Ray 08/02/18 09:10 IMPRESSION: Left upper lobe mass partly obscured by the patient's pacemaker No acute infiltrates Assessment & Plan - Plan Summary Plan Summary: I discussed with the patient the findings of pathology and PET scans. This appears to be an early stage lung cancer and potentially curable with surgery, chemo and radiation. However, [facility], as we have no thoracic surgeon here in [place]. Patient is quite reluctant to travel for this evaluation. We also discussed the fact that he may not even be a candidate due to his heart for surgery. We discussed chemotherapy and radiation therapy instead of surgery. He would prefer not to have any therapy and we discussed option for palliative care as well. He will consider these things and I will see him again in office to discuss with patient and in detail.
[2018-08-05 14:32] LABS: PATH REVIEW PATHOLOGIST REVIEWED
== END 2018-08-05 10:18 | disposition home or self-care (01) | DRG 641 ==
LOC: ER 08:44 → EH 11:42 → 4N 15:12
PROVIDERS: ADMIT Internal Medicine; ATTEND Internal Medicine
DX: E87.6 Hypokalemia (principal); C34.12 Malignant neoplasm of upper lobe, left bronchus or lung; E44.0 Moderate protein-calorie malnutrition; I50.40 Unspecified combined systolic (congestive) and diastolic (congestive) heart failure; Z68.1 Body mass index [BMI] 19.9 or less, adult; E87.1 Hypo-osmolality and hyponatremia; I11.0 Hypertensive heart disease with heart failure; F41.8 Other specified anxiety disorders; F10.10 Alcohol abuse, uncomplicated; F17.210 Nicotine dependence, cigarettes, uncomplicated; Y90.9 Presence of alcohol in blood, level not specified; Z95.0 Presence of cardiac pacemaker; Z79.01 Long term (current) use of anticoagulants; Z79.82 Long term (current) use of aspirin; Z79.51 Long term (current) use of inhaled steroids; Z79.899 Other long term (current) drug therapy
CPT/HCPCS: 36415; 70450; 71045; 80053; 80061; 81001; 82140; 82550; 82553; 82803; 83735; 83880; 84443; 84484; 85025; 87493; 93005; 93010; 96361; 96365; 96366; 96368; 99285; J3475; J3480; J3490; J7030